=== PATIENT | female | born 1950 | race Caucasian/White ===

== ENCOUNTER → 2018-09-18 | Outpatient (CLI) | payer MEDICARE ==
--- NOTE | 2018-09-18 10:43 | XR ---
EXAMINATION TYPE: XR chest 2V DATE OF EXAM: 09/18/2018 COMPARISON: NONE HISTORY: Routine examination TECHNIQUE: Frontal and lateral views of the chest are obtained. FINDINGS: There is no focal air space opacity, pleural effusion, or pneumothorax seen. Colonic inte rposition appears to be deep to the right hemidiaphragm as there is a thickened interface representin g the colonic wall and hemidiaphragm abutting one another. The cardiac silhouette size is upper limit s of normal. The osseous structures are intact. IMPRESSION: No acute cardiopulmonary process.
== END | disposition home or self-care (01) ==
LOC: RADXRYALE 09:57
PROVIDERS: ATTEND Family Medicine
DX: R06.00 Dyspnea, unspecified (principal)
CPT/HCPCS: 71046

== ENCOUNTER 2020-09-20 07:49 | Day surgery (SDC) | payer MEDICARE ==
[2020-09-16 12:18] VITALS: BMI 28.8
[~2020-09-20 07:49] MED LIST: ACETAMINOPHEN TAB 500 MG TAB PO PRN; DEXAMETHASONE SOD PHOSPHATE 4 MG/ML 1 ML VIAL IV ONE; HEPARIN SODIUM,PORCINE/PF 5,000 UNIT/0.5 ML SYRINGE SQ PRN; HYDROmorphone 0.5 MG/0.5 ML SYRINGE IVP PRN; LACTATED RINGERS 1,000 ML IV SCH; MIDAZOLAM 2 MG/2 ML VIAL IV PRN; ONDANSETRON 4 MG/2 ML VIAL IVP ONE
[2020-09-20 08:20] LABS: Glucose,Whole Blood 212 mg/dL (75-99)
[2020-09-20] MEDS ORDERED: SODIUM CHLORIDE 0.9% 500 ML 500 ML IV ONE (08:26)
[2020-09-20] MEDS ORDERED: LIDOCAINE 1% (10MG/ML) FOR IV START INTRADERMA ONE (08:27)
--- NOTE | 2020-09-20 08:55 | P.GSHP ---
History of Present Illness H&P Date: 09/20/20 Chief Complaint: Malfunctioning peritoneal dialysis catheter Patient or today for peritoneal dialysis catheter removal. Patient had catheter placed and then revised on 2 separate occasions at an outside institution. Despite that the patient never was able to have successful exchanges. Here today for peritoneal dialysis catheter removal. No fevers. No abdominal pain. Past Medical History Past Medical History: Asthma, Coronary Artery Disease (CAD), Chest Pain / Angina, Heart Failure, COPD, Diabetes Mellitus, Eye Disorder, Osteoarthritis (OA), Renal Disease Additional Past Medical History / Comment(s): CURRENTLY ON HEMODIALYSIS ,,, [facility]. L4, L5 and C6 disc degeneration. Stage 4 kidney disease. Rt great toe wound infection recurrent. Macular Degeneration. History of Any Multi-Drug Resistant Organisms: None Reported Past Surgical History: Adenoidectomy, Appendectomy, Section, Heart Catheterization, Heart Catheterization With Stent, Hysterectomy, Tonsillectomy Additional Past Surgical History / Comment(s): Vein ligation right leg, catarcts removed bilaterally. Past Anesthesia/Blood Transfusion Reactions: No Reported Reaction Date of Last Stent Placement:: FEBRUARY 2016, SAYDA PINEDA Smoking Status: Former smoker - Past Family History Mother Family Medical History: Diabetes Mellitus, Hypertension Father Family Medical History: Diabetes Mellitus, Hypertension Medications and Allergies Home Medications Medication Instructions Recorded Confirmed Type Albuterol Sulfate [Proair Hfa] 1 - 2 puff INHALATION Q6HR PRN 09/13/15 09/20/20 History Beclomethasone Dipropionate [Qvar 2 puff INHALATION BID PRN 09/13/15 09/20/20 History 40 mcg/puff] Citalopram Hydrobromide [CeleXA] 20 mg PO QAM 09/13/15 09/20/20 History Furosemide [Lasix] 80 mg PO QAM 09/13/15 09/20/20 History Insulin Glargine [Lantus] 30 unit SQ HS 09/13/15 09/20/20 History Insulin Lispro [humaLOG] 0 units SQ AC-TID PRN 09/13/15 09/20/20 History Isosorbide Mononitrate [Imdur] 20 mg PO BID 09/13/15 09/16/20 History Pravastatin Sodium [Pravachol] 40 mg PO HS 09/13/15 09/20/20 History Vits A,C,E/Lutein/Minerals 2 tab PO DAILY 09/13/15 09/20/20 History [Ocuvite with Lutein Tablet] Clopidogrel [Plavix] 75 mg PO DAILY 07/22/20 09/16/20 History HYDROcodone/APAP 7.5-325MG [[place] 1 tab PO Q8H PRN 07/22/20 09/20/20 History 7.5-325] INSULIN LISPRO (HumaLOG) [humaLOG] 20 unit SQ HS 07/22/20 09/20/20 History Losartan [Cozaar] 50 mg PO PC-SUPPER PRN 07/22/20 09/20/20 History Metoprolol Tartrate [Lopressor] 100 mg PO BID 07/22/20 09/16/20 History Allergies Allergy/AdvReac Type Severity Reaction Status Date / Time No Known Allergies Allergy Verified 09/16/20 12:07 Surgical - Exam Vital Signs Temp Pulse Resp BP Pulse Ox 98.8 F 63 16 144/72 98 09/20/20 08:09 09/20/20 08:09 09/20/20 08:09 09/20/20 08:09 09/20/20 08:09 Physical exam: General: Well-developed, well-nourished HEENT: Normocephalic, sclerae nonicteric Abdomen: Nontender, nondistended, catheter luq Extremities: No edema Neuro: Alert and oriented Results - Labs Abnormal Lab Results - Last 24 Hours (Table) 09/20/20 Range/Units 08:17 POC Glucose (mg/dL) 212 H (75-99) mg/dL Assessment and Plan (1) Peritoneal dialysis catheter dysfunction Narrative/Plan: will proceed with removal Current Visit: Yes Status: Acute Code(s): T85.611A - BREAKDOWN OF INTRAPERITONEAL DIALYSIS CATHETER, INIT SNOMED Code(s): 486305548
[2020-09-20] MEDS ORDERED: BUPIVACAIN-EPI 0.25%-1:200,000 30 ML VIAL SQ ONE ×3 (09:00→09:06)
[2020-09-20] MEDS ORDERED: LIDOCAINE 1% INJ 10MG/ML (20 ML MDV) ONE (09:06)
[2020-09-20] MEDS ORDERED: MIDAZOLAM 2 MG/2 ML VIAL ONE (09:06)
[2020-09-20] MEDS ORDERED: ePHEDrine SULFATE/0.9% NACL/PF 50 MG/5 ML SYRINGE IV ONE (09:06)
[2020-09-20] MEDS ORDERED: PROPOFOL 10 MG/ML 20 ML VIAL IV ONE (09:06)
[2020-09-20] MEDS ORDERED: BUPIVACAIN-EPI 0.5%-1:200,000 30 ML VIAL SQ ONE (09:06)
[2020-09-20] MEDS ORDERED: fentaNYL (PF) 50 MCG/ML 2 ML AMP ONE (09:06)
[2020-09-20] MEDS ORDERED: NALOXONE 0.4 MG/ML 1 ML VIAL IV PRN (09:47)
[2020-09-20] MEDS ORDERED: HYDROcodone/APAP 5-325MG 1 EACH TAB PO PRN (09:47)
--- NOTE | 2020-09-20 09:50 | P.OP ---
Date of Procedure: 09/20/20 Procedure(s) Performed: PREOPERATIVE DIAGNOSIS: Peritoneal dialysis catheter malfunction POSTOPERATIVE DIAGNOSIS: Same with purulent fluid around the catheter PROCEDURE: PD cath removal SURGEON: Quyen EBL: 5 mL ANESTHESIA: General COMPLICATIONS: None OPERATIVE PROCEDURE: Patient was placed in the supine position. The abdomen was prepped and draped in usual sterile fashion. An vertical incision was made overlying the palpable catheter site in the left upper quadrant. As I dissected through the subcutaneous tissues the cuff was noted to be present within the subcutaneous fat. This was carefully dissected. In doing so a moderate amount of purulent fluid was encountered. Cultures were taken. The catheter was then removed from the peritoneal cavity without difficulty. The defect was quite small and given the purulent fluid that I encountered I decided not to leave a fascial suture. The outer cuff was then dissected in a similar fashion and the catheter was completely removed. The area was fully irrigated. No further purulence was seen. I loosely reapproximated both the skin and the subcutaneous tissues using 3-0 Vicryl and 4-0 Monocryl sutures. Sterile outer dressings were applied. DISPOSITION: Stable to recovery room
[2020-09-20 10:02] VITALS: TEMP 98
[2020-09-20 10:16] LABS: Glucose,Whole Blood 144 mg/dL (75-99)
[2020-09-20 11:18] VITALS: RESP 20
[2020-09-20 11:34] VITALS: BP 120/58; PULSE 61
== END 2020-09-20 12:15 | disposition home or self-care (01) ==
LOC: OR 07:49
PROVIDERS: ATTEND Surgery
DX: T85.611A Breakdown (mechanical) of intraperitoneal dialysis catheter, initial encounter (principal); E11.22 Type 2 diabetes mellitus with diabetic chronic kidney disease; I13.2 Hypertensive heart and chronic kidney disease with heart failure and with stage 5 chronic kidney disease, or end stage renal disease; I50.9 Heart failure, unspecified; N18.6 End stage renal disease; I25.119 Atherosclerotic heart disease of native coronary artery with unspecified angina pectoris; J45.909 Unspecified asthma, uncomplicated; J44.9 Chronic obstructive pulmonary disease, unspecified; M19.90 Unspecified osteoarthritis, unspecified site; Z99.2 Dependence on renal dialysis; M50.323 Other cervical disc degeneration at C6-C7 level; M51.36 Other intervertebral disc degeneration, lumbar region; H35.30 Unspecified macular degeneration; Z90.89 Acquired absence of other organs; Z90.49 Acquired absence of other specified parts of digestive tract; Z98.891 History of uterine scar from previous surgery; Z90.710 Acquired absence of both cervix and uterus; Z98.890 Other specified postprocedural states; Z98.42 Cataract extraction status, left eye; Z98.41 Cataract extraction status, right eye; Z87.891 Personal history of nicotine dependence; Z83.3 Family history of diabetes mellitus; Z82.49 Family history of ischemic heart disease and other diseases of the circulatory system; Z79.4 Long term (current) use of insulin; Z79.899 Other long term (current) drug therapy; Z79.02 Long term (current) use of antithrombotics/antiplatelets
CPT/HCPCS: 87070; 87205; 87075; 49422; J2250; J1100; J0690; J2405; J2001; J3010; J2704; J1644

== ENCOUNTER 2020-09-29 11:26 | Day surgery (SDC) | payer MEDICARE ==
[2020-09-27 13:27] VITALS: BMI 28.8
[~2020-09-29 11:26] MED LIST changes: -ACETAMINOPHEN TAB 500 MG TAB PO PRN; -DEXAMETHASONE SOD PHOSPHATE 4 MG/ML 1 ML VIAL IV ONE; -HEPARIN SODIUM,PORCINE/PF 5,000 UNIT/0.5 ML SYRINGE SQ PRN; +LIDOCAINE 1% (10MG/ML) FOR IV START INTRADERMA PRN; -MIDAZOLAM 2 MG/2 ML VIAL IV PRN; -ONDANSETRON 4 MG/2 ML VIAL IVP ONE; +ONDANSETRON 4 MG/2 ML VIAL IVP PRN
[2020-09-29 12:10] LABS: Glucose,Whole Blood 83 mg/dL (75-99)
[2020-09-29 12:24] VITALS: RESP 16; TEMP 98.8
[2020-09-29] MEDS ORDERED: MIDAZOLAM 2 MG/2 ML VIAL IV ONE (12:44)
[2020-09-29] MEDS ORDERED: MIDAZOLAM 2 MG/2 ML VIAL IVP ONE (13:27)
[2020-09-29 13:40] LABS: Glucose,Whole Blood 63 mg/dL (75-99)
[2020-09-29] MEDS ORDERED: DEXTROSE 50% SYRINGE 50 ML IVP ONE (13:42)
[2020-09-29] MEDS ORDERED: PROPOFOL 10 MG/ML 20 ML VIAL IV ONE (13:44)
[2020-09-29] MEDS ORDERED: MIDAZOLAM 2 MG/2 ML VIAL ONE (13:44)
[2020-09-29] MEDS ORDERED: fentaNYL (PF) 50 MCG/ML 2 ML AMP ONE (13:44)
[2020-09-29] MEDS ORDERED: ROPIVACAINE 5 MG/ML 30 ML VIAL ONE (13:44)
[2020-09-29] MEDS ORDERED: HEPARIN SODIUM,PORCINE 5,000 UNIT/ML 1 ML VIAL ONE (13:44)
[2020-09-29] MEDS ORDERED: KETAMINE 10 MG/ML 20 ML VIAL ONE (13:44)
--- NOTE | 2020-09-29 13:47 | P.HPIHPCON ---
History of Present Illness H&P Date: 09/29/20 The patient is a 69-year-old female with end-stage renal disease receiving dialysis via a right chest wall tunneled catheter at this time she presents for left upper extremity loop forearm graft. She is found to have smaller caliber vessels and upper extremity therefore hopefully this will increase her sizing and allow for a fistula in the future. She denies any fevers, chills, nausea, vomiting or issues otherwise. She receives dialysis Sunday, and Sunday. Consent for Procedure: I have explained the operation/procedure to the patient, including the risks, benefits, side effects, alternative therapies (including not receiving the proposed treatment or service), the likelihood of the patient achieving his/her goals, and potential recuperation problems for the procedure/sedation/analgesia, as well as any blood products, if indicated. I also explained to the patient the risks, benefits and side effects of the alternatives, as well as the risks relat ed to not receiving the proposed procedure, care, treatment, or services. Past Medical History Past Medical History: Asthma, Coronary Artery Disease (CAD), Chest Pain / Angina, Heart Failure, COPD, Diabetes Mellitus, Eye Disorder, Hyperlipidemia, Hypertension, Osteoarthritis (OA), Renal Disease Additional Past Medical History / Comment(s): Peritoneal dialysis catheter removed -receives HEMODIALYSIS ,[place] @ [facility] THROUGH RIGHT UPPER CHEST CATHETER., DDD-L4, L5 and C6 ., Stage 4 kidney disease. Rt great toe wound infection recurrent., Macular Degeneration. History of Any Multi-Drug Resistant Organisms: None Reported Past Surgical History: Adenoidectomy, Appendectomy, Section, Heart Catheterization, Heart Catheterization With Stent, Hysterectomy, Tonsillectomy Additional Past Surgical History / Comment(s): Vein ligation right leg, catarcts removed bilaterally., peritoneal dialysis catheter removed. Past Anesthesia/Blood Transfusion Reactions: Postoperative Nausea & Vomiting (PONV) Date of Last Stent Placement:: FEBRUARY 2016, SAYDA PINEDA Past Psychological History: Anxiety, Depression Additional Psychological History / Comment(s): PTS SPOUSE FROM COVID AUGUST 2020 Smoking Status: Former smoker Past Alcohol Use History: None Reported Additional Past Alcohol Use History / Comment(s): QUIT SMOKING ABOUT 25 YRS AGO, SMOKED 3/4 PPD. Past Drug Use History: None Reported - Past Family History Mother Family Medical History: Diabetes Mellitus, Hypertension Father Family Medical History: Diabetes Mellitus, Hypertension Medications and Allergies Home Medications Medication Instructions Recorded Confirmed Type Albuterol Sulfate [Proair Hfa] 1 - 2 puff INHALATION Q6HR PRN 09/13/15 09/29/20 History Beclomethasone Dipropionate [Qvar 2 puff INHALATION BID PRN 09/13/15 09/29/20 History 40 mcg/puff] Citalopram Hydrobromide [CeleXA] 20 mg PO QAM 09/13/15 09/29/20 History Furosemide [Lasix] 80 mg PO QAM 09/13/15 09/29/20 History Insulin Glargine [Lantus] 30 unit SQ HS 09/13/15 09/29/20 History Insulin Lispro [humaLOG] 0 units SQ AC-TID PRN 09/13/15 09/29/20 History Isosorbide Mononitrate [Imdur] 20 mg PO BID 09/13/15 09/29/20 History Pravastatin Sodium [Pravachol] 40 mg PO HS 09/13/15 09/29/20 History Vits A,C,E/Lutein/Minerals 2 tab PO DAILY 09/13/15 09/29/20 History [Ocuvite with Lutein Tablet] Clopidogrel [Plavix] 75 mg PO DAILY 07/22/20 09/29/20 History HYDROcodone/APAP 7.5-325MG [[place] 1 tab PO Q8H PRN 07/22/20 09/29/20 History 7.5-325] INSULIN LISPRO (HumaLOG) [humaLOG] 25 unit SQ HS 07/22/20 09/29/20 History Losartan [Cozaar] 50 mg PO PC-SUPPER PRN 07/22/20 09/29/20 History Metoprolol Tartrate [Lopressor] 100 mg PO BID 07/22/20 09/29/20 History Amoxic-Pot Clav 875-125Mg 1 tab PO Q12HR 7 Days #14 tab 09/20/20 09/29/20 Rx [Augmentin 875-125] Calcium Acetate [Phoslo] 1,334 mg PO TID-W/MEALS 09/27/20 09/29/20 History Ergocalciferol [Vitamin D2 (1250 1,250 mcg PO WEEKLY 09/27/20 09/29/20 History Mcg = 53147 Iu)] Gabapentin [Neurontin] 300 mg PO BID 09/27/20 09/29/20 History hydrALAZINE HCL [Apresoline] 25 mg PO HS PRN 09/27/20 09/29/20 History Allergies Allergy/AdvReac Type Severity Reaction Status Date / Time No Known Allergies Allergy Verified 09/29/20 11:49 Surgical - Exam Vital Signs Temp Pulse Resp BP Pulse Ox 98.8 F 65 16 147/71 98 09/29/20 11:50 09/29/20 11:50 09/29/20 11:50 09/29/20 11:50 09/29/20 11:50 Gen. is a pleasant cooperative female in no acute distress. HEENT is normocephalic, atraumatic, extraocular motion intact. Heart is regular in rate and rhythm at this time. Lungs are clear bilaterally. Abdomen is soft, nontender nondistended. Extremity show no clubbing, cyanosis or edema. Right chest wall tunneled catheter in place and functioning. No erythema or drainage. Normal mood and affect. Cranial nerves II through XII grossly intact. Results - Labs 09/29/20 12:05 Abnormal Lab Results - Last 24 Hours (Table) 09/29/20 09/29/20 Range/Units 12:05 13:38 Potassium 5.6 H (3.5-5.1) mmol/L POC Glucose (mg/dL) 63 L (75-99) mg/dL Diabetes panel 09/29/20 Range/Units 12:05 Potassium 5.6 H (3.5-5.1) mmol/L Pituitary panel 09/29/20 Range/Units 12:05 Potassium 5.6 H (3.5-5.1) mmol/L Adrenal panel 09/29/20 Range/Units 12:05 Potassium 5.6 H (3.5-5.1) mmol/L Assessment and Plan Assessment: End-stage renal disease Plan: Plan to go forward with a left upper extremity loop forearm graft. Risks and benefits were discussed with the patient seemingly understands and is willing to proceed as such
[2020-09-29] MEDS ORDERED: LIDOCAINE 1% INJ 10MG/ML (20 ML MDV) SQ ONE (14:14)
[2020-09-29] MEDS ORDERED: BUPIVACAINE (PF) 0.5% 30 ML VIAL SQ ONE (14:14)
[2020-09-29] MEDS ORDERED: ceFAZolin 2 GM in SODIUM CHLORIDE 0.9% 500 ML 500 ML IRRIGATION ONE (14:27)
[2020-09-29] MEDS ORDERED: HEPARIN SODIUM,PORCINE 2,000 UNIT in SODIUM CHLORIDE 0.9% 500 ML 500 ML IRRIGATION ONE (14:27)
[2020-09-29 15:51] LABS: Glucose,Whole Blood 98 mg/dL (75-99)
[2020-09-29 16:07] VITALS: PULSE 66
--- NOTE | 2020-09-29 16:14 | P.OP ---
Date of Procedure: 09/29/20 Description of Procedure: Preoperative diagnosis: End-stage renal disease Postoperative diagnosis: Same Procedure: [Left upper extremity creation of loop AV graft] Surgeon: Virginie Maher D.O. EBL: [30 mL] Anesthesia: MAC with regional block IV fluids: [See anesthesia records] Urine output: [Not measured] Drains: None[] Complications: [None immediately apparent] Condition: [Stable to PACU] Operative indication and findings: [The patient is a 69-year-old female with end-stage renal disease who presents for dialysis access creation. Given her marginal size upper extremity veins it was decided that a loop forearm graft would be created. She is currently getting dialysis through a right chest wall catheter. She had dialysis yesterday. Some benefits were discussed with the patient the preoperative period. She seemingly understood and was willing to proceed.] Procedure in detail: [The patient was taken to the operative suite and placed in supine position. Left upper extremity was prepped and draped in usual sterile fashion. A preprocedure timeout was performed, all parties are in agreement. After adequate anesthesia and antibiotics were given, an ultrasound was utilized in the brachial artery and superficial veins were identified. This overlying the brachial artery to median cubital vein was identified and found to be adequate on ultrasound. A transverse incision was made just distally to the antecubital fossa and carried down through the subcutaneous tissues. The median cubital vein was identified. It was encircled proximally and distally. Further dissection was carried down to the brachial artery. It was dissected proximally and distally and encircled with vessel loops. At that point the graft was tunneled with a counterincision distally in the forearm. The patient was heparinized. Flow was occluded through the brachial artery and an arteriotomy is created. The 4 mm portion of the graft was anastomosed with 6-0 Prolene. Prior to completion of the anastomosis the artery was flushed with good return. The anastomosis completed. The graft was flushed with heparinized saline and occluded at the counterincision. A venotomy was then created and anastomosis was performed with 6-0 Prolene. Prior to completion of the anastomosis the vein was allowed to backbleed. The arteries forward bled and the anastomosis was completed. Doppler was utilized with good multiphasic flow.There was a thrill n the graft with good augmentation. She maintained a palpble radial pulse. Hemostasis was achieved with Surgicel. The area was copiously irrigated. The subcuticular tissues were reapproximated with 3-0 Vicryl in interrupted fashion. The skin was reapproximated with running 4-0 Monocryl. Glue was placed. The patient was awakened from anesthesia and transferred to PACU in stable condition and tolerated the procedure well. Plan - Discharge Summary New Discharge Prescriptions: New HYDROcodone/APAP 5-325MG [[place] 5-325] 1 tab PO Q4HR PRN 3 Days #12 tab PRN Reason: Pain No Action Insulin Glargine [Lantus] 30 unit SQ HS Vits A,C,E/Lutein/Minerals [Ocuvite with Lutein Tablet] 2 tab PO DAILY Albuterol Sulfate [Proair Hfa] 1 - 2 puff INHALATION Q6HR PRN PRN Reason: Dyspnea Beclomethasone Dipropionate [Qvar 40 mcg/puff] 2 puff INHALATION BID PRN PRN Reason: Shortness Of Breath Or Wheezing Citalopram Hydrobromide [CeleXA] 20 mg PO QAM Pravastatin Sodium [Pravachol] 40 mg PO HS Furosemide [Lasix] 80 mg PO QAM Isosorbide Mononitrate [Imdur] 20 mg PO BID Insulin Lispro [humaLOG] 0 units SQ AC-TID PRN PRN Reason: Per Protocol Clopidogrel [Plavix] 75 mg PO DAILY HYDROcodone/APAP 7.5-325MG [[place] 7.5-325] 1 tab PO Q8H PRN PRN Reason: BACK PAIN INSULIN LISPRO (HumaLOG) [humaLOG] 25 unit SQ HS Losartan [Cozaar] 50 mg PO PC-SUPPER PRN PRN Reason: bp above 170 Metoprolol Tartrate [Lopressor] 100 mg PO BID Gabapentin [Neurontin] 300 mg PO BID Ergocalciferol [Vitamin D2 (1250 Mcg = 93762 Iu)] 1,250 mcg PO WEEKLY Amoxic-Pot Clav 875-125Mg [Augmentin 875-125] 1 tab PO Q12HR 7 Days #14 tab hydrALAZINE HCL [Apresoline] 25 mg PO HS PRN PRN Reason: bp above 170 Calcium Acetate [Phoslo] 1,334 mg PO TID-W/MEALS Discharge Medication List Albuterol Sulfate [Proair Hfa] 1 - 2 puff INHALATION Q6HR PRN 09/13/15 [History] Beclomethasone Dipropionate [Qvar 40 mcg/puff] 2 puff INHALATION BID PRN 09/13/15 [History] Citalopram Hydrobromide [CeleXA] 20 mg PO QAM 09/13/15 [History] Furosemide [Lasix] 80 mg PO QAM 09/13/15 [History] Insulin Glargine [Lantus] 30 unit SQ HS 09/13/15 [History] Insulin Lispro [humaLOG] 0 units SQ AC-TID PRN 09/13/15 [History] Isosorbide Mononitrate [Imdur] 20 mg PO BID 09/13/15 [History] Pravastatin Sodium [Pravachol] 40 mg PO HS 09/13/15 [History] Vits A,C,E/Lutein/Minerals [Ocuvite with Lutein Tablet] 2 tab PO DAILY 09/13/15 [History] Clopidogrel [Plavix] 75 mg PO DAILY 07/22/20 [History] HYDROcodone/APAP 7.5-325MG [[place] 7.5-325] 1 tab PO Q8H PRN 07/22/20 [History] INSULIN LISPRO (HumaLOG) [humaLOG] 25 unit SQ HS 07/22/20 [History] Losartan [Cozaar] 50 mg PO PC-SUPPER PRN 07/22/20 [History] Metoprolol Tartrate [Lopressor] 100 mg PO BID 07/22/20 [History] Amoxic-Pot Clav 875-125Mg [Augmentin 875-125] 1 tab PO Q12HR 7 Days #14 tab 09/20/20 [Rx] Calcium Acetate [Phoslo] 1,334 mg PO TID-W/MEALS 09/27/20 [History] Ergocalciferol [Vitamin D2 (1250 Mcg = 02337 Iu)] 1,250 mcg PO WEEKLY 09/27/20 [History] Gabapentin [Neurontin] 300 mg PO BID 09/27/20 [History] hydrALAZINE HCL [Apresoline] 25 mg PO HS PRN 09/27/20 [History] HYDROcodone/APAP 5-325MG [[place] 5-325] 1 tab PO Q4HR PRN 3 Days #12 tab 09/29/20 [Rx] Activity/Diet/Wound Care/Special Instructions: Remove wrap in 48h. May shower then. Resume home medications including plavix tomorrow. Follow up with me in the office in 2 weeks Discharge Disposition: HOME SELF-CARE
[2020-09-29 16:34] VITALS: BP 106/58
== END 2020-09-29 17:05 | disposition home or self-care (01) ==
LOC: OR 11:26
PROVIDERS: ATTEND Surgery
DX: I13.2 Hypertensive heart and chronic kidney disease with heart failure and with stage 5 chronic kidney disease, or end stage renal disease (principal); I50.9 Heart failure, unspecified; N18.6 End stage renal disease; E11.22 Type 2 diabetes mellitus with diabetic chronic kidney disease; Z99.2 Dependence on renal dialysis; I25.10 Atherosclerotic heart disease of native coronary artery without angina pectoris; J44.9 Chronic obstructive pulmonary disease, unspecified; E78.5 Hyperlipidemia, unspecified; M19.90 Unspecified osteoarthritis, unspecified site; H35.30 Unspecified macular degeneration; Z90.89 Acquired absence of other organs; Z98.891 History of uterine scar from previous surgery; Z95.5 Presence of coronary angioplasty implant and graft; Z90.710 Acquired absence of both cervix and uterus; Z98.42 Cataract extraction status, left eye; Z98.41 Cataract extraction status, right eye; Z87.891 Personal history of nicotine dependence; Z83.3 Family history of diabetes mellitus; Z82.49 Family history of ischemic heart disease and other diseases of the circulatory system; Z79.02 Long term (current) use of antithrombotics/antiplatelets; Z79.4 Long term (current) use of insulin; Z79.899 Other long term (current) drug therapy
CPT/HCPCS: 36830; 84132; L8670; J2250; J1644; J0690; J2405; J2001; J3010; J2795; J2704; 64415; 76942

== ENCOUNTER → 2020-11-22 | Outpatient (CLI) | payer MEDICARE ==
--- NOTE | 2020-11-22 12:57 | XR ---
EXAMINATION TYPE: XR forearm LT DATE OF EXAM: 11/22/2020 CLINICAL HISTORY: Fistula, arm swelling which meet TECHNIQUE: Two views of the left forearm are obtained. COMPARISON: None. FINDINGS: There is no acute fracture or dislocation seen in the left radius or ulna. There is soft t issue swelling of the left forearm with a fistula in place. Please correlate for possible infection. IMPRESSION: There is soft tissue swelling of the left forearm with a fistula in place. Please correlate for possi ble infection.
== END | disposition home or self-care (01) ==
LOC: RADXRYALE 10:35
PROVIDERS: ATTEND Family Medicine
DX: M79.89 Other specified soft tissue disorders (principal)

== ENCOUNTER → 2021-01-12 | Outpatient (CLI) | payer MEDICARE ==
--- NOTE | 2021-01-12 14:52 | XR ---
EXAMINATION TYPE: XR knee complete bilateral DATE OF EXAM: 01/12/2021 CLINICAL HISTORY: pain TECHNIQUE: Three views of the bilateral knees are obtained. COMPARISON: None. FINDINGS: There is no acute fracture/dislocation. The tri-compartment joint spaces appear moderatel y narrowed on the right and severely narrowed on the left. The overlying soft tissue appears unremark able. IMPRESSION: There is no acute fracture or dislocation ICD 10 NO FRACTURE, INITIAL EVALUATION
== END | disposition home or self-care (01) ==
LOC: RADXRYALE 14:25
PROVIDERS: ATTEND Family Medicine
DX: M25.561 Pain in right knee (principal); M25.562 Pain in left knee

== ENCOUNTER → 2021-08-15 | Outpatient (CLI) | payer OTHER, MEDICARE ==
--- NOTE | 2021-08-15 10:41 | XR ---
EXAMINATION TYPE: XR chest 2V DATE OF EXAM: 08/15/2021 COMPARISON: 09/18/18 HISTORY: Shortness of breath TECHNIQUE: Frontal and lateral views of the chest are obtained. FINDINGS: Scattered senescent parenchymal changes noted. Hyperinflation compatible with COPD. No evidence for infiltrate. No evidence for atelectasis. Heart size is stable. Mediastinal structures are stable and grossly unremarkable. No evidence for hilar prominence. Degenerative changes dorsal spine. IMPRESSION: 1. No evidence for acute pulmonary disease.
== END | disposition home or self-care (01) ==
LOC: RADXRYALE 10:02
PROVIDERS: ATTEND Surgery
DX: R06.02 Shortness of breath (principal); Z76.82 Awaiting organ transplant status
CPT/HCPCS: 71046

== ENCOUNTER → 2021-12-19 | Outpatient (CLI) | payer MEDICARE ==
--- NOTE | 2021-12-19 18:09 | XR ---
EXAMINATION TYPE: XR cervical spine 4 views comp, XR shoulder complete 3 views RT DATE OF EXAM: 12/19/2021 COMPARISON: None HISTORY: 71-year-old female [id number], [id number], [id number] PAIN/INFLAM RT SHLD, HX RT SHLD FINDINGS: Cervical spine: Uncovertebral joint and facet arthropathy mid to lower cervical spine. Mild to moderate facet simply degenerative change C4-C7 levels. Variable mild bony neuroforaminal narrowing throughout. The cervico thoracic junction is obscured by the patient's shoulders and not assessed. Right shoulder: Severe degenerative change at the glenohumeral joint with [id number] articulation. Bulky anterior s purring is present. Bony irregularity at the greater tuberosity. AC joint appears intact. Subacromial space is preserved. No acute fracture or dislocation. IMPRESSION: 1. Cervical spine: Moderate spondylotic change mid to lower cervical spine. The cervicothoracic junct ion is obscured by the patient's shoulders and not assessed. Otherwise, remaining alignment is mainta ined. Very mild bony neural foraminal narrowing on both sides. 2. Right shoulder: End-stage [id number] right glenohumeral joint OA. Bony changes of chronic rotato r cuff tendinopathy.
== END ==
LOC: RADXRYALE 14:33
PROVIDERS: ATTEND Family Medicine
DX: M47.812 Spondylosis without myelopathy or radiculopathy, cervical region (principal); M19.011 Primary osteoarthritis, right shoulder; M99.71 Connective tissue and disc stenosis of intervertebral foramina of cervical region; Z87.81 Personal history of (healed) traumatic fracture
CPT/HCPCS: 72050

== ENCOUNTER 2022-04-27 12:37 | Inpatient (IN) | payer MEDICARE ==
[2022-04-27] MEDS ORDERED: LABETALOL SYRINGE 5 MG/ML IVP STA (12:39)
[2022-04-27 12:54] LABS: Glucose,Whole Blood 104 mg/dL (70-110)
[2022-04-27] MEDS ORDERED: SUCCINYLCHOLINE CHLORIDE 200 MG/10 ML VIAL IV STA (13:05)
[2022-04-27] MEDS ORDERED: MIDAZOLAM 1 MG/ML 5 ML VIAL IV STA (13:05)
--- NOTE | 2022-04-27 13:26 | ED ---
Neuro HPI - General Chief Complaint: Neuro Symptoms/Deficit Stated Complaint: Unresponsive Time Seen by Provider: 04/27/22 12:37 Source: patient, RN notes reviewed Mode of arrival: EMS Limitations: altered mental status, physical limitation - History of Present Illness Is the patient presenting with stroke symptoms?: Yes Initial Comments: 71-year-old female with history of end-stage renal disease on dialysis hypertension type 2 diabetes CHF COPD who did not show up for her dialysis this morning and police was out for a well check. He did have to break into the house. Patient does live alone. Patient was not responsive. She was transported here by EMS she was found have a GCS of approximately 6 she did demonstrate apparently some right-sided facial droop as well as apparent corticated posturing. Patient was unable answer any type of questioning. Glucose was adequate. She was found be hypertensive. No other information available her last known well time was unknown. No known prior history of strokes. No known history of seizures. - Related Data Home Medications: Home Medications Medication Instructions Recorded Confirmed Albuterol Sulfate [Proair Hfa] 1 - 2 puff INHALATION Q6HR PRN 09/13/15 09/29/20 Pravastatin Sodium [Pravachol] 40 mg PO HS 09/13/15 09/29/20 Clopidogrel [Plavix] 75 mg PO DAILY 07/22/20 09/29/20 HYDROcodone/APAP 7.5-325MG [[place] 1 tab PO Q8H PRN 07/22/20 09/29/20 7.5-325] Metoprolol Tartrate [Lopressor] 100 mg PO BID 07/22/20 09/29/20 Calcium Acetate [Phoslo] 1,334 mg PO TID-W/MEALS 09/27/20 09/29/20 Ergocalciferol [Vitamin D2 (1250 1,250 mcg PO WEEKLY 09/27/20 09/29/20 Mcg = 19668 Iu)] Gabapentin [Neurontin] 300 mg PO BID 09/27/20 09/29/20 hydrALAZINE HCL [Apresoline] 25 mg PO HS PRN 09/27/20 09/29/20 DULoxetine HCL [Cymbalta] 60 mg PO DAILY 04/27/22 04/27/22 Doxycycline Hyclate 100 mg PO DIRECTED 04/27/22 04/27/22 Furosemide [Lasix] 80 mg PO DAILY 04/27/22 04/27/22 Insulin Glargine,Hum.rec.anlog 40 - 50 units SQ DAILY 04/27/22 04/27/22 [Lantus Solostar Pen] Insulin Lispro [humaLOG Kwikpen] 0 - 30 unit SQ AC-TID 04/27/22 04/27/22 Isosorbide Dinitrate 10 mg PO BID 04/27/22 04/27/22 Lidocaine-Prilocaine Cream [Emla 1 applic TOPICAL DAILY PRN 04/27/22 04/27/22 Cream 2.5%/2.5%] Montelukast [Singulair] 10 mg PO DAILY 04/27/22 04/27/22 Nephro-Chelsey 1 tab PO DAILY 04/27/22 04/27/22 Sevelamer [Renvela] 1,600 mg PO TID-W/MEALS 04/27/22 04/27/22 Triamcinolone 0.025% Cream 1 applic TOPICAL BID PRN 04/27/22 04/27/22 [Kenalog 0.025% Cream] predniSONE 10 mg PO DIRECTED 04/27/22 04/27/22 Allergies/Adverse Reactions: Allergies Allergy/AdvReac Type Severity Reaction Status Date / Time No Known Allergies Allergy Verified 09/29/20 11:49 Review of Systems ROS Statement: Those systems with pertinent positive or pertinent negative responses have been documented in the HPI. ROS Other: All systems not noted in ROS Statement are negative. Limitations: ROS unobtainable due to patients medical condition General Exam - General Exam Comments Initial Comments: This is a well-developed well-nourished unresponsive female who does groan she is coughing with green colored phlegm noted. Unclear whether she aspirated. Limitations: altered mental status, physical limitation General appearance: obtunded Head exam: Present: atraumatic, normocephalic, normal inspection Eye exam: Present: normal appearance, PERRL, EOMI. Absent: scleral icterus, conjunctival injection, periorbital swelling ENT exam: Present: other (Mucus noted in the posterior pharynx) Neck exam: Present: normal inspection, other Respiratory exam: Present: decreased breath sounds (Given her bruits) Cardiovascular Exam: Present: regular rate, normal rhythm, normal heart sounds. Absent: systolic murmur, diastolic murmur, rubs, gallop, clicks GI/Abdominal exam: Present: soft. Absent: bruit, pulsatile mass Rectal exam: Present: deferred Extremities exam: Present: pedal edema, other (Evidence of decorticate posturing) Neurological exam: Present: altered, motor sensory deficit, other (Patient was noted to be moaning and clenching her teeth). Absent: CN II-XII intact Psychiatric exam: Present: other (Unable to evaluate) Skin exam: Present: warm, dry, intact, normal color. Absent: rash Stroke MDM - Lab Data Result diagrams: 04/27/22 13:14 04/27/22 13:14 Lab Results 04/27/22 04/27/22 04/27/22 Range/Units 12:52 13:14 13:14 WBC 17.3 H (3.8-10.6) k/uL RBC 4.11 (3.80-5.40) m/uL Hgb 12.3 (11.4-16.0) gm/dL Hct 38.4 (34.0-46.0) % MCV 93.3 (80.0-100.0) fL MCH 29.8 (25.0-35.0) pg MCHC 31.9 (31.0-37.0) g/dL RDW 14.8 (11.5-15.5) % Plt Count 516 H (150-450) k/uL MPV 7.4 Neutrophils % 90 % Lymphocytes % 6 % Monocytes % 3 % Eosinophils % 0 % Basophils % 1 % Neutrophils # 15.5 H (1.3-7.7) k/uL Lymphocytes # 1.0 (1.0-4.8) k/uL Monocytes # 0.5 (0-1.0) k/uL Eosinophils # 0.0 (0-0.7) k/uL Basophils # 0.1 (0-0.2) k/uL Hypochromasia Moderate PT 9.5 (9.0-12.0) sec INR 0.9 (<1.2) APTT 21.0 L (22.0-30.0) sec Sodium (137-145) mmol/L Potassium (3.5-5.1) mmol/L Chloride (98-107) mmol/L Carbon Dioxide (22-30) mmol/L Anion Gap mmol/L BUN (7-17) mg/dL Creatinine (0.52-1.04) mg/dL Est GFR (CKD-EPI)AfAm (>60 ml/min/1.73 sqM) Est GFR (CKD-EPI)NonAf (>60 ml/min/1.73 sqM) Glucose (74-99) mg/dL POC Glucose (mg/dL) 104 (70-110) mg/dL POC Glu Binder Chainstitch ID Andrea Mclaughlin Plasma Lactic Acid [place] (0.7-2.0) mmol/L Calcium (8.4-10.2) mg/dL Total Bilirubin (0.2-1.3) mg/dL AST (14-36) U/L ALT (4-34) U/L Alkaline Phosphatase (38-126) U/L Troponin I (0.000-0.034) ng/mL Total Protein (6.3-8.2) g/dL Albumin (3.5-5.0) g/dL Urine Color Urine Appearance (Clear) Urine pH (5.0-8.0) Ur Specific [place] (1.001-1.035) Urine Protein (Negative) Urine Glucose (UA) (Negative) Urine Ketones (Negative) Urine Blood (Negative) Urine Nitrite (Negative) Urine Bilirubin (Negative) Urine Urobilinogen (<2.0) mg/dL Ur Leukocyte Esterase (Negative) Urine RBC (0-5) /hpf Urine WBC (0-5) /hpf Ur Squamous Epith Cells (0-4) /hpf Urine Bacteria (None) /hpf Urine Mucus (None) /hpf 04/27/22 04/27/22 04/27/22 Range/Units 13:14 13:14 13:20 WBC (3.8-10.6) k/uL RBC (3.80-5.40) m/uL Hgb (11.4-16.0) gm/dL Hct (34.0-46.0) % MCV (80.0-100.0) fL MCH (25.0-35.0) pg MCHC (31.0-37.0) g/dL RDW (11.5-15.5) % Plt Count (150-450) k/uL MPV Neutrophils % % Lymphocytes % % Monocytes % % Eosinophils % % Basophils % % Neutrophils # (1.3-7.7) k/uL Lymphocytes # (1.0-4.8) k/uL Monocytes # (0-1.0) k/uL Eosinophils # (0-0.7) k/uL Basophils # (0-0.2) k/uL Hypochromasia PT (9.0-12.0) sec INR (<1.2) APTT (22.0-30.0) sec Sodium 136 L (137-145) mmol/L Potassium 5.4 H (3.5-5.1) mmol/L Chloride 97 L (98-107) mmol/L Carbon Dioxide 26 (22-30) mmol/L Anion Gap 13 mmol/L BUN 44 H (7-17) mg/dL Creatinine 6.03 H (0.52-1.04) mg/dL Est GFR (CKD-EPI)AfAm 8 (>60 ml/min/1.73 sqM) Est GFR (CKD-EPI)NonAf 7 (>60 ml/min/1.73 sqM) Glucose 123 H (74-99) mg/dL POC Glucose (mg/dL) (70-110) mg/dL POC Glu Binder Chainstitch ID Plasma Lactic Acid [place] 1.4 (0.7-2.0) mmol/L Calcium 8.8 (8.4-10.2) mg/dL Total Bilirubin 0.7 (0.2-1.3) mg/dL AST 22 (14-36) U/L ALT 18 (4-34) U/L Alkaline Phosphatase 93 (38-126) U/L Troponin I 0.107 H* (0.000-0.034) ng/mL Total Protein 7.0 (6.3-8.2) g/dL Albumin 3.8 (3.5-5.0) g/dL Urine Color Urine Appearance (Clear) Urine pH (5.0-8.0) Ur Specific [place] (1.001-1.035) Urine Protein (Negative) Urine Glucose (UA) (Negative) Urine Ketones (Negative) Urine Blood (Negative) Urine Nitrite (Negative) Urine Bilirubin (Negative) Urine Urobilinogen (<2.0) mg/dL Ur Leukocyte Esterase (Negative) Urine RBC (0-5) /hpf Urine WBC (0-5) /hpf Ur Squamous Epith Cells (0-4) /hpf Urine Bacteria (None) /hpf Urine Mucus (None) /hpf 04/27/22 Range/Units 13:44 WBC (3.8-10.6) k/uL RBC (3.80-5.40) m/uL Hgb (11.4-16.0) gm/dL Hct (34.0-46.0) % MCV (80.0-100.0) fL MCH (25.0-35.0) pg MCHC (31.0-37.0) g/dL RDW (11.5-15.5) % Plt Count (150-450) k/uL MPV Neutrophils % % Lymphocytes % % Monocytes % % Eosinophils % % Basophils % % Neutrophils # (1.3-7.7) k/uL Lymphocytes # (1.0-4.8) k/uL Monocytes # (0-1.0) k/uL Eosinophils # (0-0.7) k/uL Basophils # (0-0.2) k/uL Hypochromasia PT (9.0-12.0) sec INR (<1.2) APTT (22.0-30.0) sec Sodium (137-145) mmol/L Potassium (3.5-5.1) mmol/L Chloride (98-107) mmol/L Carbon Dioxide (22-30) mmol/L Anion Gap mmol/L BUN (7-17) mg/dL Creatinine (0.52-1.04) mg/dL Est GFR (CKD-EPI)AfAm (>60 ml/min/1.73 sqM) Est GFR (CKD-EPI)NonAf (>60 ml/min/1.73 sqM) Glucose (74-99) mg/dL POC Glucose (mg/dL) (70-110) mg/dL POC Glu Binder Chainstitch ID Plasma Lactic Acid [place] (0.7-2.0) mmol/L Calcium (8.4-10.2) mg/dL Total Bilirubin (0.2-1.3) mg/dL AST (14-36) U/L ALT (4-34) U/L Alkaline Phosphatase (38-126) U/L Troponin I (0.000-0.034) ng/mL Total Protein (6.3-8.2) g/dL Albumin (3.5-5.0) g/dL Urine Color Light Yellow Urine Appearance Cloudy H (Clear) Urine pH 7.5 (5.0-8.0) Ur Specific [place] 1.011 (1.001-1.035) Urine Protein 3+ H (Negative) Urine Glucose (UA) Negative (Negative) Urine Ketones Negative (Negative) Urine Blood Trace H (Negative) Urine Nitrite Negative (Negative) Urine Bilirubin Negative (Negative) Urine Urobilinogen <2.0 (<2.0) mg/dL Ur Leukocyte Esterase Large H (Negative) Urine RBC 6 H (0-5) /hpf Urine WBC >182 H (0-5) /hpf Ur Squamous Epith Cells 3 (0-4) /hpf Urine Bacteria Rare H (None) /hpf Urine Mucus Rare H (None) /hpf - NIH Stroke Scale 1a. Level of Consciousness: (2) not alert, rep stimuli 1b. LOC Questions: (2) answers no questions correctly 1c. LOC Commands: (2) performs no tasks correctly 2. Best Gaze: (0) normal 3. Visual: (0) no visual loss 4. Facial Palsy: (1) minor paralysis 5a. Motor Arm Left: (2) some gravity effort 5b. Motor Arm Right: (2) some gravity effort 6a. Motor Leg Left: (2) some gravity effort 6b. Motor Leg Right: (2) some gravity effort 7. Limb Ataxia: (0) absent 8. Sensory: (0) normal 9. Best Language: (1) mild/moderate aphasia 10. Dysarthria: (0) normal 11. Extinction/Inattention: (0) no abnormality - Medical Decision Making Imaging reviewed by me no evidence of acute processes on CT but evidence of increased tone or vascular markings and x-ray aspiration is considered. I did discuss the case with Dr. Millan who did see the patient in the emergency department as well as Dr. Méndez who did see the patient for neurological evaluation. I did discuss the case with Dr. Wang. Patient will be admitted to the intensive care. It. Past Medical History Past Medical History: Asthma, Coronary Artery Disease (CAD), Chest Pain / Angina, Heart Failure, COPD, Diabetes Mellitus, Eye Disorder, Osteoarthritis (OA), Renal Disease Additional Past Medical History / Comment(s): CURRENTLY ON HEMODIALYSIS ,TH,, [facility]. L4, L5 and C6 disc degeneration. Stage 4 kidney disease. Rt great toe wound infection recurrent. Macular Degeneration. History of Any Multi-Drug Resistant Organisms: None Reported Past Surgical History: Adenoidectomy, Appendectomy, Section, Heart Catheterization, Heart Catheterization With Stent, Hysterectomy, Tonsillectomy Additional Past Surgical History / Comment(s): Vein ligation right leg, catarcts removed bilaterally. Past Anesthesia/Blood Transfusion Reactions: No Reported Reaction Date of Last Stent Placement:: FEBRUARY 2016, [facility] Past Psychological History: Depression Smoking Status: Former smoker Past Alcohol Use History: None Reported Past Drug Use History: None Reported - Past Family History Mother Family Medical History: Diabetes Mellitus, Hypertension Father Family Medical History: Diabetes Mellitus, Hypertension Course Vital Signs 04/27/22 04/27/22 04/27/22 12:47 13:10 13:25 Temperature 96.8 F L Pulse Rate 78 78 85 Respiratory 12 32 H 18 Rate Blood Pressure 184/115 189/71 223/120 O2 Sat by Pulse 89 L 100 98 Oximetry Fraction of 50 Inspired Oxygen (FIO2) 04/27/22 04/27/22 04/27/22 13:33 13:35 13:45 Temperature Pulse Rate 79 71 Respiratory 30 H 20 Rate Blood Pressure 177/91 153/77 O2 Sat by Pulse 100 100 Oximetry Fraction of 50 Inspired Oxygen (FIO2) 04/27/22 04/27/22 04/27/22 14:00 14:09 14:30 Temperature Pulse Rate 73 76 70 Respiratory 21 26 H 20 Rate Blood Pressure 133/102 136/76 132/62 O2 Sat by Pulse 100 100 100 Oximetry Fraction of Inspired Oxygen (FIO2) 04/27/22 04/27/22 15:00 15:41 Temperature Pulse Rate 68 69 Respiratory 18 18 Rate Blood Pressure 136/62 132/62 O2 Sat by Pulse 99 100 Oximetry Fraction of Inspired Oxygen (FIO2) - Reevaluation(s) Reevaluation #1: 04/27/22 13:26 The patient apparently recently had a telemedicine visit and was prescribed steroids and doxycycline. Procedures - Intubation Paralytic: Succinylcholine Mg Given: 10 Laryngoscope: fiber optic video scope Size: 4 ET Tube Size: 8 ET Tube Uncuffed: No (cuffed) Tube Secured Depth (cm): 23 Tube Secured Location: lips Tube Placement Confirmation: visualized tube passing through cords Patient Tolerated Procedure: well Intubation Complications: none, difficult intubation Additional Comments: Very anterior cords Critical Care Time Critical Care Time: Yes Total Critical Care Time: 55 Critical Care Time: Total care time includes initial presentation discussed with paramedics history physical labs x-rays multiple reevaluation the patient this does not include the intubation time. This includes discussion with multiple physicians and some admitting orders. Review of old charting was available and documentation of the above Disposition Clinical Impression: Altered mental status, Acute respiratory failure, Aspiration pneumonia, Chronic renal failure syndrome Disposition: ADMITTED IP TO THIS [facility] Condition: Critical Decision Date: 04/27/22 Decision Time: 14:00
[2022-04-27 13:29] LABS: Basophils # (A) 0.1 k/uL (0-0.2); Basophils % (A) 1 %; Eosinophils % (A) 0 %; HCT 38.4 % (34.0-46.0); HGB 12.3 gm/dL (11.4-16.0); Hypochromasia Moderate; Lymphocytes % (A) 6 %; MCH 29.8 pg (25.0-35.0); MCHC 31.9 g/dL (31.0-37.0); MCV 93.3 fL (80.0-100.0); Mean Platelet Volume 7.4; Monocytes # (A) 0.5 k/uL (0-1.0); Monocytes % (A) 3 %; Neutrophils # (A) 15.5 k/uL (1.3-7.7); Neutrophils % (A) 90 %; Platelet Count 516 k/uL (150-450); RBC 4.11 m/uL (3.80-5.40); RDW 14.8 % (11.5-15.5); WBC 17.3 k/uL (3.8-10.6)
[2022-04-27 13:41] LABS: Albumin 3.8 g/dL (3.5-5.0); Calcium 8.8 mg/dL (8.4-10.2); Total Bilirubin 0.7 mg/dL (0.2-1.3)
[2022-04-27 13:45] LABS: Potassium 5.4 mmol/L (3.5-5.1)
--- NOTE | 2022-04-27 13:56 | CT ---
EXAMINATION TYPE: CT brain wo con for TPA DATE OF EXAM: 04/27/2022 COMPARISON: None HISTORY: CODE STROKE. Found unresponsive. CT DLP: 1227.[address] of the brain was performed. The ventricles, basal cisterns and sulci overlying the cerebral convexities demonstrate mild enlargem ent. There is no evidence for intracranial hemorrhage or sulcal effacement. There is decreased attenuation about the periventricular white matter and deep white matter of both c erebral hemispheres, compatible with chronic small vessel ischemia. Differential diagnosis does inclu de demyelination. No mass effects are seen.No midline shift. Osseous calvarium is intact. If symptoms persist consider MRI. IMPRESSION: 1. Age related atrophic and chronic small vessel ischemic change without acute intracranial process s een at this time.
[2022-04-27 13:57] LABS: INR 0.9 (<1.2); Prothrombin Time 9.5 sec (9.0-12.0)
[2022-04-27 14:14] LABS: Appearance,Urine Cloudy (Clear); Bacteria,Urine Rare /hpf; Bilirubin,Urine Negative (Negative); Blood,Urine Trace (Negative); Color,Urine Light Yellow; Glucose,Urine (UA) Negative (Negative); Ketones,Urine Negative (Negative); Leukocyte Esterase,Urine Large (Negative); Mucus,Urine Rare /hpf; Nitrite,Urine Negative (Negative); PH, Urine 7.5 (5.0-8.0); Protein,Urine 3+ (Negative); RBC,Urine 6 /hpf (0-5); Specific Gravity,Urine 1.011 (1.001-1.035); Squamous Epithelial Cell,Urine 3 /hpf (0-4); Urobilinogen,Urine <2.0 mg/dL (<2.0); WBC,Urine >182 /hpf (0-5)
--- NOTE | 2022-04-27 14:15 | CT ---
EXAMINATION TYPE: CT angio head neck DATE OF EXAM: 04/27/2022 COMPARISON: None HISTORY: Neuro deficit, acute, stroke suspected CT DLP: 477.1 mGycm CONTRAST: Performed without and with IV Contrast, patient injected with 65 ml mL of Isovue 370. Combination Contrast CTA cervical carotids and [place] CTA cervical carotids with 3-D recons truction Contrast CTA of the cervical carotids was performed 3-D reconstruction imaging obtained at a separate workstation. Right carotid system: Mild plaque is seen of the right common carotid artery. There is mild plaque a lso noted at the carotid bulb and proximal ICA. No significant diameter reduction. ECA is patent. Right vertebral artery appears unremarkable. Left carotid system: Mild plaque is seen of the left common carotid artery. There is mild plaque als o noted at the carotid bulb and proximal ICA. No significant diameter reduction. ECA is patent. Lef t vertebral artery appears unremarkable. IMPRESSION: 1. No significant diameter reduction to account for the patient's symptoms. CTA [place] with 3-D reconstruction Contrast CTA of the [place] was performed 3-D reconstruction imaging obtained at a separate workstation. Vertebrobasilar system as well as intracranial portions of the internal carotid arteries and their ma bethanie tributaries are patent. I do not see evidence for sizable aneurysm or vascular malformation. Pl ease note MRI provides greater sensitivity and specificity. Visualized brain appears grossly unremar kable. IMPRESSION: 1. No significant abnormality. NASCET criteria was used in interpretation of this exam?
--- NOTE | 2022-04-27 14:16 | XR ---
EXAMINATION TYPE: XR chest 1V confirm line [facility] DATE OF EXAM: 04/27/2022 COMPARISON: 08/15/2021 HISTORY: ET tube placement TECHNIQUE: Single frontal view of the chest is obtained. FINDINGS: ET tube approximately 2 cm above tammy. NG tube seen with the tip likely at the level of gastric fundus. Heart is prominent and diffuse interstitial pattern with more nodular area of consoli dation in the periphery of the right lung. There is prominence of the right hilum No sizable pleural effusion or pneumothorax. Atherosclerotic c hange aorta. Arthropathy of the shoulder. Degenerative changes of the spine. IMPRESSION: 1. ET tube approximately 2 cm above tammy. 2. Peripheral nodular base consolidation right upper lobe. Could be on the basis of infiltrate or caitlin plastic process. 3. Coarsened interstitium correlate for chronic interstitial lung disease otherwise consider intersti tial pneumonitis or pneumonia 4. Prominence of the right hilum. Repeat x-ray recommended short-term basis to assess for developing infiltrate or adenopathy versus mass.
[2022-04-27] MEDS ORDERED: ASPIRIN 81 MG PO STA (14:48)
--- NOTE | 2022-04-27 14:52 | P.CNNES ---
History of Present Illness Consult date: 04/27/22 Requesting physician: Jose Roberto Spence Reason for Consult: altered mental status History of Present Illness: This is a 71-year-old woman with history of end-stage on dialysis, congestive heart failure, COPD presented emergency department because of altered mental status. History was obtained from the ED physician. It seems to the patient has missed her dialysis this morning and the police broke into her house and she was found unresponsive. It appears she had a GCS score of 6 by EMS and had some right facial droop and corticate posturing it does not seem the patient has any history of stroke or seizures in the past. Per EMR patient is on home medication of Plavix 75 mg daily and the pravastatin 40 mg daily at bedtime. Patient is also on other medication for diabetes blood pressure and is on gabapentin assume for neuropathy. As a result the patient is intubated and is on currently on IV propofol. She was given Versed 5mg and Succinlycholine once for intubation Some of the workup during his hospital visit consisted of: Her initial vital signs his blood pressure of 184/115, heart rate of 78, respiratory of 12, temperature of 96.8 Fahrenheit and pulse ox of 89% room air prior to the intubation then the patient blood pressure was 223/120. Most current blood pressure is 136/76 Initial white blood cells 17.3 thousand slightly neutrophilic Sodium is 136, potassium 5.4, creatinine 6.03, BUN the 44, glucose on presentation 123, calcium 18 ALTs within normal limits Troponin is a 1.07. Plasma-Lyte acid vein is within normal limits is 1.4. Urinalysis seems possible suggestive of underlying urinary tract infection CT of the head is reported as age-related atrophic and chronic small vessel ischemic changes without acute intracranial process seen at this time. CT angiography is reported as no significant abnormality. Chest x-ray was reported as peripheral nodule base consolidation right upper lobe. Could be on the basis of infiltrate or neoplastic process. Core sent interstitium correlate for chronic interstitial lung disease otherwise consider interstitial pneumonia or pneumonitis Prominence right hilum. Repeat x-ray recommend short-term basis to assess for developing infiltrate or adenopathy versus mass No IV TPA since unknown last normal state. And the risk outweighed the benefit. Review of Systems Review of system: The 12 point system is limited but the pertinent positive and negative as per HPI. Past Medical History Past Medical History: Asthma, Coronary Artery Disease (CAD), Chest Pain / Angina, Heart Failure, COPD, Diabetes Mellitus, Eye Disorder, Osteoarthritis (OA), Renal Disease Additional Past Medical History / Comment(s): CURRENTLY ON HEMODIALYSIS , ,, [facility]. L4, L5 and C6 disc degeneration. Stage 4 kidney disease. Rt great toe wound infection recurrent. Macular Degeneration. History of Any Multi-Drug Resistant Organisms: None Reported Past Surgical History: Adenoidectomy, Appendectomy, Section, Heart Catheterization, Heart Catheterization With Stent, Hysterectomy, Tonsillectomy Additional Past Surgical History / Comment(s): Vein ligation right leg, catarcts removed bilaterally. Past Anesthesia/Blood Transfusion Reactions: No Reported Reaction Date of Last Stent Placement:: FEBRUARY 2016, SAYDA PINEDA Past Psychological History: Depression Smoking Status: Former smoker Past Alcohol Use History: None Reported Past Drug Use History: None Reported - Past Family History Mother Family Medical History: Diabetes Mellitus, Hypertension Father Family Medical History: Diabetes Mellitus, Hypertension Medications and Allergies Home Medications Medication Instructions Recorded Confirmed Type Albuterol Sulfate [Proair Hfa] 1 - 2 puff INHALATION Q6HR PRN 09/13/15 09/29/20 History Beclomethasone Dipropionate [Qvar 2 puff INHALATION BID PRN 09/13/15 09/29/20 History 40 mcg/puff] Citalopram Hydrobromide [CeleXA] 20 mg PO QAM 09/13/15 09/29/20 History Furosemide [Lasix] 80 mg PO QAM 09/13/15 09/29/20 History Insulin Glargine [Lantus] 30 unit SQ HS 09/13/15 09/29/20 History Insulin Lispro [humaLOG] 0 units SQ AC-TID PRN 09/13/15 09/29/20 History Isosorbide Mononitrate [Imdur] 20 mg PO BID 09/13/15 09/29/20 History Pravastatin Sodium [Pravachol] 40 mg PO HS 09/13/15 09/29/20 History Vits A,C,E/Lutein/Minerals 2 tab PO DAILY 09/13/15 09/29/20 History [Ocuvite with Lutein Tablet] Clopidogrel [Plavix] 75 mg PO DAILY 07/22/20 09/29/20 History HYDROcodone/APAP 7.5-325MG [[place] 1 tab PO Q8H PRN 07/22/20 09/29/20 History 7.5-325] INSULIN LISPRO (HumaLOG) [humaLOG] 25 unit SQ HS 07/22/20 09/29/20 History Losartan [Cozaar] 50 mg PO PC-SUPPER PRN 07/22/20 09/29/20 History Metoprolol Tartrate [Lopressor] 100 mg PO BID 07/22/20 09/29/20 History Amoxic-Pot Clav 875-125Mg 1 tab PO Q12HR 7 Days #14 tab 09/20/20 09/29/20 Rx [Augmentin 875-125] Calcium Acetate [Phoslo] 1,334 mg PO TID-W/MEALS 09/27/20 09/29/20 History Ergocalciferol [Vitamin D2 (1250 1,250 mcg PO WEEKLY 09/27/20 09/29/20 History Mcg = 43404 Iu)] Gabapentin [Neurontin] 300 mg PO BID 09/27/20 09/29/20 History hydrALAZINE HCL [Apresoline] 25 mg PO HS PRN 09/27/20 09/29/20 History HYDROcodone/APAP 5-325MG [[place] 1 tab PO Q4HR PRN 3 Days #12 tab 09/29/20 Rx 5-325] Allergies Allergy/AdvReac Type Severity Reaction Status Date / Time No Known Allergies Allergy Verified 09/29/20 11:49 Physical Examination - Vital Signs Vital Signs: Vital Signs Temp Pulse Resp BP Pulse Ox FiO2 04/27/22 14:09 76 26 H 136/76 100 04/27/22 14:00 73 21 133/102 100 04/27/22 13:45 71 20 153/77 100 04/27/22 13:35 50 04/27/22 13:33 79 30 H 177/91 100 04/27/22 13:25 85 18 223/120 98 50 04/27/22 13:10 78 32 H 189/71 100 04/27/22 12:47 96.8 F L 78 12 184/115 89 L Intake and Output 04/26/22 04/27/22 04/27/22 22:59 06:59 14:59 Intake Total 8.758 Balance 8.758 Intake: Intake, IV Titration 8.758 Amount propofoL 1,000 mg In 8.758 Empty Bag 1 bag @ 15 MCG/ KG/MIN 8.614 mls/hr IV . [id number] [facility] Rx#:[id number] Other: Weight 95.708 kg GENERAL: The patient is laying in bed and does not appear in acute distress. CHEST: The heart rate is regular rate rhythm. No murmurs to auscultation. LUNG: Clear to auscultation bilaterally no wheezing noted throughout. Not labored breathing. Intubated on ventilator. ABDOMEN/GI: Bowel sounds present in all 4 quadrants. No tenderness to palpation throughout. NEUROLOGICAL: Limited because of her condition. Intubated on ventilator. On IV propofol. Received versed. Higher mental function: The patient is comatose. GCS 6 (E1, VT1, M4) . Cranial nerves: I had to manually open eyes and primary gaze is midline. The pupils are round, equal and reactive to light. No facial weakness. Is breathin g over the vent. Rest is limited. Motor: The strength is hard to assess individual muscles. Is localizing to painful stimuli (It seems slightly more left upper compared to right). Is also localizing to lowers symetrically. Normal tone and bulk. Cerebellum: Unable to assess. Sensation: Seems to have intact painful stimuli. Reflexes (right/left): 1+ throughout. Plantars are mute bilaterally. Results - Laboratory Findings CBC and BMP: 04/27/22 13:14 04/27/22 13:14 Abnormal Lab Findings: Abnormal Labs 04/27/22 04/27/22 04/27/22 13:14 13:14 13:14 WBC 17.3 H Plt Count 516 H Neutrophils # 15.5 H APTT 21.0 L Sodium 136 L Potassium 5.4 H Chloride 97 L BUN 44 H Creatinine 6.03 H Glucose 123 H Troponin I Urine Appearance Urine Protein Urine Blood Ur Leukocyte Esterase Urine RBC Urine WBC Urine Bacteria Urine Mucus 04/27/22 04/27/22 13:14 13:44 WBC Plt Count Neutrophils # APTT Sodium Potassium Chloride BUN Creatinine Glucose Troponin I 0.107 H* Urine Appearance Cloudy H Urine Protein 3+ H Urine Blood Trace H Ur Leukocyte Esterase Large H Urine RBC 6 H Urine WBC >182 H Urine Bacteria Rare H Urine Mucus Rare H Assessment and Plan Assessment: Reported transient episode of right facial droop. Rule out stroke. Encephalopathy seems to toxic-metabolic abnormality/hperuremic encephalopathy (missed dialysis) also underlying probable UTI Probable acute UTI Consolidation of the right upper lobe concerning for infiltrate versus neoplastic process on chest x-ray Elevated troponin End-stage renal disease on dialysis Congestive heart failure COPD Plan: Recommend starting aspirin 81 mg (also restart home Plavix 75mg daily) and Lipitor 40 mg daily for secondary stroke prophylaxis. Ordered 2-D echo, lipid panel, TSH. Ordered stat EEG Ordered ammonia level Consulted PT and OT Every two hours neuro checks Placed on cardiac monitoring Regarding the questionable of suspicious neoplasm on chest x-ray will defer the management to the primary and pulmonary team. We'll defer the rest of the medical management to the primary and ICU team For DVT prophylaxis recommend subcu heparin 5000 units every hours or Lovenox Plan was discussed with the patient ED physician Thank you for the consultation. Time with Patient: Greater than 30
--- NOTE | 2022-04-27 14:55 | P.CNPUL ---
History of Present Illness Consult date: 04/27/22 Reason for consult: other (acute hypoxic respiratory failure) Chief complaint: unresponsiveness History of present illness: this is a 71-year-old female with history of multiple medical problems including chronic renal disease, she is on hemodialysis, history of congestive heart failure, type 2 diabetes, COPD,patient did not show up for her dialysis this morning, police was sent to arouse for a well check call, patient did not respond to the door, police broke into the house, and she was found unresponsive. Patient was brought by EMS to ER, and upon initial evaluation she had a Glascow coma score of 6. She had some right-sided facial droop, and she was postural rate. Patient was unable to answer any questions, unresponsive, she was also noted to be hypertensive. Blood sugar was adequate. Patient was intubated, placed on mechanical ventilation, and this consult was initiated. She is presently on tidal volume of 400, FiO2 50%, rate of 16, and PEEP of 8. ABG is pending. Chest x-ray is showing evidence of bibasilar infiltrates, consistent with aspiration pneumonia, apparently her intubation was not easy, and was a bit traumatic. Her CT of the head is pending.WBC count is 17.3 hemoglobin is 12.3.BUN is 44 creatinine 6.03. Bicarb is 26.liver enzymes were noted to be normal. Urinalysis is showing evidence of pyuria and bacteriuria. Positive leukocyte esterase in the urine Review of Systems ROS unobtainable: due to endotracheal tube Past Medical History Past Medical History: Asthma, Coronary Artery Disease (CAD), Chest Pain / Angina, Heart Failure, COPD, Diabetes Mellitus, Eye Disorder, Osteoarthritis (OA), Renal Disease Additional Past Medical History / Comment(s): CURRENTLY ON HEMODIALYSIS ,,, [facility]. L4, L5 and C6 disc degeneration. Stage 4 kidney disease. Rt great toe wound infection recurrent. Macular Degeneration. History of Any Multi-Drug Resistant Organisms: None Reported Past Surgical History: Adenoidectomy, Appendectomy, Section, Heart Catheterization, Heart Catheterization With Stent, Hysterectomy, Tonsillectomy Additional Past Surgical History / Comment(s): Vein ligation right leg, catarcts removed bilaterally. Past Anesthesia/Blood Transfusion Reactions: No Reported Reaction Date of Last Stent Placement:: FEBRUARY 2016, SAYDA PINEDA Past Psychological History: Depression Smoking Status: Former smoker Past Alcohol Use History: None Reported Past Drug Use History: None Reported - Past Family History Mother Family Medical History: Diabetes Mellitus, Hypertension Father Family Medical History: Diabetes Mellitus, Hypertension Medications and Allergies Home Medications Medication Instructions Recorded Confirmed Type Albuterol Sulfate [Proair Hfa] 1 - 2 puff INHALATION Q6HR PRN 09/13/15 09/29/20 History Beclomethasone Dipropionate [Qvar 2 puff INHALATION BID PRN 09/13/15 09/29/20 History 40 mcg/puff] Citalopram Hydrobromide [CeleXA] 20 mg PO QAM 09/13/15 09/29/20 History Furosemide [Lasix] 80 mg PO QAM 09/13/15 09/29/20 History Insulin Glargine [Lantus] 30 unit SQ HS 09/13/15 09/29/20 History Insulin Lispro [humaLOG] 0 units SQ AC-TID PRN 09/13/15 09/29/20 History Isosorbide Mononitrate [Imdur] 20 mg PO BID 09/13/15 09/29/20 History Pravastatin Sodium [Pravachol] 40 mg PO HS 09/13/15 09/29/20 History Vits A,C,E/Lutein/Minerals 2 tab PO DAILY 09/13/15 09/29/20 History [Ocuvite with Lutein Tablet] Clopidogrel [Plavix] 75 mg PO DAILY 07/22/20 09/29/20 History HYDROcodone/APAP 7.5-325MG [[place] 1 tab PO Q8H PRN 07/22/20 09/29/20 History 7.5-325] INSULIN LISPRO (HumaLOG) [humaLOG] 25 unit SQ HS 07/22/20 09/29/20 History Losartan [Cozaar] 50 mg PO PC-SUPPER PRN 07/22/20 09/29/20 History Metoprolol Tartrate [Lopressor] 100 mg PO BID 07/22/20 09/29/20 History Amoxic-Pot Clav 875-125Mg 1 tab PO Q12HR 7 Days #14 tab 09/20/20 09/29/20 Rx [Augmentin 875-125] Calcium Acetate [Phoslo] 1,334 mg PO TID-W/MEALS 09/27/20 09/29/20 History Ergocalciferol [Vitamin D2 (1250 1,250 mcg PO WEEKLY 09/27/20 09/29/20 History Mcg = 66784 Iu)] Gabapentin [Neurontin] 300 mg PO BID 09/27/20 09/29/20 History hydrALAZINE HCL [Apresoline] 25 mg PO HS PRN 09/27/20 09/29/20 History HYDROcodone/APAP 5-325MG [[place] 1 tab PO Q4HR PRN 3 Days #12 tab 09/29/20 Rx 5-325] Allergies Allergy/AdvReac Type Severity Reaction Status Date / Time No Known Allergies Allergy Verified 09/29/20 11:49 Physical Exam Vitals: Vital Signs Temp Pulse Resp BP Pulse Ox FiO2 04/27/22 14:09 76 26 H 136/76 100 04/27/22 14:00 73 21 133/102 100 04/27/22 13:45 71 20 153/77 100 04/27/22 13:35 50 04/27/22 13:33 79 30 H 177/91 100 04/27/22 13:25 85 18 223/120 98 50 04/27/22 13:10 78 32 H 189/71 100 04/27/22 12:47 96.8 F L 78 12 184/115 89 L Intake and Output 04/26/22 04/27/22 04/27/22 22:59 06:59 14:59 Intake Total 8.758 Balance 8.758 Intake: Intake, IV Titration 8.758 Amount propofoL 1,000 mg In 8.758 Empty Bag 1 bag @ 15 MCG/ KG/MIN 8.614 mls/hr IV . [id number] [facility] Rx#:[id number] Other: Weight 95.708 kg Physical Exam: Revealed a 71-year-old female, obese, intubated, mechanically ventilated, on propofol at 50 mcg/kg/m, not in distress, unresponsive to any stimuli. Pupils are equally reactive to light. Head: Atraumatic, normocephalic. HEENT:[Neck is supple.] [No neck masses.] [No thyromegaly.] [No JVD.]endotracheal tube and orogastric tube are intact. There is evidence of some bloody secretions noted from the endotracheal tube because of traumatic intubation. Chest: [minimal fine crackles at the bases no rhonchi and no wheezes.] Cardiac Exam: [Normal S1 and S2, no S3 gallop, no murmur.] Abdomen: [Soft, nontender, no megaly, no rebound, no guarding, normal bowel sounds.]large periumbilical hernia is noted. Extremities: [No clubbing, no edema, no cyanosis.]AV fistula noted in the left forearm area. Unremarkable. Neurological Exam: unresponsive, pupils equally reactive to light, no evidence of any significant posturing. Patient is on propofol. Skin: No rashes. Psychiatric: Could not assess. Results - Laboratory Findings CBC and BMP: 04/27/22 13:14 04/27/22 13:14 PT/INR, D-dimer PT 9.5 sec (9.0-12.0) 04/27/22 13:14 INR 0.9 (<1.2) 04/27/22 13:14 Abnormal lab findings: Abnormal Labs 04/27/22 04/27/22 04/27/22 13:14 13:14 13:14 WBC 17.3 H Plt Count 516 H Neutrophils # 15.5 H APTT 21.0 L Sodium 136 L Potassium 5.4 H Chloride 97 L BUN 44 H Creatinine 6.03 H Glucose 123 H Troponin I Urine Appearance Urine Protein Urine Blood Ur Leukocyte Esterase Urine RBC Urine WBC Urine Bacteria Urine Mucus 04/27/22 04/27/22 13:14 13:44 WBC Plt Count Neutrophils # APTT Sodium Potassium Chloride BUN Creatinine Glucose Troponin I 0.107 H* Urine Appearance Cloudy H Urine Protein 3+ H Urine Blood Trace H Ur Leukocyte Esterase Large H Urine RBC 6 H Urine WBC >182 H Urine Bacteria Rare H Urine Mucus Rare H - Diagnostic Findings Chest x-ray: image reviewed (chest x-ray showed endotracheal tube in the proper position. Peripheral opacities, infiltrates noted bilaterally, coarse int erstitium, prominence of the right hilum. Otherwise no) Additional studies: CT of the brain showed chronic small vessel ischemic change without acute intracranial process. CT angiography showed no significant abnormality. Assessment and Plan Assessment: impression: Acute hypoxic respiratory failure, exact etiology is not clear, suspect acute CVA.possible seizures possible anoxic brain injury considering the presentation and the clinical history Acute aspiration pneumonia is strongly suspected. History of end-stage renal disease, on hemodialysis. History of coronary artery disease. History of congestive heart failure. History of questionable asthma. coronary arteriosclerosis and previous stent placement. Type 2 diabetes.Degenerative joint disease. recommendation: Continue ventilatory support, adjust the ventilator settings based on next ABG. Empiric antibiotics/Zosyn for presumptive aspiration pneumonia Bronchodilators in the form of DuoNeb 4 times a day and when necessary Neurological consultation to evaluate for possible CVA Repeat CT of the brain in the next 24 hours and consider EEG GI and DVT prophylaxis. Nephrology to see for follow-up on her end-stage renal disease and hemodialysis Hemodynamic support if necessary. Nutritional support to start in the next 12 hours. We will continue to follow. Prognosis is extremely poor and guarded. Time with Patient: Greater than 30
[2022-04-27 15:06] LABS: ABG Base Excess 2.4 mmol/L; ABG HCO3 27 mmol/L (21-25); ABG Oxygen Saturation 95.4 % (94-97); ABG PCO2 43 mmHg (35-45); ABG PO2 96 mmHg (83-108); ABG TCO2 28 mmol/L (19-24); Allen Test Performed? Yes
[2022-04-27] MEDS ORDERED: TRIAMCINOLONE 0.1% CREAM 80 GM TUBE TOPICAL PRN (15:26)
[2022-04-27] MEDS ORDERED: hydrALAZINE HCL 25 MG TAB PO PRN (15:26)
[2022-04-27] MEDS: IPRATROPIUM-ALBUTEROL 3 ML NEB INHALATION SCH ×2 (15:58→20:13)
[2022-04-27 15:59] LABS: Glucose,Whole Blood 125 mg/dL (70-110)
[2022-04-27] MEDS: PIPERACILLIN-TAZOBACTAM 3.375 GM in SODIUM CHLORIDE 0.9% 100 ML IVPB SCH ×2 (16:49→23:41)
[2022-04-27 17:57] LABS: Calcium 8.9 mg/dL (8.4-10.2); Potassium 4.6 mmol/L (3.5-5.1)
--- NOTE | 2022-04-27 20:00 | HP ---
HISTORY AND PHYSICAL CHIEF COMPLAINT: Unresponsiveness. HISTORY OF PRESENT ILLNESS: This 71-year-old woman with a past medical history of multiple medical problems including COPD CHF, history of chronic renal failure, was supposed to get hemodialysis. Apparently, the patient hemodialysis, and retail event and sales assistant were called. They had to broke into the house, and the patient was found to be lying unconscious. The patient has acute respiratory failure. The patient is mechanically intubated at this time. The patient is being monitored in the ICU. Multiple consultants are following the patient closely. The possibility of aspiration pneumonia or CVA versus seizure also being considered. There is no history of any trauma at this time. PAST MEDICAL HISTORY: Reviewed includes hemodialysis and COPD. The rest of the history and the rest of the chart are reviewed. HOME MEDICATIONS: Reviewed include Renvela, and the doses and the rest of the medications are noted. ALLERGIES: None. FAMILY HISTORY: Could not be taken because of the change in mental status. SOCIAL HISTORY: Could not be taken because of the change in mental status. REVIEW OF SYSTEMS: Could not be taken because of the change in mental status. PHYSICAL EXAMINATION: VITAL SIGNS: Pulse is 76, blood pressure 130/70, respirations 26. HEENT: Conjunctivae are normal. NECK: No jugular venous distention. CARDIOVASCULAR: S1 and S2 muffled. RESPIRATORY: Breath sounds diminished at the bases. A few scattered rhonchi. No crackles ABDOMEN: Soft and obese. LEGS: No edema. No swelling. NERVOUS SYSTEM: Unresponsive. SKIN: No ulcers or rashes. JOINTS: No active deforming arthropathy. LABORATORY DATA: Reviewed. X-ray and CAT scan reviewed personally. ASSESSMENT: 1. Acute hypoxic respiratory failure. Exact etiology unknown at this time. 2. Rule out seizure, cerebrovascular accident, and anoxic encephalopathy. 3. Possible urinary tract infection present on admission. 4. Chronic renal failure, on hemodialysis. 5. Possible aspiration pneumonia. 6. History of asthma and chronic obstructive pulmonary disease. 7. Diabetes mellitus, type 2. 8. Multiple medical issues. RECOMMENDATIONS: In this 71-year-old woman, who presented with multiple complex medical issues as mentioned earlier, at this time, I would recommend to continue current medications and symptomatic treatment, bronchodilators, empiric antibiotics. Otherwise, I would recommend evaluation for the viral titers including flu, COVID, and RSV. Otherwise, obtain cultures and resume the home medications once they are confirmed. Hemodialysis and Nephrology consultation. Overall prognosis is guarded because of multiple complex medical issues. Further recommendations to follow. See orders for details. MMODL / IJN: [id number] / CHRISTINE
[2022-04-27 20:29] LABS: ABG Base Excess 9.3 mmol/L; ABG HCO3 33 mmol/L (21-25); ABG Oxygen Saturation 95.8 % (94-97); ABG PCO2 47 mmHg (35-45); ABG PH 7.46 (7.35-7.45); ABG PO2 94 mmHg (83-108); ABG TCO2 35 mmol/L (19-24); Allen Test Performed? Yes
--- NOTE | 2022-04-27 20:30 | EEG ---
ELECTROENCEPHALOGRAM REPORT CLINICAL HISTORY: This is a 71-year-old woman with altered mental status. The video EEG is obtained to evaluate for seizure epileptiform activity. RELEVANT MEDICATION: IV Versed, propofol, and IV succinylcholine. EEG TYPE: A routine 21-channel EEG is performed with video using the 10/20 electrode placement system. DESCRIPTION: The patient is intubated on a ventilator. The background consists of [id number] voltage of 4.5 to 5.5 hertz theta activity that is well modulated and well sustained. There is no physiological stage 2 sleep architecture. There is no focal slowing. There is diffuse suppression lasting 1 to 2 seconds. Interictal and ictal is none. ACTIVATION PROCEDURE: Photic stimulation did not evoke a posterior driving response. There is no abnormality during the photic stimulation. CLINICAL INTERPRETATION: This is an abnormal routine EEG. The background slowing is suggestive of moderate-to- severe encephalopathy. The suppression is likely due to medication effect (sedatives). Otherwise, there is no focal slowing, epileptiform discharge, or seizure on the EEG. Clinical correlation is recommended. MMODL / IJN: [id number] /
[2022-04-27] MEDS: METOPROLOL TARTRATE 50 MG TAB PO SCH (22:13)
[2022-04-27] MEDS: ATORVASTATIN 40 MG TAB PO SCH (22:35)
[2022-04-27] MEDS: CHLORHEXIDINE GLUCONATE 15 ML CUP MUCOUS MEM SCH (22:35)
[2022-04-27] MEDS: ISOSORBIDE DINITRATE 10 MG TAB PO SCH (22:35)
[2022-04-28] MEDS: IPRATROPIUM-ALBUTEROL 3 ML NEB INHALATION SCH (00:40)
[2022-04-28 05:33] LABS: ABG Base Excess 11.7 mmol/L; ABG HCO3 35 mmol/L (21-25); ABG Oxygen Saturation 94.2 % (94-97); ABG PCO2 42 mmHg (35-45); ABG PH 7.53 (7.35-7.45); ABG PO2 73 mmHg (83-108); ABG TCO2 36 mmol/L (19-24); Allen Test Performed? Yes
[2022-04-28] MEDS ORDERED: ACETAMINOPHEN TAB 325 MG TAB PO PRN (05:35)
[2022-04-28 05:53] LABS: Glucose,Whole Blood 167 mg/dL (70-110)
--- NOTE | 2022-04-28 05:56 | XR ---
EXAMINATION TYPE: XR chest 1V portable DATE OF EXAM: 04/28/2022 CLINICAL HISTORY: Difficulty breathing progress study. TECHNIQUE: Single AP portable semiupright view of the chest is obtained. COMPARISON: Chest x-ray from one day earlier and older studies. FINDINGS: Stable endotracheal and orogastric tubes. Persistent peripheral right lower lung increased opacity. Developing left basilar opacity noted. Stable mild cardiomegaly. Osseous structures are int act. IMPRESSION: Stable peripheral right lower lung acute infiltrate. New left basilar acute infiltrate an d/or atelectasis.
[2022-04-28 06:42] LABS: Basophils % (A) 0 %; Eosinophils # (A) 0.1 k/uL (0-0.7); Eosinophils % (A) 1 %; HCT 32.5 % (34.0-46.0); HGB 10.3 gm/dL (11.4-16.0); Hypochromasia Slight; Lymphocytes # (A) 0.6 k/uL (1.0-4.8); Lymphocytes % (A) 5 %; MCH 29.5 pg (25.0-35.0); MCHC 31.8 g/dL (31.0-37.0); MCV 92.9 fL (80.0-100.0); Mean Platelet Volume 7.2; Monocytes # (A) 0.5 k/uL (0-1.0); Monocytes % (A) 4 %; Neutrophils # (A) 10.9 k/uL (1.3-7.7); Neutrophils % (A) 89 %; Platelet Count 436 k/uL (150-450); WBC 12.2 k/uL (3.8-10.6)
[2022-04-28 06:56] LABS: Calcium 8.6 mg/dL (8.4-10.2)
[2022-04-28] MEDS: PANTOPRAZOLE 40 MG/10 ML VIAL IVP SCH (08:24)
[2022-04-28] MEDS: ISOSORBIDE DINITRATE 10 MG TAB PO SCH ×2 (08:24→20:35)
[2022-04-28] MEDS: CHLORHEXIDINE GLUCONATE 15 ML CUP MUCOUS MEM SCH ×2 (08:25→20:34)
[2022-04-28] MEDS: CLOPIDOGREL 75 MG TAB PO SCH (08:25)
[2022-04-28] MEDS: METOPROLOL TARTRATE 50 MG TAB PO SCH ×2 (08:25→20:35)
[2022-04-28] MEDS: ASPIRIN 81 MG PO SCH (08:25)
[2022-04-28] MEDS: PIPERACILLIN-TAZOBACTAM 3.375 GM in SODIUM CHLORIDE 0.9% 100 ML IVPB SCH (08:25)
[2022-04-28] MEDS ORDERED: ENOXAPARIN 40 MG/0.4 ML SYRINGE SQ SCH (09:00)
[2022-04-28] MEDS: ALBUTEROL HFA INHALER INHALATION SCH ×4 (10:02→19:42)
[2022-04-28] MEDS: TIOTROPIUM 2.5 MCG INHALER INHALATION SCH (10:03)
--- NOTE | 2022-04-28 10:33 | CA ---
Transthoracic Echo Report Name: Suze Luna Age: 71 Gender: F : 1950 Exam Date: 04/28/2022 09:08 Exam Location: [facility] Ht (in): 65 Wt (lb): 211 Ordering Physician: Kolton Méndez MD Attending/Referring Phys: Customer Assistance Associate Carley Reina RDCS Procedure CPT: Indications: stroke Cardiac Hx: Limited STudy PT is Influenza Technical Quality: Contrast 1: Total Dose (mL): Contrast 2: Total Dose (mL): MEASUREMENTS (Male / Female) Normal Values FINDINGS Left Ventricle Left ventricular ejection fraction is estimated at 55%. Right Ventricle Right Atrium Left Atrium Mitral Valve Structurally normal mitral valve. Mild mitral regurgitation. Mitral annular calcification. Aortic Valve Trileaflet aortic valve. Aortic valve sclerosis. Tricuspid Valve Pulmonic Valve Pericardium Echo free space anterior to the right ventricle likely represents a fat pad. Aorta CONCLUSIONS Technically difficult study for interpretation Normal left ventricular dimension and systolic function Previewed by: Dr. Zechariah Grimes MD (Electronically Signed) Final Date: 28 April 2022 10:32
--- NOTE | 2022-04-28 11:39 | P.PN ---
Subjective Progress Note Date: 04/28/22 Principal diagnosis: Acute hypoxic respiratory failure, possible CVA, possible seizures this is a 71-year-old female with history of multiple medical problems including chronic renal disease, she is on hemodialysis, history of congestive heart failure, type 2 diabetes, COPD,patient did not show up for her dialysis this morning, police was sent to [place] for a well check call, patient did not respond to the door, police broke into the house, and she was found unresponsive. Patient was brought by EMS to ER, and upon initial evaluation she had a Glascow coma score of 6. She had some right-sided facial droop, and she was postural rate. Patient was unable to answer any questions, unresponsive, she was also noted to be hypertensive. Blood sugar was adequate. Patient was intubated, placed on mechanical ventilation, and this consult was initiated. She is presently on tidal volume of 400, FiO2 50%, rate of 16, and PEEP of 8. ABG is pending. Chest x-ray is showing evidence of bibasilar infiltrates, consistent with aspiration pneumonia, apparently her intubation was not easy, and was a bit traumatic. Her CT of the head is pending.WBC count is 17.3 hemoglobin is 12.3.BUN is 44 creatinine 6.03. Bicarb is 26.liver enzymes were noted to be normal. Urinalysis is showing evidence of pyuria and bacteriuria. Positive leukocyte esterase in the urine Patient was reevaluated today on 04/28/22, remains in the ICU, intubated and mechanically ventilated. Patient had incidental positive COVID-19 screening. And positive influenza A. Remains on assist control rate of 16, volume 400 FiO2 50% and PEEP of 8. ABG showed a pO2 of 73 pCO2 42 pH of 7.53. Patient is rec eiving propofol at 30 mcg/kg/m, her IV fluid is at KVO, and today I want ahead and placed a right femoral triple-lumen catheter and right radial arterial line. Patient remains unresponsive, she is on propofol which I plan to hold today, and assess mental status off propofol if possible. Patient doesn't respond to deep painful stimuli by withdrawal, but does not open eyes, does not have any purposeful movement or response to any stimuli. Except withdrawal to painful stimuli noted while placing the central line and arterial line. Chest x-ray is showing mostly stable peripheral right lower lobe infiltrate, and possibly a left lower lobe atelectasis/consolidation. Again looking at her admission labs, patient came back positive for influenza A and ballesteros virus PCR was positive. Will recommend that the patient goes on Tamiflu, and we'll recommend the COVID- 19 cocktail for this patient. Patient is a known end-stage renal disease, and she is being followed by nephrology, she will get intermittent hemodialysis Objective - Vital Signs Vital signs: Vital Signs Temp 99.4 F 04/28/22 08:00 Pulse 84 04/28/22 11:00 Resp 16 04/28/22 11:00 BP 143/64 04/28/22 10:30 Pulse Ox 97 04/28/22 11:00 FiO2 50 04/28/22 10:04 Intake & Output 04/27/22 04/28/22 04/28/22 18:59 06:59 18:59 Intake Total 766.271 2833.630 224.140 Output Total 65 2620 0 Balance 179.422 -1373.370 224.140 Weight 95.708 kg 96 kg 96 kg Intake: IV 100 135 115 0.9 KVO 35 15 Piperacillin-Tazobactam 3 100 100 100 .375 gm In Sodium Chloride 0.9% 100 ml @ 25 mls/hr IVPB Q8HR [facility] Rx# :[id number] Intake, IV Titration 144.422 211.630 109.140 Amount propofoL 1,000 mg In 144.422 211.630 109.140 Empty Bag 1 bag @ 15 MCG/ KG/MIN 8.614 mls/hr IV . [id number] [facility] Rx#:[id number] Hemodialysis 900 Output: Gastric Drainage 1200 Urine 65 20 0 Hemodialysis 1400 Other: Voiding Method Indwelling Catheter Indwelling Catheter Indwelling Catheter ABP, PAP, CO, CI - Last Documented Arterial Blood Pressure 131/52 - Exam Physical Exam: Revealed a 71-year-old female, obese, intubated, mechanically ventilated, in no distress. Patient is sedated with propofol. Head: Atraumatic, normocephalic. HEENT:[Neck is supple.] [No neck masses.] [No thyromegaly.] [No JVD.]endotracheal tube and orogastric tube are intact. There is evidence of some bloody secretions noted from the endotracheal tube because of traumatic intubation. Chest: [minimal fine crackles at the bases no rhonchi and no wheezes.] Cardiac Exam: [Normal S1 and S2, no S3 gallop, no murmur.] Abdomen: [Soft, nontender, no megaly, no rebound, no guarding, normal bowel sounds.]large periumbilical hernia is noted. Extremities: [No clubbing, no edema, no cyanosis.]AV fistula noted in the left forearm area. Unremarkable. Neurological Exam: unresponsive, withdraws mostly to deep painful stimuli otherwise no neurological improvement since yesterday. No purposeful movement noted Skin: No rashes. Psychiatric: Could not assess. - Labs CBC & Chem 7: 04/28/22 06:08 04/28/22 06:08 Labs: Abnormal Lab Results - Last 24 Hours (Table) 04/27/22 04/27/22 04/27/22 Range/Units 13:14 13:14 13:14 WBC 17.3 H (3.8-10.6) k/uL RBC (3.80-5.40) m/uL Hgb (11.4-16.0) gm/dL Hct (34.0-46.0) % Plt Count 516 H (150-450) k/uL Neutrophils # 15.5 H (1.3-7.7) k/uL Lymphocytes # (1.0-4.8) k/uL APTT 21.0 L (22.0-30.0) sec ABG pH (7.35-7.45) ABG pCO2 (35-45) mmHg ABG pO2 (83-108) mmHg ABG HCO3 (21-25) mmol/L ABG Total CO2 (19-24) mmol/L Sodium 136 L (137-145) mmol/L Potassium 5.4 H (3.5-5.1) mmol/L Chloride 97 L (98-107) mmol/L BUN 44 H (7-17) mg/dL Creatinine 6.03 H (0.52-1.04) mg/dL Glucose 123 H (74-99) mg/dL POC Glucose (mg/dL) (70-110) mg/dL Troponin I (0.000-0.034) ng/mL Urine Appearance (Clear) Urine Protein (Negative) Urine Blood (Negative) Ur Leukocyte Esterase (Negative) Urine RBC (0-5) /hpf Urine WBC (0-5) /hpf Urine Bacteria (None) /hpf Urine Mucus (None) /hpf Coronavirus (PCR) (Not Detectd) Influenza Type A RNA (Not Detectd) 04/27/22 04/27/22 04/27/22 Range/Units 13:14 13:44 15:03 WBC (3.8-10.6) k/uL RBC (3.80-5.40) m/uL Hgb (11.4-16.0) gm/dL Hct (34.0-46.0) % Plt Count (150-450) k/uL Neutrophils # (1.3-7.7) k/uL Lymphocytes # (1.0-4.8) k/uL APTT (22.0-30.0) sec ABG pH (7.35-7.45) ABG pCO2 (35-45) mmHg ABG pO2 (83-108) mmHg ABG HCO3 27 H (21-25) mmol/L ABG Total CO2 28 H (19-24) mmol/L Sodium (137-145) mmol/L Potassium (3.5-5.1) mmol/L Chloride (98-107) mmol/L BUN (7-17) mg/dL Creatinine (0.52-1.04) mg/dL Glucose (74-99) mg/dL POC Glucose (mg/dL) (70-110) mg/dL Troponin I 0.107 H* (0.000-0.034) ng/mL Urine Appearance Cloudy H (Clear) Urine Protein 3+ H (Negative) Urine Blood Trace H (Negative) Ur Leukocyte Esterase Large H (Negative) Urine RBC 6 H (0-5) /hpf Urine WBC >182 H (0-5) /hpf Urine Bacteria Rare H (None) /hpf Urine Mucus Rare H (None) /hpf Coronavirus (PCR) (Not Detectd) Influenza Type A RNA (Not Detectd) 04/27/22 04/27/22 04/27/22 Range/Units 15:57 16:27 17:06 WBC (3.8-10.6) k/uL RBC (3.80-5.40) m/uL Hgb (11.4-16.0) gm/dL Hct (34.0-46.0) % Plt Count (150-450) k/uL Neutrophils # (1.3-7.7) k/uL Lymphocytes # (1.0-4.8) k/uL APTT (22.0-30.0) sec ABG pH (7.35-7.45) ABG pCO2 (35-45) mmHg ABG pO2 (83-108) mmHg ABG HCO3 (21-25) mmol/L ABG Total CO2 (19-24) mmol/L Sodium 136 L (137-145) mmol/L Potassium (3.5-5.1) mmol/L Chloride 96 L (98-107) mmol/L BUN 47 H (7-17) mg/dL Creatinine 6.11 H (0.52-1.04) mg/dL Glucose 134 H (74-99) mg/dL POC Glucose (mg/dL) 125 H (70-110) mg/dL Troponin I (0.000-0.034) ng/mL Urine Appearance (Clear) Urine Protein (Negative) Urine Blood (Negative) Ur Leukocyte Esterase (Negative) Urine RBC (0-5) /hpf Urine WBC (0-5) /hpf Urine Bacteria (None) /hpf Urine Mucus (None) /hpf Coronavirus (PCR) (Not Detectd) Influenza Type A RNA Detected H (Not Detectd) 04/27/22 04/27/22 04/28/22 Range/Units 18:32 20:25 05:30 WBC (3.8-10.6) k/uL RBC (3.80-5.40) m/uL Hgb (11.4-16.0) gm/dL Hct (34.0-46.0) % Plt Count (150-450) k/uL Neutrophils # (1.3-7.7) k/uL Lymphocytes # (1.0-4.8) k/uL APTT (22.0-30.0) sec ABG pH 7.46 H 7.53 H (7.35-7.45) ABG pCO2 47 H (35-45) mmHg ABG pO2 73 L (83-108) mmHg ABG HCO3 33 H 35 H (21-25) mmol/L ABG Total CO2 35 H 36 H (19-24) mmol/L Sodium (137-145) mmol/L Potassium (3.5-5.1) mmol/L Chloride (98-107) mmol/L BUN (7-17) mg/dL Creatinine (0.52-1.04) mg/dL Glucose (74-99) mg/dL POC Glucose (mg/dL) (70-110) mg/dL Troponin I (0.000-0.034) ng/mL Urine Appearance (Clear) Urine Protein (Negative) Urine Blood (Negative) Ur Leukocyte Esterase (Negative) Urine RBC (0-5) /hpf Urine WBC (0-5) /hpf Urine Bacteria (None) /hpf Urine Mucus (None) /hpf Coronavirus (PCR) Detected A (Not Detectd) Influenza Type A RNA (Not Detectd) 04/28/22 04/28/22 04/28/22 Range/Units 05:51 06:08 06:08 WBC 12.2 H (3.8-10.6) k/uL RBC 3.50 L (3.80-5.40) m/uL Hgb 10.3 L (11.4-16.0) gm/dL Hct 32.5 L (34.0-46.0) % Plt Count (150-450) k/uL Neutrophils # 10.9 H (1.3-7.7) k/uL Lymphocytes # 0.6 L (1.0-4.8) k/uL APTT (22.0-30.0) sec ABG pH (7.35-7.45) ABG pCO2 (35-45) mmHg ABG pO2 (83-108) mmHg ABG HCO3 (21-25) mmol/L ABG Total CO2 (19-24) mmol/L Sodium (137-145) mmol/L Potassium (3.5-5.1) mmol/L Chloride 95 L (98-107) mmol/L BUN 32 H (7-17) mg/dL Creatinine 5.01 H (0.52-1.04) mg/dL Glucose 163 H (74-99) mg/dL POC Glucose (mg/dL) 167 H (70-110) mg/dL Troponin I (0.000-0.034) ng/mL Urine Appearance (Clear) Urine Protein (Negative) Urine Blood (Negative) Ur Leukocyte Esterase (Negative) Urine RBC (0-5) /hpf Urine WBC (0-5) /hpf Urine Bacteria (None) /hpf Urine Mucus (None) /hpf Coronavirus (PCR) (Not Detectd) Influenza Type A RNA (Not Detectd) Microbiology - Last 24 Hours (Table) 04/27/22 13:24 Sputum Culture - Preliminary Sputum 04/27/22 13:44 Urine Culture - Preliminary Urine,Catheterized Assessment and Plan Assessment: impression: Acute hypoxic respiratory failure, exact etiology is not clear, suspect acute CVA.possible seizures possible anoxic brain injury considering the presentation and the clinical history Acute aspiration pneumonia is strongly suspected. Patient is on Zosyn. Incidental COVID-19 infection, doubt COVID-19 pneumonia, patient is on COVID-19 cocktail. Influenza A infection, not clear how long the patient had symptoms since the patient was found unresponsive. Hence I am recommending Tamiflu 75 mg twice a day History of end-stage renal disease, on hemodialysis. History of coronary artery disease. History of congestive heart failure. History of questionable asthma. coronary arteriosclerosis and previous stent placement. Type 2 diabetes.Degenerative joint disease. recommendation: Continue ventilatory support, no changes made in ventilatory settings today. Patient will be placed on COVID-19 cocktail. Patient was placed on Tamiflu 75 twice a day. Continue empiric antibiotics/Zosyn for presumptive aspiration pneumonia. Continue bronchodilators/DuoNeb. Patient is being followed by neurology and by nephrology for her neurological status and for her renal failure. Admission brain CT is nondiagnostic. Continue GI and DVT prophylaxis. Daily assessment of sedation/propofol and sedation holidays and assessment of mental status as well as weaning trials of possible Nutritional support/enteral feeding. Hemodynamic support if necessary. Patient has not required any pressors since admission. We will continue to follow. Prognosis is extremely poor and guarded. critical care time is over 30 minutes not including time spent on procedures. Time with Patient: Greater than 30
[2022-04-28] MEDS ORDERED: OSELTAMIVIR 75 MG CAP PO SCH (11:45)
--- NOTE | 2022-04-28 11:50 | P.PN ---
Subjective Progress Note Date: 04/28/22 The patient is seen at bedside and continues to be intubated on ventilator and is on IV Propofol. Per nurse she does not have any facial weakness. Patient was found to have Influenza A and Richard virus PCR detected. Also possible underlying UTI. Objective - Vital Signs Vital signs: Vital Signs Temp 99.4 F 04/28/22 08:00 Pulse 84 04/28/22 11:00 Resp 16 04/28/22 11:00 BP 143/64 04/28/22 10:30 Pulse Ox 97 04/28/22 11:00 FiO2 50 04/28/22 11:32 Intake & Output 04/27/22 04/28/22 04/28/22 18:59 06:59 18:59 Intake Total 448.075 5052.630 224.140 Output Total 65 2620 0 Balance 179.422 -1373.370 224.140 Weight 95.708 kg 96 kg 96 kg Intake: IV 100 135 115 0.9 KVO 35 15 Piperacillin-Tazobactam 3 100 100 100 .375 gm In Sodium Chloride 0.9% 100 ml @ 25 mls/hr IVPB Q8HR [facility] Rx# :[id number] Intake, IV Titration 144.422 211.630 109.140 Amount propofoL 1,000 mg In 144.422 211.630 109.140 Empty Bag 1 bag @ 15 MCG/ KG/MIN 8.614 mls/hr IV . [id number] [facility] Rx#:[id number] Hemodialysis 900 Output: Gastric Drainage 1200 Urine 65 20 0 Hemodialysis 1400 Other: Voiding Method Indwelling Catheter Indwelling Catheter Indwelling Catheter ABP, PAP, CO, CI - Last Documented Arterial Blood Pressure 131/52 - Exam GENERAL: The patient is laying in bed and does not appear in acute distress. LUNG: Intubated on ventilator. NEUROLOGICAL: Limited because of her condition. Intubated on ventilator. On IV propofol. Higher mental function: The patient is comatose. GCS 6 (E1, VT1, M4) . Cranial nerves: I had to manually open eyes and primary gaze is midline. The pupils are round, equal and reactive to light. No facial weakness. Is breathing over the vent. Rest is limited. Motor: The strength is hard to assess individual muscles. Is localizing to painful stimuli throughout. symetrically. Normal tone and bulk. Cerebellum: Unable to assess. Sensation: Seems to have intact painful stimuli. Reflexes (right/left): 1+ throughout. Plantars are mute bilaterally. Some of the workup during his hospital visit consisted of: Influenza A and Richard virus PCR detected. Also possible underlying UTI. Troponin is a 1.07. Ammonia <9 TSH: 0.593 Urinalysis seems possible suggestive of underlying urinary tract infection CT of the head is reported as age-related atrophic and chronic small vessel ischemic changes without acute intracranial process seen at this time. CT angiography is reported as no significant abnormality. Chest x-ray was reported as peripheral nodule base consolidation right upper lobe. Could be on the basis of infiltrate or neoplastic process. Core sent interstitium correlate for chronic interstitial lung disease otherwise consider interstitial pneumonia or pneumonitis Prominence right hilum. Repeat x-ray r ecommend short-term basis to assess for developing infiltrate or adenopathy versus mass Routine EEG is abnormal. The background slowing suggestive of moderate to severe encephalopathy. The suppressions likely due to medication effect (sedatives). Otherwise there is no focal slowing, epileptiform discharges or seizure on the EEG. 2-D echo was reported as technically difficult study for agitation. Normal left ventricle diamonds and systolic function. - Labs CBC & Chem 7: 04/28/22 06:08 04/28/22 06:08 Labs: Abnormal Lab Results - Last 24 Hours (Table) 04/27/22 04/27/22 04/27/22 Range/Units 13:14 13:14 13:14 WBC 17.3 H (3.8-10.6) k/uL RBC (3.80-5.40) m/uL Hgb (11.4-16.0) gm/dL Hct (34.0-46.0) % Plt Count 516 H (150-450) k/uL Neutrophils # 15.5 H (1.3-7.7) k/uL Lymphocytes # (1.0-4.8) k/uL APTT 21.0 L (22.0-30.0) sec ABG pH (7.35-7.45) ABG pCO2 (35-45) mmHg ABG pO2 (83-108) mmHg ABG HCO3 (21-25) mmol/L ABG Total CO2 (19-24) mmol/L Sodium 136 L (137-145) mmol/L Potassium 5.4 H (3.5-5.1) mmol/L Chloride 97 L (98-107) mmol/L BUN 44 H (7-17) mg/dL Creatinine 6.03 H (0.52-1.04) mg/dL Glucose 123 H (74-99) mg/dL POC Glucose (mg/dL) (70-110) mg/dL Troponin I (0.000-0.034) ng/mL Urine Appearance (Clear) Urine Protein (Negative) Urine Blood (Negative) Ur Leukocyte Esterase (Negative) Urine RBC (0-5) /hpf Urine WBC (0-5) /hpf Urine Bacteria (None) /hpf Urine Mucus (None) /hpf Coronavirus (PCR) (Not Detectd) Influenza Type A RNA (Not Detectd) 04/27/22 04/27/22 04/27/22 Range/Units 13:14 13:44 15:03 WBC (3.8-10.6) k/uL RBC (3.80-5.40) m/uL Hgb (11.4-16.0) gm/dL Hct (34.0-46.0) % Plt Count (150-450) k/uL Neutrophils # (1.3-7.7) k/uL Lymphocytes # (1.0-4.8) k/uL APTT (22.0-30.0) sec ABG pH (7.35-7.45) ABG pCO2 (35-45) mmHg ABG pO2 (83-108) mmHg ABG HCO3 27 H (21-25) mmol/L ABG Total CO2 28 H (19-24) mmol/L Sodium (137-145) mmol/L Potassium (3.5-5.1) mmol/L Chloride (98-107) mmol/L BUN (7-17) mg/dL Creatinine (0.52-1.04) mg/dL Glucose (74-99) mg/dL POC Glucose (mg/dL) (70-110) mg/dL Troponin I 0.107 H* (0.000-0.034) ng/mL Urine Appearance Cloudy H (Clear) Urine Protein 3+ H (Negative) Urine Blood Trace H (Negative) Ur Leukocyte Esterase Large H (Negative) Urine RBC 6 H (0-5) /hpf Urine WBC >182 H (0-5) /hpf Urine Bacteria Rare H (None) /hpf Urine Mucus Rare H (None) /hpf Coronavirus (PCR) (Not Detectd) Influenza Type A RNA (Not Detectd) 04/27/22 04/27/22 04/27/22 Range/Units 15:57 16:27 17:06 WBC (3.8-10.6) k/uL RBC (3.80-5.40) m/uL Hgb (11.4-16.0) gm/dL Hct (34.0-46.0) % Plt Count (150-450) k/uL Neutrophils # (1.3-7.7) k/uL Lymphocytes # (1.0-4.8) k/uL APTT (22.0-30.0) sec ABG pH (7.35-7.45) ABG pCO2 (35-45) mmHg ABG pO2 (83-108) mmHg ABG HCO3 (21-25) mmol/L ABG Total CO2 (19-24) mmol/L Sodium 136 L (137-145) mmol/L Potassium (3.5-5.1) mmol/L Chloride 96 L (98-107) mmol/L BUN 47 H (7-17) mg/dL Creatinine 6.11 H (0.52-1.04) mg/dL Glucose 134 H (74-99) mg/dL POC Glucose (mg/dL) 125 H (70-110) mg/dL Troponin I (0.000-0.034) ng/mL Urine Appearance (Clear) Urine Protein (Negative) Urine Blood (Negative) Ur Leukocyte Esterase (Negative) Urine RBC (0-5) /hpf Urine WBC (0-5) /hpf Urine Bacteria (None) /hpf Urine Mucus (None) /hpf Coronavirus (PCR) (Not Detectd) Influenza Type A RNA Detected H (Not Detectd) 04/27/22 04/27/22 04/28/22 Range/Units 18:32 20:25 05:30 WBC (3.8-10.6) k/uL RBC (3.80-5.40) m/uL Hgb (11.4-16.0) gm/dL Hct (34.0-46.0) % Plt Count (150-450) k/uL Neutrophils # (1.3-7.7) k/uL Lymphocytes # (1.0-4.8) k/uL APTT (22.0-30.0) sec ABG pH 7.46 H 7.53 H (7.35-7.45) ABG pCO2 47 H (35-45) mmHg ABG pO2 73 L (83-108) mmHg ABG HCO3 33 H 35 H (21-25) mmol/L ABG Total CO2 35 H 36 H (19-24) mmol/L Sodium (137-145) mmol/L Potassium (3.5-5.1) mmol/L Chloride (98-107) mmol/L BUN (7-17) mg/dL Creatinine (0.52-1.04) mg/dL Glucose (74-99) mg/dL POC Glucose (mg/dL) (70-110) mg/dL Troponin I (0.000-0.034) ng/mL Urine Appearance (Clear) Urine Protein (Negative) Urine Blood (Negative) Ur Leukocyte Esterase (Negative) Urine RBC (0-5) /hpf Urine WBC (0-5) /hpf Urine Bacteria (None) /hpf Urine Mucus (None) /hpf Coronavirus (PCR) Detected A (Not Detectd) Influenza Type A RNA (Not Detectd) 04/28/22 04/28/22 04/28/22 Range/Units 05:51 06:08 06:08 WBC 12.2 H (3.8-10.6) k/uL RBC 3.50 L (3.80-5.40) m/uL Hgb 10.3 L (11.4-16.0) gm/dL Hct 32.5 L (34.0-46.0) % Plt Count (150-450) k/uL Neutrophils # 10.9 H (1.3-7.7) k/uL Lymphocytes # 0.6 L (1.0-4.8) k/uL APTT (22.0-30.0) sec ABG pH (7.35-7.45) ABG pCO2 (35-45) mmHg ABG pO2 (83-108) mmHg ABG HCO3 (21-25) mmol/L ABG Total CO2 (19-24) mmol/L Sodium (137-145) mmol/L Potassium (3.5-5.1) mmol/L Chloride 95 L (98-107) mmol/L BUN 32 H (7-17) mg/dL Creatinine 5.01 H (0.52-1.04) mg/dL Glucose 163 H (74-99) mg/dL POC Glucose (mg/dL) 167 H (70-110) mg/dL Troponin I (0.000-0.034) ng/mL Urine Appearance (Clear) Urine Protein (Negative) Urine Blood (Negative) Ur Leukocyte Esterase (Negative) Urine RBC (0-5) /hpf Urine WBC (0-5) /hpf Urine Bacteria (None) /hpf Urine Mucus (None) /hpf Coronavirus (PCR) (Not Detectd) Influenza Type A RNA (Not Detectd) Microbiology - Last 24 Hours (Table) 04/27/22 13:24 Sputum Culture - Preliminary Sputum 04/27/22 13:44 Urine Culture - Preliminary Urine,Catheterized Assessment and Plan Assessment: Encephalopathy seems due to multifactorial: due to hypoxic respiratory failure from Influenza A and Coronavirus, probable underlying UTI, some metabolic en cephalopathy. Also medication effect (Propofol). Rule out stroke Reported transient episode of right facial droop by EMS. Rule out stroke. Currently no facial weakness. Probable acute UTI Influezna A infection Acute Covid-19 infection Consolidation of the right upper lobe concerning for infiltrate versus neoplastic process on chest x-ray Elevated troponin End-stage renal disease on dialysis Congestive heart failure COPD Plan: I will get repeat CT head for later in afternoon to assess if any new acute changes not seen on initial CT to rule out stroke. EEG did not show any evidence of seizure. Continue aspirin 81 mg (new during this admission) and her Plavix 75mg daily was resumed for secondary stroke prophylaxis. Also on Lipitor 40 mg daily for secondary stroke prophylaxis. Consulted PT and OT Every two hours neuro checks Placed on cardiac monitoring Regarding the questionable of suspicious neoplasm on chest x-ray will defer the management to the primary and pulmonary team. We'll defer the rest of the medical management to the primary and ICU team For DVT prophylaxis Lovenox Plan was discussed with the patient's ICU attending and her nurse. Time with Patient: Less than 30
[2022-04-28] MEDS: CHOLECALCIFEROL 25 MCG (1000 IU) TABLET PO SCH (12:12)
[2022-04-28] MEDS: ZINC SULFATE 220 MG CAP PO SCH (12:12)
[2022-04-28] MEDS: ASCORBIC ACID 500 MG TAB PO SCH (12:12)
[2022-04-28 14:12] LABS: Hepatitis B Surface Antibody Reactive (Nonreactive)
[2022-04-28 14:37] LABS: LDL Cholesterol,Calculated 76.6 mg/dL (0.0-131.0)
--- NOTE | 2022-04-28 14:49 | P.NPCON ---
History of Present Illness - Reason for Consult Consult date: 04/28/22 end stage renal disease - Chief Complaint Unresponsive - History of Present Illness Coming to the hospital with the above complaints. She was supposed to get hemodialysis, did not show up for dialysis. A welfare check was done and she was found to be unresponsive at home. History obtained from the chart. Unable to get history from the patient, currently on a ventilator. Workup showed influenza A and COVID-19 pneumonia. Currently on minimal ventilator requirement and no pressors. Review of Systems ROS unobtainable: due to endotracheal tube Past Medical History Past Medical History: Asthma, Coronary Artery Disease (CAD), Chest Pain / Angina, Heart Failure, COPD, Diabetes Mellitus, Eye Disorder, Osteoarthritis (OA), Renal Disease Additional Past Medical History / Comment(s): CURRENTLY ON HEMODIALYSIS ,,, [facility]. L4, L5 and C6 disc degeneration. Stage 4 kidney disease. Rt great toe wound infection recurrent. Macular Degeneration. History of Any Multi-Drug Resistant Organisms: None Reported Past Surgical History: Adenoidectomy, Appendectomy, Section, Heart Catheterization, Heart Catheterization With Stent, Hysterectomy, Tonsillectomy Additional Past Surgical History / Comment(s): Vein ligation right leg, catarcts removed bilaterally. Past Anesthesia/Blood Transfusion Reactions: No Reported Reaction Date of Last Stent Placement:: FEBRUARY 2016, [facility] Past Psychological History: Depression Smoking Status: Former smoker Past Alcohol Use History: None Reported Past Drug Use History: None Reported - Past Family History Mother Family Medical History: Diabetes Mellitus, Hypertension Father Family Medical History: Diabetes Mellitus, Hypertension Medications and Allergies Home Medications Medication Instructions Recorded Confirmed Type Albuterol Sulfate [Proair Hfa] 1 - 2 puff INHALATION RT-Q6H PRN 09/13/15 04/27/22 History Pravastatin Sodium [Pravachol] 40 mg PO HS 09/13/15 04/27/22 History Clopidogrel [Plavix] 75 mg PO DAILY 07/22/20 04/27/22 History HYDROcodone/APAP 7.5-325MG [[place] 1 tab PO QID PRN 07/22/20 04/27/22 History 7.5-325] Metoprolol Tartrate [Lopressor] 100 mg PO BID 07/22/20 04/27/22 History Calcium Acetate [Phoslo] 1,334 mg PO TID-W/MEALS 05/24/21 12/22/22 History Ergocalciferol [Vitamin D2 (1250 1,250 mcg PO Q7D 09/27/20 04/27/22 History Mcg = [id number] Iu)] Gabapentin [Neurontin] 300 mg PO BID 09/27/20 04/27/22 History hydrALAZINE HCL [Apresoline] 25 mg PO BID PRN 09/27/20 04/27/22 History DULoxetine HCL [Cymbalta] 60 mg PO DAILY 04/27/22 04/27/22 History Doxycycline Hyclate 100 mg PO DIRECTED 04/27/22 04/27/22 History Furosemide [Lasix] 80 mg PO DAILY 04/27/22 04/27/22 History Insulin Glargine,Hum.rec.anlog 40 - 50 units SQ DAILY 04/27/22 04/27/22 History [Lantus Solostar Pen] Insulin Lispro [humaLOG Kwikpen] 0 - 30 unit SQ AC-TID 04/27/22 04/27/22 History Isosorbide Dinitrate 10 mg PO BID 04/27/22 04/27/22 History Lidocaine-Prilocaine Cream [Emla 1 applic TOPICAL DAILY PRN 04/27/22 04/27/22 History Cream 2.5%/2.5%] Montelukast [Singulair] 10 mg PO DAILY 04/27/22 04/27/22 History Nephro-Chelsey 1 tab PO DAILY 04/27/22 04/27/22 History Sevelamer [Renvela] 1,600 mg PO TID-W/MEALS 04/27/22 04/27/22 History Triamcinolone 0.025% Cream 1 applic TOPICAL BID PRN 04/27/22 04/27/22 History [Kenalog 0.025% Cream] predniSONE 10 mg PO DIRECTED 04/27/22 04/27/22 History Allergies Allergy/AdvReac Type Severity Reaction Status Date / Time No Known Allergies Allergy Verified 09/29/20 11:49 Physical Exam Vitals: Vital Signs Temp Pulse Pulse Resp BP BP Pulse Ox 04/28/22 14:30 75 18 98 04/28/22 14:00 72 16 98 04/28/22 13:30 73 13 97 04/28/22 13:01 04/28/22 13:00 69 17 96 04/28/22 12:30 69 18 94 L 04/28/22 12:00 98 F 70 17 97 04/28/22 11:32 04/28/22 11:30 69 18 97 04/28/22 11:28 04/28/22 11:00 84 16 97 04/28/22 10:30 86 19 143/64 98 04/28/22 10:04 04/28/22 10:01 04/28/22 10:00 82 18 130/51 96 04/28/22 09:30 83 19 141/62 96 04/28/22 09:00 84 15 124/55 96 04/28/22 08:30 86 11 L 124/52 96 04/28/22 08:00 99.4 F 86 12 126/56 96 04/28/22 07:30 86 12 102/50 96 04/28/22 07:00 99.8 F H 90 16 104/50 95 04/28/22 06:30 90 20 124/55 95 04/28/22 06:00 87 21 126/56 95 04/28/22 05:30 91 17 112/52 94 L 04/28/22 05:00 100.9 F H 93 23 129/53 93 L 04/28/22 04:30 93 23 126/51 93 L 04/28/22 04:00 89 17 128/52 95 04/28/22 03:57 04/28/22 03:30 85 12 136/51 95 04/28/22 03:00 85 16 136/55 96 04/28/22 02:30 80 19 142/59 97 04/28/22 02:00 80 19 137/52 98 04/28/22 01:30 80 20 134/52 98 04/28/22 01:00 80 14 104/46 98 04/28/22 00:39 04/28/22 00:30 81 20 111/43 96 04/28/22 00:00 80 19 130/48 97 04/27/22 23:30 80 17 147/52 98 04/27/22 23:27 80 17 147/52 98 04/27/22 23:20 98.1 F 81 17 147/52 98 04/27/22 23:10 80 16 152/56 98 12/22/22 23:02 98.0 F 80 16 152/56 04/27/22 23:00 80 16 141/56 98 04/27/22 22:50 76 14 105/45 99 22 22:40 76 18 104/46 98 22 22:30 76 18 104/46 98 04/27/22 22:20 77 18 107/46 97 22 22:10 77 16 106/46 04/27/22 22:00 79 18 83/41 95 04/27/22 21:50 79 18 128/54 97 2222 21:40 79 16 138/58 04/27/22 21:30 78 15 133/56 98 04/27/22 21:20 75 17 146/66 98 04/27/22 21:00 98 F 73 16 150/61 99 04/27/22 20:49 75 04/27/22 20:48 04/27/22 20:38 74 04/27/22 20:30 72 16 149/57 100 04/27/22 20:00 71 18 145/56 100 04/27/22 19:30 72 19 129/51 99 04/27/22 19:00 70 20 116/52 100 04/27/22 18:30 71 17 102/46 99 04/27/22 18:00 70 18 117/51 99 04/27/22 17:30 71 18 124/51 99 04/27/22 17:00 70 18 159/77 96 04/27/22 16:30 69 17 160/92 99 04/27/22 16:10 76 04/27/22 16:06 04/27/22 16:00 97.3 F L 72 12 142/95 98 04/27/22 15:41 69 18 132/62 100 04/27/22 15:30 70 18 99 04/27/22 15:00 68 20 136/62 99 FiO2 04/28/22 14:30 04/28/22 14:00 04/28/22 13:30 04/28/22 13:01 50 04/28/22 13:00 04/28/22 12:30 04/28/22 12:00 50 04/28/22 11:32 50 04/28/22 11:30 04/28/22 11:28 50 04/28/22 11:00 04/28/22 10:30 12/23/22 10:04 50 04/28/22 10:01 50 04/28/22 10:00 04/28/22 09:30 04/28/22 09:00 04/28/22 08:30 04/28/22 08:00 50 04/28/22 07:30 04/28/22 07:00 04/28/22 06:30 04/28/22 06:00 50 04/28/22 05:30 04/28/22 05:00 04/28/22 04:30 04/28/22 04:00 50 04/28/22 03:57 50 04/28/22 03:30 04/28/22 03:00 50 04/28/22 02:30 04/28/22 02:00 50 04/28/22 01:30 04/28/22 01:00 04/28/22 00:39 50 04/28/22 00:30 04/28/22 00:00 50 04/27/22 23:30 04/27/22 23:27 04/27/22 23:20 04/27/22 23:10 04/27/22 23:02 50 04/27/22 23:00 04/27/22 22:50 04/27/22 22:40 04/27/22 22:30 04/27/22 22:20 04/27/22 22:10 04/27/22 22:00 04/27/22 21:50 04/27/22 21:40 04/27/22 21:30 04/27/22 21:20 04/27/22 21:00 50 04/27/22 20:49 04/27/22 20:48 50 04/27/22 20:38 04/27/22 20:30 04/27/22 20:00 50 04/27/22 19:30 04/27/22 19:00 04/27/22 18:30 04/27/22 18:00 04/27/22 17:30 04/27/22 17:00 04/27/22 16:30 04/27/22 16:10 04/27/22 16:06 50 04/27/22 16:00 50 04/27/22 15:41 04/27/22 15:30 04/27/22 15:00 Intake and Output 04/27/22 04/28/22 04/28/22 22:59 06:59 14:59 Intake Total 840.474 0023.207 239.140 Output Total 65 2620 0 Balance 226.087 -1428.793 239.140 Intake: IV 115 120 130 0.9 KVO 15 20 30 Piperacillin-Tazobactam 3 100 100 100 .375 gm In Sodium Chloride 0.9% 100 ml @ 25 mls/hr IVPB Q8HR [facility] Rx# :[id number] Intake, IV Titration 176.087 171.207 109.140 Amount propofoL 1,000 mg In 176.087 171.207 109.140 Empty Bag 1 bag @ 15 MCG/ KG/MIN 8.614 mls/hr IV . [id number] [facility]ILEE Rx#:[id number] Hemodialysis 900 Output: Gastric Drainage 1200 Urine 65 20 0 Hemodialysis 1400 Other: Voiding Method Indwelling Catheter Indwelling Catheter Indwelling Catheter Weight 95.708 kg 96 kg 96 kg ABP, PAP, CO, CI - Last 8 Hours Arterial Blood Pressure 154/63 Arterial Blood Pressure 151/64 Arterial Blood Pressure 143/61 Arterial Blood Pressure 135/58 Arterial Blood Pressure 133/58 Arterial Blood Pressure 150/67 Arterial Blood Pressure 122/48 Arterial Blood Pressure 131/52 No acute distress S1-S2 heard Lungs clear Left forearm aVF Oral intubation Results - Lab Results Most recent lab results ABG pH 7.53 (7.35-7.45) H 04/28/22 05:30 ABG pCO2 42 mmHg (35-45) 04/28/22 05:30 ABG pO2 73 mmHg (83-108) L 04/28/22 05:30 ABG HCO3 35 mmol/L (21-25) H 04/28/22 05:30 ABG O2 Saturation 94.2 % (94-97) 04/28/22 05:30 Calcium 8.6 mg/dL (8.4-10.2) 04/28/22 06:08 04/28/22 06:08 04/28/22 06:08 Assessment and Plan Assessment: #1 encephalopathy secondary to COVID-19 and influenza pneumonia. -CT head negative. -No major electrolyte changes. #2 ESRD on hemodialysis via left forearm aVF. #3 hypertension with ESRD #4 ventilator-dependent respiratory failure Plan: #1 hemodialysis tomorrow. For solute and volume clearance. Plan for 3-4 L of UF. #2 ICU care
--- NOTE | 2022-04-28 17:47 | CT ---
EXAMINATION TYPE: CT brain wo con DATE OF EXAM: 04/28/2022 COMPARISON: 04/27/2022 HISTORY: 71-year-old female confusion, AMS, found unresponsive TECHNIQUE: Examination was done in axial plane without intravenous contrast. Coronal and sagittal r econstructions performed. CT DLP: 1257.4 mGycm Automated exposure control for dose reduction was used. FINDINGS: There is no evidence of acute intracranial hemorrhage, acute ischemic changes, mass, mass-effect, or extra-axial fluid collection. There is no effacement of cerebral sulci or basal subarachnoid cister ns. Similar mild ventriculomegaly. Mild patchy white matter hypodensities both cerebral hemispheres. There is no midline shift. Perez-white matter distinction is preserved. Opacification of the mastoid air cells on both sides. Partial opacification the middle ear cavities. Moderate mucosal thickening throughout the ethmoid air cells and mild throughout the remainder of the paranasal sinuses. Air-fluid level left maxillary sinus redemonstrated. Orbits and globes are intact . Patient is intubated. IMPRESSION: 1. Similar mild ventriculomegaly likely ex vacuo dilatation from central cerebral atrophy. Mild patch y burden of chronic small vessel ischemic disease. No acute intracranial abnormality seen. 2. Patient is intubated. There is ongoing air fluid level left maxillary sinus that could reflect acu te sinusitis. Background moderate chronic paranasal sinus disease. 3. Opacification of the mastoid air cells on both sides. Partial opacification of the middle ear cavi ties as well. Correlate to exclude otomastoiditis.
--- NOTE | 2022-04-28 19:27 | OP ---
OPERATIVE REPORT PROCEDURE PERFORMED: Placement of a right radial arterial line. PREOPERATIVE DIAGNOSIS: Acute hypoxic respiratory failure. POSTOPERATIVE DIAGNOSIS: Acute hypoxic respiratory failure. ANESTHESIA USED: None deployed. DESCRIPTION OF PROCEDURE: The right wrist was prepared in a sterile fashion, and drapes were applied. The right radial artery palpated, cannulated easily, and a guidewire was placed. A Cook catheter was inserted over the guidewire, and the guidewire was removed. Good blood flow, good waveform noted. No complications. Line was secured using 3-0 silk sutures. MMODL / IJN: [id number] /
--- NOTE | 2022-04-28 19:33 | OP ---
OPERATIVE REPORT PROCEDURES PERFORMED: Placement of a right femoral triple-lumen catheter. PREOPERATIVE DIAGNOSIS: Acute hypoxic respiratory failure requiring intubation and mechanical ventilation. POSTOPERATIVE DIAGNOSIS: Acute hypoxic respiratory failure requiring intubation and mechanical ventilation. ANESTHESIA USED: 4 mL of 1% lidocaine. DESCRIPTION OF PROCEDURE: The patient was placed in the supine position, the area of the right groin was prepared in a sterile fashion and drapes were applied. The area was locally anesthetized with lidocaine. Then, the right femoral vein was easily cannulated, medial to the right femoral artery, then a guidewire was placed. The area around the guidewire was dilated using a dilator. Then, a triple-lumen catheter was inserted over the guidewire, and the guidewire was removed. Good blood flow noted in the 3 different ports of the triple-lumen catheter. The line was secured using 3.0 silk sutures, no complications. MMODL / IJN: [id number] /
[2022-04-28] MEDS ORDERED: PIPERACILLIN-TAZOBACTAM 3.375 GM in SODIUM CHLORIDE 0.9% 100 ML IVPB SCH (21:00)
[2022-04-28] MEDS: ATORVASTATIN 40 MG TAB PO SCH (23:52)
[2022-04-29 00:04] LABS: Glucose,Whole Blood 242 mg/dL (70-110)
[2022-04-29] MEDS: INSULIN ASPART (NovoLOG) 100 UNIT/ML VIAL SQ SCH ×5 (00:06→23:24)
[2022-04-29 04:36] LABS: Basophils # (A) 0.1 k/uL (0-0.2); Basophils % (A) 0 %; Eosinophils % (A) 0 %; HCT 29.8 % (34.0-46.0); HGB 9.3 gm/dL (11.4-16.0); Hypochromasia Slight; Lymphocytes # (A) 0.8 k/uL (1.0-4.8); Lymphocytes % (A) 7 %; MCH 28.8 pg (25.0-35.0); MCHC 31.3 g/dL (31.0-37.0); MCV 92.1 fL (80.0-100.0); Mean Platelet Volume 7.7; Monocytes # (A) 0.4 k/uL (0-1.0); Monocytes % (A) 3 %; Neutrophils # (A) 9.9 k/uL (1.3-7.7); Neutrophils % (A) 87 %; Platelet Count 434 k/uL (150-450); RBC 3.24 m/uL (3.80-5.40); RDW 15.4 % (11.5-15.5); WBC 11.4 k/uL (3.8-10.6)
[2022-04-29 04:57] LABS: Albumin 3.2 g/dL (3.5-5.0); Calcium 8.2 mg/dL (8.4-10.2); Potassium 3.8 mmol/L (3.5-5.1); Total Bilirubin 0.5 mg/dL (0.2-1.3); Total Protein 5.8 g/dL (6.3-8.2)
[2022-04-29 05:47] LABS: ABG Base Excess 12.8 mmol/L; ABG HCO3 36 mmol/L (21-25); ABG Oxygen Saturation 96.6 % (94-97); ABG PCO2 48 mmHg (35-45); ABG PH 7.49 (7.35-7.45); ABG PO2 106 mmHg (83-108); ABG TCO2 38 mmol/L (19-24); Allen Test Performed? Yes
[2022-04-29 06:11] LABS: Glucose,Whole Blood 228 mg/dL (70-110)
--- NOTE | 2022-04-29 06:23 | XR ---
EXAMINATION TYPE: XR chest 1V portable DATE OF EXAM: 04/29/2022 CLINICAL HISTORY: Difficulty breathing progress study. TECHNIQUE: Single AP portable semiupright view of the chest is obtained. COMPARISON: Chest x-ray from one day earlier and older studies. FINDINGS: Stable endotracheal and orogastric tubes. Persistent peripheral right lower lung increased opacity. Persistent left basilar opacity. Stable mil d cardiomegaly. Osseous structures are intact. IMPRESSION: Stable peripheral right lower lung and left basilar acute infiltrate and/or atelectasis w ith suspected small to tiny left pleural effusion.
--- NOTE | 2022-04-29 07:24 | PN ---
PROGRESS NOTE DATE OF SERVICE: 04/28/2022 SUBJECTIVE: This is a 71-year-old woman who was admitted with acute hypoxic failure, on mechanical ventilation. Dr. Millan and multiple consultants are following the patient closely. A 2D echo showed normal ejection fraction. The patient is also on empiric antibiotics as well. Neurology is also following the patient closely. The patient also received hemodialysis last night. Past medical history and review of systems could not be obtained as the patient is currently sedated. CURRENT MEDICATIONS: Reviewed and include Zosyn. Doses and the rest of the medications are reviewed. PHYSICAL EXAMINATION: VITAL SIGNS: Pulse is 69, blood pressure 130/50, respirations 17, vent settings are noted. HEENT: Conjunctivae clear. NECK: No jugular venous distention. RESPIRATORY: A few scattered rhonchi. ABDOMEN: Soft. NERVOUS: Sedated. LABORATORY DATA: WBC 12.2. Other labs are reviewed and COVID-19 was positive. Hep antibody is positive. ASSESSMENT: 1. Acute hypoxic respiratory failure, possibly multifactorial. 2. Rule out seizures, cerebrovascular accident, or toxic encephalopathy. 3. Acute influenza A. 4. Acute COVID-19. 5. Possible acute urinary tract infection, present on admission. 6. Possible aspiration pneumonia. 7. Chronic renal failure, on hemodialysis, end-stage renal disease. 8. History of asthma, chronic obstructive pulmonary disease. 9. Diabetes mellitus type 2. 10.Multiple medical issues. RECOMMENDATIONS: Recommend to continue current medications and symptomatic treatment. Continue with the empiric antibiotics. Follow the cultures. Follow closely with multiple consultants. Also recommend Infectious Disease evaluation. The patient had concomitant infection with flu as well as COVID. Further recommendations to follow. MMODL / IJN: [id number] /
[2022-04-29] MEDS: ALBUTEROL HFA INHALER INHALATION SCH ×4 (08:19→19:57)
[2022-04-29] MEDS: TIOTROPIUM 2.5 MCG INHALER INHALATION SCH (08:19)
[2022-04-29] MEDS: CHLORHEXIDINE GLUCONATE 15 ML CUP MUCOUS MEM SCH ×2 (08:48→20:15)
--- NOTE | 2022-04-29 11:43 | P.PN ---
Subjective Progress Note Date: 04/29/22 Principal diagnosis: Acute hypoxic respiratory failure, possible CVA, possible seizures this is a 71-year-old female with history of multiple medical problems including chronic renal disease, she is on hemodialysis, history of congestive heart failure, type 2 diabetes, COPD,patient did not show up for her dialysis this morning, police was sent to [place] for a well check call, patient did not respond to the door, police broke into the house, and she was found unresponsive. Patient was brought by EMS to ER, and upon initial evaluation she had a Glascow coma score of 6. She had some right-sided facial droop, and she was postural rate. Patient was unable to answer any questions, unresponsive, she was also noted to be hypertensive. Blood sugar was adequate. Patient was intubated, placed on mechanical ventilation, and this consult was initiated. She is presently on tidal volume of 400, FiO2 50%, rate of 16, and PEEP of 8. ABG is pending. Chest x-ray is showing evidence of bibasilar infiltrates, consistent with aspiration pneumonia, apparently her intubation was not easy, and was a bit traumatic. Her CT of the head is pending.WBC count is 17.3 hemoglobin is 12.3.BUN is 44 creatinine 6.03. Bicarb is 26.liver enzymes were noted to be normal. Urinalysis is showing evidence of pyuria and bacteriuria. Positive leukocyte esterase in the urine Patient was reevaluated today on 04/28/22, remains in the ICU, intubated and mechanically ventilated. Patient had incidental positive COVID-19 screening. And positive influenza A. Remains on assist control rate of 16, volume 400 FiO2 50% and PEEP of 8. ABG showed a pO2 of 73 pCO2 42 pH of 7.53. Patient is rec eiving propofol at 30 mcg/kg/m, her IV fluid is at KVO, and today I want ahead and placed a right femoral triple-lumen catheter and right radial arterial line. Patient remains unresponsive, she is on propofol which I plan to hold today, and assess mental status off propofol if possible. Patient doesn't respond to deep painful stimuli by withdrawal, but does not open eyes, does not have any purposeful movement or response to any stimuli. Except withdrawal to painful stimuli noted while placing the central line and arterial line. Chest x-ray is showing mostly stable peripheral right lower lobe infiltrate, and possibly a left lower lobe atelectasis/consolidation. Again looking at her admission labs, patient came back positive for influenza A and ballesteros virus PCR was positive. Will recommend that the patient goes on Tamiflu, and we'll recommend the COVID- 19 cocktail for this patient. Patient is a known end-stage renal disease, and she is being followed by nephrology, she will get intermittent hemodialysis reevaluated today on 04/25/22, patient remains in the ICU intubated and mec hanically ventilated, she is on assist control rate of 16:400 FiO2 50% and PEEP of 8 ABG showed a pO2 of 106 pCO2 48 pH of 7.49. Repeat CT of the brain showed no evidence of any new change, patient is undergoing hemodialysis again today. And she is now off sedation for the last 24 hours. Her IV fluids at KVO, she has high residual hence she is not receiving any enteral feeding yet. Today the patient is noted to be encephalopathic, unresponsive to any stimuli, opens eyes, but not purposeful. And again she is not responding to any stimuli except deep painful stimuli/withdrawal. Patient was admitted with acute hypoxic and hypercapnic respiratory failure, she was also found to have positive COVID-19 infection and influenza A infection. Patient may have sustained an anoxic brain injury because she was found at home unresponsive when the police broke in because she didn't show up to her dialysis treatment.basic metabolic profile is relatively normal BUN is 51 creatinine 7.25.WBC count is 11.4 hemoglobin is 9.3.CT brain yesterday showedpossible mastoiditis.and chronic paranasal sinus disease.chest x-ray showed stable peripheral and right lower lobe/left basilar infiltrate/atelectasis. Objective - Vital Signs Vital signs: Vital Signs Temp 98.8 F 04/29/22 08:00 Pulse 80 04/29/22 11:00 Resp 19 04/29/22 11:00 BP 143/64 04/28/22 10:30 Pulse Ox 97 04/29/22 11:00 FiO2 50 04/29/22 11:00 Intake & Output 04/28/22 04/29/22 04/29/22 18:59 06:59 18:59 Intake Total 259.140 170 50 Output Total 765 45 450 Balance -505.860 125 -400 Weight 96 kg 93.7 kg Intake: IV 150 70 50 0.9 Normal Saline @ 10 mL 50 70 50 /hr KVO Piperacillin-Tazobactam 3 100 .375 gm In Sodium Chloride 0.9% 100 ml @ 25 mls/hr IVPB Q8HR [facility] Rx# :[id number] Intake, IV Titration 109.140 100 Amount Piperacillin-Tazobactam 3 100 .375 gm In Sodium Chloride 0.9% 100 ml @ 25 mls/hr IVPB Q8HR [facility] Rx# :[id number] propofoL 1,000 mg In 109.140 Empty Bag 1 bag @ 15 MCG/ KG/MIN 8.614 mls/hr IV . [id number] [facility] Rx#:[id number] Output: Gastric Drainage 750 450 Urine 15 45 0 Other: Voiding Method Indwelling Catheter Indwelling Catheter Indwelling Catheter ABP, PAP, CO, CI - Last Documented Arterial Blood Pressure 132/40 - Exam Physical Exam: Revealed a 71-year-old female, obese, intubated, mechanically ventilated, in no distress. patient is off propofol now. Head: Atraumatic, normocephalic. HEENT:[Neck is supple.] [No neck masses.] [No thyromegaly.] [No JVD.]endotracheal tube and orogastric tube are intact. There is evidence of some bloody secretions noted from the endotracheal tube because of traumatic intubation. Chest: [minimal fine crackles at the bases no rhonchi and no wheezes.] Cardiac Exam: [Normal S1 and S2, no S3 gallop, no murmur.] Abdomen: [Soft, nontender, no megaly, no rebound, no guarding, normal bowel s ounds.]large periumbilical hernia is noted. Extremities: [No clubbing, no edema, no cyanosis.]AV fistula noted in the left forearm area. Unremarkable. Neurological Exam:opens eyes, otherwise does not respond to any stimuli. She does withdraw to deep painful stimuli only. Skin: No rashes. Psychiatric: Could not assess. - Labs CBC & Chem 7: 04/29/22 04:00 04/29/22 04:00 Labs: Abnormal Lab Results - Last 24 Hours (Table) 04/27/22 04/28/22 04/29/22 Range/Units 14:56 06:08 00:02 WBC (3.8-10.6) k/uL RBC (3.80-5.40) m/uL Hgb (11.4-16.0) gm/dL Hct (34.0-46.0) % Neutrophils # (1.3-7.7) k/uL Lymphocytes # (1.0-4.8) k/uL ABG pH (7.35-7.45) ABG pCO2 (35-45) mmHg ABG HCO3 (21-25) mmol/L ABG Total CO2 (19-24) mmol/L Chloride (98-107) mmol/L Carbon Dioxide (22-30) mmol/L BUN (7-17) mg/dL Creatinine (0.52-1.04) mg/dL Glucose (74-99) mg/dL POC Glucose (mg/dL) 242 H (70-110) mg/dL Calcium (8.4-10.2) mg/dL AST (14-36) U/L Total Protein (6.3-8.2) g/dL Albumin (3.5-5.0) g/dL Triglycerides 286.00 H (0.00-149.00) mg/dL VLDL Cholesterol, Calc 57.20 H (5.00-40.00) mg/dL HDL Cholesterol 36.20 L (40.00-60.00) mg/dL Hep Bs Antibody Reactive A (Nonreactive) 04/29/22 04/29/22 04/29/22 Range/Units 04:00 04:00 05:43 WBC 11.4 H (3.8-10.6) k/uL RBC 3.24 L (3.80-5.40) m/uL Hgb 9.3 L (11.4-16.0) gm/dL Hct 29.8 L (34.0-46.0) % Neutrophils # 9.9 H (1.3-7.7) k/uL Lymphocytes # 0.8 L (1.0-4.8) k/uL ABG pH 7.49 H (7.35-7.45) ABG pCO2 48 H (35-45) mmHg ABG HCO3 36 H (21-25) mmol/L ABG Total CO2 38 H (19-24) mmol/L Chloride 93 L (98-107) mmol/L Carbon Dioxide 35 H (22-30) mmol/L BUN 51 H (7-17) mg/dL Creatinine 7.25 H* (0.52-1.04) mg/dL Glucose 194 H (74-99) mg/dL POC Glucose (mg/dL) (70-110) mg/dL Calcium 8.2 L (8.4-10.2) mg/dL AST 13 L (14-36) U/L Total Protein 5.8 L (6.3-8.2) g/dL Albumin 3.2 L (3.5-5.0) g/dL Triglycerides (0.00-149.00) mg/dL VLDL Cholesterol, Calc (5.00-40.00) mg/dL HDL Cholesterol (40.00-60.00) mg/dL Hep Bs Antibody (Nonreactive) 04/29/22 Range/Units 06:09 WBC (3.8-10.6) k/uL RBC (3.80-5.40) m/uL Hgb (11.4-16.0) gm/dL Hct (34.0-46.0) % Neutrophils # (1.3-7.7) k/uL Lymphocytes # (1.0-4.8) k/uL ABG pH (7.35-7.45) ABG pCO2 (35-45) mmHg ABG HCO3 (21-25) mmol/L ABG Total CO2 (19-24) mmol/L Chloride (98-107) mmol/L Carbon Dioxide (22-30) mmol/L BUN (7-17) mg/dL Creatinine (0.52-1.04) mg/dL Glucose (74-99) mg/dL POC Glucose (mg/dL) 228 H (70-110) mg/dL Calcium (8.4-10.2) mg/dL AST (14-36) U/L Total Protein (6.3-8.2) g/dL Albumin (3.5-5.0) g/dL Triglycerides (0.00-149.00) mg/dL VLDL Cholesterol, Calc (5.00-40.00) mg/dL HDL Cholesterol (40.00-60.00) mg/dL Hep Bs Antibody (Nonreactive) Microbiology - Last 24 Hours (Table) 04/27/22 13:24 Gram Stain - Final Sputum Sputum Culture - Final Haemophilus influenzae 04/27/22 17:02 Blood Culture - Preliminary Blood No Growth after 24 hours 04/27/22 16:50 Blood Culture - Preliminary Blood No Growth after 24 hours 04/27/22 13:44 Urine Culture - Final Urine,Catheterized Assessment and Plan Assessment: impression: Acute hypoxic respiratory failure, exact etiology is not clear, suspect acute CVA.possible seizures) possible anoxic brain injury considering the presentation and the clinical history Acute aspiration pneumonia is strongly suspected. Patient is on Zosyn. Incidental COVID-19 infection, doubt COVID-19 pneumonia, patient is on COVID-19 cocktail. Influenza A infection, . Hence I am recommending Tamiflu 75 mg twice a day History of end-stage renal disease, on hemodialysis. History of coronary artery disease. History of congestive heart failure. History of questionable asthma. coronary arteriosclerosis and previous stent placement. Type 2 diabetes.Degenerative joint disease. recommendation: Continue ventilatory support, no changes made in ventilatory settings today. continue COVID-19 cocktail. continue Tamiflu 75 twice a day. Continue empiric antibiotics/Zosyn for presumptive aspiration pneumonia. Continue bronchodilators/DuoNeb. Patient is being followed by neurology and by nephrology for her neurological status and for her renal failure. Admission brain CT is nondiagnostic., repeat CT showing mostly mastoiditis and maxillary sinus disease. Patient is empirically on antibiotics anyway. Continue GI and DVT prophylaxis. continue to hold propofol as long as possible Nutritional support/enteral feeding.patient had relatively high residuals today, presently enteral feeding is on hold. We will continue to follow. Prognosis is extremely poor and guarded. discussed her condition with neurology on the case. critical care time is over 30 minutes Time with Patient: Greater than 30
--- NOTE | 2022-04-29 12:48 | P.PN ---
Subjective Progress Note Date: 04/29/22 The patient is seen at bedside and per nurse, she has been off sedation since yesterday from day shift. She continues to be non-responsive and sometimes postures. Patient leukocytosis trending down. She had repeat CT head on 04/28/22: It is reported as similar mild ventriculomegaly likely ex vacuo dilation from central cerebral atrophy. Mild patchy burden of chronic small vessel ischemic disease. No acute intracranial abnormality seen. Patient is intubated. His ongoing air-fluid level left maxillary sinus that could reflect acute sinusitis. Background mild chronic paranasal sinus disease. Opacification of the mastoid air cells on both sides. Partial opacification of the middle ear cavity as well. Correlate to exclude otomastoiditis Patient sputum is positive for Haemophilus influenza area Objective - Vital Signs Vital signs: Vital Signs Temp 98.8 F 04/29/22 08:00 Pulse 80 04/29/22 11:00 Resp 19 04/29/22 11:00 BP 143/64 04/28/22 10:30 Pulse Ox 97 04/29/22 11:00 FiO2 50 04/29/22 11:36 Intake & Output 04/28/22 04/29/22 04/29/22 18:59 06:59 18:59 Intake Total 259.140 170 50 Output Total 765 45 450 Balance -505.860 125 -400 Weight 96 kg 93.7 kg Intake: IV 150 70 50 0.9 Normal Saline @ 10 mL 50 70 50 /hr KVO Piperacillin-Tazobactam 3 100 .375 gm In Sodium Chloride 0.9% 100 ml @ 25 mls/hr IVPB Q8HR [facility] Rx# :[id number] Intake, IV Titration 109.140 100 Amount Piperacillin-Tazobactam 3 100 .375 gm In Sodium Chloride 0.9% 100 ml @ 25 mls/hr IVPB Q8HR [facility] Rx# :[id number] propofoL 1,000 mg In 109.140 Empty Bag 1 bag @ 15 MCG/ KG/MIN 8.614 mls/hr IV . [id number] [facility] Rx#:[id number] Output: Gastric Drainage 750 450 Urine 15 45 0 Other: Voiding Method Indwelling Catheter Indwelling Catheter Indwelling Catheter ABP, PAP, CO, CI - Last Documented Arterial Blood Pressure 132/40 - Exam GENERAL: The patient is laying in bed and does not appear in acute distress. LUNG: Intubated on ventilator. NEUROLOGICAL: Limited because of her condition. Intubated on ventilator. Off sedation for at least 14 hours. Higher mental function: The patient is stupor. GCS 9 (E4, VT1, M4) . Cranial nerves: Primary gaze is midline. She had eye open spontaneously. Primary gaze is mdiline to slightly looking up. The pupils are round, equal and reactive to light. No facial weakness. Is breathing over the vent. Has intact weak gag reflex. Rest is limited. Motor: The strength is hard to assess individual muscles. Is localizing to painful stimuli throughout. symmetrically but sometime would have extension posturing of lowers.. Normal tone and bulk. Cerebellum: Unable to assess. Sensation: Seems to have intact painful stimuli. Reflexes (right/left): 1+ throughout. Plantars are mute bilaterally. Some of the workup during his hospital visit consisted of: Influenza A and Richard virus PCR detected. Also possible underlying UTI. Troponin is a 1.07. Ammonia <9 TSH: 0.593 Urinalysis seems possible suggestive of underlying urinary tract infection CT of the head is reported as age-related atrophic and chronic small vessel ischemic changes without acute intracranial process seen at this time. CT angiography is reported as no significant abnormality. Chest x-ray was reported as peripheral nodule base consolidation right upper lobe. Could be on the basis of infiltrate or neoplastic process. Core sent interstitium correlate for chronic interstitial lung disease otherwise consider interstitial pneumonia or pneumonitis Prominence right hilum. Repeat x-ray re commend short-term basis to assess for developing infiltrate or adenopathy versus mass Routine EEG is abnormal. The background slowing suggestive of moderate to severe encephalopathy. The suppressions likely due to medication effect (sedatives). Otherwise there is no focal slowing, epileptiform discharges or seizure on the EEG. 2-D echo was reported as technically difficult study for agitation. Normal left ventricle diamonds and systolic function. She had repeat CT head on 04/28/22: It is reported as similar mild ventriculomegaly likely ex vacuo dilation from central cerebral atrophy. Mild patchy burden of chronic small vessel ischemic disease. No acute intracranial abnormality seen. Patient is intubated. His ongoing air-fluid level left maxillary sinus that could reflect acute sinusitis. Background mild chronic paranasal sinus disease. Opacification of the mastoid air cells on both sides. Partial opacification of the middle ear cavity as well. Correlate to exclude otomastoiditis Patient sputum is positive for Haemophilus influenza area - Labs CBC & Chem 7: 04/29/22 04:00 04/29/22 04:00 Labs: Abnormal Lab Results - Last 24 Hours (Table) 04/27/22 04/28/22 04/29/22 Range/Units 14:56 06:08 00:02 WBC (3.8-10.6) k/uL RBC (3.80-5.40) m/uL Hgb (11.4-16.0) gm/dL Hct (34.0-46.0) % Neutrophils # (1.3-7.7) k/uL Lymphocytes # (1.0-4.8) k/uL ABG pH (7.35-7.45) ABG pCO2 (35-45) mmHg ABG HCO3 (21-25) mmol/L ABG Total CO2 (19-24) mmol/L Chloride (98-107) mmol/L Carbon Dioxide (22-30) mmol/L BUN (7-17) mg/dL Creatinine (0.52-1.04) mg/dL Glucose (74-99) mg/dL POC Glucose (mg/dL) 242 H (70-110) mg/dL Calcium (8.4-10.2) mg/dL AST (14-36) U/L Total Protein (6.3-8.2) g/dL Albumin (3.5-5.0) g/dL Triglycerides 286.00 H (0.00-149.00) mg/dL VLDL Cholesterol, Calc 57.20 H (5.00-40.00) mg/dL HDL Cholesterol 36.20 L (40.00-60.00) mg/dL Hep Bs Antibody Reactive A (Nonreactive) 04/29/22 04/29/22 04/29/22 Range/Units 04:00 04:00 05:43 WBC 11.4 H (3.8-10.6) k/uL RBC 3.24 L (3.80-5.40) m/uL Hgb 9.3 L (11.4-16.0) gm/dL Hct 29.8 L (34.0-46.0) % Neutrophils # 9.9 H (1.3-7.7) k/uL Lymphocytes # 0.8 L (1.0-4.8) k/uL ABG pH 7.49 H (7.35-7.45) ABG pCO2 48 H (35-45) mmHg ABG HCO3 36 H (21-25) mmol/L ABG Total CO2 38 H (19-24) mmol/L Chloride 93 L (98-107) mmol/L Carbon Dioxide 35 H (22-30) mmol/L BUN 51 H (7-17) mg/dL Creatinine 7.25 H* (0.52-1.04) mg/dL Glucose 194 H (74-99) mg/dL POC Glucose (mg/dL) (70-110) mg/dL Calcium 8.2 L (8.4-10.2) mg/dL AST 13 L (14-36) U/L Total Protein 5.8 L (6.3-8.2) g/dL Albumin 3.2 L (3.5-5.0) g/dL Triglycerides (0.00-149.00) mg/dL VLDL Cholesterol, Calc (5.00-40.00) mg/dL HDL Cholesterol (40.00-60.00) mg/dL Hep Bs Antibody (Nonreactive) 04/29/22 Range/Units 06:09 WBC (3.8-10.6) k/uL RBC (3.80-5.40) m/uL Hgb (11.4-16.0) gm/dL Hct (34.0-46.0) % Neutrophils # (1.3-7.7) k/uL Lymphocytes # (1.0-4.8) k/uL ABG pH (7.35-7.45) ABG pCO2 (35-45) mmHg ABG HCO3 (21-25) mmol/L ABG Total CO2 (19-24) mmol/L Chloride (98-107) mmol/L Carbon Dioxide (22-30) mmol/L BUN (7-17) mg/dL Creatinine (0.52-1.04) mg/dL Glucose (74-99) mg/dL POC Glucose (mg/dL) 228 H (70-110) mg/dL Calcium (8.4-10.2) mg/dL AST (14-36) U/L Total Protein (6.3-8.2) g/dL Albumin (3.5-5.0) g/dL Triglycerides (0.00-149.00) mg/dL VLDL Cholesterol, Calc (5.00-40.00) mg/dL HDL Cholesterol (40.00-60.00) mg/dL Hep Bs Antibody (Nonreactive) Microbiology - Last 24 Hours (Table) 04/27/22 13:24 Gram Stain - Final Sputum Sputum Culture - Final Haemophilus influenzae 04/27/22 17:02 Blood Culture - Preliminary Blood No Growth after 24 hours 04/27/22 16:50 Blood Culture - Preliminary Blood No Growth after 24 hours 04/27/22 13:44 Urine Culture - Final Urine,Catheterized Assessment and Plan Assessment: Encephalopathy seems due to multifactorial: due to hypoxic respiratory failure from Influenza A and Coronavirus, some metabolic encephalopathy. Reported transient episode of right facial droop by EMS. Rule out stroke. Cu rrently no facial weakness. Two CT head did not show any evidence of acute or subacute ischemic stroke. Influezna A infection Acute Covid-19 infection Consolidation of the right upper lobe concerning for infiltrate versus neoplastic process on chest x-ray Elevated troponin End-stage renal disease on dialysis Congestive heart failure COPD Plan: EEG did not show any evidence of seizure. Because of intermittent posturing, I will start her on prophylactic Keppra 500mg every 12 hours. Consider repeat EEG this Sunday if does not improved. She had repeat CT head yesterday and no acute or subacute changes. Continue aspirin 81 mg (new during this admission) and her Plavix 75mg daily was resumed for secondary stroke prophylaxis. Also on Lipitor 40 mg daily for secondary stroke prophylaxis. Consulted PT and OT Every two hours neuro checks Placed on cardiac monitoring Regarding the questionable of suspicious neoplasm on chest x-ray will defer the management to the primary and pulmonary team. We'll defer the rest of the medical management to the primary and ICU team For DVT prophylaxis Lovenox Plan was discussed with the patient's ICU attending and her nurse. Time with Patient: Less than 30
[2022-04-29] MEDS: CLOPIDOGREL 75 MG TAB PO SCH (12:52)
[2022-04-29] MEDS: METOPROLOL TARTRATE 50 MG TAB PO SCH ×2 (12:53→22:39)
[2022-04-29] MEDS: ISOSORBIDE DINITRATE 10 MG TAB PO SCH ×2 (12:53→20:15)
[2022-04-29] MEDS: ZINC SULFATE 220 MG CAP PO SCH (12:53)
[2022-04-29] MEDS: CHOLECALCIFEROL 25 MCG (1000 IU) TABLET PO SCH (12:53)
[2022-04-29] MEDS: ASPIRIN 81 MG PO SCH (12:53)
[2022-04-29] MEDS: ENOXAPARIN 30 MG/0.3 ML SYRINGE SQ SCH (12:54)
[2022-04-29] MEDS: ASCORBIC ACID 500 MG TAB PO SCH (12:54)
[2022-04-29] MEDS: OSELTAMIVIR 60 MG/10 ML ORAL SYRINGE PO SCH (12:54)
[2022-04-29] MEDS: PIPERACILLIN-TAZOBACTAM 3.375 GM in SODIUM CHLORIDE 0.9% 100 ML IVPB SCH (12:54)
[2022-04-29] MEDS: PANTOPRAZOLE 40 MG/10 ML VIAL IVP SCH (12:55)
--- NOTE | 2022-04-29 13:24 | P.PN ---
Subjective Progress Note Date: 04/29/22 Follow-up for ESRD. Minimal sedation, not responding appropriately. Objective - Vital Signs Vital signs: Vital Signs Temp 98.7 F 04/29/22 12:00 Pulse 78 04/29/22 12:00 Resp 19 04/29/22 12:00 BP 143/64 04/28/22 10:30 Pulse Ox 97 04/29/22 12:00 FiO2 50 04/29/22 12:00 Intake & Output 04/28/22 04/29/22 04/29/22 18:59 06:59 18:59 Intake Total 259.140 170 60 Output Total 765 45 956 Balance -505.860 125 -896 Weight 96 kg 93.7 kg Intake: IV 150 70 60 0.9 Normal Saline @ 10 mL 50 70 60 /hr KVO Piperacillin-Tazobactam 3 100 .375 gm In Sodium Chloride 0.9% 100 ml @ 25 mls/hr IVPB Q8HR [facility] Rx# :[id number] Intake, IV Titration 109.140 100 Amount Piperacillin-Tazobactam 3 100 .375 gm In Sodium Chloride 0.9% 100 ml @ 25 mls/hr IVPB Q8HR [facility] Rx# :[id number] propofoL 1,000 mg In 109.140 Empty Bag 1 bag @ 15 MCG/ KG/MIN 8.614 mls/hr IV . [id number] [facility] Rx#:[id number] Output: Gastric Drainage 750 950 Urine 15 45 6 Other: Voiding Method Indwelling Catheter Indwelling Catheter Indwelling Catheter ABP, PAP, CO, CI - Last Documented Arterial Blood Pressure 128/40 - Exam No acute distress S1-S2 heard Lungs clear No edema - Labs CBC & Chem 7: 04/29/22 04:00 04/29/22 04:00 Labs: Abnormal Lab Results - Last 24 Hours (Table) 04/27/22 04/28/22 04/29/22 Range/Units 14:56 06:08 00:02 WBC (3.8-10.6) k/uL RBC (3.80-5.40) m/uL Hgb (11.4-16.0) gm/dL Hct (34.0-46.0) % Neutrophils # (1.3-7.7) k/uL Lymphocytes # (1.0-4.8) k/uL ABG pH (7.35-7.45) ABG pCO2 (35-45) mmHg ABG HCO3 (21-25) mmol/L ABG Total CO2 (19-24) mmol/L Chloride (98-107) mmol/L Carbon Dioxide (22-30) mmol/L BUN (7-17) mg/dL Creatinine (0.52-1.04) mg/dL Glucose (74-99) mg/dL POC Glucose (mg/dL) 242 H (70-110) mg/dL Calcium (8.4-10.2) mg/dL AST (14-36) U/L Total Protein (6.3-8.2) g/dL Albumin (3.5-5.0) g/dL Triglycerides 286.00 H (0.00-149.00) mg/dL VLDL Cholesterol, Calc 57.20 H (5.00-40.00) mg/dL HDL Cholesterol 36.20 L (40.00-60.00) mg/dL Hep Bs Antibody Reactive A (Nonreactive) 04/29/22 04/29/22 04/29/22 Range/Units 04:00 04:00 05:43 WBC 11.4 H (3.8-10.6) k/uL RBC 3.24 L (3.80-5.40) m/uL Hgb 9.3 L (11.4-16.0) gm/dL Hct 29.8 L (34.0-46.0) % Neutrophils # 9.9 H (1.3-7.7) k/uL Lymphocytes # 0.8 L (1.0-4.8) k/uL ABG pH 7.49 H (7.35-7.45) ABG pCO2 48 H (35-45) mmHg ABG HCO3 36 H (21-25) mmol/L ABG Total CO2 38 H (19-24) mmol/L Chloride 93 L (98-107) mmol/L Carbon Dioxide 35 H (22-30) mmol/L BUN 51 H (7-17) mg/dL Creatinine 7.25 H* (0.52-1.04) mg/dL Glucose 194 H (74-99) mg/dL POC Glucose (mg/dL) (70-110) mg/dL Calcium 8.2 L (8.4-10.2) mg/dL AST 13 L (14-36) U/L Total Protein 5.8 L (6.3-8.2) g/dL Albumin 3.2 L (3.5-5.0) g/dL Triglycerides (0.00-149.00) mg/dL VLDL Cholesterol, Calc (5.00-40.00) mg/dL HDL Cholesterol (40.00-60.00) mg/dL Hep Bs Antibody (Nonreactive) 04/29/22 Range/Units 06:09 WBC (3.8-10.6) k/uL RBC (3.80-5.40) m/uL Hgb (11.4-16.0) gm/dL Hct (34.0-46.0) % Neutrophils # (1.3-7.7) k/uL Lymphocytes # (1.0-4.8) k/uL ABG pH (7.35-7.45) ABG pCO2 (35-45) mmHg ABG HCO3 (21-25) mmol/L ABG Total CO2 (19-24) mmol/L Chloride (98-107) mmol/L Carbon Dioxide (22-30) mmol/L BUN (7-17) mg/dL Creatinine (0.52-1.04) mg/dL Glucose (74-99) mg/dL POC Glucose (mg/dL) 228 H (70-110) mg/dL Calcium (8.4-10.2) mg/dL AST (14-36) U/L Total Protein (6.3-8.2) g/dL Albumin (3.5-5.0) g/dL Triglycerides (0.00-149.00) mg/dL VLDL Cholesterol, Calc (5.00-40.00) mg/dL HDL Cholesterol (40.00-60.00) mg/dL Hep Bs Antibody (Nonreactive) Microbiology - Last 24 Hours (Table) 04/27/22 13:24 Gram Stain - Final Sputum Sputum Culture - Final Haemophilus influenzae 04/27/22 17:02 Blood Culture - Preliminary Blood No Growth after 24 hours 04/27/22 16:50 Blood Culture - Preliminary Blood No Growth after 24 hours 04/27/22 13:44 Urine Culture - Final Urine,Catheterized Assessment and Plan Assessment: #1 encephalopathy secondary to COVID-19 and influenza pneumonia. -CT head negative. -No major electrolyte changes. #2 ESRD on hemodialysis via left forearm aVF. #3 hypertension with ESRD #4 ventilator-dependent respiratory failure Plan: #1 hemodialysis today with the goal UF off 3-4 L. #2 ICU care
[2022-04-29] MEDS: levETIRAcetam IV 500 MG in SODIUM CHLORIDE 0.9% 100 ML IVPB SCH ×2 (13:36→20:15)
[2022-04-29 13:41] LABS: Glucose,Whole Blood 208 mg/dL (70-110)
[2022-04-29 18:36] LABS: Glucose,Whole Blood 164 mg/dL (70-110)
[2022-04-29] MEDS: ATORVASTATIN 40 MG TAB PO SCH (20:15)
--- NOTE | 2022-04-29 20:34 | P.CONS ---
History of Present Illness - Reason for Consult Consult date: 04/29/22 Flu and covid Requesting physician: Timoteo Wang - Chief Complaint found unresponsive at home x one day - History of Present Illness Patient is a 71-year-old female with a past medical history significant for type 2 diabetes mellitus COPD consist heart failure end-stage renal disease on hemodialysis, patient was brought into the ER 2 days ago after the patient was found to be unresponsive at home apparently the patient did not show for her dialysis release was sent for a well check visit patient did not respond to the door to break into the house noticed the patient to be on the floor unresponsive patient was rushed to the ER and is getting intubated on ar rival to the ER the patient did have white count of 17,000 however she was afebrile though she did spike a fever of 101F on 04/28/2022 patient also have a positive influenza PCR as well as ballesteros PCR, patient did have a chest x-ray with evidence of peripheral ordered base consolidation right upper lobe patient has been started on Tamiflu and Zosyn and infectious disease was consulted for further management most of the information has been obtained from review the chart and talking to the staff as the patient is currently intubated on the vent and cannot provide any history Review of Systems Positive points has been mentioned in HPI complete review could not be obtained because patient is intubated on the vent Past Medical History Past Medical History: Asthma, Coronary Artery Disease (CAD), Chest Pain / Angina, Heart Failure, COPD, Diabetes Mellitus, Eye Disorder, Osteoarthritis (OA), Renal Disease Additional Past Medical History / Comment(s): CURRENTLY ON HEMODIALYSIS ,,, [facility]. L4, L5 and C6 disc degeneration. Stage 4 kidney disease. Rt great toe wound infection recurrent. Macular Degeneration. History of Any Multi-Drug Resistant Organisms: None Reported Past Surgical History: Adenoidectomy, Appendectomy, Section, Heart Catheterization, Heart Catheterization With Stent, Hysterectomy, Tonsillectomy Additional Past Surgical History / Comment(s): Vein ligation right leg, catarcts removed bilaterally. Past Anesthesia/Blood Transfusion Reactions: No Reported Reaction Date of Last Stent Placement:: FEBRUARY 2016, [facility]ED[facility] Past Psychological History: Depression Smoking Status: Former smoker Past Alcohol Use History: None Reported Past Drug Use History: None Reported - Past Family History Mother Family Medical History: Diabetes Mellitus, Hypertension Father Family Medical History: Diabetes Mellitus, Hypertension Medications and Allergies Home Medications Medication Instructions Recorded Confirmed Type Albuterol Sulfate [Proair Hfa] 1 - 2 puff INHALATION RT-Q6H PRN 09/13/15 04/27/22 History Pravastatin Sodium [Pravachol] 40 mg PO HS 09/13/15 04/27/22 History Clopidogrel [Plavix] 75 mg PO DAILY 07/22/20 04/27/22 History HYDROcodone/APAP 7.5-325MG [[place] 1 tab PO QID PRN 07/22/20 04/27/22 History 7.5-325] Metoprolol Tartrate [Lopressor] 100 mg PO BID 07/22/20 04/27/22 History Calcium Acetate [Phoslo] 1,334 mg PO TID-W/MEALS 09/27/20 04/27/22 History Ergocalciferol [Vitamin D2 (1250 1,250 mcg PO Q7D 09/27/20 04/27/22 History Mcg = 81069 Iu)] Gabapentin [Neurontin] 300 mg PO BID 09/27/20 04/27/22 History hydrALAZINE HCL [Apresoline] 25 mg PO BID PRN 09/27/20 04/27/22 History DULoxetine HCL [Cymbalta] 60 mg PO DAILY 04/27/22 04/27/22 History Doxycycline Hyclate 100 mg PO DIRECTED 04/27/22 04/27/22 History Furosemide [Lasix] 80 mg PO DAILY 04/27/22 04/27/22 History Insulin Glargine,Hum.rec.anlog 40 - 50 units SQ DAILY 04/27/22 04/27/22 History [Lantus Solostar Pen] Insulin Lispro [humaLOG Kwikpen] 0 - 30 unit SQ AC-TID 04/27/22 04/27/22 History Isosorbide Dinitrate 10 mg PO BID 04/27/22 04/27/22 History Lidocaine-Prilocaine Cream [Emla 1 applic TOPICAL DAILY PRN 04/27/22 04/27/22 History Cream 2.5%/2.5%] Montelukast [Singulair] 10 mg PO DAILY 04/27/22 04/27/22 History Nephro-Chelsey 1 tab PO DAILY 04/27/22 04/27/22 History Sevelamer [Renvela] 1,600 mg PO TID-W/MEALS 04/27/22 04/27/22 History Triamcinolone 0.025% Cream 1 applic TOPICAL BID PRN 04/27/22 04/27/22 History [Kenalog 0.025% Cream] predniSONE 10 mg PO DIRECTED 04/27/22 04/27/22 History Allergies Allergy/AdvReac Type Severity Reaction Status Date / Time No Known Allergies Allergy Verified 09/29/20 11:49 Physical Exam Vitals: Vital Signs Temp Pulse Resp Pulse Ox FiO2 04/29/22 10:00 75 16 99 50 04/29/22 09:15 98 50 04/29/22 09:00 72 16 98 50 04/29/22 08:09 50 04/29/22 08:00 98.8 F 73 16 97 50 04/29/22 07:00 71 16 97 50 04/29/22 06:00 70 16 97 04/29/22 05:00 68 16 98 04/29/22 04:00 68 18 97 50 04/29/22 03:29 50 04/29/22 03:00 67 16 97 04/29/22 02:00 68 13 97 50 04/29/22 01:00 67 17 97 04/29/22 00:00 98.4 F 70 21 98 50 04/28/22 23:51 50 04/28/22 23:17 68 8 L 97 04/28/22 23:00 68 17 97 50 04/28/22 22:00 78 18 98 04/28/22 21:00 98.8 F 78 20 98 50 04/28/22 20:00 82 13 97 50 04/28/22 19:40 50 04/28/22 19:00 80 15 97 04/28/22 18:00 77 18 98 04/28/22 17:00 78 15 98 04/28/22 16:30 77 19 97 04/28/22 16:00 99.1 F 76 19 97 50 04/28/22 15:59 50 04/28/22 15:30 76 19 97 04/28/22 15:00 75 17 98 04/28/22 14:30 75 18 98 04/28/22 14:00 72 16 98 04/28/22 13:30 73 13 97 04/28/22 13:01 50 04/28/22 13:00 69 17 96 04/28/22 12:30 69 18 94 L 04/28/22 12:00 98 F 70 17 97 50 04/28/22 11:32 50 04/28/22 11:30 69 18 97 04/28/22 11:28 50 Intake and Output 04/28/22 04/29/22 04/29/22 22:59 06:59 14:59 Intake Total 65 125 40 Output Total 775 35 450 Balance -710 90 -410 Intake: IV 40 50 40 0.9 Normal Saline @ 10 mL 40 50 40 /hr KVO Intake, IV Titration 25 75 Amount Piperacillin-Tazobactam 3 25 75 .375 gm In Sodium Chloride 0.9% 100 ml @ 25 mls/hr IVPB Q8HR [facility] Rx# :[id number] Output: Gastric Drainage 750 450 Urine 25 35 0 Other: Voiding Method Indwelling Catheter Indwelling Catheter Indwelling Catheter Weight 93.7 kg ABP, PAP, CO, CI - Last 8 Hours Arterial Blood Pressure 162/50 Arterial Blood Pressure 161/51 Arterial Blood Pressure 140/43 Arterial Blood Pressure 143/44 Arterial Blood Pressure 135/40 Arterial Blood Pressure 148/42 Arterial Blood Pressure 142/47 GENERAL DESCRIPTION: Elderly female intubated on the vent. No tachypnea or accessory muscle of respiration use. HEENT: Shows Pallor , no scleral icterus. Oral mucous membrane is dry. NECK: Trachea central, no thyromegaly. LUNGS: Unlabored breathing. Decreased intensity of breath sounds HEART: S1, S2, regular rate and rhythm. No loud murmur ABDOMEN: Soft, no tenderness , guarding or rigidity, no organomegaly EXTREMITIES: No edema of feet. SKIN: No rash, no masses palpable. NEUROLOGICAL: The patient is sedated on the vent Results CBC & Chem 7: 04/29/22 04:00 04/29/22 04:00 Labs: Abnormal Lab Results - Last 24 Hours (Table) 04/27/22 04/28/22 04/29/22 Range/Units 14:56 06:08 00:02 WBC (3.8-10.6) k/uL RBC (3.80-5.40) m/uL Hgb (11.4-16.0) gm/dL Hct (34.0-46.0) % Neutrophils # (1.3-7.7) k/uL Lymphocytes # (1.0-4.8) k/uL ABG pH (7.35-7.45) ABG pCO2 (35-45) mmHg ABG HCO3 (21-25) mmol/L ABG Total CO2 (19-24) mmol/L Chloride (98-107) mmol/L Carbon Dioxide (22-30) mmol/L BUN (7-17) mg/dL Creatinine (0.52-1.04) mg/dL Glucose (74-99) mg/dL POC Glucose (mg/dL) 242 H (70-110) mg/dL Calcium (8.4-10.2) mg/dL AST (14-36) U/L Total Protein (6.3-8.2) g/dL Albumin (3.5-5.0) g/dL Triglycerides 286.00 H (0.00-149.00) mg/dL VLDL Cholesterol, Calc 57.20 H (5.00-40.00) mg/dL HDL Cholesterol 36.20 L (40.00-60.00) mg/dL Hep Bs Antibody Reactive A (Nonreactive) 04/29/22 04/29/22 04/29/22 Range/Units 04:00 04:00 05:43 WBC 11.4 H (3.8-10.6) k/uL RBC 3.24 L (3.80-5.40) m/uL Hgb 9.3 L (11.4-16.0) gm/dL Hct 29.8 L (34.0-46.0) % Neutrophils # 9.9 H (1.3-7.7) k/uL Lymphocytes # 0.8 L (1.0-4.8) k/uL ABG pH 7.49 H (7.35-7.45) ABG pCO2 48 H (35-45) mmHg ABG HCO3 36 H (21-25) mmol/L ABG Total CO2 38 H (19-24) mmol/L Chloride 93 L (98-107) mmol/L Carbon Dioxide 35 H (22-30) mmol/L BUN 51 H (7-17) mg/dL Creatinine 7.25 H* (0.52-1.04) mg/dL Glucose 194 H (74-99) mg/dL POC Glucose (mg/dL) (70-110) mg/dL Calcium 8.2 L (8.4-10.2) mg/dL AST 13 L (14-36) U/L Total Protein 5.8 L (6.3-8.2) g/dL Albumin 3.2 L (3.5-5.0) g/dL Triglycerides (0.00-149.00) mg/dL VLDL Cholesterol, Calc (5.00-40.00) mg/dL HDL Cholesterol (40.00-60.00) mg/dL Hep Bs Antibody (Nonreactive) 04/29/22 Range/Units 06:09 WBC (3.8-10.6) k/uL RBC (3.80-5.40) m/uL Hgb (11.4-16.0) gm/dL Hct (34.0-46.0) % Neutrophils # (1.3-7.7) k/uL Lymphocytes # (1.0-4.8) k/uL ABG pH (7.35-7.45) ABG pCO2 (35-45) mmHg ABG HCO3 (21-25) mmol/L ABG Total CO2 (19-24) mmol/L Chloride (98-107) mmol/L Carbon Dioxide (22-30) mmol/L BUN (7-17) mg/dL Creatinine (0.52-1.04) mg/dL Glucose (74-99) mg/dL POC Glucose (mg/dL) 228 H (70-110) mg/dL Calcium (8.4-10.2) mg/dL AST (14-36) U/L Total Protein (6.3-8.2) g/dL Albumin (3.5-5.0) g/dL Triglycerides (0.00-149.00) mg/dL VLDL Cholesterol, Calc (5.00-40.00) mg/dL HDL Cholesterol (40.00-60.00) mg/dL Hep Bs Antibody (Nonreactive) Microbiology - Last 24 Hours (Table) 04/27/22 17:02 Blood Culture - Preliminary Blood No Growth after 24 hours 04/27/22 16:50 Blood Culture - Preliminary Blood No Growth after 24 hours 04/27/22 13:44 Urine Culture - Final Urine,Catheterized Assessment and Plan (1) Sepsis Current Visit: Yes Status: Acute Code(s): A41.9 - SEPSIS, UNSPECIFIED ORGANISM SNOMED Code(s): 34895483 (2) Aspiration pneumonia Current Visit: Yes Status: Acute Code(s): J69.0 - PNEUMONITIS DUE TO INHALATION OF FOOD AND VOMIT SNOMED Code(s): 966358401 Plan: 1 patient presented to hospital with sepsis in this patient who did have a fever elevated white count with evidence of right upper lobe consolidation concerning for aspiration pneumonia in this patient also tested positive for influenza A as well as ballesteros PCR and concern for possible postinfluenzal bacterial pneumonia 2-blood and sputum culture has been obtained and Currently pending 3-patient to continue with the Tamiflu and Zosyn while waiting for the cultures to finalize We will follow on clinical condition and cultures to further adjust medication if needed Thank you for this consultation will follow this patient with you
[2022-04-29 23:23] LABS: Glucose,Whole Blood 232 mg/dL (70-110)
[2022-04-30] MEDS: PIPERACILLIN-TAZOBACTAM 3.375 GM in SODIUM CHLORIDE 0.9% 100 ML IVPB SCH ×2 (00:15→12:32)
[2022-04-30 04:39] LABS: Basophils # (A) 0.1 k/uL (0-0.2); Basophils % (A) 0 %; Eosinophils # (A) 0.1 k/uL (0-0.7); Eosinophils % (A) 1 %; HCT 31.1 % (34.0-46.0); HGB 9.9 gm/dL (11.4-16.0); Hypochromasia Moderate; Lymphocytes # (A) 1.1 k/uL (1.0-4.8); Lymphocytes % (A) 8 %; MCH 30.1 pg (25.0-35.0); MCHC 31.9 g/dL (31.0-37.0); MCV 94.3 fL (80.0-100.0); Mean Platelet Volume 7.4; Monocytes # (A) 0.5 k/uL (0-1.0); Monocytes % (A) 4 %; Neutrophils # (A) 10.6 k/uL (1.3-7.7); Neutrophils % (A) 85 %; Platelet Count 429 k/uL (150-450); RBC 3.29 m/uL (3.80-5.40); RDW 15.1 % (11.5-15.5); WBC 12.6 k/uL (3.8-10.6)
[2022-04-30 04:57] LABS: Albumin 3.5 g/dL (3.5-5.0); Calcium 8.8 mg/dL (8.4-10.2); Potassium 4.1 mmol/L (3.5-5.1); Total Bilirubin 0.7 mg/dL (0.2-1.3); Total Protein 6.3 g/dL (6.3-8.2)
[2022-04-30 05:48] LABS: ABG Base Excess 6.6 mmol/L; ABG HCO3 31 mmol/L (21-25); ABG Oxygen Saturation 94.5 % (94-97); ABG PCO2 45 mmHg (35-45); ABG PH 7.45 (7.35-7.45); ABG PO2 83 mmHg (83-108); ABG TCO2 32 mmol/L (19-24); Allen Test Performed? Yes
[2022-04-30 05:54] LABS: Glucose,Whole Blood 257 mg/dL (70-110)
[2022-04-30] MEDS: INSULIN ASPART (NovoLOG) 100 UNIT/ML VIAL SQ SCH ×3 (05:57→17:57)
[2022-04-30] MEDS: ALBUTEROL HFA INHALER INHALATION SCH ×5 (07:55→19:53)
[2022-04-30] MEDS: TIOTROPIUM 2.5 MCG INHALER INHALATION SCH (07:55)
[2022-04-30] MEDS: ENOXAPARIN 30 MG/0.3 ML SYRINGE SQ SCH (08:33)
[2022-04-30] MEDS: METOPROLOL TARTRATE 50 MG TAB PO SCH ×2 (08:34→20:40)
[2022-04-30] MEDS: CHLORHEXIDINE GLUCONATE 15 ML CUP MUCOUS MEM SCH ×2 (08:34→20:39)
[2022-04-30] MEDS: PANTOPRAZOLE 40 MG/10 ML VIAL IVP SCH (08:34)
[2022-04-30] MEDS: ASPIRIN 81 MG PO SCH (08:34)
[2022-04-30] MEDS: ASCORBIC ACID 500 MG TAB PO SCH (08:34)
[2022-04-30] MEDS: CHOLECALCIFEROL 25 MCG (1000 IU) TABLET PO SCH (08:34)
[2022-04-30] MEDS: CLOPIDOGREL 75 MG TAB PO SCH (08:34)
[2022-04-30] MEDS: ISOSORBIDE DINITRATE 10 MG TAB PO SCH ×2 (08:34→20:39)
[2022-04-30] MEDS: levETIRAcetam IV 500 MG in SODIUM CHLORIDE 0.9% 100 ML IVPB SCH ×2 (08:38→20:39)
[2022-04-30] MEDS: ZINC SULFATE 220 MG CAP PO SCH (08:38)
[2022-04-30] MEDS: OSELTAMIVIR 60 MG/10 ML ORAL SYRINGE PO SCH (09:02)
--- NOTE | 2022-04-30 09:59 | XR ---
EXAMINATION TYPE: XR chest 1V portable DATE OF EXAM: 04/30/2022 Comparison: 04/29/2022 Clinical History: 71-year-old female Tube placement Findings: ET and NG tubes are satisfactory. Heart normal size. Dense retrocardiac opacity slightly worsened in the interval. Right lung and pleural space are clear. Degenerative change right glenohumeral joint. Impression: Worsening atelectasis or consolidation retrocardiac left base.
--- NOTE | 2022-04-30 10:41 | P.PN ---
Subjective Progress Note Date: 04/30/22 Principal diagnosis: Acute hypoxic respiratory failure, possible CVA, possible seizures this is a 71-year-old female with history of multiple medical problems including chronic renal disease, she is on hemodialysis, history of congestive heart failure, type 2 diabetes, COPD,patient did not show up for her dialysis this morning, police was sent to [place] for a well check call, patient did not respond to the door, police broke into the house, and she was found unresponsive. Patient was brought by EMS to ER, and upon initial evaluation she had a Glascow coma score of 6. She had some right-sided facial droop, and she was postural rate. Patient was unable to answer any questions, unresponsive, she was also noted to be hypertensive. Blood sugar was adequate. Patient was intubated, placed on mechanical ventilation, and this consult was initiated. She is presently on tidal volume of 400, FiO2 50%, rate of 16, and PEEP of 8. ABG is pending. Chest x-ray is showing evidence of bibasilar infiltrates, consistent with aspiration pneumonia, apparently her intubation was not easy, and was a bit traumatic. Her CT of the head is pending.WBC count is 17.3 hemoglobin is 12.3.BUN is 44 creatinine 6.03. Bicarb is 26.liver enzymes were noted to be normal. Urinalysis is showing evidence of pyuria and bacteriuria. Positive leukocyte esterase in the urine Patient was reevaluated today on 04/28/22, remains in the ICU, intubated and mechanically ventilated. Patient had incidental positive COVID-19 screening. And positive influenza A. Remains on assist control rate of 16, volume 400 FiO2 50% and PEEP of 8. ABG showed a pO2 of 73 pCO2 42 pH of 7.53. Patient is rec eiving propofol at 30 mcg/kg/m, her IV fluid is at KVO, and today I want ahead and placed a right femoral triple-lumen catheter and right radial arterial line. Patient remains unresponsive, she is on propofol which I plan to hold today, and assess mental status off propofol if possible. Patient doesn't respond to deep painful stimuli by withdrawal, but does not open eyes, does not have any purposeful movement or response to any stimuli. Except withdrawal to painful stimuli noted while placing the central line and arterial line. Chest x-ray is showing mostly stable peripheral right lower lobe infiltrate, and possibly a left lower lobe atelectasis/consolidation. Again looking at her admission labs, patient came back positive for influenza A and ballesteros virus PCR was positive. Will recommend that the patient goes on Tamiflu, and we'll recommend the COVID- 19 cocktail for this patient. Patient is a known end-stage renal disease, and she is being followed by nephrology, she will get intermittent hemodialysis reevaluated today on 04/25/22, patient remains in the ICU intubated and mec hanically ventilated, she is on assist control rate of 16:400 FiO2 50% and PEEP of 8 ABG showed a pO2 of 106 pCO2 48 pH of 7.49. Repeat CT of the brain showed no evidence of any new change, patient is undergoing hemodialysis again today. And she is now off sedation for the last 24 hours. Her IV fluids at KVO, she has high residual hence she is not receiving any enteral feeding yet. Today the patient is noted to be encephalopathic, unresponsive to any stimuli, opens eyes, but not purposeful. And again she is not responding to any stimuli except deep painful stimuli/withdrawal. Patient was admitted with acute hypoxic and hypercapnic respiratory failure, she was also found to have positive COVID-19 infection and influenza A infection. Patient may have sustained an anoxic brain injury because she was found at home unresponsive when the police broke in because she didn't show up to her dialysis treatment.basic metabolic profile is relatively normal BUN is 51 creatinine 7.25.WBC count is 11.4 hemoglobin is 9.3.CT brain yesterday showedpossible mastoiditis.and chronic paranasal sinus disease.chest x-ray showed stable peripheral and right lower lobe/left basilar infiltrate/atelectasis. Reevaluated today on 04/30/22, patient remains in the ICU, intubated and mechanically ventilated. She is on assist control rate of 16 tidal volume 400 FiO2 40% and PEEP of 8. Patient is off sedation completely, however she is awake, opening her eyes, but she is not spending to any stimuli. Patient has no purposeful movement, she is not responsive to stimuli, obviously she has what seems to be a severe encephalopathy, suspect anoxic encephalopathy. Patient has IV fluid at KVO, she is receiving vital HP at 24 mL an hour.ABG today showed a pO2 of 83 pCO2 45 pH of 7.45 hence no changes were made in her vent settings. CBC is unremarkable WBC count 12.6 hemoglobin is 9.9.basic metabolic profile is normal bicarb is 30 BUN is 39 creatinine 5.74, patient was dialyzed yesterday, but no dialysis is planned so far for today.chest x-ray no evidence of active disease, continues to have left lower lobe atelectasis. Objective - Vital Signs Vital signs: Vital Signs Temp 98.7 F 04/30/22 08:00 Pulse 69 04/30/22 10:00 Resp 22 04/30/22 10:00 BP 143/64 04/28/22 10:30 Pulse Ox 96 04/30/22 10:00 FiO2 40 04/30/22 08:00 Intake & Output 04/29/22 04/30/22 04/30/22 18:59 06:59 18:59 Intake Total 320 664 326 Output Total 1015 5 0 Balance -695 659 326 Weight 94.7 kg Intake: IV 320 310 140 0.9 Normal Saline @ 10 mL 120 110 40 /hr KVO Piperacillin-Tazobactam 3 100 100 .375 gm In Sodium Chloride 0.9% 100 ml @ 25 mls/hr IVPB Q12HR [facility] Rx #:[id number] levETIRAcetam IV 500 mg 100 100 100 In Sodium Chloride 0.9% 100 ml @ 400 mls/hr IVPB Q12HR [facility] Rx#:[id number] Tube Feeding 264 96 Other 90 90 Output: Gastric Drainage 1000 Urine 15 5 0 Other: Voiding Method Indwelling Catheter Indwelling Catheter Indwelling Catheter ABP, PAP, CO, CI - Last Documented Arterial Blood Pressure 162/49 - Exam Physical Exam: Revealed a 71-year-old female, obese, intubated, mechanically ventilated, in no distress. remains off sedation. Head: Atraumatic, normocephalic. HEENT:[Neck is supple.] [No neck masses.] [No thyromegaly.] [No JVD.]endotracheal tube and orogastric tube are intact. Chest: [minimal fine crackles at the bases no rhonchi and no wheezes.] Cardiac Exam: [Normal S1 and S2, no S3 gallop, no murmur.] Abdomen: [Soft, nontender, no megaly, no rebound, no guarding, normal bowel sounds.]large periumbilical hernia is noted. Extremities: [No clubbing, no edema, no cyanosis.]AV fistula noted in the left forearm area. Unremarkable. Neurological Exam:opens eyes, no other responses. Patient does not respond to any stimuli. Skin: No rashes. Psychiatric: Could not assess. - Labs CBC & Chem 7: 04/30/22 04:00 04/30/22 04:00 Labs: Abnormal Lab Results - Last 24 Hours (Table) 04/29/22 04/29/22 04/29/22 Range/Units 13:38 18:34 23:21 WBC (3.8-10.6) k/uL RBC (3.80-5.40) m/uL Hgb (11.4-16.0) gm/dL Hct (34.0-46.0) % Neutrophils # (1.3-7.7) k/uL ABG HCO3 (21-25) mmol/L ABG Total CO2 (19-24) mmol/L BUN (7-17) mg/dL Creatinine (0.52-1.04) mg/dL Glucose (74-99) mg/dL POC Glucose (mg/dL) 208 H 164 H 232 H (70-110) mg/dL 04/30/22 04/30/22 04/30/22 Range/Units 04:00 04:00 05:45 WBC 12.6 H (3.8-10.6) k/uL RBC 3.29 L (3.80-5.40) m/uL Hgb 9.9 L (11.4-16.0) gm/dL Hct 31.1 L (34.0-46.0) % Neutrophils # 10.6 H (1.3-7.7) k/uL ABG HCO3 31 H (21-25) mmol/L ABG Total CO2 32 H (19-24) mmol/L BUN 39 H (7-17) mg/dL Creatinine 5.74 H (0.52-1.04) mg/dL Glucose 217 H (74-99) mg/dL POC Glucose (mg/dL) (70-110) mg/dL 04/30/22 Range/Units 05:52 WBC (3.8-10.6) k/uL RBC (3.80-5.40) m/uL Hgb (11.4-16.0) gm/dL Hct (34.0-46.0) % Neutrophils # (1.3-7.7) k/uL ABG HCO3 (21-25) mmol/L ABG Total CO2 (19-24) mmol/L BUN (7-17) mg/dL Creatinine (0.52-1.04) mg/dL Glucose (74-99) mg/dL POC Glucose (mg/dL) 257 H (70-110) mg/dL Microbiology - Last 24 Hours (Table) 04/27/22 16:50 Blood Culture - Preliminary Blood No Growth after 48 hours 04/27/22 17:02 Blood Culture - Preliminary Blood No Growth after 48 hours 04/27/22 13:24 Gram Stain - Final Sputum Sputum Culture - Final Haemophilus influenzae Assessment and Plan Assessment: impression: Acute hypoxic respiratory failure, exact etiology is not clear, suspect acute CVA.possible seizures) possible anoxic brain injury considering the presentation and the clinical history Acute aspiration pneumonia is strongly suspected. Patient is on Zosyn. Incidental COVID-19 infection, doubt COVID-19 pneumonia, patient is on COVID-19 cocktail. Influenza A infection, . Hence I am recommending Tamiflu 75 mg twice a day History of end-stage renal disease, on hemodialysis. History of coronary artery disease. History of congestive heart failure. History of questionable asthma. coronary arteriosclerosis and previous stent placement. Type 2 diabetes.Degenerative joint disease. recommendation: Continue ventilatory support, not ready for weaning as long as her mental status is as such. continue COVID-19 cocktail. finished a full course of Tamiflu. Continue empiric antibiotics/Zosyn for presumptive aspiration pneumonia. Continue bronchodilators/DuoNeb. continue dialysis as recommended by nephrology patient has end-stage renal disease Admission brain CT is nondiagnostic., repeat CT showing mostly mastoiditis and maxillary sinus disease. Continue GI and DVT prophylaxis. continue to hold propofol as long as possible Nutritional support/enteral feeding.patient had relatively high residuals today, presently enteral feeding is on hold. We will continue to follow. Prognosis is extremely poor and guarded. may have to consider tracheostomy and PEG tube placement sometime next week. critical care time is over 30 minutes Time with Patient: Greater than 30
--- NOTE | 2022-04-30 11:49 | P.PN ---
Subjective Progress Note Date: 04/30/22 Principal diagnosis: This is a 71-year-old female with ESRD on dialysis Sunday came in with influenza A Covid pneumonia. She is on ventilator at 40% FiO2 shows seen from the doorway and chart was reviewed. She is known with diabetes coronary artery disease COPD A chest x-ray shows some worsening left base Objective - Vital Signs Vital signs: Vital Signs Temp 98.7 F 04/30/22 08:00 Pulse 65 04/30/22 11:00 Resp 20 04/30/22 11:00 BP 143/64 04/28/22 10:30 Pulse Ox 96 04/30/22 11:00 FiO2 40 04/30/22 10:54 Intake & Output 04/29/22 04/30/22 04/30/22 18:59 06:59 18:59 Intake Total 320 664 360 Output Total 1015 5 0 Balance -695 659 360 Weight 94.7 kg Intake: IV 320 310 150 0.9 Normal Saline @ 10 mL 120 110 50 /hr KVO Piperacillin-Tazobactam 3 100 100 .375 gm In Sodium Chloride 0.9% 100 ml @ 25 mls/hr IVPB Q12HR [facility] Rx #:[id number] levETIRAcetam IV 500 mg 100 100 100 In Sodium Chloride 0.9% 100 ml @ 400 mls/hr IVPB Q12HR [facility] Rx#:[id number] Tube Feeding 264 120 Other 90 90 Output: Gastric Drainage 1000 Urine 15 5 0 Other: Voiding Method Indwelling Catheter Indwelling Catheter Indwelling Catheter ABP, PAP, CO, CI - Last Documented Arterial Blood Pressure 156/47 Patient was examined from the doorway because of the COVID 19 She is on 40% FiO2 - Labs CBC & Chem 7: 04/30/22 04:00 04/30/22 04:00 Labs: Abnormal Lab Results - Last 24 Hours (Table) 04/29/22 04/29/22 04/29/22 Range/Units 13:38 18:34 23:21 WBC (3.8-10.6) k/uL RBC (3.80-5.40) m/uL Hgb (11.4-16.0) gm/dL Hct (34.0-46.0) % Neutrophils # (1.3-7.7) k/uL ABG HCO3 (21-25) mmol/L ABG Total CO2 (19-24) mmol/L BUN (7-17) mg/dL Creatinine (0.52-1.04) mg/dL Glucose (74-99) mg/dL POC Glucose (mg/dL) 208 H 164 H 232 H (70-110) mg/dL 04/30/22 04/30/22 04/30/22 Range/Units 04:00 04:00 05:45 WBC 12.6 H (3.8-10.6) k/uL RBC 3.29 L (3.80-5.40) m/uL Hgb 9.9 L (11.4-16.0) gm/dL Hct 31.1 L (34.0-46.0) % Neutrophils # 10.6 H (1.3-7.7) k/uL ABG HCO3 31 H (21-25) mmol/L ABG Total CO2 32 H (19-24) mmol/L BUN 39 H (7-17) mg/dL Creatinine 5.74 H (0.52-1.04) mg/dL Glucose 217 H (74-99) mg/dL POC Glucose (mg/dL) (70-110) mg/dL 04/30/22 Range/Units 05:52 WBC (3.8-10.6) k/uL RBC (3.80-5.40) m/uL Hgb (11.4-16.0) gm/dL Hct (34.0-46.0) % Neutrophils # (1.3-7.7) k/uL ABG HCO3 (21-25) mmol/L ABG Total CO2 (19-24) mmol/L BUN (7-17) mg/dL Creatinine (0.52-1.04) mg/dL Glucose (74-99) mg/dL POC Glucose (mg/dL) 257 H (70-110) mg/dL Microbiology - Last 24 Hours (Table) 04/27/22 16:50 Blood Culture - Preliminary Blood No Growth after 48 hours 04/27/22 17:02 Blood Culture - Preliminary Blood No Growth after 48 hours 04/27/22 13:24 Gram Stain - Final Sputum Sputum Culture - Final Haemophilus influenzae Assessment and Plan Plan: Impression 1. ESRD on dialysis Sunday. 2. Admitted with influenza as well as Covid 19. 3. When dependent respiratory failure 4. Anemia of chronic illness Recommendation 1. Will be next dialyzed day after tomorrow on Sunday. 2. Watch hemoglobin.
--- NOTE | 2022-04-30 11:49 | P.PN ---
Subjective Progress Note Date: 04/30/22 The patient is seen at bedside and per nurse has been off sedation close to 2 days and not making any recovery. Objective - Vital Signs Vital signs: Vital Signs Temp 98.7 F 04/30/22 08:00 Pulse 65 04/30/22 11:00 Resp 20 04/30/22 11:00 BP 143/64 04/28/22 10:30 Pulse Ox 96 04/30/22 11:00 FiO2 40 04/30/22 10:54 Intake & Output 04/29/22 04/30/22 04/30/22 18:59 06:59 18:59 Intake Total 320 664 360 Output Total 1015 5 0 Balance -695 659 360 Weight 94.7 kg Intake: IV 320 310 150 0.9 Normal Saline @ 10 mL 120 110 50 /hr KVO Piperacillin-Tazobactam 3 100 100 .375 gm In Sodium Chloride 0.9% 100 ml @ 25 mls/hr IVPB Q12HR [facility] Rx #:[id number] levETIRAcetam IV 500 mg 100 100 100 In Sodium Chloride 0.9% 100 ml @ 400 mls/hr IVPB Q12HR [facility] Rx#:[id number] Tube Feeding 264 120 Other 90 90 Output: Gastric Drainage 1000 Urine 15 5 0 Other: Voiding Method Indwelling Catheter Indwelling Catheter Indwelling Catheter ABP, PAP, CO, CI - Last Documented Arterial Blood Pressure 156/47 - Exam GENERAL: The patient is laying in bed and does not appear in acute distress. LUNG: Intubated on ventilator. NEUROLOGICAL: Limited because of her condition. Intubated on ventilator. Off sedation close to 2 days. Higher mental function: The patient is comatose. GCS 7 (E2, VT1, M4) . Cranial nerves: Would open eyes with painful stimuli. The pupils are round, equal and reactive to light. Has positive corneal reflex bilaterally. No facial weakness. Is breathing over the vent. Has intact weak gag reflex. Rest is limited. Motor: The strength is hard to assess individual muscles. With painful stimuli throughout would localized to right lower and some extensor posturing of uppers. .. Normal tone and bulk. Cerebellum: Unable to assess. Sensation: Seems to have intact painful stimuli. Reflexes (right/left): 1+ throughout. Plantars are mute bilaterally. Some of the workup during his hospital visit consisted of: Influenza A and Richard virus PCR detected. Also possible underlying UTI. Troponin is a 1.07. Ammonia <9 TSH: 0.593 Urinalysis seems possible suggestive of underlying urinary tract infection CT of the head is reported as age-related atrophic and chronic small vessel ischemic changes without acute intracranial process seen at this time. CT angiography is reported as no significant abnormality. Chest x-ray was reported as peripheral nodule base consolidation right upper lobe. Could be on the basis of infiltrate or neoplastic process. Core sent interstitium correlate for chronic interstitial lung disease otherwise consider interstitial pneumonia or pneumonitis Prominence right hilum. Repeat x-ray recommend short-term basis to assess for developing infiltrate or adenopathy versus mass Routine EEG is abnormal. The background slowing suggestive of moderate to severe encephalopathy. The suppressions likely due to medication effect (sedatives). Otherwise there is no focal slowing, epileptiform discharges or seizure on the EEG. 2-D echo was reported as technically difficult study for agitation. Normal left ventricle diamonds and systolic function. She had repeat CT head on 04/28/22: It is reported as similar mild ventriculomegaly likely ex vacuo dilation from central cerebral atrophy. Mild patchy burden of chronic small vessel ischemic disease. No acute intracranial abnormality seen. Patient is intubated. His ongoing air-fluid level left maxillary sinus that could reflect acute sinusitis. Background mild chronic paranasal sinus disease. Opacification of the mastoid air cells on both sides. Partial opacification of the middle ear cavity as well. Correlate to exclude otomastoiditis Patient sputum is positive for Haemophilus influenza area - Labs CBC & Chem 7: 04/30/22 04:00 04/30/22 04:00 Labs: Abnormal Lab Results - Last 24 Hours (Table) 04/29/22 04/29/22 04/29/22 Range/Units 13:38 18:34 23:21 WBC (3.8-10.6) k/uL RBC (3.80-5.40) m/uL Hgb (11.4-16.0) gm/dL Hct (34.0-46.0) % Neutrophils # (1.3-7.7) k/uL ABG HCO3 (21-25) mmol/L ABG Total CO2 (19-24) mmol/L BUN (7-17) mg/dL Creatinine (0.52-1.04) mg/dL Glucose (74-99) mg/dL POC Glucose (mg/dL) 208 H 164 H 232 H (70-110) mg/dL 04/30/22 04/30/22 04/30/22 Range/Units 04:00 04:00 05:45 WBC 12.6 H (3.8-10.6) k/uL RBC 3.29 L (3.80-5.40) m/uL Hgb 9.9 L (11.4-16.0) gm/dL Hct 31.1 L (34.0-46.0) % Neutrophils # 10.6 H (1.3-7.7) k/uL ABG HCO3 31 H (21-25) mmol/L ABG Total CO2 32 H (19-24) mmol/L BUN 39 H (7-17) mg/dL Creatinine 5.74 H (0.52-1.04) mg/dL Glucose 217 H (74-99) mg/dL POC Glucose (mg/dL) (70-110) mg/dL 04/30/22 Range/Units 05:52 WBC (3.8-10.6) k/uL RBC (3.80-5.40) m/uL Hgb (11.4-16.0) gm/dL Hct (34.0-46.0) % Neutrophils # (1.3-7.7) k/uL ABG HCO3 (21-25) mmol/L ABG Total CO2 (19-24) mmol/L BUN (7-17) mg/dL Creatinine (0.52-1.04) mg/dL Glucose (74-99) mg/dL POC Glucose (mg/dL) 257 H (70-110) mg/dL Microbiology - Last 24 Hours (Table) 04/27/22 16:50 Blood Culture - Preliminary Blood No Growth after 48 hours 04/27/22 17:02 Blood Culture - Preliminary Blood No Growth after 48 hours 04/27/22 13:24 Gram Stain - Final Sputum Sputum Culture - Final Haemophilus influenzae Assessment and Plan Assessment: Encephalopathy seems due to multifactorial: due to hypoxic respiratory failure from Influenza A and Coronavirus, some metabolic encephalopathy. Rule out stroke since only localizes to right lower. Reported transient episode of right facial droop by EMS. Rule out stroke. Currently no facial weakness. Two CT head did not show any evidence of acute or subacute ischemic stroke. Influezna A infection Acute Covid-19 infection Consolidation of the right upper lobe concerning for infiltrate versus n eoplastic process on chest x-ray Elevated troponin End-stage renal disease on dialysis Congestive heart failure COPD Plan: EEG did not show any evidence of seizure. Because of intermittent posturing, I will start her on prophylactic Keppra 500mg every 12 hours. Will have additional 500mg post dialysis. Consider repeat EEG this Sunday if does not improved and will repeat CT head tomorrow to evaluated for any evidence of stroke not seen on first two CT's. Continue aspirin 81 mg (new during this admission) and her Plavix 75mg daily was resumed for secondary stroke prophylaxis. Also on Lipitor 40 mg daily for secondary stroke prophylaxis. Consulted PT and OT Every two hours neuro checks Placed on cardiac monitoring Regarding the questionable of suspicious neoplasm on chest x-ray will defer the management to the primary and pulmonary team. We'll defer the rest of the medical management to the primary and ICU team For DVT prophylaxis Lovenox Plan was discussed with the patient's ICU nurse. Dr. Ahmadi will start neurology service tomorrow A.M. Time with Patient: Less than 30
[2022-04-30 12:01] LABS: Glucose,Whole Blood 288 mg/dL (70-110)
--- NOTE | 2022-04-30 13:56 | P.PN ---
Subjective Progress Note Date: 04/30/22 Principal diagnosis: Influenza A and possible aspiration pneumonia Patient is a 71-year-old female with a past medical history significant for type 2 diabetes mellitus COPD consist heart failure end-stage renal disease on hemodialysis, patient was brought into the ER 2 days ago after the patient was found to be unresponsive at home apparently the patient did not show for her dialysis , patient was found to be unresponsive at home brought to the hospital and getting intubated patient did have positive influenza A as well as ballesteros PCR, also with evidence of right upper lobe infiltrate concerning for aspiration pneumonia with a sputum currently showing Haemophilus. On today's evaluation that is 04/30/2022, the patient is afebrile patient is hemodynamically stable not requiring any pressor support, FiO2 currently at 40%, remains to be unresponsive by the nursing staff no significant purulent secretion through ET or diarrhea reported by nursing staff Objective - Vital Signs Vital signs: Vital Signs Temp 98.6 F 04/30/22 12:00 Pulse 68 04/30/22 13:00 Resp 20 04/30/22 13:00 BP 143/64 04/28/22 10:30 Pulse Ox 96 04/30/22 13:00 FiO2 40 04/30/22 12:00 Intake & Output 04/29/22 04/30/22 04/30/22 18:59 06:59 18:59 Intake Total 320 664 558 Output Total 1015 5 0 Balance -695 659 558 Weight 94.7 kg Intake: IV 320 310 170 0.9 Normal Saline @ 10 mL 120 110 70 /hr KVO Piperacillin-Tazobactam 3 100 100 .375 gm In Sodium Chloride 0.9% 100 ml @ 25 mls/hr IVPB Q12HR [facility] Rx #:[id number] levETIRAcetam IV 500 mg 100 100 100 In Sodium Chloride 0.9% 100 ml @ 400 mls/hr IVPB Q12HR [facility] Rx#:[id number] Intake, IV Titration 100 Amount Piperacillin-Tazobactam 3 100 .375 gm In Sodium Chloride 0.9% 100 ml @ 25 mls/hr IVPB Q12HR [facility] Rx #:[id number] Tube Feeding 264 168 Other 90 120 Output: Gastric Drainage 1000 Urine 15 5 0 Other: Voiding Method Indwelling Catheter Indwelling Catheter Indwelling Catheter ABP, PAP, CO, CI - Last Documented Arterial Blood Pressure 165/49 - Exam GENERAL DESCRIPTION: An elderly female intubated on the vent RESPIRATORY SYSTEM: Unlabored breathing , decreased breath sounds at bases HEART: S1 S2 regular rate and rhythm , ABDOMEN: Soft , no tenderness EXTREMITIES: No edema feet - Labs CBC & Chem 7: 04/30/22 04:00 04/30/22 04:00 Labs: Abnormal Lab Results - Last 24 Hours (Table) 04/29/22 04/29/22 04/30/22 Range/Units 18:34 23:21 04:00 WBC 12.6 H (3.8-10.6) k/uL RBC 3.29 L (3.80-5.40) m/uL Hgb 9.9 L (11.4-16.0) gm/dL Hct 31.1 L (34.0-46.0) % Neutrophils # 10.6 H (1.3-7.7) k/uL ABG HCO3 (21-25) mmol/L ABG Total CO2 (19-24) mmol/L BUN (7-17) mg/dL Creatinine (0.52-1.04) mg/dL Glucose (74-99) mg/dL POC Glucose (mg/dL) 164 H 232 H (70-110) mg/dL 04/30/22 04/30/22 04/30/22 Range/Units 04:00 05:45 05:52 WBC (3.8-10.6) k/uL RBC (3.80-5.40) m/uL Hgb (11.4-16.0) gm/dL Hct (34.0-46.0) % Neutrophils # (1.3-7.7) k/uL ABG HCO3 31 H (21-25) mmol/L ABG Total CO2 32 H (19-24) mmol/L BUN 39 H (7-17) mg/dL Creatinine 5.74 H (0.52-1.04) mg/dL Glucose 217 H (74-99) mg/dL POC Glucose (mg/dL) 257 H (70-110) mg/dL 04/30/22 Range/Units 11:59 WBC (3.8-10.6) k/uL RBC (3.80-5.40) m/uL Hgb (11.4-16.0) gm/dL Hct (34.0-46.0) % Neutrophils # (1.3-7.7) k/uL ABG HCO3 (21-25) mmol/L ABG Total CO2 (19-24) mmol/L BUN (7-17) mg/dL Creatinine (0.52-1.04) mg/dL Glucose (74-99) mg/dL POC Glucose (mg/dL) 288 H (70-110) mg/dL Microbiology - Last 24 Hours (Table) 04/27/22 16:50 Blood Culture - Preliminary Blood No Growth after 48 hours 04/27/22 17:02 Blood Culture - Preliminary Blood No Growth after 48 hours 04/27/22 13:24 Gram Stain - Final Sputum Sputum Culture - Final Haemophilus influenzae Assessment and Plan (1) Sepsis Current Visit: Yes Status: Acute Code(s): A41.9 - SEPSIS, UNSPECIFIED ORGANISM SNOMED Code(s): 77212778 (2) Aspiration pneumonia Current Visit: Yes Status: Acute Code(s): J69.0 - PNEUMONITIS DUE TO INHALATION OF FOOD AND VOMIT SNOMED Code(s): 331319735 Plan: 1 patient presented to hospital with sepsis in this patient who did have a fever elevated white count with evidence of right upper lobe consolidation concerning for aspiration pneumonia in this patient also tested positive for influenza A as well as ballesteros PCR and concern for possible postinfluenzal bacter ial pneumonia 2-blood culture has been negative and sputum culture currently growing Haemophilus 3-patient to continue with the Tamiflu and Zosyn and monitor clinical course closely Time with Patient: Less than 30
--- NOTE | 2022-04-30 13:58 | PN ---
PROGRESS NOTE DATE OF SERVICE: 04/29/2022 SUBJECTIVE: This is a 71-year-old woman, who was admitted with acute hypoxic respiratory failure, possibly multifactorial. She is also being evaluated for seizure and CVA. The patient also had acute influenza A, and she has COVID 19 also. The patient is closely monitored. Dialysis is also being continued. 2 L of fluid has been removed at this time. The patient has some eye deviation to the right. PAST MEDICAL HISTORY: Reviewed. REVIEW OF SYSTEMS: Could not be taken. CURRENT MEDICATIONS: Reviewed include Ventolin. Doses and rest of the medications reviewed. PHYSICAL EXAMINATION: VITAL SIGNS: Pulse is 80, blood pressure is 130/40, respirations 19. HEENT: Conjunctivae are normal. NECK: No jugular venous distention. CARDIOVASCULAR: S1 and S2. RESPIRATORY: Breath sounds diminished at the bases. ABDOMEN: Soft. NERVOUS SYSTEM: Nonfocal. Eye deviation to the right present. LABORATORY DATA: WBC 11. Hemoglobin is 9.3. Rest of the labs are noted. Chest x-ray reviewed personally. ASSESSMENT: 1. Acute hypoxic respiratory failure, possibly multifactorial. 2. Acute influenza A. 3. Acute COVID-19. 4. Possible aspiration pneumonia. 5. Acute urinary tract infection, present on admission. 6. Chronic renal failure, on hemodialysis. End-stage renal disease. 7. History of asthma and chronic obstructive pulmonary disease. 8. Diabetes mellitus, type 2. 9. Multiple medical issues. RECOMMENDATIONS: Recommend to continue current medications and symptomatic treatment. Otherwise, at this time, we will closely monitor with multiple consultants. Otherwise, the prognosis is guarded. Further recommendations to follow. MMODL / IJN: [id number] /
[2022-04-30] MEDS: amLODIPine 10 MG TAB PO SCH (14:30)
[2022-04-30] MEDS: INSULIN DETEMIR (LEVEMIR) 100 UNIT/ML SYR SQ SCH ×2 (14:30→20:40)
[2022-04-30 17:55] LABS: Glucose,Whole Blood 241 mg/dL (70-110)
[2022-04-30] MEDS: ATORVASTATIN 40 MG TAB PO SCH (20:39)
[2022-05-01 00:03] LABS: Glucose,Whole Blood 248 mg/dL (70-110)
[2022-05-01] MEDS: INSULIN ASPART (NovoLOG) 100 UNIT/ML VIAL SQ SCH ×4 (00:10→17:54)
[2022-05-01] MEDS: PIPERACILLIN-TAZOBACTAM 3.375 GM in SODIUM CHLORIDE 0.9% 100 ML IVPB SCH ×2 (00:12→12:23)
--- NOTE | 2022-05-01 01:24 | PN ---
PROGRESS NOTE SUBJECTIVE: This 71-year-old woman who was admitted with acute hypoxic respiratory failure, possibly multifactorial, had influenza A as well as COVID-19. The patient was closely monitored. No chest pain. No palpitations. No fever. PHYSICAL EXAMINATION: VITAL SIGNS: Pulse 66, blood pressure 162/50, respirations 20. HEENT: Conjunctivae are normal. NECK: No jugular venous distention. RESPIRATORY: Breath sounds diminished at the bases. Few scattered rhonchi crackles. ABDOMEN: Soft, nontender. NERVOUS SYSTEM: No focal deficit. LABS: Reviewed. Accu-Cheks 288. ASSESSMENT: 1. Acute hypoxic respiratory failure, possibly multifactorial. 2. Rule out seizure, toxic encephalopathy. 3. Acute influenza A. 4. Acute COVID-19. 5. Possible acute urinary tract infection present on admission. 6. Possible aspiration pneumonia. 7. Chronic renal failure, on hemodialysis; end-stage renal disease. 8. History of asthma and chronic obstructive pulmonary disease. 9. Diabetes mellitus type 2. 10.Multiple medical issues. RECOMMENDATIONS: Recommend to continue current medications and symptomatic treatment. We will monitor blood sugar as well as blood pressure, make necessary adjustments. Add Norvasc to the current regimen. See orders for details. Closely follow with multiple consultants. Further recommendations to follow. We will also add a small dose of Lantus insulin as well. MMODL / IJN: [id number] / MTDD
[2022-05-01 04:54] LABS: Basophils # (A) 0.1 k/uL (0-0.2); Basophils % (A) 1 %; Eosinophils # (A) 0.2 k/uL (0-0.7); Eosinophils % (A) 2 %; HCT 30.3 % (34.0-46.0); HGB 9.5 gm/dL (11.4-16.0); Hypochromasia Marked; Lymphocytes # (A) 0.8 k/uL (1.0-4.8); Lymphocytes % (A) 9 %; MCH 29.9 pg (25.0-35.0); MCHC 31.5 g/dL (31.0-37.0); MCV 95.1 fL (80.0-100.0); Mean Platelet Volume 8.1; Monocytes # (A) 0.5 k/uL (0-1.0); Monocytes % (A) 5 %; Neutrophils % (A) 82 %; Platelet Count 399 k/uL (150-450); RBC 3.18 m/uL (3.80-5.40); RDW 15.1 % (11.5-15.5); WBC 9.8 k/uL (3.8-10.6)
[2022-05-01 05:21] LABS: Calcium 8.7 mg/dL (8.4-10.2); Potassium 4.2 mmol/L (3.5-5.1)
[2022-05-01 06:07] LABS: ABG Base Excess 5.6 mmol/L; ABG HCO3 30 mmol/L (21-25); ABG Oxygen Saturation 96.4 % (94-97); ABG PCO2 44 mmHg (35-45); ABG PH 7.44 (7.35-7.45); ABG PO2 110 mmHg (83-108); ABG TCO2 31 mmol/L (19-24); Allen Test Performed? Yes
[2022-05-01 06:24] LABS: Glucose,Whole Blood 270 mg/dL (70-110)
[2022-05-01] MEDS: INSULIN DETEMIR (LEVEMIR) 100 UNIT/ML SYR SQ SCH ×2 (06:24→20:10)
--- NOTE | 2022-05-01 07:01 | XR ---
EXAMINATION TYPE: XR chest 1V portable DATE OF EXAM: 05/01/2022 6:35 AM COMPARISON: Chest radiographs from 04/30/2022 TECHNIQUE: XR chest 1V portable Portable AP radiograph of the chest. CLINICAL INDICATION:Female, 71 years old with history of Tube placement; FINDINGS: Lungs/Pleura: Bibasilar atelectasis. No evidence for pneumothorax, pleural effusion or focal consolid ation. Pulmonary vascularity: Unremarkable. Heart/mediastinum: Cardiomediastinal silhouette is prominent in size. Musculoskeletal: No acute osseous pathology. Other findings: None Lines/Tubes: Endotracheal tube with distal tip 6.1 cm above the tammy. Nasogastric tube with its distal tip and side-port projecting under the diaphragm. IMPRESSION: No significant change from priors with bibasilar atelectasis.
[2022-05-01] MEDS: ALBUTEROL HFA INHALER INHALATION SCH ×4 (07:48→19:24)
[2022-05-01] MEDS: CHLORHEXIDINE GLUCONATE 15 ML CUP MUCOUS MEM SCH ×2 (08:38→20:10)
[2022-05-01] MEDS: amLODIPine 10 MG TAB PO SCH (08:38)
[2022-05-01] MEDS: ENOXAPARIN 30 MG/0.3 ML SYRINGE SQ SCH (08:38)
[2022-05-01] MEDS: ISOSORBIDE DINITRATE 10 MG TAB PO SCH ×2 (08:38→20:10)
[2022-05-01] MEDS: ASPIRIN 81 MG PO SCH (08:38)
[2022-05-01] MEDS: ZINC SULFATE 220 MG CAP PO SCH (08:38)
[2022-05-01] MEDS: PANTOPRAZOLE 40 MG/10 ML VIAL IVP SCH (08:38)
[2022-05-01] MEDS: ASCORBIC ACID 500 MG TAB PO SCH (08:39)
[2022-05-01] MEDS: CHOLECALCIFEROL 25 MCG (1000 IU) TABLET PO SCH (08:39)
[2022-05-01] MEDS: CLOPIDOGREL 75 MG TAB PO SCH (08:39)
[2022-05-01] MEDS: METOPROLOL TARTRATE 50 MG TAB PO SCH ×2 (08:39→20:10)
[2022-05-01] MEDS: levETIRAcetam IV 500 MG in SODIUM CHLORIDE 0.9% 100 ML IVPB SCH ×2 (08:46→20:10)
--- NOTE | 2022-05-01 09:06 | P.PN ---
Subjective Progress Note Date: 05/01/22 Principal diagnosis: This is a 71-year-old female with ESRD on dialysis Sunday came in with influenza A Covid pneumonia. She is on ventilator at 40% FiO2 shows seen from the doorway and chart was reviewed. She is known with diabetes coronary artery disease COPD Vital signs are stable A chest x-ray shows no change from yesterday, by basilar atelectasis. Her blood gases show pH of 744, pCO2 44 and pO2 is 110 on 40% FiO2 Objective - Vital Signs Vital signs: Vital Signs Temp 99.2 F 05/01/22 04:00 Pulse 61 05/01/22 07:00 Resp 17 05/01/22 07:00 BP 143/64 04/28/22 10:30 Pulse Ox 95 05/01/22 07:00 FiO2 40 05/01/22 07:09 Intake & Output 04/30/22 05/01/22 05/01/22 18:59 06:59 18:59 Intake Total 778 628 34 Output Total 10 20 30 Balance 768 608 4 Weight 96.3 kg Intake: IV 220 220 10 0.9 Normal Saline @ 10 mL 120 120 10 /hr KVO levETIRAcetam IV 500 mg 100 100 In Sodium Chloride 0.9% 100 ml @ 400 mls/hr IVPB Q12HR [facility] Rx#:[id number] Intake, IV Titration 100 Amount Piperacillin-Tazobactam 3 100 .375 gm In Sodium Chloride 0.9% 100 ml @ 25 mls/hr IVPB Q12HR [facility] Rx #:[id number] Tube Feeding 288 288 24 Other 170 120 Output: Urine 10 20 30 Other: Voiding Method Indwelling Catheter Indwelling Catheter # Voids 1 # Bowel Movements 1 ABP, PAP, CO, CI - Last Documented Arterial Blood Pressure 134/42 Patient was examined from the doorway because of the COVID 19 She is on 40% FiO2 - Labs CBC & Chem 7: 05/01/22 04:36 05/01/22 04:36 Labs: Abnormal Lab Results - Last 24 Hours (Table) 04/30/22 04/30/22 04/30/22 Range/Units 11:59 14:45 17:53 RBC (3.80-5.40) m/uL Hgb (11.4-16.0) gm/dL Hct (34.0-46.0) % Neutrophils # (1.3-7.7) k/uL Lymphocytes # (1.0-4.8) k/uL D-Dimer 2.00 H (<0.60) mg/L FEU ABG pO2 (83-108) mmHg ABG HCO3 (21-25) mmol/L ABG Total CO2 (19-24) mmol/L BUN (7-17) mg/dL Creatinine (0.52-1.04) mg/dL Glucose (74-99) mg/dL POC Glucose (mg/dL) 288 H 241 H (70-110) mg/dL 05/01/22 05/01/22 05/01/22 Range/Units 00:00 04:36 04:36 RBC 3.18 L (3.80-5.40) m/uL Hgb 9.5 L (11.4-16.0) gm/dL Hct 30.3 L (34.0-46.0) % Neutrophils # 8.0 H (1.3-7.7) k/uL Lymphocytes # 0.8 L (1.0-4.8) k/uL D-Dimer (<0.60) mg/L FEU ABG pO2 (83-108) mmHg ABG HCO3 (21-25) mmol/L ABG Total CO2 (19-24) mmol/L BUN 70 H (7-17) mg/dL Creatinine 7.59 H* (0.52-1.04) mg/dL Glucose 248 H (74-99) mg/dL POC Glucose (mg/dL) 248 H (70-110) mg/dL 05/01/22 05/01/22 Range/Units 06:00 06:21 RBC (3.80-5.40) m/uL Hgb (11.4-16.0) gm/dL Hct (34.0-46.0) % Neutrophils # (1.3-7.7) k/uL Lymphocytes # (1.0-4.8) k/uL D-Dimer (<0.60) mg/L FEU ABG pO2 110 H (83-108) mmHg ABG HCO3 30 H (21-25) mmol/L ABG Total CO2 31 H (19-24) mmol/L BUN (7-17) mg/dL Creatinine (0.52-1.04) mg/dL Glucose (74-99) mg/dL POC Glucose (mg/dL) 270 H (70-110) mg/dL Microbiology - Last 24 Hours (Table) 04/27/22 17:02 Blood Culture - Preliminary Blood No Growth after 72 hours 04/27/22 16:50 Blood Culture - Preliminary Blood No Growth after 72 hours Assessment and Plan Plan: Impression 1. ESRD on dialysis Sunday. 2. Admitted with influenza as well as Covid 19. Blood gases showing some improvement she remains on the ventilator 3. Anemia of chronic illness Recommendation 1. Will be next dialyzed tomorrow on Sunday. Ultrafiltration goal is 2 L 2. Watch hemoglobin.
[2022-05-01] MEDS: OSELTAMIVIR 60 MG/10 ML ORAL SYRINGE PO SCH (09:29)
[2022-05-01 11:36] LABS: Glucose,Whole Blood 248 mg/dL (70-110)
--- NOTE | 2022-05-01 12:38 | P.PN ---
Subjective Progress Note Date: 05/01/22 Principal diagnosis: Acute hypoxic respiratory failure, possible CVA, possible seizures this is a 71-year-old female with history of multiple medical problems including chronic renal disease, she is on hemodialysis, history of congestive heart failure, type 2 diabetes, COPD,patient did not show up for her dialysis this morning, police was sent to [place] for a well check call, patient did not respond to the door, police broke into the house, and she was found unresponsive. Patient was brought by EMS to ER, and upon initial evaluation she had a Glascow coma score of 6. She had some right-sided facial droop, and she was postural rate. Patient was unable to answer any questions, unresponsive, she was also noted to be hypertensive. Blood sugar was adequate. Patient was intubated, placed on mechanical ventilation, and this consult was initiated. She is presently on tidal volume of 400, FiO2 50%, rate of 16, and PEEP of 8. ABG is pending. Chest x-ray is showing evidence of bibasilar infiltrates, consistent with aspiration pneumonia, apparently her intubation was not easy, and was a bit traumatic. Her CT of the head is pending.WBC count is 17.3 hemoglobin is 12.3.BUN is 44 creatinine 6.03. Bicarb is 26.liver enzymes were noted to be normal. Urinalysis is showing evidence of pyuria and bacteriuria. Positive leukocyte esterase in the urine Patient was reevaluated today on 04/28/22, remains in the ICU, intubated and mechanically ventilated. Patient had incidental positive COVID-19 screening. And positive influenza A. Remains on assist control rate of 16, volume 400 FiO2 50% and PEEP of 8. ABG showed a pO2 of 73 pCO2 42 pH of 7.53. Patient is rec eiving propofol at 30 mcg/kg/m, her IV fluid is at KVO, and today I want ahead and placed a right femoral triple-lumen catheter and right radial arterial line. Patient remains unresponsive, she is on propofol which I plan to hold today, and assess mental status off propofol if possible. Patient doesn't respond to deep painful stimuli by withdrawal, but does not open eyes, does not have any purposeful movement or response to any stimuli. Except withdrawal to painful stimuli noted while placing the central line and arterial line. Chest x-ray is showing mostly stable peripheral right lower lobe infiltrate, and possibly a left lower lobe atelectasis/consolidation. Again looking at her admission labs, patient came back positive for influenza A and ballesteros virus PCR was positive. Will recommend that the patient goes on Tamiflu, and we'll recommend the COVID- 19 cocktail for this patient. Patient is a known end-stage renal disease, and she is being followed by nephrology, she will get intermittent hemodialysis reevaluated today on 04/25/22, patient remains in the ICU intubated and mec hanically ventilated, she is on assist control rate of 16:400 FiO2 50% and PEEP of 8 ABG showed a pO2 of 106 pCO2 48 pH of 7.49. Repeat CT of the brain showed no evidence of any new change, patient is undergoing hemodialysis again today. And she is now off sedation for the last 24 hours. Her IV fluids at KVO, she has high residual hence she is not receiving any enteral feeding yet. Today the patient is noted to be encephalopathic, unresponsive to any stimuli, opens eyes, but not purposeful. And again she is not responding to any stimuli except deep painful stimuli/withdrawal. Patient was admitted with acute hypoxic and hypercapnic respiratory failure, she was also found to have positive COVID-19 infection and influenza A infection. Patient may have sustained an anoxic brain injury because she was found at home unresponsive when the police broke in because she didn't show up to her dialysis treatment.basic metabolic profile is relatively normal BUN is 51 creatinine 7.25.WBC count is 11.4 hemoglobin is 9.3.CT brain yesterday showedpossible mastoiditis.and chronic paranasal sinus disease.chest x-ray showed stable peripheral and right lower lobe/left basilar infiltrate/atelectasis. Reevaluated today on 04/30/22, patient remains in the ICU, intubated and mechanically ventilated. She is on assist control rate of 16 tidal volume 400 FiO2 40% and PEEP of 8. Patient is off sedation completely, however she is awake, opening her eyes, but she is not spending to any stimuli. Patient has no purposeful movement, she is not responsive to stimuli, obviously she has what seems to be a severe encephalopathy, suspect anoxic encephalopathy. Patient has IV fluid at KVO, she is receiving vital HP at 24 mL an hour.ABG today showed a pO2 of 83 pCO2 45 pH of 7.45 hence no changes were made in her vent settings. CBC is unremarkable WBC count 12.6 hemoglobin is 9.9.basic metabolic profile is normal bicarb is 30 BUN is 39 creatinine 5.74, patient was dialyzed yesterday, but no dialysis is planned so far for today.chest x-ray no evidence of active disease, continues to have left lower lobe atelectasis. Reevaluated today on 05/01/22, patient remains in the ICU, intubated and mec hanically ventilated. She is on assist control of 16.400 FiO2 40% and PEEP of 5 ABG showed a pO2 of 110 pCO2 44 pH of 7.44. Neurologically, the patient remains about the same, she opens her eyes, but does not have any purposeful movement whatsoever. Does not follow any instructions. Patient is clearly encephalopathic. Remains on vitamin HP at 24 mL/h, her IV fluid to KVO, scheduled to have CT of the head and EEG again today. Patient is clearly not ready for weaning mostly because of her neurological status, in the meantime I'm recommending placing the patient on pressure support control mode of mechanical ventilation at 12, and CPAP, and if she tolerates we'll keep her on that mode until hopefully her mental status improves were and we could consider weaning and extubation. Otherwise the patient may have to be considered for tracheostomy and PEG tube placement. WBC count is 9.8 hemoglobin is 9.5. Basic metabolic profile is normal BUN is 70 creatinine 7.59, patient may undergo dialysis today. Chest x-ray is basically unremarkable continues to have some basilar atelectasis especially at the left base Objective - Vital Signs Vital signs: Vital Signs Temp 97.8 F 05/01/22 08:00 Pulse 56 L 05/01/22 11:00 Resp 20 05/01/22 11:00 BP 143/64 04/28/22 10:30 Pulse Ox 97 05/01/22 11:00 FiO2 40 05/01/22 11:00 Intake & Output 04/30/22 05/01/22 05/01/22 18:59 06:59 18:59 Intake Total 778 628 464 Output Total 10 20 30 Balance 768 608 434 Weight 96.3 kg Intake: IV 220 220 260 0.9 Normal Saline @ 10 mL 120 120 60 /hr KVO Piperacillin-Tazobactam 3 100 .375 gm In Sodium Chloride 0.9% 100 ml @ 25 mls/hr IVPB Q12H [facility] Rx# :[id number] levETIRAcetam IV 500 mg 100 100 100 In Sodium Chloride 0.9% 100 ml @ 400 mls/hr IVPB Q12HR [facility] Rx#:[id number] Intake, IV Titration 100 Amount Piperacillin-Tazobactam 3 100 .375 gm In Sodium Chloride 0.9% 100 ml @ 25 mls/hr IVPB Q12HR [facility] Rx #:[id number] Tube Feeding 288 288 144 Other 170 120 60 Output: Urine 10 20 30 Other: Voiding Method Indwelling Catheter Indwelling Catheter Indwelling Catheter # Voids 1 # Bowel Movements 1 ABP, PAP, CO, CI - Last Documented Arterial Blood Pressure 148/42 - Exam Physical Exam: Revealed a 71-year-old female, obese, intubated, mechanically ventilated, in no distress. remains off sedation. Has been off sedation for the last 3 days. Head: Atraumatic, normocephalic. HEENT:[Neck is supple.] [No neck masses.] [No thyromegaly.] [No JVD.]endotracheal tube and orogastric tube are intact. Chest: [minimal fine crackles at the bases no rhonchi and no wheezes.] Cardiac Exam: [Normal S1 and S2, no S3 gallop, no murmur.] Abdomen: [Soft, nontender, no megaly, no rebound, no guarding, normal bowel sounds.]large periumbilical hernia is noted. Extremities: [No clubbing, no edema, no cyanosis.]AV fistula noted in the left forearm area. Unremarkable. Neurological Exam:opens eyes, no other responses. Patient does not respond to any stimuli. Skin: No rashes. Psychiatric: Could not assess. - Labs CBC & Chem 7: 05/01/22 04:36 05/01/22 04:36 Labs: Abnormal Lab Results - Last 24 Hours (Table) 04/30/22 04/30/22 05/01/22 Range/Units 14:45 17:53 00:00 RBC (3.80-5.40) m/uL Hgb (11.4-16.0) gm/dL Hct (34.0-46.0) % Neutrophils # (1.3-7.7) k/uL Lymphocytes # (1.0-4.8) k/uL D-Dimer 2.00 H (<0.60) mg/L FEU ABG pO2 (83-108) mmHg ABG HCO3 (21-25) mmol/L ABG Total CO2 (19-24) mmol/L BUN (7-17) mg/dL Creatinine (0.52-1.04) mg/dL Glucose (74-99) mg/dL POC Glucose (mg/dL) 241 H 248 H (70-110) mg/dL 05/01/22 05/01/22 05/01/22 Range/Units 04:36 04:36 06:00 RBC 3.18 L (3.80-5.40) m/uL Hgb 9.5 L (11.4-16.0) gm/dL Hct 30.3 L (34.0-46.0) % Neutrophils # 8.0 H (1.3-7.7) k/uL Lymphocytes # 0.8 L (1.0-4.8) k/uL D-Dimer (<0.60) mg/L FEU ABG pO2 110 H (83-108) mmHg ABG HCO3 30 H (21-25) mmol/L ABG Total CO2 31 H (19-24) mmol/L BUN 70 H (7-17) mg/dL Creatinine 7.59 H* (0.52-1.04) mg/dL Glucose 248 H (74-99) mg/dL POC Glucose (mg/dL) (70-110) mg/dL 05/01/22 05/01/22 Range/Units 06:21 11:34 RBC (3.80-5.40) m/uL Hgb (11.4-16.0) gm/dL Hct (34.0-46.0) % Neutrophils # (1.3-7.7) k/uL Lymphocytes # (1.0-4.8) k/uL D-Dimer (<0.60) mg/L FEU ABG pO2 (83-108) mmHg ABG HCO3 (21-25) mmol/L ABG Total CO2 (19-24) mmol/L BUN (7-17) mg/dL Creatinine (0.52-1.04) mg/dL Glucose (74-99) mg/dL POC Glucose (mg/dL) 270 H 248 H (70-110) mg/dL Microbiology - Last 24 Hours (Table) 04/27/22 17:02 Blood Culture - Preliminary Blood No Growth after 72 hours 04/27/22 16:50 Blood Culture - Preliminary Blood No Growth after 72 hours Assessment and Plan Assessment: impression: Acute hypoxic respiratory failure, exact etiology is not clear, suspect acute CVA.possible seizures) possible anoxic brain injury considering the presentation and the clinical history Acute aspiration pneumonia is strongly suspected. Patient is on Zosyn. Incidental COVID-19 infection, doubt COVID-19 pneumonia, patient is on COVID-19 cocktail. Influenza A infection, . Hence I am recommending Tamiflu 75 mg twice a day History of end-stage renal disease, on hemodialysis. History of coronary artery disease. History of congestive heart failure. History of questionable asthma. coronary arteriosclerosis and previous stent placement. Type 2 diabetes.Degenerative joint disease. recommendation: Continue ventilatory support, however will try the patient on pressure support of 12 and CPAP. continue COVID-19 cocktail. finished a full course of Tamiflu. Continue empiric antibiotics/Zosyn for presumptive aspiration pneumonia. For few more days Continue bronchodilators/DuoNeb. continue dialysis as recommended by nephrology patient has end-stage renal disease Admission brain CT is nondiagnostic., repeat CT showing mostly mastoiditis and maxillary sinus disease. Continue GI and DVT prophylaxis. Keep patient off sedation if possible Nutritional support/enteral feeding We will continue to follow. Prognosis is extremely poor and guarded. If mental status does not improve much, may have to be considered for tracheostomy and PEG tube placement. critical care time is over 30 minutes Time with Patient: Greater than 30
--- NOTE | 2022-05-01 13:46 | P.PN ---
Subjective Progress Note Date: 05/01/22 Principal diagnosis: Influenza A and possible aspiration pneumonia Patient is a 71-year-old female with a past medical history significant for type 2 diabetes mellitus COPD consist heart failure end-stage renal disease on hemodialysis, patient was brought into the ER 2 days ago after the patient was found to be unresponsive at home apparently the patient did not show for her dialysis , patient was found to be unresponsive at home brought to the hospital and getting intubated patient did have positive influenza A as well as ballesteros PCR, also with evidence of right upper lobe infiltrate concerning for aspiration pneumonia with a sputum currently showing Haemophilus. On today's evaluation that is 05/01/2022, the patient remains to be afebrile patient is hemodynamically stable not requiring any pressor support, the patient FiO2 currently stable at 40%, slight more response per the nursing staff no significant purulent secretion through ET or diarrhea reported by nursing staff Objective - Vital Signs Vital signs: Vital Signs Temp 97.8 F 05/01/22 08:00 Pulse 56 L 05/01/22 11:00 Resp 20 05/01/22 11:00 BP 143/64 04/28/22 10:30 Pulse Ox 97 05/01/22 11:00 FiO2 40 05/01/22 11:00 Intake & Output 04/30/22 05/01/22 05/01/22 18:59 06:59 18:59 Intake Total 778 628 464 Output Total 10 20 30 Balance 768 608 434 Weight 96.3 kg Intake: IV 220 220 260 0.9 Normal Saline @ 10 mL 120 120 60 /hr KVO Piperacillin-Tazobactam 3 100 .375 gm In Sodium Chloride 0.9% 100 ml @ 25 mls/hr IVPB Q12H [facility] Rx# :[id number] levETIRAcetam IV 500 mg 100 100 100 In Sodium Chloride 0.9% 100 ml @ 400 mls/hr IVPB Q12HR [facility] Rx#:[id number] Intake, IV Titration 100 Amount Piperacillin-Tazobactam 3 100 .375 gm In Sodium Chloride 0.9% 100 ml @ 25 mls/hr IVPB Q12HR [facility] Rx #:[id number] Tube Feeding 288 288 144 Other 170 120 60 Output: Urine 10 20 30 Other: Voiding Method Indwelling Catheter Indwelling Catheter Indwelling Catheter # Voids 1 # Bowel Movements 1 ABP, PAP, CO, CI - Last Documented Arterial Blood Pressure 148/42 - Exam GENERAL DESCRIPTION: An elderly female intubated on the vent RESPIRATORY SYSTEM: Unlabored breathing , decreased breath sounds at bases HEART: S1 S2 regular rate and rhythm , ABDOMEN: Soft , no tenderness EXTREMITIES: No edema feet - Labs CBC & Chem 7: 05/01/22 04:36 05/01/22 04:36 Labs: Abnormal Lab Results - Last 24 Hours (Table) 04/30/22 04/30/22 05/01/22 Range/Units 14:45 17:53 00:00 RBC (3.80-5.40) m/uL Hgb (11.4-16.0) gm/dL Hct (34.0-46.0) % Neutrophils # (1.3-7.7) k/uL Lymphocytes # (1.0-4.8) k/uL D-Dimer 2.00 H (<0.60) mg/L FEU ABG pO2 (83-108) mmHg ABG HCO3 (21-25) mmol/L ABG Total CO2 (19-24) mmol/L BUN (7-17) mg/dL Creatinine (0.52-1.04) mg/dL Glucose (74-99) mg/dL POC Glucose (mg/dL) 241 H 248 H (70-110) mg/dL 05/01/22 05/01/22 05/01/22 Range/Units 04:36 04:36 06:00 RBC 3.18 L (3.80-5.40) m/uL Hgb 9.5 L (11.4-16.0) gm/dL Hct 30.3 L (34.0-46.0) % Neutrophils # 8.0 H (1.3-7.7) k/uL Lymphocytes # 0.8 L (1.0-4.8) k/uL D-Dimer (<0.60) mg/L FEU ABG pO2 110 H (83-108) mmHg ABG HCO3 30 H (21-25) mmol/L ABG Total CO2 31 H (19-24) mmol/L BUN 70 H (7-17) mg/dL Creatinine 7.59 H* (0.52-1.04) mg/dL Glucose 248 H (74-99) mg/dL POC Glucose (mg/dL) (70-110) mg/dL 05/01/22 05/01/22 Range/Units 06:21 11:34 RBC (3.80-5.40) m/uL Hgb (11.4-16.0) gm/dL Hct (34.0-46.0) % Neutrophils # (1.3-7.7) k/uL Lymphocytes # (1.0-4.8) k/uL D-Dimer (<0.60) mg/L FEU ABG pO2 (83-108) mmHg ABG HCO3 (21-25) mmol/L ABG Total CO2 (19-24) mmol/L BUN (7-17) mg/dL Creatinine (0.52-1.04) mg/dL Glucose (74-99) mg/dL POC Glucose (mg/dL) 270 H 248 H (70-110) mg/dL Microbiology - Last 24 Hours (Table) 04/27/22 17:02 Blood Culture - Preliminary Blood No Growth after 72 hours 04/27/22 16:50 Blood Culture - Preliminary Blood No Growth after 72 hours Assessment and Plan (1) Sepsis Current Visit: Yes Status: Acute Code(s): A41.9 - SEPSIS, UNSPECIFIED ORGANISM SNOMED Code(s): 45893881 (2) Aspiration pneumonia Current Visit: Yes Status: Acute Code(s): J69.0 - PNEUMONITIS DUE TO INHALATION OF FOOD AND VOMIT SNOMED Code(s): 093297667 Plan: 1 patient presented to hospital with sepsis in this patient who did have a fever elevated white count with evidence of right upper lobe consolidation concerning for aspiration pneumonia in this patient also tested positive for influenza A as well as ballesteros PCR and concern for possible postinfluenzal bacterial pneumonia 2-blood culture has been negative and sputum culture grew Haemophilus 3-patient to continue with the Tamiflu and Zosyn and continue supportive care Time with Patient: Less than 30
[2022-05-01] MEDS: CLEVIDIPINE BUTYRATE 25 MG in EMPTY BAG 1 BAG IV SCH ×2 (15:00→18:24)
--- NOTE | 2022-05-01 16:02 | P.PN ---
Subjective Progress Note Date: 05/01/22 Patient initially seen by Dr. Kolton Méndez. Please refer to his note for details. Patient is a 71-year-old female, who was brought to the hospital by ambulance after she was found unresponsive at home. A wellness check was made by the police as she has not showed up for her hemodialysis. Patient was admitted with altered mental status. Patient also has Covid infection, influenza A. Patient was posturing therefore Keppra was started at 500 mg twice a day. Repeat EEG and CT were requested for today. Per nurse report, sedation has been discontinued since 04/28/2022. Patient has started showing some clinical improvement. At first she was laying still with no response with feet turned in. Now patient has started moving her arms, the reflexes are more appropriate. Her gag has improved and she is blinking more frequently. She is picking up her right leg onto the left. Her left leg movement is slightly less as compared to the right. She does not move her arms as much. Sometimes she tenses up her body. Patient has been CPAPing since 10 AM today. Objective - Vital Signs Vital signs: Vital Signs Temp 97.8 F 05/01/22 12:00 Pulse 63 05/01/22 15:00 Resp 14 05/01/22 15:00 BP 143/64 04/28/22 10:30 Pulse Ox 100 05/01/22 15:00 FiO2 40 05/01/22 15:02 Intake & Output 04/30/22 05/01/22 05/01/22 18:59 06:59 18:59 Intake Total 778 628 596.7 Output Total 10 20 30 Balance 768 608 566.7 Weight 96.3 kg 96.3 kg Intake: IV 220 220 290 0.9 Normal Saline @ 10 mL 120 120 90 /hr KVO Piperacillin-Tazobactam 3 100 .375 gm In Sodium Chloride 0.9% 100 ml @ 25 mls/hr IVPB Q12H [facility] Rx# :[id number] levETIRAcetam IV 500 mg 100 100 100 In Sodium Chloride 0.9% 100 ml @ 400 mls/hr IVPB Q12HR [facility] Rx#:[id number] Intake, IV Titration 100 0.7 Amount Clevidipine Butyrate 25 0.7 mg In Empty Bag 1 bag @ 1 MG/HR 2 mls/hr IV .Q24H [facility] Rx#:[id number] Piperacillin-Tazobactam 3 100 .375 gm In Sodium Chloride 0.9% 100 ml @ 25 mls/hr IVPB Q12HR [facility] Rx #:[id number] Tube Feeding 288 288 246 Other 170 120 60 Output: Urine 10 20 30 Other: Voiding Method Indwelling Catheter Indwelling Catheter Incontinent # Voids 1 1 # Bowel Movements 1 1 ABP, PAP, CO, CI - Last Documented Arterial Blood Pressure 188/56 - Exam GENERAL: The patient is laying in bed and does not appear in acute distress. LUNG: Intubated on ventilator. NEUROLOGICAL: Limited because of her condition. Intubated on ventilator. Off sedation since 04/28/2022. Higher mental function: The patient is comatose. GCS 7 (E2, VT1, M4) . Cranial nerves: Would open eyes with painful stimuli. The pupils are round, equal and reactive to light. Has positive corneal reflex bilaterally. Patient has positive oculocephalics. Is breathing over the vent. Has intact gag reflex. Rest is limited. Motor: Patient is frequently moving her right leg on top of the left. Painful stimuli, she is moving her right leg better than the left. Patient slightly withdraws and grimaces to painful stimuli with upper limbs. She is not antigravity in the upper limbs and flops it right down. Cerebellum: Unable to assess. Sensation: Seems to have intact painful stimuli. Reflexes (right/left): 1+ throughout. Plantars are mute bilaterally. Although the right toe appears up at baseline, but is nonreactive. Some of the workup during his hospital visit consisted of: Influenza A and Richard virus PCR detected. Also possible underlying UTI. Troponin is a 1.07. Ammonia <9 TSH: 0.593 Urinalysis seems possible suggestive of underlying urinary tract infection CT of the head is reported as age-related atrophic and chronic small vessel ischemic changes without acute intracranial process seen at this time. CT angiography is reported as no significant abnormality. Chest x-ray was reported as peripheral nodule base consolidation right upper lobe. Could be on the basis of infiltrate or neoplastic process. Core sent interstitium correlate for chronic interstitial lung disease otherwise consider interstitial pneumonia or pneumonitis Prominence right hilum. Repeat x-ray recommend short-term basis to assess for developing infiltrate or adenopathy versus mass Routine EEG is abnormal. The background slowing suggestive of moderate to severe encephalopathy. The suppressions likely due to medication effect (sedatives). Otherwise there is no focal slowing, epileptiform discharges or seizure on the EEG. 2-D echo was reported as technically difficult study for agitation. Normal left ventricle diamonds and systolic function. She had repeat CT head on 04/28/22: It is reported as similar mild ventriculomegaly likely ex vacuo dilation from central cerebral atrophy. Mild patchy burden of chronic small vessel ischemic disease. No acute intracranial abnormality seen. Patient is intubated. His ongoing air-fluid level left maxillary sinus that could reflect acute sinusitis. Background mild chronic paranasal sinus disease. Opacification of the mastoid air cells on both sides. Partial opacification of the middle ear cavity as well. Correlate to exclude otomastoiditis Patient sputum is positive for Haemophilus influenza area - Labs CBC & Chem 7: 05/01/22 04:36 05/01/22 04:36 Labs: Abnormal Lab Results - Last 24 Hours (Table) 04/30/22 05/01/22 05/01/22 Range/Units 17:53 00:00 04:36 RBC 3.18 L (3.80-5.40) m/uL Hgb 9.5 L (11.4-16.0) gm/dL Hct 30.3 L (34.0-46.0) % Neutrophils # 8.0 H (1.3-7.7) k/uL Lymphocytes # 0.8 L (1.0-4.8) k/uL ABG pO2 (83-108) mmHg ABG HCO3 (21-25) mmol/L ABG Total CO2 (19-24) mmol/L BUN (7-17) mg/dL Creatinine (0.52-1.04) mg/dL Glucose (74-99) mg/dL POC Glucose (mg/dL) 241 H 248 H (70-110) mg/dL 05/01/22 05/01/22 05/01/22 Range/Units 04:36 06:00 06:21 RBC (3.80-5.40) m/uL Hgb (11.4-16.0) gm/dL Hct (34.0-46.0) % Neutrophils # (1.3-7.7) k/uL Lymphocytes # (1.0-4.8) k/uL ABG pO2 110 H (83-108) mmHg ABG HCO3 30 H (21-25) mmol/L ABG Total CO2 31 H (19-24) mmol/L BUN 70 H (7-17) mg/dL Creatinine 7.59 H* (0.52-1.04) mg/dL Glucose 248 H (74-99) mg/dL POC Glucose (mg/dL) 270 H (70-110) mg/dL 05/01/22 Range/Units 11:34 RBC (3.80-5.40) m/uL Hgb (11.4-16.0) gm/dL Hct (34.0-46.0) % Neutrophils # (1.3-7.7) k/uL Lymphocytes # (1.0-4.8) k/uL ABG pO2 (83-108) mmHg ABG HCO3 (21-25) mmol/L ABG Total CO2 (19-24) mmol/L BUN (7-17) mg/dL Creatinine (0.52-1.04) mg/dL Glucose (74-99) mg/dL POC Glucose (mg/dL) 248 H (70-110) mg/dL Microbiology - Last 24 Hours (Table) 04/27/22 17:02 Blood Culture - Preliminary Blood No Growth after 72 hours 04/27/22 16:50 Blood Culture - Preliminary Blood No Growth after 72 hours Assessment and Plan Assessment: Encephalopathy seems due to multifactorial: due to hypoxic respiratory failure from Influenza A and Coronavirus, some metabolic encephalopathy. Rule out stroke since only localizes to right lower. Reported transient episode of right facial droop by EMS. Rule out stroke. Currently no facial weakness. Two CT head did not show any evidence of acute or subacute ischemic stroke. Influezna A infection Acute Covid-19 infection Consolidation of the right upper lobe concerning for infiltrate versus neoplastic process on chest x-ray Elevated troponin End-stage renal disease on dialysis Congestive heart failure COPD Chronic anemia. Plan: * Patient has improved clinically today as compared to yesterday. She is slightly more arousable, opening her eyes and moving her extremities with better gag reflex. We will continue to monitor her clinically. * Repeat EEG was performed today. Revealed background disorganization and slow ing of moderate degree. No epileptiform activity was seen. When compared to the EEG from 04/27/2022, the background appears to have slightly improved. * Repeat CT head performed today, on my review showed no acute process. Continued presence of left maxillary and left frontal sinus disease, unchanged from CT head from 04/27/2022. As per radiologist report, stable exam with mild ventriculomegaly likely due to central cerebral atrophy. Mild to moderate burden of chronic small vessel ischemic disease. Continued air fluid level left maxillary sinus. Correlate to exclude acute sinusitis. Ongoing fluid opacification throughout the mastoid air cells/middle ear cavities which could relate to chronic intubation or auto mastoiditis. Suggest ENT consultation. * Because of intermittent posturing, Dr. Méndez started patient on prophylactic Keppra 500mg every 12 hours, with additional Keppra 500mg post dialysis. * Continue aspirin 81 mg (new during this admission) and her Plavix 75mg daily was resumed for secondary stroke prophylaxis. Also on Lipitor 40 mg daily for secondary stroke prophylaxis. * Patient on Zosyn for pneumonia. Hopefully will cover sinus/mastoid infection. * Consulted PT and OT, when able to participate * Every two hours neuro checks * Placed on cardiac monitoring * Regarding the questionable of suspicious neoplasm on chest x-ray will defer the management to the primary and pulmonary team. * We'll defer the rest of the medical management to the primary and ICU team * For DVT prophylaxis: Patient on Lovenox
--- NOTE | 2022-05-01 16:11 | CT ---
EXAMINATION TYPE: CT brain wo con DATE OF EXAM: 05/01/2022 COMPARISON: 04/28/2022 HISTORY: 71-year-old female confusion, Altered mental status. TECHNIQUE: Examination was done in axial plane without intravenous contrast. Coronal and sagittal r econstructions performed. CT DLP: 1217.4 mGycm Automated exposure control for dose reduction was used. FINDINGS: There is no evidence of acute intracranial hemorrhage, acute ischemic changes, mass, mass-effect, or extra-axial fluid collection. There is no effacement of cerebral sulci or basal subarachnoid cister ns. There is no midline shift. Perez-white matter distinction is preserved. Mild ventricular prominence is similar. Mild to moderate patchy white matter hypodensities both cereb ral hemispheres. Prominent skull base artifacts through the posterior cranial fossa. Patient is intubated. Ongoing air-fluid level left maxillary sinus and opacification throughout the m astoid air cells and middle ear cavities. IMPRESSION: 1. Stable exam with mild ventriculomegaly likely due to central cerebral atrophy. Mild to moderate bu rden of chronic small vessel ischemic disease. No acute intracranial abnormality seen. 2. Continued air fluid level left maxillary sinus. Correlate to exclude acute sinusitis. Ongoing flui d opacification throughout the mastoid air cells/middle ear cavities which could relate to chronic in tubation or otomastoiditis.
[2022-05-01 17:35] LABS: Glucose,Whole Blood 257 mg/dL (70-110)
[2022-05-01 17:39] LABS: Glucose,Whole Blood 245 mg/dL (70-110)
[2022-05-01 20:09] LABS: Glucose,Whole Blood 281 mg/dL (70-110)
[2022-05-01] MEDS: ATORVASTATIN 40 MG TAB PO SCH (20:10)
[2022-05-02 00:09] LABS: Glucose,Whole Blood 293 mg/dL (70-110)
[2022-05-02] MEDS: PIPERACILLIN-TAZOBACTAM 3.375 GM in SODIUM CHLORIDE 0.9% 100 ML IVPB SCH ×2 (00:11→12:36)
[2022-05-02] MEDS: INSULIN ASPART (NovoLOG) 100 UNIT/ML VIAL SQ SCH ×5 (00:11→23:41)
--- NOTE | 2022-05-02 01:04 | EEG ---
DATE OF SERVICE: 05/01/2022 ELECTROENCEPHALOGRAM REPORT PREAMBLE: This is a 71-year-old female, who was found at home unresponsive by police, who went in for a wellness check. The patient has missed her dialysis appointment. CURRENT MEDICATIONS: 1. Norvasc. 2. Aspirin. 3. Lipitor. 4. Plavix. 5. Lovenox. 6. Levemir. 7. Levetiracetam. 8. Lopressor. 9. Protonix. 10.Propofol. EEG FINDINGS: This is a 21-channel digital EEG recorded with video component utilizing 10/20 International System with referential and bipolar montages. Background consists of disorganized, mixed frequencies of 5 to 6 Hertz theta, intermixed with some lower frequency theta and some delta activity in bihemispheric region. Background does not seem to be reactive to eye opening or closing. Different stages of sleep were not seen. Some intermittent periods of suppression lasting for 1 second was seen. No definitive focal or generalized epileptiform activity was seen. IMPRESSION: This is an abnormal EEG due to background disorganization, background slowing, and intermittent periods of transient suppression. This is suggestive of generalized cerebral dysfunction, moderate degree, as can be seen with toxic metabolic encephalopathy, diffuse structural brain abnormality, or medication effect. Clinical correlation is recommended. No epileptiform activity was seen. When compared to the EEG from 04/27/2022, the background has slightly improved. MMODL / RODON: [id number] / CHRISTINE
[2022-05-02] MEDS: CLEVIDIPINE BUTYRATE 25 MG in EMPTY BAG 1 BAG IV SCH ×5 (01:51→21:39)
--- NOTE | 2022-05-02 04:07 | PN ---
PROGRESS NOTE DATE OF SERVICE: 05/01/2022 SUBJECTIVE: This 71-year-old woman was admitted with acute hypoxic respiratory failure, also had influenza and COVID-19. The patient unresponsive. The patient was closely monitored in ICU at this time. The patient is not waking up and the repeat CAT scan of the brain done today, which was reviewed personally by me showed stable with some mild ventriculomegaly. Otherwise, acute sinusitis was suspected. Multiple consultants following the patient closely. Chest x-ray done today, reviewed showed no significant abnormality except bibasilar atelectasis. PAST MEDICAL HISTORY: Reviewed. REVIEW OF SYSTEMS: Could not be taken mechanically sedated. CURRENT MEDICATIONS: Reviewed include Norvasc, dose and rest of medication noted. PHYSICAL EXAMINATION: VITAL SIGNS: Pulse is 70, blood pressure n, respirations 19. CHEST: Few scattered rhonchi and crackles. ABDOMEN: Soft. NERVOUS SYSTEM: Sedated. LABS: Reviewed. Chest x-ray reviewed personally. Accu-Cheks reviewed. ASSESSMENT: 1. Acute hypoxic respiratory failure, possibly multifactorial. 2. Rule out seizure or toxic anoxic encephalopathy. 3. Acute influenza A. 4. Acute COVID-19. 5. Possible acute urinary tract infection present on admission. 6. Possible aspiration pneumonia. 7. Chronic renal failure, on hemodialysis; end-stage renal disease. 8. History of asthma, chronic obstructive pulmonary disease. 9. Diabetes mellitus, type 2. 10.Multiple medical issues. RECOMMENDATIONS: Recommend to continue current continue hemodialysis. Otherwise, the patient is on Lantus 10 units, I will increase to 20 units b.i.d. Monitor blood sugars closely, broad-spectrum IV antibiotics. Closely follow the H influenzae. Continue to monitor. Further recommendations to follow. MMODL / IJN: [id number] / MTDD
[2022-05-02 04:51] LABS: Basophils # (A) 0.1 k/uL (0-0.2); Basophils % (A) 1 %; Eosinophils # (A) 0.3 k/uL (0-0.7); Eosinophils % (A) 3 %; HCT 30.5 % (34.0-46.0); HGB 9.5 gm/dL (11.4-16.0); Hypochromasia Moderate; Lymphocytes # (A) 0.8 k/uL (1.0-4.8); Lymphocytes % (A) 9 %; MCH 29.1 pg (25.0-35.0); MCV 93.9 fL (80.0-100.0); Mean Platelet Volume 7.7; Monocytes # (A) 0.3 k/uL (0-1.0); Monocytes % (A) 3 %; Neutrophils # (A) 7.2 k/uL (1.3-7.7); Neutrophils % (A) 82 %; Platelet Count 396 k/uL (150-450); RBC 3.25 m/uL (3.80-5.40); RDW 15.4 % (11.5-15.5); WBC 8.7 k/uL (3.8-10.6)
[2022-05-02 05:05] LABS: Albumin 3.5 g/dL (3.5-5.0); Calcium 8.8 mg/dL (8.4-10.2); Potassium 4.2 mmol/L (3.5-5.1); Total Bilirubin 0.4 mg/dL (0.2-1.3); Total Protein 6.3 g/dL (6.3-8.2)
[2022-05-02 05:46] LABS: Glucose,Whole Blood 271 mg/dL (70-110)
[2022-05-02 05:46] LABS: ABG Base Excess 1.9 mmol/L; ABG HCO3 27 mmol/L (21-25); ABG Oxygen Saturation 96.2 % (94-97); ABG PCO2 45 mmHg (35-45); ABG PH 7.39 (7.35-7.45); ABG PO2 113 mmHg (83-108); ABG TCO2 28 mmol/L (19-24); Allen Test Performed? Yes
[2022-05-02] MEDS: INSULIN DETEMIR (LEVEMIR) 100 UNIT/ML SYR SQ SCH ×2 (06:09→20:02)
--- NOTE | 2022-05-02 07:56 | XR ---
EXAMINATION TYPE: XR chest 1V portable DATE OF EXAM: 05/02/2022 Comparison: 05/01/2022 Clinical History: 71-year-old female Tube placement Findings: ET tube satisfactory. NG tube courses below the diaphragm. Heart upper limits of normal in size. Inte rstitial prominence is similar. Increasing retrocardiac and left basilar opacity. Impression: Worsening aeration left base and retrocardiac region. Possible small left effusion with adjacent atel ectasis and/or consolidation.
[2022-05-02] MEDS: amLODIPine 10 MG TAB PO SCH (08:30)
[2022-05-02] MEDS: ASPIRIN 81 MG PO SCH (08:30)
[2022-05-02] MEDS: PANTOPRAZOLE 40 MG/10 ML VIAL IVP SCH (08:30)
[2022-05-02] MEDS: ZINC SULFATE 220 MG CAP PO SCH (08:30)
[2022-05-02] MEDS: CHLORHEXIDINE GLUCONATE 15 ML CUP MUCOUS MEM SCH ×2 (08:31→20:02)
[2022-05-02] MEDS: ENOXAPARIN 30 MG/0.3 ML SYRINGE SQ SCH (08:31)
[2022-05-02] MEDS: CHOLECALCIFEROL 25 MCG (1000 IU) TABLET PO SCH (08:31)
[2022-05-02] MEDS: ASCORBIC ACID 500 MG TAB PO SCH (08:31)
[2022-05-02] MEDS: METOPROLOL TARTRATE 50 MG TAB PO SCH ×2 (08:31→20:02)
[2022-05-02] MEDS: ISOSORBIDE DINITRATE 10 MG TAB PO SCH ×2 (08:35→20:02)
[2022-05-02] MEDS: CLOPIDOGREL 75 MG TAB PO SCH (08:35)
[2022-05-02] MEDS: OSELTAMIVIR 60 MG/10 ML ORAL SYRINGE PO SCH (08:35)
[2022-05-02] MEDS: ALBUTEROL HFA INHALER INHALATION SCH ×4 (09:05→19:25)
[2022-05-02] MEDS: levETIRAcetam IV 500 MG in SODIUM CHLORIDE 0.9% 100 ML IVPB SCH ×3 (09:55→20:01)
--- NOTE | 2022-05-02 10:18 | P.PN ---
Subjective Progress Note Date: 05/02/22 Principal diagnosis: Mental status changes. Reevaluated today on 04/30/22, patient remains in the ICU, intubated and mechanically ventilated. She is on assist control rate of 16 tidal volume 400 FiO2 40% and PEEP of 8. Patient is off sedation completely, however she is awake, opening her eyes, but she is not spending to any stimuli. Patient has no purposeful movement, she is not responsive to stimuli, obviously she has what seems to be a severe encephalopathy, suspect anoxic encephalopathy. Patient has IV fluid at KVO, she is receiving vital HP at 24 mL an hour.ABG today showed a pO2 of 83 pCO2 45 pH of 7.45 hence no changes were made in her vent settings. CBC is unremarkable WBC count 12.6 hemoglobin is 9.9.basic metabolic profile is normal bicarb is 30 BUN is 39 creatinine 5.74, patient was dialyzed yesterday, but no dialysis is planned so far for today.chest x-ray no evidence of active disease, continues to have left lower lobe atelectasis. Reevaluated today on 05/01/22, patient remains in the ICU, intubated and mechanically ventilated. She is on assist control of 16.400 FiO2 40% and PEEP of 5 ABG showed a pO2 of 110 pCO2 44 pH of 7.44. Neurologically, the patient remains about the same, she opens her eyes, but does not have any purposeful movement whatsoever. Does not follow any instructions. Patient is clearly encephalopathic. Remains on vitamin HP at 24 mL/h, her IV fluid to KVO, scheduled to have CT of the head and EEG again today. Patient is clearly not ready for weaning mostly because of her neurological status, in the meantime I'm recommending placing the patient on pressure support control mode of mechanical ventilation at 12, and CPAP, and if she tolerates we'll keep her on that mode until hopefully her mental status improves were and we could consider weaning and extubation. Otherwise the patient may have to be considered for tracheostomy and PEG tube placement. WBC count is 9.8 hemoglobin is 9.5. Basic metabolic profile is normal BUN is 70 creatinine 7.59, patient may undergo dialysis today. Chest x-ray is basically unremarkable continues to have some basilar atelectasis especially at the left base Progress note dated 05/02/2022. 71-year-old female who was admitted on April 27 with mental status changes, aspiration pneumonia, and respiratory failure. She was intubated on April 27. The patient also tested positive for influenza, and coronavirus. She remains on the ventilator, and is seen in room 256. She's on volume assist control, rate 16, tidal volume 400, FiO2 40%, and PEEP of 8. Blood gases show pO2 of 113, pCO2 45, and pH is 7.39. The patient's currently on Cleveprex at 4 mg an hour, saline at 10 mL an hour, and propofol, has been weaned off. The patient's getting vital high protein at 46 mL an hour, which is goal. The patient will have a pressure support CPAP trial today. Computed tomography scan of the brain was negative. Sputum showed evidence of Haemophilus influenzae. She is on Zosyn. White count 8.7, hemoglobin 9.5, hematocrit 30.5, and platelet count 396,000. Sodium 144, potassium 4.2, chlorides 101, CO2 27, anion gap 16, BUN 93, and creatinine 8.92. Chest x-ray shows infiltrate or atelectasis at the lung base on the left, and in the retrocardiac region. Objective - Vital Signs Vital signs: Vital Signs Temp 98.2 F 05/02/22 04:00 Pulse 69 05/02/22 09:00 Resp 19 05/02/22 09:00 BP 143/64 04/28/22 10:30 Pulse Ox 99 05/02/22 09:00 FiO2 40 05/02/22 09:08 Intake & Output 05/01/22 05/02/22 05/02/22 18:59 06:59 18:59 Intake Total 784.567 984.0 242.5 Output Total 31 0 0 Balance 753.567 984.0 242.5 Weight 96.3 kg 95.6 kg Intake: IV 320 370 30 0.9 Normal Saline @ 10 mL 120 120 30 /hr KVO Piperacillin-Tazobactam 3 100 150 .375 gm In Sodium Chloride 0.9% 100 ml @ 25 mls/hr IVPB Q12H [facility] Rx# :[id number] levETIRAcetam IV 500 mg 100 100 In Sodium Chloride 0.9% 100 ml @ 400 mls/hr IVPB Q12HR [facility] Rx#:[id number] Intake, IV Titration 26.567 50.0 44.5 Amount Clevidipine Butyrate 25 26.567 50.0 44.5 mg In Empty Bag 1 bag @ 1 MG/HR 2 mls/hr IV .Q24H [facility] Rx#:[id number] Tube Feeding 348 474 138 Other 90 90 30 Output: Urine 31 0 0 Other: Voiding Method Incontinent Incontinent # Voids 1 # Bowel Movements 1 ABP, PAP, CO, CI - Last Documented Arterial Blood Pressure 210/74 - Exam No acute distress, currently with an orally placed endotracheal tube and NG tube. Sedation is currently off. HEENT examination is grossly unremarkable. Neck supple. Full range of motion. No adenopathy thyromegaly or neck vein distention. Cardiovascular examination reveals regular rhythm rate. S1-S2 normal. No S3 or S4. No discernible murmur noted. Heart sounds are distant. Heart rate 69 bpm. Lungs reveal coarse bilateral rhonchi. No wheezes or crackles. Breath sounds equal. Saturations are 99%. Abdomen is soft, without bowel sounds. No masses or tenderness. Extremities are intact. No cyanosis clubbing or edema. Skin is without rash or lesion. Neurologic examination cannot be adequately assessed at this time. - Labs CBC & Chem 7: 05/02/22 04:05 05/02/22 04:05 Labs: Abnormal Lab Results - Last 24 Hours (Table) 05/01/22 05/01/22 05/01/22 Range/Units 11:34 17:33 17:38 RBC (3.80-5.40) m/uL Hgb (11.4-16.0) gm/dL Hct (34.0-46.0) % Lymphocytes # (1.0-4.8) k/uL ABG pO2 (83-108) mmHg ABG HCO3 (21-25) mmol/L ABG Total CO2 (19-24) mmol/L BUN (7-17) mg/dL Creatinine (0.52-1.04) mg/dL Glucose (74-99) mg/dL POC Glucose (mg/dL) 248 H 257 H 245 H (70-110) mg/dL 05/01/22 05/02/22 05/02/22 Range/Units 20:06 00:07 04:05 RBC 3.25 L (3.80-5.40) m/uL Hgb 9.5 L (11.4-16.0) gm/dL Hct 30.5 L (34.0-46.0) % Lymphocytes # 0.8 L (1.0-4.8) k/uL ABG pO2 (83-108) mmHg ABG HCO3 (21-25) mmol/L ABG Total CO2 (19-24) mmol/L BUN (7-17) mg/dL Creatinine (0.52-1.04) mg/dL Glucose (74-99) mg/dL POC Glucose (mg/dL) 281 H 293 H (70-110) mg/dL 05/02/22 05/02/22 05/02/22 Range/Units 04:05 05:41 05:44 RBC (3.80-5.40) m/uL Hgb (11.4-16.0) gm/dL Hct (34.0-46.0) % Lymphocytes # (1.0-4.8) k/uL ABG pO2 113 H (83-108) mmHg ABG HCO3 27 H (21-25) mmol/L ABG Total CO2 28 H (19-24) mmol/L BUN 93 H (7-17) mg/dL Creatinine 8.92 H* (0.52-1.04) mg/dL Glucose 250 H (74-99) mg/dL POC Glucose (mg/dL) 271 H (70-110) mg/dL Microbiology - Last 24 Hours (Table) 04/27/22 17:02 Blood Culture - Preliminary Blood No Growth after 96 hours 04/27/22 16:50 Blood Culture - Preliminary Blood No Growth after 96 hours Assessment and Plan Assessment: Acute hypoxemic respiratory failure, of unclear etiology. Possible CVA/seizure disorder. Possible anoxic brain injury. Acute aspiration pneumonia. Positive test for coronavirus infection, without evidence of coronavirus associated pneumonia. Influenza A infection. End-stage renal disease, currently on hemodialysis. History of CAD. History of CHF. History of asthma. CAD with previous stent placement. Type 2 diabetes. Degenerative joint disease. Plan: Plan dated 05/02/2022. The patient is currently on Zosyn for H. influenzae infection. Labs, x-rays, and medications are reviewed. The patient remains on Cleveprex for blood pressure control. Propofol has been weaned off. The patient will get a spontaneous breathing trial with pressure support of 5 and CPAP of 5. The patient is getting tube feedings with vital high protein at goal. We will continue to follow and make recommendations along the way. Prognosis is guarded. Computed tomography scan of the brain was negative. Time with Patient: Greater than 30
--- NOTE | 2022-05-02 10:27 | P.PN ---
Subjective Patient is seen in follow-up for end-stage renal disease. She is maintained on hemodialysis on Sunday schedule. Scheduled for dialysis today. Intubated. Withdraws to pain but otherwise minimal response to stimuli. Vital signs are stable. Blood pressure labile. Regular rate and rhythm noted on monitor. EXTREMITITES: No gross edema noted. Objective - Vital Signs Vital signs: Vital Signs Temp 98.2 F 05/02/22 04:00 Pulse 69 05/02/22 09:00 Resp 19 05/02/22 09:00 BP 143/64 04/28/22 10:30 Pulse Ox 99 05/02/22 09:00 FiO2 40 05/02/22 09:08 Intake & Output 05/01/22 05/02/22 05/02/22 18:59 06:59 18:59 Intake Total 784.567 984.0 242.5 Output Total 31 0 0 Balance 753.567 984.0 242.5 Weight 96.3 kg 95.6 kg Intake: IV 320 370 30 0.9 Normal Saline @ 10 mL 120 120 30 /hr KVO Piperacillin-Tazobactam 3 100 150 .375 gm In Sodium Chloride 0.9% 100 ml @ 25 mls/hr IVPB Q12H [facility] Rx# :[id number] levETIRAcetam IV 500 mg 100 100 In Sodium Chloride 0.9% 100 ml @ 400 mls/hr IVPB Q12HR [facility] Rx#:[id number] Intake, IV Titration 26.567 50.0 44.5 Amount Clevidipine Butyrate 25 26.567 50.0 44.5 mg In Empty Bag 1 bag @ 1 MG/HR 2 mls/hr IV .Q24H [facility] Rx#:[id number] Tube Feeding 348 474 138 Other 90 90 30 Output: Urine 31 0 0 Other: Voiding Method Incontinent Incontinent # Voids 1 # Bowel Movements 1 ABP, PAP, CO, CI - Last Documented Arterial Blood Pressure 210/74 - Labs CBC & Chem 7: 05/02/22 04:05 05/02/22 04:05 Labs: Abnormal Lab Results - Last 24 Hours (Table) 05/01/22 05/01/22 05/01/22 Range/Units 11:34 17:33 17:38 RBC (3.80-5.40) m/uL Hgb (11.4-16.0) gm/dL Hct (34.0-46.0) % Lymphocytes # (1.0-4.8) k/uL ABG pO2 (83-108) mmHg ABG HCO3 (21-25) mmol/L ABG Total CO2 (19-24) mmol/L BUN (7-17) mg/dL Creatinine (0.52-1.04) mg/dL Glucose (74-99) mg/dL POC Glucose (mg/dL) 248 H 257 H 245 H (70-110) mg/dL 05/01/22 05/02/22 05/02/22 Range/Units 20:06 00:07 04:05 RBC 3.25 L (3.80-5.40) m/uL Hgb 9.5 L (11.4-16.0) gm/dL Hct 30.5 L (34.0-46.0) % Lymphocytes # 0.8 L (1.0-4.8) k/uL ABG pO2 (83-108) mmHg ABG HCO3 (21-25) mmol/L ABG Total CO2 (19-24) mmol/L BUN (7-17) mg/dL Creatinine (0.52-1.04) mg/dL Glucose (74-99) mg/dL POC Glucose (mg/dL) 281 H 293 H (70-110) mg/dL 05/02/22 05/02/22 05/02/22 Range/Units 04:05 05:41 05:44 RBC (3.80-5.40) m/uL Hgb (11.4-16.0) gm/dL Hct (34.0-46.0) % Lymphocytes # (1.0-4.8) k/uL ABG pO2 113 H (83-108) mmHg ABG HCO3 27 H (21-25) mmol/L ABG Total CO2 28 H (19-24) mmol/L BUN 93 H (7-17) mg/dL Creatinine 8.92 H* (0.52-1.04) mg/dL Glucose 250 H (74-99) mg/dL POC Glucose (mg/dL) 271 H (70-110) mg/dL Microbiology - Last 24 Hours (Table) 04/27/22 17:02 Blood Culture - Preliminary Blood No Growth after 96 hours 04/27/22 16:50 Blood Culture - Preliminary Blood No Growth after 96 hours Assessment and Plan Plan: Assessment: 1. End-stage renal disease making on hemodialysis on Sunday schedule. 2. Acute hypoxic respiratory failure secondary to pneumonia. Patient tested positive for covid-19 and influenza A. 3. Diabetes mellitus. 4. History of coronary artery disease. 5. Concern for anoxic brain injury. 6. Hypertension with chronic kidney disease. 7. Anemia of chronic kidney disease. Hemoglobin stable. Plan: Hemodialysis today. Check phosphorus level. Change hydralazine to 10 mg IV every 4 hours as needed for systolic blood pressure greater than 160. Prognosis guarded.
[2022-05-02 12:43] LABS: Glucose,Whole Blood 317 mg/dL (70-110)
--- NOTE | 2022-05-02 14:19 | CDI ---
Documentation Clarification Form Date: 05/02/2022 01:53:51 PM From: Tia Mcgill RN, CCDS 5 Admit Date: 04/27/2022 02:32:00 PM Patient Name: Suze Luna Visit Number: [id number] Discharge Date: ATTENTION: The Clinical Documentation Specialists (CDI) and [facility] Coding Staff appreciate your assistance in clarifying documentation. Please respond to the clarification below the line at the bottom and electronically sign. The CDI & [facility] Coding staff will review the response and follow-up if needed. Please note: Queries are made part of the Legal Health Record. If you have any questions, please contact the author of this message via ITS. Dr. Timoteo Wang The patient presented with the following clinical indicators. Additional clarification regarding the etiology/cause of the clinical indicators is requested. 04/29 ID Consult: Sepsis. Patient presented to hospital with sepsis in this patient who did have fever elevated white count with evidence of right upper lobe consolidation concerning for aspiration pneumonia in this patient also tested positive for influenza A as well as ballesteros PCR for concern for possible postinfluenzal bacterial pneumonia History/Risk Factors: ESRD, Hypertension Diabetes Mellitus CHF, COPD, Clinical Indicators: 71-year-old female found unresponsive, coughing with green colored phlegm noted. General appearance: obtunded. Evidence of decorticate posturing 04/27 WBC: 17.3 BUN 44 CR 6.03 Sodium 136 Lactic acid 1.4, Troponin I 0.107 04/27 Blood cultures: No growth after 956 hours 04/27 Sputum: Haemophilus influenzae 04/27Vitals signs: 184/115 78 12 96.8 (AX) 89% RA Treatment: ICU Monitoring Mechanical vent monitoring (per pulmonary) Tamiflu 04/29-05/02 Keppra 500 MG IVPB @1800 04/29-05/02 Zosyn3.375 GM IVPB Q [id number] In your professional opinion, please clarify if these findings signify one of the following conditions: [ ] Sepsis POA [ ] Sepsis Ruled out [ ] Other, please specify [ ] Unable to determine SIRS Criteria: 2 or more of the following may indicate SIRS -Temperature < 96.8F (36C) or > 101.0F (38.3C) -Heart Rate > 90 bpm -Respiratory Rate > 20 breaths/min or PaCO2 < 32 mmHg -White Blood Cell Count > 12,000 or < 4,000 cells/mm3 or > 10% bands (Template Last Reviewed: June 2020) Sepsis Ruled out MTDD
[2022-05-02 17:20] LABS: Glucose,Whole Blood 154 mg/dL (70-110)
--- NOTE | 2022-05-02 17:46 | P.PN ---
Subjective Progress Note Date: 05/02/22 05/02/2022: Patient was seen for a follow-up. Patient continues to be intubated. She is more awake, but very encephalopathic. Please refer to examination below. 05/01/2022: Patient initially seen by Dr. Kolton Méndez. Please refer to his note for details. Patient is a 71-year-old female, who was brought to the hospital by ambulance after she was found unresponsive at home. A wellness check was made by the police as she has not showed up for her hemodialysis. Patient was admitted with altered mental status. Patient also has Covid infection, influenza A. Patient was posturing therefore Keppra was started at 500 mg twice a day. Repeat EEG and CT were requested for today. Per nurse report, sedation has been discontinued since 04/28/2022. Patient has started showing some clinical improvement. At first she was laying still with no response with feet turned in. Now patient has started moving her arms, the reflexes are more appropriate. Her gag has improved and she is blinking more frequently. She is picking up her right leg onto the left. Her left leg movem ent is slightly less as compared to the right. She does not move her arms as much. Sometimes she tenses up her body. Patient has been CPAPing since 10 AM today. Objective - Vital Signs Vital signs: Vital Signs Temp 97.5 F L 05/02/22 16:00 Pulse 58 L 05/02/22 17:00 Resp 19 05/02/22 17:00 BP 143/64 04/28/22 10:30 Pulse Ox 97 05/02/22 17:00 FiO2 40 05/02/22 16:12 Intake & Output 05/01/22 05/02/22 05/02/22 18:59 06:59 18:59 Intake Total 784.567 984.0 994.500 Output Total 31 0 0 Balance 753.567 984.0 994.500 Weight 96.3 kg 95.6 kg Intake: IV 320 370 300 0.9 Normal Saline @ 10 mL 120 120 100 /hr KVO Piperacillin-Tazobactam 3 100 150 100 .375 gm In Sodium Chloride 0.9% 100 ml @ 25 mls/hr IVPB Q12H [facility] Rx# :[id number] levETIRAcetam IV 500 mg 100 100 100 In Sodium Chloride 0.9% 100 ml @ 400 mls/hr IVPB Q12HR [facility] Rx#:[id number] Intake, IV Titration 26.567 50.0 144.500 Amount Clevidipine Butyrate 25 26.567 50.0 144.500 mg In Empty Bag 1 bag @ 1 MG/HR 2 mls/hr IV .Q24H [facility] Rx#:[id number] Tube Feeding 348 474 460 Other 90 90 90 Output: Urine 31 0 0 Other: Voiding Method Incontinent Incontinent # Voids 1 # Bowel Movements 1 1 ABP, PAP, CO, CI - Last Documented Arterial Blood Pressure 147/51 - Exam GENERAL: The patient is laying in bed and does not appear in acute distress. LUNG: Intubated on ventilator. NEUROLOGICAL: Limited because of her condition. Intubated on ventilator. Off sedation since 04/28/2022 at 10 AM. Patient is awake, but very encephalopathic. She keeps her eyes open, with straight gaze. Does not track, does not turn her head or eyes to the commands. Cranial nerves: The pupils are round, equal and reactive to light. Has positive corneal reflex bilaterally. Patient has positive oculocephalics. Is breathing over the vent. Has intact gag reflex. Rest is limited. Motor: Patient is moving her right arm and right leg at her than the left side. She is moving the left side as well, but usually after she has moved the right side. She is withdrawing to painful stimuli in all 4 extremities. Appears generalized weak. Cerebellum: Unable to assess. Sensation: Seems to have intact painful stimuli. Reflexes (right/left): 1+ throughout. Plantars are mute bilaterally. Although the right toe appears up at baseline, but is nonreactive. Some of the workup during his hospital visit consisted of: Influenza A and Richard virus PCR detected. Also possible underlying UTI. Troponin is a 1.07. Ammonia <9 TSH: 0.593 Urinalysis seems possible suggestive of underlying urinary tract infection CT of the head is reported as age-related atrophic and chronic small vessel ischemic changes without acute intracranial process seen at this time. CT angiography is reported as no significant abnormality. Chest x-ray was reported as peripheral nodule base consolidation right upper lobe. Could be on the basis of infiltrate or neoplastic process. Core sent interstitium correlate for chronic interstitial lung disease otherwise consider interstitial pneumonia or pneumonitis Prominence right hilum. Repeat x-ray recommend short-term basis to assess for developing infiltrate or adenopathy versus mass Routine EEG is abnormal. The background slowing suggestive of moderate to severe encephalopathy. The suppressions likely due to medication effect (sedatives). Otherwise there is no focal slowing, epileptiform discharges or seizure on the EEG. 2-D echo was reported as technically difficult study for agitation. Normal left ventricle diamonds and systolic function. She had repeat CT head on 04/28/22: It is reported as similar mild ventriculomegaly likely ex vacuo dilation from central cerebral atrophy. Mild patchy burden of chronic small vessel ischemic disease. No acute intracranial abnormality seen. Patient is intubated. His ongoing air-fluid level left maxillary sinus that could reflect acute sinusitis. Background mild chronic paranasal sinus disease. Opacification of the mastoid air cells on both sides. Partial opacification of the middle ear cavity as well. Correlate to exclude otomastoiditis Patient sputum is positive for Haemophilus influenza area - Labs CBC & Chem 7: 05/03/22 04:45 05/03/22 04:45 Labs: Abnormal Lab Results - Last 24 Hours (Table) 05/01/22 05/02/22 05/02/22 Range/Units 20:06 00:07 04:05 RBC 3.25 L (3.80-5.40) m/uL Hgb 9.5 L (11.4-16.0) gm/dL Hct 30.5 L (34.0-46.0) % Lymphocytes # 0.8 L (1.0-4.8) k/uL ABG pO2 (83-108) mmHg ABG HCO3 (21-25) mmol/L ABG Total CO2 (19-24) mmol/L BUN (7-17) mg/dL Creatinine (0.52-1.04) mg/dL Glucose (74-99) mg/dL POC Glucose (mg/dL) 281 H 293 H (70-110) mg/dL 05/02/22 05/02/22 05/02/22 Range/Units 04:05 05:41 05:44 RBC (3.80-5.40) m/uL Hgb (11.4-16.0) gm/dL Hct (34.0-46.0) % Lymphocytes # (1.0-4.8) k/uL ABG pO2 113 H (83-108) mmHg ABG HCO3 27 H (21-25) mmol/L ABG Total CO2 28 H (19-24) mmol/L BUN 93 H (7-17) mg/dL Creatinine 8.92 H* (0.52-1.04) mg/dL Glucose 250 H (74-99) mg/dL POC Glucose (mg/dL) 271 H (70-110) mg/dL 05/02/22 05/02/22 Range/Units 12:41 17:18 RBC (3.80-5.40) m/uL Hgb (11.4-16.0) gm/dL Hct (34.0-46.0) % Lymphocytes # (1.0-4.8) k/uL ABG pO2 (83-108) mmHg ABG HCO3 (21-25) mmol/L ABG Total CO2 (19-24) mmol/L BUN (7-17) mg/dL Creatinine (0.52-1.04) mg/dL Glucose (74-99) mg/dL POC Glucose (mg/dL) 317 H 154 H (70-110) mg/dL Microbiology - Last 24 Hours (Table) 04/27/22 17:02 Blood Culture - Preliminary Blood No Growth after 96 hours 04/27/22 16:50 Blood Culture - Preliminary Blood No Growth after 96 hours Assessment and Plan Assessment: Encephalopathy seems due to multifactorial: due to hypoxic respiratory failure from Influenza A and Coronavirus, some metabolic encephalopathy. Exam shows slight focal findings, but has been stable. Reported transient episode of right facial droop by EMS. Rule out stroke. Currently no facial weakness. Two CT head did not show any evidence of acute or subacute ischemic stroke. Influezna A infection Acute Covid-19 infection Consolidation of the right upper lobe concerning for infiltrate versus neoplastic process on chest x-ray Elevated troponin End-stage renal disease on dialysis Congestive heart failure COPD Chronic anemia. Plan: * Patient has improved clinically today as compared to yesterday, as she is more awake, but still encephalopathic, not tracking. We will continue to monitor her clinically. * Repeat EEG 05/01/2022 Revealed background disorganization and slowing of moderate degree. No epileptiform activity was seen. When compared to the EEG from 04/27/2022, the background appears to have slightly improved. * Repeat CT head 05/01/2022 on my review showed no acute process. Continued presence of left maxillary and left frontal sinus disease, unchanged from CT head from 04/27/2022. As per radiologist report, stable exam with mild ventriculomegaly likely due to central cerebral atrophy. Mild to moderate burden of chronic small vessel ischemic disease. Continued air fluid level left maxillary sinus. Correlate to exclude acute sinusitis. Ongoing fluid opacification throughout the mastoid air cells/middle ear cavities which could relate to chronic intubation or auto mastoiditis. Suggest ENT consultation. * Because of intermittent posturing, Dr. Méndez started patient on prophylactic Keppra 500mg every 12 hours, with additional Keppra 500mg post dialysis. * Continue aspirin 81 mg (new during this admission) and her Plavix 75mg daily was resumed for secondary stroke prophylaxis. Also on Lipitor 40 mg daily for secondary stroke prophylaxis. * Patient on Zosyn for pneumonia. Hopefully will cover sinus/mastoid infection. * Consulted PT and OT, when able to participate * Every two hours neuro checks * Placed on cardiac monitoring * Regarding the questionable of suspicious neoplasm on chest x-ray will defer the management to the primary and pulmonary team. * We'll defer the rest of the medical management to the primary and ICU team * For DVT prophylaxis: Patient on Lovenox * Spoke to patient's son Kal and updated about patient's current condition.
[2022-05-02] MEDS: ATORVASTATIN 40 MG TAB PO SCH (20:02)
[2022-05-02 20:11] LABS: Glucose,Whole Blood 205 mg/dL (70-110)
--- NOTE | 2022-05-02 22:03 | P.PN ---
Subjective Progress Note Date: 05/02/22 Principal diagnosis: Influenza A and possible aspiration pneumonia Patient is a 71-year-old female with a past medical history significant for type 2 diabetes mellitus COPD consist heart failure end-stage renal disease on hemodialysis, patient was brought into the ER 2 days ago after the patient was found to be unresponsive at home apparently the patient did not show for her dialysis , patient was found to be unresponsive at home brought to the hospital and getting intubated patient did have positive influenza A as well as ballesteros PCR, also with evidence of right upper lobe infiltrate concerning for aspiration pneumonia with a sputum currently showing Haemophilus. On today's evaluation that is 05/02/2022, the patient continues to be afebrile, patient did have spontaneous opening of the eyes but no other purposeful Movement per the nursing staff, patient is hemodynamically stable not requiring any pressor support, the patient FiO2 currently stable at 40%, no purulent secretion through ET or diarrhea reported by nursing staff Objective - Vital Signs Vital signs: Vital Signs Temp 98.2 F 05/02/22 04:00 Pulse 60 05/02/22 11:00 Resp 15 05/02/22 11:00 BP 143/64 04/28/22 10:30 Pulse Ox 98 05/02/22 11:00 FiO2 40 05/02/22 10:00 Intake & Output 05/01/22 05/02/22 05/02/22 18:59 06:59 18:59 Intake Total 784.567 984.0 454.5 Output Total 31 0 0 Balance 753.567 984.0 454.5 Weight 96.3 kg 95.6 kg Intake: IV 320 370 150 0.9 Normal Saline @ 10 mL 120 120 50 /hr KVO Piperacillin-Tazobactam 3 100 150 .375 gm In Sodium Chloride 0.9% 100 ml @ 25 mls/hr IVPB Q12H [facility] Rx# :[id number] levETIRAcetam IV 500 mg 100 100 100 In Sodium Chloride 0.9% 100 ml @ 400 mls/hr IVPB Q12HR [facility] Rx#:[id number] Intake, IV Titration 26.567 50.0 44.5 Amount Clevidipine Butyrate 25 26.567 50.0 44.5 mg In Empty Bag 1 bag @ 1 MG/HR 2 mls/hr IV .Q24H [facility] Rx#:[id number] Tube Feeding 348 474 230 Other 90 90 30 Output: Urine 31 0 0 Other: Voiding Method Incontinent Incontinent # Voids 1 # Bowel Movements 1 ABP, PAP, CO, CI - Last Documented Arterial Blood Pressure 161/46 - Exam GENERAL DESCRIPTION: An elderly female intubated on the vent RESPIRATORY SYSTEM: Unlabored breathing , decreased breath sounds at bases HEART: S1 S2 regular rate and rhythm , ABDOMEN: Soft , no tenderness EXTREMITIES: No edema feet - Labs CBC & Chem 7: 05/02/22 04:05 05/02/22 04:05 Labs: Abnormal Lab Results - Last 24 Hours (Table) 05/01/22 05/01/22 05/01/22 Range/Units 17:33 17:38 20:06 RBC (3.80-5.40) m/uL Hgb (11.4-16.0) gm/dL Hct (34.0-46.0) % Lymphocytes # (1.0-4.8) k/uL ABG pO2 (83-108) mmHg ABG HCO3 (21-25) mmol/L ABG Total CO2 (19-24) mmol/L BUN (7-17) mg/dL Creatinine (0.52-1.04) mg/dL Glucose (74-99) mg/dL POC Glucose (mg/dL) 257 H 245 H 281 H (70-110) mg/dL 05/02/22 05/02/22 05/02/22 Range/Units 00:07 04:05 04:05 RBC 3.25 L (3.80-5.40) m/uL Hgb 9.5 L (11.4-16.0) gm/dL Hct 30.5 L (34.0-46.0) % Lymphocytes # 0.8 L (1.0-4.8) k/uL ABG pO2 (83-108) mmHg ABG HCO3 (21-25) mmol/L ABG Total CO2 (19-24) mmol/L BUN 93 H (7-17) mg/dL Creatinine 8.92 H* (0.52-1.04) mg/dL Glucose 250 H (74-99) mg/dL POC Glucose (mg/dL) 293 H (70-110) mg/dL 05/02/22 05/02/22 Range/Units 05:41 05:44 RBC (3.80-5.40) m/uL Hgb (11.4-16.0) gm/dL Hct (34.0-46.0) % Lymphocytes # (1.0-4.8) k/uL ABG pO2 113 H (83-108) mmHg ABG HCO3 27 H (21-25) mmol/L ABG Total CO2 28 H (19-24) mmol/L BUN (7-17) mg/dL Creatinine (0.52-1.04) mg/dL Glucose (74-99) mg/dL POC Glucose (mg/dL) 271 H (70-110) mg/dL Microbiology - Last 24 Hours (Table) 04/27/22 17:02 Blood Culture - Preliminary Blood No Growth after 96 hours 04/27/22 16:50 Blood Culture - Preliminary Blood No Growth after 96 hours Assessment and Plan (1) Sepsis Current Visit: Yes Status: Acute Code(s): A41.9 - SEPSIS, UNSPECIFIED ORGANISM SNOMED Code(s): 62297012 (2) Aspiration pneumonia Current Visit: Yes Status: Acute Code(s): J69.0 - PNEUMONITIS DUE TO INHALATION OF FOOD AND VOMIT SNOMED Code(s): 947213460 Plan: 1 patient presented to hospital with sepsis in this patient who did have a fever elevated white count with evidence of right upper lobe consolidation concerning for aspiration pneumonia in this patient also tested positive for influenza A as well as ballesteros PCR and concern for possible postinfluenzal bacterial pneumonia 2-blood culture has been negative and sputum culture grew Haemophilus 3-patient currently being treated with the Tamiflu and Zosyn and monitor clinical course closely Time with Patient: Less than 30
[2022-05-02 23:40] LABS: Glucose,Whole Blood 284 mg/dL (70-110)
[2022-05-03] MEDS: CLEVIDIPINE BUTYRATE 25 MG in EMPTY BAG 1 BAG IV SCH ×3 (01:37→11:52)
[2022-05-03] MEDS: PIPERACILLIN-TAZOBACTAM 3.375 GM in SODIUM CHLORIDE 0.9% 100 ML IVPB SCH ×2 (01:37→12:25)
--- NOTE | 2022-05-03 02:56 | PN ---
PROGRESS NOTE DATE OF SERVICE: 05/02/2022 SUBJECTIVE: This is a 71-year-old woman who was admitted with acute hypoxic respiratory failure, also had COVID-19 influenza positive. Also, the patient on hemodialysis. The patient is mechanically intubated. Hemodialysis is being continued. PAST MEDICAL HISTORY: Reviewed. REVIEW OF SYSTEMS: Could not be taken, the patient is sedated. CURRENT MEDICATIONS: Reviewed include Norvasc. Doses and rest of medication noted. PHYSICAL EXAMINATION: VITAL SIGNS: Pulse is 63, blood pressure 130/57, respirations 24. HEENT: Conjunctivae normal. NECK: No JVD. CARDIOVASCULAR: S1, S2. RESPIRATIONS: A few scattered rhonchi. ABDOMEN: Soft. NERVOUS SYSTEM: Nonfocal. LABORATORY DATA: Reviewed. Glucose 371. ASSESSMENT: 1. Acute hypoxic respiratory failure, possibly multifactorial. 2. Acute COVID-19. 3. Acute influenza A. 4. Rule out anoxic encephalopathy. 5. Acute urinary tract infection, present on admission. 6. Aspiration pneumonia. 7. Chronic renal failure, on hemodialysis; end-stage renal disease. 8. History of asthma. 9. Chronic obstructive pulmonary disease. 10.Diabetes mellitus, type 2, uncontrolled. 11.Multiple medical issues. RECOMMENDATIONS: Recommend to continue current medications. Continue symptomatic treatment. Otherwise at this time, I would recommend to increase the dose of Levemir. Continue the scale. Further recommendations to follow. MMODL / IJN: [id number] /
[2022-05-03 05:02] LABS: Basophils # (A) 0.1 k/uL (0-0.2); Basophils % (A) 0 %; Eosinophils # (A) 0.5 k/uL (0-0.7); Eosinophils % (A) 4 %; HCT 32.1 % (34.0-46.0); HGB 10.3 gm/dL (11.4-16.0); Hypochromasia Moderate; Lymphocytes # (A) 0.8 k/uL (1.0-4.8); Lymphocytes % (A) 7 %; MCHC 32.2 g/dL (31.0-37.0); Mean Platelet Volume 7.8; Monocytes # (A) 0.4 k/uL (0-1.0); Monocytes % (A) 4 %; Neutrophils # (A) 9.2 k/uL (1.3-7.7); Neutrophils % (A) 83 %; Platelet Count 391 k/uL (150-450); RBC 3.45 m/uL (3.80-5.40); WBC 11.1 k/uL (3.8-10.6)
[2022-05-03 05:25] LABS: ABG Base Excess 4.2 mmol/L; ABG HCO3 28 mmol/L (21-25); ABG Oxygen Saturation 94.2 % (94-97); ABG PCO2 43 mmHg (35-45); ABG PH 7.43 (7.35-7.45); ABG PO2 80 mmHg (83-108); ABG TCO2 30 mmol/L (19-24)
[2022-05-03 05:27] LABS: Allen Test Performed? no
[2022-05-03 05:29] LABS: Calcium 8.6 mg/dL (8.4-10.2); Phosphorus 8.2 mg/dL (2.5-4.5); Potassium 3.8 mmol/L (3.5-5.1)
[2022-05-03 05:48] LABS: Glucose,Whole Blood 228 mg/dL (70-110)
[2022-05-03] MEDS: hydrALAZINE HCL 20 MG/ML 1 ML VIAL IVP PRN ×4 (05:50→22:03)
[2022-05-03] MEDS: INSULIN ASPART (NovoLOG) 100 UNIT/ML VIAL SQ SCH ×4 (06:33→23:37)
[2022-05-03] MEDS: INSULIN DETEMIR (LEVEMIR) 100 UNIT/ML SYR SQ SCH ×2 (06:33→20:23)
--- NOTE | 2022-05-03 07:11 | XR ---
EXAMINATION TYPE: XR chest 1V portable DATE OF EXAM: 05/03/2022 6:20 AM COMPARISON: Chest radiographs from 05/02/2022 TECHNIQUE: XR chest 1V portable Portable AP radiograph of the chest. CLINICAL INDICATION:Female, 71 years old with history of Tube placement; FINDINGS: Lungs/Pleura: There is no evidence of pleural effusion, focal consolidation, or pneumothorax. Pulmonary vascularity: Unremarkable. Heart/mediastinum: Cardiomediastinal silhouette is enlarged and stable. Musculoskeletal: Degenerative changes of the shoulder joints. Lines/Tubes: Endotracheal tube with distal tip 4.5 cm above the tammy. Nasogastric tube with its distal tip and side-port projecting under the diaphragm. IMPRESSION: Similar exam compared to 05/02/2022 no obvious acute process.
[2022-05-03] MEDS: ENOXAPARIN 30 MG/0.3 ML SYRINGE SQ SCH (08:11)
[2022-05-03] MEDS: CHLORHEXIDINE GLUCONATE 15 ML CUP MUCOUS MEM SCH (08:11)
[2022-05-03] MEDS: ISOSORBIDE DINITRATE 10 MG TAB PO SCH ×2 (08:11→20:21)
[2022-05-03] MEDS: CHOLECALCIFEROL 25 MCG (1000 IU) TABLET PO SCH (08:12)
[2022-05-03] MEDS: amLODIPine 10 MG TAB PO SCH (08:12)
[2022-05-03] MEDS: ZINC SULFATE 220 MG CAP PO SCH (08:12)
[2022-05-03] MEDS: CLOPIDOGREL 75 MG TAB PO SCH (08:12)
[2022-05-03] MEDS: PANTOPRAZOLE 40 MG/10 ML VIAL IVP SCH (08:12)
[2022-05-03] MEDS: METOPROLOL TARTRATE 50 MG TAB PO SCH ×2 (08:12→20:21)
[2022-05-03] MEDS: ASPIRIN 81 MG PO SCH (08:12)
[2022-05-03] MEDS: ASCORBIC ACID 500 MG TAB PO SCH (08:13)
[2022-05-03] MEDS: levETIRAcetam IV 500 MG in SODIUM CHLORIDE 0.9% 100 ML IVPB SCH ×2 (08:36→20:23)
[2022-05-03] MEDS: ALBUTEROL HFA INHALER INHALATION SCH ×4 (08:49→19:33)
[2022-05-03] MEDS ORDERED: hydrALAZINE HCL 25 MG TAB PO SCH (10:00)
[2022-05-03] MEDS ORDERED: ALTEPLASE 2 MG VIAL (CATHFLO) IV STA (10:14)
[2022-05-03 10:54] LABS: ABG Base Excess 2.8 mmol/L; ABG HCO3 27 mmol/L (21-25); ABG Oxygen Saturation 96.8 % (94-97); ABG PCO2 41 mmHg (35-45); ABG PH 7.43 (7.35-7.45); ABG PO2 109 mmHg (83-108); ABG TCO2 28 mmol/L (19-24)
--- NOTE | 2022-05-03 11:31 | P.PN ---
Subjective Patient is seen in follow-up for end-stage renal disease. She is maintained on hemodialysis on Sunday schedule. Tolerated 2 L u ltrafiltration yesterday. Intubated. Possible extubation today. No significant change in mentation. Vital signs are stable. Blood pressure labile. Regular rate and rhythm noted on monitor. EXTREMITITES: No gross edema noted. Exam discussed with the nurse. Objective - Vital Signs Vital signs: Vital Signs Temp 98.2 F 05/03/22 09:00 Pulse 58 L 05/03/22 10:00 Resp 19 05/03/22 10:00 BP 147/47 05/02/22 19:03 Pulse Ox 96 05/03/22 10:00 FiO2 40 05/03/22 08:49 Intake & Output 05/02/22 05/03/22 05/03/22 18:59 06:59 18:59 Intake Total 6948.565 5713.467 336.333 Output Total 0 2000 Balance 1106.500 -637.533 336.333 Weight 87.7 kg Intake: IV 320 320 130 0.9 Normal Saline @ 10 mL 120 120 30 /hr KVO Piperacillin-Tazobactam 3 100 100 .375 gm In Sodium Chloride 0.9% 100 ml @ 25 mls/hr IVPB Q12H [facility] Rx# :[id number] levETIRAcetam IV 500 mg 100 100 100 In Sodium Chloride 0.9% 100 ml @ 400 mls/hr IVPB Q12HR [facility] Rx#:[id number] Intake, IV Titration 144.500 100.467 38.333 Amount Clevidipine Butyrate 25 144.500 100.467 38.333 mg In Empty Bag 1 bag @ 1 MG/HR 2 mls/hr IV .Q24H [facility] Rx#:[id number] Tube Feeding 552 552 138 Hemodialysis 300 Other 90 90 30 Output: Urine 0 Hemodialysis 1999 Other: # Bowel Movements 1 ABP, PAP, CO, CI - Last Documented Arterial Blood Pressure 138/36 - Labs CBC & Chem 7: 05/03/22 04:45 05/03/22 04:45 Labs: Abnormal Lab Results - Last 24 Hours (Table) 05/02/22 05/02/22 05/02/22 Range/Units 12:41 17:18 20:08 WBC (3.8-10.6) k/uL RBC (3.80-5.40) m/uL Hgb (11.4-16.0) gm/dL Hct (34.0-46.0) % Neutrophils # (1.3-7.7) k/uL Lymphocytes # (1.0-4.8) k/uL ABG pO2 (83-108) mmHg ABG HCO3 (21-25) mmol/L ABG Total CO2 (19-24) mmol/L BUN (7-17) mg/dL Creatinine (0.52-1.04) mg/dL Glucose (74-99) mg/dL POC Glucose (mg/dL) 317 H 154 H 205 H (70-110) mg/dL Phosphorus (2.5-4.5) mg/dL 05/02/22 05/03/22 05/03/22 Range/Units 23:38 04:45 04:45 WBC 11.1 H (3.8-10.6) k/uL RBC 3.45 L (3.80-5.40) m/uL Hgb 10.3 L (11.4-16.0) gm/dL Hct 32.1 L (34.0-46.0) % Neutrophils # 9.2 H (1.3-7.7) k/uL Lymphocytes # 0.8 L (1.0-4.8) k/uL ABG pO2 (83-108) mmHg ABG HCO3 (21-25) mmol/L ABG Total CO2 (19-24) mmol/L BUN 63 H (7-17) mg/dL Creatinine 6.18 H (0.52-1.04) mg/dL Glucose 211 H (74-99) mg/dL POC Glucose (mg/dL) 284 H (70-110) mg/dL Phosphorus 8.2 H (2.5-4.5) mg/dL 05/03/22 05/03/22 Range/Units 05:22 05:47 WBC (3.8-10.6) k/uL RBC (3.80-5.40) m/uL Hgb (11.4-16.0) gm/dL Hct (34.0-46.0) % Neutrophils # (1.3-7.7) k/uL Lymphocytes # (1.0-4.8) k/uL ABG pO2 80 L (83-108) mmHg ABG HCO3 28 H (21-25) mmol/L ABG Total CO2 30 H (19-24) mmol/L BUN (7-17) mg/dL Creatinine (0.52-1.04) mg/dL Glucose (74-99) mg/dL POC Glucose (mg/dL) 228 H (70-110) mg/dL Phosphorus (2.5-4.5) mg/dL Microbiology - Last 24 Hours (Table) 04/27/22 16:50 Blood Culture - Preliminary Blood No Growth after 120 hours 04/27/22 17:02 Blood Culture - Preliminary Blood No Growth after 120 hours Assessment and Plan Plan: Assessment: 1. End-stage renal disease making on hemodialysis on Sunday schedule. 2. Acute hypoxic respiratory failure secondary to pneumonia. Patient tested positive for covid-19 and influenza A. 3. Diabetes mellitus. 4. History of coronary artery disease. 5. Concern for anoxic brain injury. 6. Hypertension with chronic kidney disease. 7. Anemia of chronic kidney disease. Hemoglobin stable. 8. Chronic kidney disease mineral bone disease. Phosphorous 8.2. Plan: Hemodialysis tomorrow. Resume phosphate binder once on a diet. Increase dose of scheduled hydralazine. Wean Cleviprex. Prognosis guarded.
[2022-05-03 11:49] LABS: Glucose,Whole Blood 259 mg/dL (70-110)
--- NOTE | 2022-05-03 12:23 | P.PN ---
Subjective Progress Note Date: 05/03/22 Principal diagnosis: Mental status changes. Reevaluated today on 04/30/22, patient remains in the ICU, intubated and mechanically ventilated. She is on assist control rate of 16 tidal volume 400 FiO2 40% and PEEP of 8. Patient is off sedation completely, however she is awake, opening her eyes, but she is not spending to any stimuli. Patient has no purposeful movement, she is not responsive to stimuli, obviously she has what seems to be a severe encephalopathy, suspect anoxic encephalopathy. Patient has IV fluid at KVO, she is receiving vital HP at 24 mL an hour.ABG today showed a pO2 of 83 pCO2 45 pH of 7.45 hence no changes were made in her vent settings. CBC is unremarkable WBC count 12.6 hemoglobin is 9.9.basic metabolic profile is normal bicarb is 30 BUN is 39 creatinine 5.74, patient was dialyzed yesterday, but no dialysis is planned so far for today.chest x-ray no evidence of active disease, continues to have left lower lobe atelectasis. Reevaluated today on 05/01/22, patient remains in the ICU, intubated and mechanically ventilated. She is on assist control of 16.400 FiO2 40% and PEEP of 5 ABG showed a pO2 of 110 pCO2 44 pH of 7.44. Neurologically, the patient remains about the same, she opens her eyes, but does not have any purposeful movement whatsoever. Does not follow any instructions. Patient is clearly encephalopathic. Remains on vitamin HP at 24 mL/h, her IV fluid to KVO, scheduled to have CT of the head and EEG again today. Patient is clearly not ready for weaning mostly because of her neurological status, in the meantime I'm recommending placing the patient on pressure support control mode of mechanical ventilation at 12, and CPAP, and if she tolerates we'll keep her on that mode until hopefully her mental status improves were and we could consider weaning and extubation. Otherwise the patient may have to be considered for tracheostomy and PEG tube placement. WBC count is 9.8 hemoglobin is 9.5. Basic metabolic profile is normal BUN is 70 creatinine 7.59, patient may undergo dialysis today. Chest x-ray is basically unremarkable continues to have some basilar atelectasis especially at the left base Progress note dated 05/02/2022. 71-year-old female who was admitted on April 27 with mental status changes, aspiration pneumonia, and respiratory failure. She was intubated on April 27. The patient also tested positive for influenza, and coronavirus. She remains on the ventilator, and is seen in room 256. She's on volume assist control, rate 16, tidal volume 400, FiO2 40%, and PEEP of 8. Blood gases show pO2 of 113, pCO2 45, and pH is 7.39. The patient's currently on Cleveprex at 4 mg an hour, saline at 10 mL an hour, and propofol, has been weaned off. The patient's getting vital high protein at 46 mL an hour, which is goal. The patient will have a pressure support CPAP trial today. Computed tomography scan of the brain was negative. Sputum showed evidence of Haemophilus influenzae. She is on Zosyn. White count 8.7, hemoglobin 9.5, hematocrit 30.5, and platelet count 396,000. Sodium 144, potassium 4.2, chlorides 101, CO2 27, anion gap 16, BUN 93, and creatinine 8.92. Chest x-ray shows infiltrate or atelectasis at the lung base on the left, and in the retrocardiac region. Progress note dated 05/03/2022. 71-year-old female was admitted on April 27, with mental status changes, respiratory failure, and aspiration pneumonia. She was intubated on April 27, and did test positive for both influenza, and coronavirus. She remains on the ventilator, in room 256. She's on volume assist control, rate 16, tidal volume 400, FiO2 40%, and PEEP of 8. Blood gases show pO2 of 80, pCO2 43, and a pH is 7.43. The patient's getting saline at KVO, Cleveprex at 6 mg an hour, and vital high protein, at 46 mL an hour, which is goal. The patient will have a spontaneous breathing trial, at pressure support of 8 and CPAP of 5. White count 11.1, hemoglobin 10.3, hematocrit 32.1, and platelet count normal. Sodium 140, potassium 3.8, chlorides 99, CO2 27, BUN 63, and creatinine 6.18. Sputum was positive for Haemophilus influenzae on April 27. Chest x-ray is largely unchanged. Objective - Vital Signs Vital signs: Vital Signs Temp 98.4 F 05/03/22 11:30 Pulse 65 05/03/22 11:30 Resp 16 05/03/22 11:30 BP 147/47 05/02/22 19:03 Pulse Ox 99 05/03/22 11:30 FiO2 40 05/03/22 08:49 Intake & Output 05/02/22 05/03/22 05/03/22 18:59 06:59 18:59 Intake Total 6949.307 1989.467 456.733 Output Total 0 1999 Balance 1106.500 -637.533 456.733 Weight 87.7 kg 87.7 kg Intake: IV 320 320 150 0.9 Normal Saline @ 10 mL 120 120 50 /hr KVO Piperacillin-Tazobactam 3 100 100 .375 gm In Sodium Chloride 0.9% 100 ml @ 25 mls/hr IVPB Q12H [facility] Rx# :[id number] levETIRAcetam IV 500 mg 100 100 100 In Sodium Chloride 0.9% 100 ml @ 400 mls/hr IVPB Q12HR [facility] Rx#:[id number] Intake, IV Titration 144.500 100.467 46.733 Amount Clevidipine Butyrate 25 144.500 100.467 46.733 mg In Empty Bag 1 bag @ 1 MG/HR 2 mls/hr IV .Q24H [facility] Rx#:[id number] Tube Feeding 552 552 230 Hemodialysis 300 Other 90 90 30 Output: Urine 0 Hemodialysis 1999 Other: # Bowel Movements 1 ABP, PAP, CO, CI - Last Documented Arterial Blood Pressure 189/56 - Exam No acute distress, currently with an orally placed endotracheal tube and NG tube. Sedation is currently off. HEENT examination is grossly unremarkable. Neck supple. Full range of motion. No adenopathy thyromegaly or neck vein distention. Cardiovascular examination reveals regular rhythm rate. S1-S2 normal. No S3 or S4. No discernible murmur noted. Heart sounds are distant. Heart rate 65 bpm. Lungs reveal coarse bilateral rhonchi. No wheezes or crackles. Breath sounds equal. Saturations are 99%. Abdomen is soft, without bowel sounds. No masses or tenderness. Extremities are intact. No cyanosis clubbing or edema. Skin is without rash or lesion. Neurologic examination cannot be adequately assessed at this time. - Labs CBC & Chem 7: 05/03/22 04:45 05/03/22 04:45 Labs: Abnormal Lab Results - Last 24 Hours (Table) 05/02/22 05/02/22 05/02/22 Range/Units 12:41 17:18 20:08 WBC (3.8-10.6) k/uL RBC (3.80-5.40) m/uL Hgb (11.4-16.0) gm/dL Hct (34.0-46.0) % Neutrophils # (1.3-7.7) k/uL Lymphocytes # (1.0-4.8) k/uL ABG pO2 (83-108) mmHg ABG HCO3 (21-25) mmol/L ABG Total CO2 (19-24) mmol/L BUN (7-17) mg/dL Creatinine (0.52-1.04) mg/dL Glucose (74-99) mg/dL POC Glucose (mg/dL) 317 H 154 H 205 H (70-110) mg/dL Phosphorus (2.5-4.5) mg/dL 05/02/22 05/03/22 05/03/22 Range/Units 23:38 04:45 04:45 WBC 11.1 H (3.8-10.6) k/uL RBC 3.45 L (3.80-5.40) m/uL Hgb 10.3 L (11.4-16.0) gm/dL Hct 32.1 L (34.0-46.0) % Neutrophils # 9.2 H (1.3-7.7) k/uL Lymphocytes # 0.8 L (1.0-4.8) k/uL ABG pO2 (83-108) mmHg ABG HCO3 (21-25) mmol/L ABG Total CO2 (19-24) mmol/L BUN 63 H (7-17) mg/dL Creatinine 6.18 H (0.52-1.04) mg/dL Glucose 211 H (74-99) mg/dL POC Glucose (mg/dL) 284 H (70-110) mg/dL Phosphorus 8.2 H (2.5-4.5) mg/dL 05/03/22 05/03/22 05/03/22 Range/Units 05:22 05:47 10:51 WBC (3.8-10.6) k/uL RBC (3.80-5.40) m/uL Hgb (11.4-16.0) gm/dL Hct (34.0-46.0) % Neutrophils # (1.3-7.7) k/uL Lymphocytes # (1.0-4.8) k/uL ABG pO2 80 L 109 H (83-108) mmHg ABG HCO3 28 H 27 H (21-25) mmol/L ABG Total CO2 30 H 28 H (19-24) mmol/L BUN (7-17) mg/dL Creatinine (0.52-1.04) mg/dL Glucose (74-99) mg/dL POC Glucose (mg/dL) 228 H (70-110) mg/dL Phosphorus (2.5-4.5) mg/dL 05/03/22 Range/Units 11:47 WBC (3.8-10.6) k/uL RBC (3.80-5.40) m/uL Hgb (11.4-16.0) gm/dL Hct (34.0-46.0) % Neutrophils # (1.3-7.7) k/uL Lymphocytes # (1.0-4.8) k/uL ABG pO2 (83-108) mmHg ABG HCO3 (21-25) mmol/L ABG Total CO2 (19-24) mmol/L BUN (7-17) mg/dL Creatinine (0.52-1.04) mg/dL Glucose (74-99) mg/dL POC Glucose (mg/dL) 259 H (70-110) mg/dL Phosphorus (2.5-4.5) mg/dL Microbiology - Last 24 Hours (Table) 04/27/22 16:50 Blood Culture - Preliminary Blood No Growth after 120 hours 04/27/22 17:02 Blood Culture - Preliminary Blood No Growth after 120 hours Assessment and Plan Assessment: Acute hypoxemic respiratory failure, of unclear etiology, S/P intubation on 04/27/2022. Possible CVA/seizure disorder. Possible anoxic brain injury. Acute aspiration pneumonia. Positive test for coronavirus infection, without evidence of coronavirus associated pneumonia. Influenza A infection. End-stage renal disease, currently on hemodialysis. History of CAD. History of CHF. History of asthma. CAD with previous stent placement. Type 2 diabetes. Degenerative joint disease. Plan: Plan dated 05/02/2022. The patient is currently on Zosyn for H. influenzae infection. Labs, x-rays, and medications are reviewed. The patient remains on Cleveprex for blood p ressure control. Propofol has been weaned off. The patient will get a spontaneous breathing trial with pressure support of 5 and CPAP of 5. The patient is getting tube feedings with vital high protein at goal. We will continue to follow and make recommendations along the way. Prognosis is guard ed. Computed tomography scan of the brain was negative. Plan dated 05/03/2022. The patient is ready for a spontaneous breathing trial with pressure support of a CPAP of 5. The patient continues on Zosyn for I believe a more day. The patient is likely to get extubated. Labs, x-rays, and medications are reviewed. We will continue to follow make recommendations along the way. Overall prognosis remains guarded. No additional recommendations are made at this time. I did speak to the patient's son yesterday. Time with Patient: Greater than 30
--- NOTE | 2022-05-03 14:06 | P.PN ---
Subjective Progress Note Date: 05/03/22 Principal diagnosis: Influenza A and possible aspiration pneumonia Patient is a 71-year-old female with a past medical history significant for type 2 diabetes mellitus COPD consist heart failure end-stage renal disease on hemodialysis, patient was brought into the ER 2 days ago after the patient was found to be unresponsive at home apparently the patient did not show for her dialysis , patient was found to be unresponsive at home brought to the hospital and getting intubated patient did have positive influenza A as well as ballesteros PCR, also with evidence of right upper lobe infiltrate concerning for aspiration pneumonia with a sputum currently showing Haemophilus. On today's evaluation that is 05/03/2022, the patient remains to be afebrile, patient has been extubated this morning and is currently on 3 L nasal cannula oxygen, patient did have a opening of the eyes but no response no vomiting no diarrhea or any other changes reported by the nursing staff patient has diarrhea with a fecal management system about 200 mL loose stools since morning Objective - Vital Signs Vital signs: Vital Signs Temp 98.4 F 05/03/22 11:30 Pulse 65 05/03/22 11:30 Resp 16 05/03/22 11:30 BP 147/47 05/02/22 19:03 Pulse Ox 99 05/03/22 11:30 FiO2 40 05/03/22 08:49 Intake & Output 05/02/22 05/03/22 05/03/22 18:59 06:59 18:59 Intake Total 5084.850 3554.467 458.800 Output Total 0 2000 Balance 1106.500 -637.533 458.800 Weight 87.7 kg 87.7 kg Intake: IV 320 320 150 0.9 Normal Saline @ 10 mL 120 120 50 /hr KVO Piperacillin-Tazobactam 3 100 100 .375 gm In Sodium Chloride 0.9% 100 ml @ 25 mls/hr IVPB Q12H [facility] Rx# :[id number] levETIRAcetam IV 500 mg 100 100 100 In Sodium Chloride 0.9% 100 ml @ 400 mls/hr IVPB Q12HR [facility] Rx#:[id number] Intake, IV Titration 144.500 100.467 48.800 Amount Clevidipine Butyrate 25 144.500 100.467 48.800 mg In Empty Bag 1 bag @ 1 MG/HR 2 mls/hr IV .Q24H [facility] Rx#:[id number] Tube Feeding 552 552 230 Hemodialysis 300 Other 90 90 30 Output: Urine 0 Hemodialysis 1999 Other: # Bowel Movements 1 ABP, PAP, CO, CI - Last Documented Arterial Blood Pressure 189/56 - Exam GENERAL DESCRIPTION: An elderly female lying in bed in no distress to RESPIRATORY SYSTEM: Unlabored breathing , coarse breath sounds HEART: S1 S2 regular rate and rhythm , ABDOMEN: Soft , no tenderness EXTREMITIES: No edema feet - Labs CBC & Chem 7: 05/03/22 04:45 05/03/22 04:45 Labs: Abnormal Lab Results - Last 24 Hours (Table) 05/02/22 05/02/22 05/02/22 Range/Units 12:41 17:18 20:08 WBC (3.8-10.6) k/uL RBC (3.80-5.40) m/uL Hgb (11.4-16.0) gm/dL Hct (34.0-46.0) % Neutrophils # (1.3-7.7) k/uL Lymphocytes # (1.0-4.8) k/uL ABG pO2 (83-108) mmHg ABG HCO3 (21-25) mmol/L ABG Total CO2 (19-24) mmol/L BUN (7-17) mg/dL Creatinine (0.52-1.04) mg/dL Glucose (74-99) mg/dL POC Glucose (mg/dL) 317 H 154 H 205 H (70-110) mg/dL Phosphorus (2.5-4.5) mg/dL 05/02/22 05/03/22 05/03/22 Range/Units 23:38 04:45 04:45 WBC 11.1 H (3.8-10.6) k/uL RBC 3.45 L (3.80-5.40) m/uL Hgb 10.3 L (11.4-16.0) gm/dL Hct 32.1 L (34.0-46.0) % Neutrophils # 9.2 H (1.3-7.7) k/uL Lymphocytes # 0.8 L (1.0-4.8) k/uL ABG pO2 (83-108) mmHg ABG HCO3 (21-25) mmol/L ABG Total CO2 (19-24) mmol/L BUN 63 H (7-17) mg/dL Creatinine 6.18 H (0.52-1.04) mg/dL Glucose 211 H (74-99) mg/dL POC Glucose (mg/dL) 284 H (70-110) mg/dL Phosphorus 8.2 H (2.5-4.5) mg/dL 05/03/22 05/03/22 05/03/22 Range/Units 05:22 05:47 10:51 WBC (3.8-10.6) k/uL RBC (3.80-5.40) m/uL Hgb (11.4-16.0) gm/dL Hct (34.0-46.0) % Neutrophils # (1.3-7.7) k/uL Lymphocytes # (1.0-4.8) k/uL ABG pO2 80 L 109 H (83-108) mmHg ABG HCO3 28 H 27 H (21-25) mmol/L ABG Total CO2 30 H 28 H (19-24) mmol/L BUN (7-17) mg/dL Creatinine (0.52-1.04) mg/dL Glucose (74-99) mg/dL POC Glucose (mg/dL) 228 H (70-110) mg/dL Phosphorus (2.5-4.5) mg/dL 05/03/22 Range/Units 11:47 WBC (3.8-10.6) k/uL RBC (3.80-5.40) m/uL Hgb (11.4-16.0) gm/dL Hct (34.0-46.0) % Neutrophils # (1.3-7.7) k/uL Lymphocytes # (1.0-4.8) k/uL ABG pO2 (83-108) mmHg ABG HCO3 (21-25) mmol/L ABG Total CO2 (19-24) mmol/L BUN (7-17) mg/dL Creatinine (0.52-1.04) mg/dL Glucose (74-99) mg/dL POC Glucose (mg/dL) 259 H (70-110) mg/dL Phosphorus (2.5-4.5) mg/dL Microbiology - Last 24 Hours (Table) 04/27/22 16:50 Blood Culture - Preliminary Blood No Growth after 120 hours 04/27/22 17:02 Blood Culture - Preliminary Blood No Growth after 120 hours Assessment and Plan (1) Sepsis Current Visit: Yes Status: Acute Code(s): A41.9 - SEPSIS, UNSPECIFIED ORGANISM SNOMED Code(s): 32983440 (2) Aspiration pneumonia Current Visit: Yes Status: Acute Code(s): J69.0 - PNEUMONITIS DUE TO INHALATION OF FOOD AND VOMIT SNOMED Code(s): 286635672 Plan: 1 patient presented to hospital with sepsis in this patient who did have a fever elevated white count with evidence of right upper lobe consolidation conc erning for aspiration pneumonia in this patient also tested positive for influenza A as well as ballesteros PCR and concern for possible postinfluenzal bacterial pneumonia 2-blood culture has been negative and sputum culture grew Haemophilus 3-patient has completed her 5 day course of Tamiflu and currently on Zosyn to cover for acute aspiration pneumonia sputum positive for Haemophilus Time with Patient: Less than 30
[2022-05-03] MEDS: hydrALAZINE HCL 50 MG TAB PO SCH ×2 (15:03→22:02)
[2022-05-03 18:02] LABS: Glucose,Whole Blood 128 mg/dL (70-110)
[2022-05-03] MEDS: ATORVASTATIN 40 MG TAB PO SCH (20:21)
[2022-05-03 20:22] LABS: Glucose,Whole Blood 126 mg/dL (70-110)
--- NOTE | 2022-05-03 21:21 | PN ---
PROGRESS NOTE DATE OF SERVICE: 05/03/2022 SUBJECTIVE: This is a 71-year-old woman who was admitted with acute hypoxic respiratory failure, also had COVID-19 influenza. The patient was closely monitored at this time. The Infectious Disease, Pulmonary, and Nephrology following the patient closely. The possibility of anoxic brain injury, CVA, seizures also becomes considered. Extubation plans are underway per Dr. Méndez. PAST MEDICAL HISTORY: Reviewed. REVIEW OF SYSTEMS: Could not be taken. The patient is mechanically sedated. CURRENT MEDICATIONS: Reviewed include Norvasc. Doses and rest of medication noted. PHYSICAL EXAMINATION: VITAL SIGNS: Pulse is 65, blood pressure n, respirations 16. HEENT: Conjunctivae normal. NECK: No JVD. CARDIOVASCULAR: S1, S2. RESPIRATORY: A few scattered rhonchi and crackles. ABDOMEN: Soft, nontender. LEGS: No edema. NERVOUS SYSTEM: Nonfocal. LABORATORY DATA: Glucose 259. ASSESSMENT: 1. Acute hypoxic respiratory failure, possibly multifactorial. 2. Acute COVID-19. 3. Acute influenza A. 4. Rule out anoxic encephalopathy, seizure/stroke. 5. Acute urinary tract infection, present on admission. 6. Aspiration pneumonia. 7. Chronic renal failure, on hemodialysis. End-stage renal disease. 8. History of asthma. 9. History of chronic obstructive pulmonary disease. 10.Diabetes mellitus, type 2, uncontrolled with hyperglycemia. 11.Multiple medical issues. RECOMMENDATIONS: Recommend to continue current management and symptomatic treatment. Otherwise, closely follow. Continue with Lovenox, Keppra, rest of the medications, Zosyn. Also recommend monitor the blood sugars closely and further recommendations to follow. We will increase insulin to 35 units subcu b.i.d. See orders for further details. MMODL / IJN: [id number] / MTDD
[2022-05-03 23:34] LABS: Glucose,Whole Blood 128 mg/dL (70-110)
[2022-05-03 23:56] LABS: ABG Base Excess 0.7 mmol/L; ABG HCO3 25 mmol/L (21-25); ABG Oxygen Saturation 94.8 % (94-97); ABG PCO2 40 mmHg (35-45); ABG PH 7.41 (7.35-7.45); ABG PO2 93 mmHg (83-108); ABG TCO2 27 mmol/L (19-24)
[2022-05-03 23:57] LABS: Allen Test Performed? no
[2022-05-04] MEDS: PIPERACILLIN-TAZOBACTAM 3.375 GM in SODIUM CHLORIDE 0.9% 100 ML IVPB SCH ×2 (01:31→14:17)
[2022-05-04] MEDS: INSULIN ASPART (NovoLOG) 100 UNIT/ML VIAL SQ SCH ×3 (05:59→18:44)
[2022-05-04 06:00] LABS: Glucose,Whole Blood 110 mg/dL (70-110)
[2022-05-04 06:26] LABS: Basophils # (A) 0.1 k/uL (0-0.2); Basophils % (A) 1 %; Eosinophils # (A) 0.3 k/uL (0-0.7); Eosinophils % (A) 4 %; HCT 34.4 % (34.0-46.0); HGB 10.8 gm/dL (11.4-16.0); Hypochromasia Moderate; Lymphocytes # (A) 1.1 k/uL (1.0-4.8); Lymphocytes % (A) 12 %; MCH 29.4 pg (25.0-35.0); MCHC 31.3 g/dL (31.0-37.0); MCV 93.9 fL (80.0-100.0); Mean Platelet Volume 7.3; Monocytes # (A) 0.4 k/uL (0-1.0); Monocytes % (A) 4 %; Neutrophils # (A) 7.2 k/uL (1.3-7.7); Neutrophils % (A) 78 %; Platelet Count 334 k/uL (150-450); RBC 3.66 m/uL (3.80-5.40); WBC 9.3 k/uL (3.8-10.6)
[2022-05-04 06:50] LABS: Potassium 4.2 mmol/L (3.5-5.1)
[2022-05-04] MEDS: INSULIN DETEMIR (LEVEMIR) 100 UNIT/ML SYR SQ SCH ×2 (07:19→21:25)
[2022-05-04 07:49] LABS: Glucose,Whole Blood 106 mg/dL (70-110)
[2022-05-04] MEDS: levETIRAcetam IV 500 MG in SODIUM CHLORIDE 0.9% 100 ML IVPB SCH ×3 (08:58→20:33)
[2022-05-04] MEDS: PANTOPRAZOLE 40 MG/10 ML VIAL IVP SCH (08:58)
[2022-05-04] MEDS: ENOXAPARIN 30 MG/0.3 ML SYRINGE SQ SCH (09:52)
[2022-05-04] MEDS: ALBUTEROL HFA INHALER INHALATION SCH ×5 (10:05→19:16)
--- NOTE | 2022-05-04 10:39 | P.PN ---
Subjective Patient is seen in follow-up for end-stage renal disease. She is maintained on hemodialysis on Sunday schedule. Extubated 05/03/2022. Tolerating dialysis well. No response to verbal commands. Vital signs are stable. General: Resting in bed. HEENT: Head exam is unremarkable. LUNGS: Breath sounds decreased. HEART: Rate and Rhythm are regular. ABDOMEN: No distention. EXTREMITITES: Trace edema. Objective - Vital Signs Vital signs: Vital Signs Temp 98.4 F 05/04/22 00:00 Pulse 73 05/04/22 10:00 Resp 15 05/04/22 10:00 BP 129/58 05/04/22 10:00 Pulse Ox 95 05/04/22 10:00 FiO2 40 05/03/22 08:49 Intake & Output 05/03/22 05/04/22 05/04/22 18:59 06:59 18:59 Intake Total 703.800 245 40 Balance 703.800 245 40 Weight 87.7 kg 90.8 kg Intake: IV 395 245 40 0.9 Normal Saline @ 10 mL 120 120 40 /hr KVO Piperacillin-Tazobactam 3 175 25 .375 gm In Sodium Chloride 0.9% 100 ml @ 25 mls/hr IVPB Q12H [facility] Rx# :[id number] levETIRAcetam IV 500 mg 100 100 In Sodium Chloride 0.9% 100 ml @ 400 mls/hr IVPB Q12HR [facility] Rx#:[id number] Intake, IV Titration 48.800 Amount Clevidipine Butyrate 25 48.800 mg In Empty Bag 1 bag @ 1 MG/HR 2 mls/hr IV .Q24H [facility] Rx#:[id number] Tube Feeding 230 Other 30 Other: Voiding Method Incontinent ABP, PAP, CO, CI - Last Documented Arterial Blood Pressure 164/45 - Labs CBC & Chem 7: 05/04/22 06:03 05/04/22 06:03 Labs: Abnormal Lab Results - Last 24 Hours (Table) 05/03/22 05/03/22 05/03/22 Range/Units 10:51 11:47 18:01 RBC (3.80-5.40) m/uL Hgb (11.4-16.0) gm/dL ABG pO2 109 H (83-108) mmHg ABG HCO3 27 H (21-25) mmol/L ABG Total CO2 28 H (19-24) mmol/L Carbon Dioxide (22-30) mmol/L BUN (7-17) mg/dL Creatinine (0.52-1.04) mg/dL Glucose (74-99) mg/dL POC Glucose (mg/dL) 259 H 128 H (70-110) mg/dL 05/03/22 05/03/22 05/03/22 Range/Units 20:20 23:33 23:50 RBC (3.80-5.40) m/uL Hgb (11.4-16.0) gm/dL ABG pO2 (83-108) mmHg ABG HCO3 (21-25) mmol/L ABG Total CO2 27 H (19-24) mmol/L Carbon Dioxide (22-30) mmol/L BUN (7-17) mg/dL Creatinine (0.52-1.04) mg/dL Glucose (74-99) mg/dL POC Glucose (mg/dL) 126 H 128 H (70-110) mg/dL 05/04/22 05/04/22 Range/Units 06:03 06:03 RBC 3.66 L (3.80-5.40) m/uL Hgb 10.8 L (11.4-16.0) gm/dL ABG pO2 (83-108) mmHg ABG HCO3 (21-25) mmol/L ABG Total CO2 (19-24) mmol/L Carbon Dioxide 21 L (22-30) mmol/L BUN 85 H (7-17) mg/dL Creatinine 7.83 H* (0.52-1.04) mg/dL Glucose 102 H (74-99) mg/dL POC Glucose (mg/dL) (70-110) mg/dL Microbiology - Last 24 Hours (Table) 04/27/22 17:02 Blood Culture - Final Blood No Growth after 144 hours 04/27/22 16:50 Blood Culture - Final Blood No Growth after 144 hours Assessment and Plan Plan: Assessment: 1. End-stage renal disease making on hemodialysis on Sunday schedule. 2. Acute hypoxic respiratory failure secondary to pneumonia. Patient tested positive for covid-19 and influenza A. 3. Diabetes mellitus. 4. History of coronary artery disease. 5. Concern for anoxic brain injury. 6. Hypertension with chronic kidney disease. Controlled. 7. Anemia of chronic kidney disease. Hemoglobin stable. 8. Chronic kidney disease mineral bone disease. Phosphorous 8.2. Currently not tolerating oral intake. Plan: Currently seen while undergoing hemodialysis. Resume phosphate binder once on a diet. Prognosis guarded.
--- NOTE | 2022-05-04 10:46 | P.PN ---
Subjective Progress Note Date: 05/03/22 05/03/2022: Patient was seen for a follow-up. Patient was extubated at 12:30 PM today. Patient continues to be severely encephalopathic. Not responding to calling her name. Her eyes are open. Patient does not track, or makes eye contact. Please refer to examination below. Not able to offer any complaints. 05/02/2022: Patient was seen for a follow-up. Patient continues to be intubated. She is more awake, but very encephalopathic. Please refer to examination below. 05/01/2022: Patient initially seen by Dr. Kolton Méndez. Please refer to his note for details. Patient is a 71-year-old female, who was brought to the hospital by ambulance after she was found unresponsive at home. A wellness check was made by the police as she has not showed up for her hemodialysis. Patient was admitted with altered mental status. Patient also has Covid infection, influenza A. Patient was posturing therefore Keppra was started at 500 mg twice a day. Repeat EEG and CT were requested for today. Per nurse report, sedation has been discontinued since 04/28/2022. Patient has started showing some clinical improvement. At first she was laying still with no response with feet turned in. Now patient has started moving her arms, the reflexes are more appropriate. Her gag has improved and she is blinking more frequently. She is picking up her right leg onto the left. Her left leg movement is slightly less as compared to the right. She does not move her arms as much. Sometimes she tenses up her body. Patient has been CPAPing since 10 AM today. Objective - Vital Signs Vital signs: Vital Signs Temp 99.0 F 05/03/22 16:00 Pulse 67 05/03/22 17:00 Resp 14 05/03/22 17:00 BP 147/47 05/02/22 19:03 Pulse Ox 95 05/03/22 17:00 FiO2 40 05/03/22 08:49 Intake & Output 05/02/22 05/03/22 05/03/22 18:59 06:59 18:59 Intake Total 9129.616 7316.467 668.800 Output Total 0 2000 Balance 1106.500 -637.533 668.800 Weight 87.7 kg 87.7 kg Intake: IV 320 320 360 0.9 Normal Saline @ 10 mL 120 120 110 /hr KVO Piperacillin-Tazobactam 3 100 100 150 .375 gm In Sodium Chloride 0.9% 100 ml @ 25 mls/hr IVPB Q12H [facility] Rx# :[id number] levETIRAcetam IV 500 mg 100 100 100 In Sodium Chloride 0.9% 100 ml @ 400 mls/hr IVPB Q12HR [facility] Rx#:[id number] Intake, IV Titration 144.500 100.467 48.800 Amount Clevidipine Butyrate 25 144.500 100.467 48.800 mg In Empty Bag 1 bag @ 1 MG/HR 2 mls/hr IV .Q24H [facility] Rx#:[id number] Tube Feeding 552 552 230 Hemodialysis 300 Other 90 90 30 Output: Urine 0 Hemodialysis 2000 Other: Voiding Method Incontinent # Bowel Movements 1 ABP, PAP, CO, CI - Last Documented Arterial Blood Pressure 167/45 - Exam GENERAL: The patient is laying in bed and does not appear in acute distress. LUNG: Patient is now extubated. HEENT: Patient's neck appears to be stiff. When tried to flex her head passively, she extends it more. NEUROLOGICAL: Patient is off ventilator. Patient is awake, but very encephalopathic. She keeps her eyes open, with straight gaze. Does not track, does not turn her head or eyes to the commands. Cranial nerves: The pupils are round, equal and reactive to light. Has positive corneal reflex bilaterally. Patient has positive oculocephalics. Rest is limited. Motor: Patient is moving her arms somewhat equally to painful stimuli, with some withdrawal. In the lower extremities, patient is moving right leg much better than the left. She frequently brings her right leg over the left. Appears generalized weak. Cerebellum: Unable to assess. Sensation: Seems to have intact painful stimuli. Reflexes (right/left): 1+ throughout. Plantars are mute bilaterally. Although the right toe appears up at baseline, but is nonreactive. Some of the workup during his hospital visit consisted of: Influenza A and Richard virus PCR detected. Also possible underlying UTI. Troponin is a 1.07. Ammonia <9 TSH: 0.593 Urinalysis seems possible suggestive of underlying urinary tract infection CT of the head is reported as age-related atrophic and chronic small vessel ischemic changes without acute intracranial process seen at this time. CT angiography is reported as no significant abnormality. Chest x-ray was reported as peripheral nodule base consolidation right upper lobe. Could be on the basis of infiltrate or neoplastic process. Core sent interstitium correlate for chronic interstitial lung disease otherwise consider interstitial pneumonia or pneumonitis Prominence right hilum. Repeat x-ray recommend short-term basis to assess for developing infiltrate or adenopathy versus mass Routine EEG is abnormal. The background slowing suggestive of moderate to severe encephalopathy. The suppressions likely due to medication effect (sedatives). Otherwise there is no focal slowing, epileptiform discharges or seizure on the EEG. 2-D echo was reported as technically difficult study for agitation. Normal left ventricle diamonds and systolic function. She had repeat CT head on 04/28/22: It is reported as similar mild ventriculomegaly likely ex vacuo dilation from central cerebral atrophy. Mild patchy burden of chronic small vessel ischemic disease. No acute intracranial abnormality seen. Patient is intubated. His ongoing air-fluid level left maxillary sinus that could reflect acute sinusitis. Background mild chronic paranasal sinus disease. Opacification of the mastoid air cells on both sides. Partial opacification of the middle ear cavity as well. Correlate to exclude otomastoiditis Patient sputum is positive for Haemophilus influenza area - Labs CBC & Chem 7: 05/04/22 06:03 05/04/22 06:03 Labs: Abnormal Lab Results - Last 24 Hours (Table) 05/02/22 05/02/22 05/03/22 Range/Units 20:08 23:38 04:45 WBC (3.8-10.6) k/uL RBC (3.80-5.40) m/uL Hgb (11.4-16.0) gm/dL Hct (34.0-46.0) % Neutrophils # (1.3-7.7) k/uL Lymphocytes # (1.0-4.8) k/uL ABG pO2 (83-108) mmHg ABG HCO3 (21-25) mmol/L ABG Total CO2 (19-24) mmol/L BUN 63 H (7-17) mg/dL Creatinine 6.18 H (0.52-1.04) mg/dL Glucose 211 H (74-99) mg/dL POC Glucose (mg/dL) 205 H 284 H (70-110) mg/dL Phosphorus 8.2 H (2.5-4.5) mg/dL 05/03/22 05/03/22 05/03/22 Range/Units 04:45 05:22 05:47 WBC 11.1 H (3.8-10.6) k/uL RBC 3.45 L (3.80-5.40) m/uL Hgb 10.3 L (11.4-16.0) gm/dL Hct 32.1 L (34.0-46.0) % Neutrophils # 9.2 H (1.3-7.7) k/uL Lymphocytes # 0.8 L (1.0-4.8) k/uL ABG pO2 80 L (83-108) mmHg ABG HCO3 28 H (21-25) mmol/L ABG Total CO2 30 H (19-24) mmol/L BUN (7-17) mg/dL Creatinine (0.52-1.04) mg/dL Glucose (74-99) mg/dL POC Glucose (mg/dL) 228 H (70-110) mg/dL Phosphorus (2.5-4.5) mg/dL 05/03/22 05/03/22 05/03/22 Range/Units 10:51 11:47 18:01 WBC (3.8-10.6) k/uL RBC (3.80-5.40) m/uL Hgb (11.4-16.0) gm/dL Hct (34.0-46.0) % Neutrophils # (1.3-7.7) k/uL Lymphocytes # (1.0-4.8) k/uL ABG pO2 109 H (83-108) mmHg ABG HCO3 27 H (21-25) mmol/L ABG Total CO2 28 H (19-24) mmol/L BUN (7-17) mg/dL Creatinine (0.52-1.04) mg/dL Glucose (74-99) mg/dL POC Glucose (mg/dL) 259 H 128 H (70-110) mg/dL Phosphorus (2.5-4.5) mg/dL Microbiology - Last 24 Hours (Table) 04/27/22 16:50 Blood Culture - Preliminary Blood No Growth after 120 hours 04/27/22 17:02 Blood Culture - Preliminary Blood No Growth after 120 hours Assessment and Plan Assessment: Encephalopathy, not significantly improving. Although it appears multifactori al: due to hypoxic respiratory failure from Influenza A and Coronavirus, some metabolic encephalopathy. Exam shows slight focal findings, but has been stable. Reported transient episode of right facial droop by EMS. Rule out stroke. Currently no facial weakness. Three CT head did not show any evidence of acute or subacute ischemic stroke. Status post extubation. Patient's mentation not improving at all. Influezna A infection Acute Covid-19 infection Consolidation of the right upper lobe concerning for infiltrate versus neoplastic process on chest x-ray Elevated troponin End-stage renal disease on dialysis Congestive heart failure COPD Chronic anemia. Plan: * Patient is not showing any clinical improvement today. She is extubated, Evelyn encephalopathic, not tracking. Not making eye contact. * Check MRI of the brain evaluate for an acute stroke. * Lumbar puncture to rule out intracranial infection. * We will continue to monitor her clinically. * Repeat EEG 05/01/2022 Revealed background disorganization and slowing of mo derate degree. No epileptiform activity was seen. When compared to the EEG from 04/27/2022, the background appears to have slightly improved. * Repeat CT head 05/01/2022 on my review showed no acute process. Continued presence of left maxillary and left frontal sinus disease, unchanged from CT head from 04/27/2022. As per radiologist report, stable exam with mild ventriculomegaly likely due to central cerebral atrophy. Mild to moderate burden of chronic small vessel ischemic disease. Continued air fluid level left maxillary sinus. Correlate to exclude acute sinusitis. Ongoing fluid opacification throughout the mastoid air cells/middle ear cavities which could relate to chronic intubation or auto mastoiditis. Suggest ENT consultation. * Because of intermittent posturing, Dr. Méndez started patient on prophylactic Keppra 500mg every 12 hours, with additional Keppra 500mg post dialysis. * Continue aspirin 81 mg (new during this admission) and her Plavix 75mg daily was resumed for secondary stroke prophylaxis. Also on Lipitor 40 mg daily for secondary stroke prophylaxis. * Patient on Zosyn for pneumonia. Hopefully will cover sinus/mastoid infection. * Consulted PT and OT, when able to participate * Regarding the questionable of suspicious neoplasm on chest x-ray will defer the management to the primary and pulmonary team. * We'll defer the rest of the medical management to the primary and ICU team * For DVT prophylaxis: Patient on Lovenox
[2022-05-04 12:00] LABS: Glucose,Whole Blood 93 mg/dL (70-110)
[2022-05-04] MEDS ORDERED: LORazepam 2 MG/ML INJ IV STA (14:20)
--- NOTE | 2022-05-04 14:26 | P.PN ---
Subjective Progress Note Date: 05/04/22 Principal diagnosis: Mental status changes. Reevaluated today on 04/30/22, patient remains in the ICU, intubated and mechanically ventilated. She is on assist control rate of 16 tidal volume 400 FiO2 40% and PEEP of 8. Patient is off sedation completely, however she is awake, opening her eyes, but she is not spending to any stimuli. Patient has no purposeful movement, she is not responsive to stimuli, obviously she has what seems to be a severe encephalopathy, suspect anoxic encephalopathy. Patient has IV fluid at KVO, she is receiving vital HP at 24 mL an hour.ABG today showed a pO2 of 83 pCO2 45 pH of 7.45 hence no changes were made in her vent settings. CBC is unremarkable WBC count 12.6 hemoglobin is 9.9.basic metabolic profile is normal bicarb is 30 BUN is 39 creatinine 5.74, patient was dialyzed yesterday, but no dialysis is planned so far for today.chest x-ray no evidence of active disease, continues to have left lower lobe atelectasis. Reevaluated today on 05/01/22, patient remains in the ICU, intubated and mechanically ventilated. She is on assist control of 16.400 FiO2 40% and PEEP of 5 ABG showed a pO2 of 110 pCO2 44 pH of 7.44. Neurologically, the patient remains about the same, she opens her eyes, but does not have any purposeful movement whatsoever. Does not follow any instructions. Patient is clearly encephalopathic. Remains on vitamin HP at 24 mL/h, her IV fluid to KVO, scheduled to have CT of the head and EEG again today. Patient is clearly not ready for weaning mostly because of her neurological status, in the meantime I'm recommending placing the patient on pressure support control mode of mechanical ventilation at 12, and CPAP, and if she tolerates we'll keep her on that mode until hopefully her mental status improves were and we could consider weaning and extubation. Otherwise the patient may have to be considered for tracheostomy and PEG tube placement. WBC count is 9.8 hemoglobin is 9.5. Basic metabolic profile is normal BUN is 70 creatinine 7.59, patient may undergo dialysis today. Chest x-ray is basically unremarkable continues to have some basilar atelectasis especially at the left base Progress note dated 05/02/2022. 71-year-old female who was admitted on April 27 with mental status changes, aspiration pneumonia, and respiratory failure. She was intubated on April 27. The patient also tested positive for influenza, and coronavirus. She remains on the ventilator, and is seen in room 256. She's on volume assist control, rate 16, tidal volume 400, FiO2 40%, and PEEP of 8. Blood gases show pO2 of 113, pCO2 45, and pH is 7.39. The patient's currently on Cleveprex at 4 mg an hour, saline at 10 mL an hour, and propofol, has been weaned off. The patient's getting vital high protein at 46 mL an hour, which is goal. The patient will have a pressure support CPAP trial today. Computed tomography scan of the brain was negative. Sputum showed evidence of Haemophilus influenzae. She is on Zosyn. White count 8.7, hemoglobin 9.5, hematocrit 30.5, and platelet count 396,000. Sodium 144, potassium 4.2, chlorides 101, CO2 27, anion gap 16, BUN 93, and creatinine 8.92. Chest x-ray shows infiltrate or atelectasis at the lung base on the left, and in the retrocardiac region. Progress note dated 05/03/2022. 71-year-old female was admitted on April 27, with mental status changes, respiratory failure, and aspiration pneumonia. She was intubated on April 27, and did test positive for both influenza, and coronavirus. She remains on the ventilator, in room 256. She's on volume assist control, rate 16, tidal volume 400, FiO2 40%, and PEEP of 8. Blood gases show pO2 of 80, pCO2 43, and a pH is 7.43. The patient's getting saline at KVO, Cleveprex at 6 mg an hour, and vital high protein, at 46 mL an hour, which is goal. The patient will have a spontaneous breathing trial, at pressure support of 8 and CPAP of 5. White count 11.1, hemoglobin 10.3, hematocrit 32.1, and platelet count normal. Sodium 140, potassium 3.8, chlorides 99, CO2 27, BUN 63, and creatinine 6.18. Sputum was positive for Haemophilus influenzae on April 27. Chest x-ray is largely unchanged. Progress note dated 05/04/2022. 71-year-old female admitted April 27, with mental status changes, respiratory failure, and aspiration pneumonia. She was intubated on April 27, and did test positive for both influenza, and coronavirus. She is seen today in room 256. She was successfully extubated yesterday, May 03. She's currently on 3 L of oxygen. She's getting saline at KVO. She is going to have hemodialysis today. Neurology saw the patient for altered mental status. She scheduled to have an MRI, and a lumbar puncture. White count 9.3, hemoglobin 10.8, hematocrit 34.4, and platelet count is normal. Sodium 142, potassium 4.2, chlorides 103, CO2 21, anion gap 18, BUN 85, and creatinine 7.83. Sputum was positive for Haemophilus influenzae, on April 27. Objective - Vital Signs Vital signs: Vital Signs Temp 97.8 F 05/04/22 12:00 Pulse 70 05/04/22 14:00 Resp 19 05/04/22 14:00 BP 124/61 05/04/22 14:00 Pulse Ox 97 05/04/22 14:00 FiO2 40 05/03/22 08:49 Intake & Output 05/03/22 05/04/22 05/04/22 18:59 06:59 18:59 Intake Total 703.800 245 80 Output Total 2100 Balance 703.800 245 -2020 Weight 87.7 kg 90.8 kg Intake: IV 395 245 80 0.9 Normal Saline @ 10 mL 120 120 80 /hr KVO Piperacillin-Tazobactam 3 175 25 .375 gm In Sodium Chloride 0.9% 100 ml @ 25 mls/hr IVPB Q12H [facility] Rx# :[id number] levETIRAcetam IV 500 mg 100 100 In Sodium Chloride 0.9% 100 ml @ 400 mls/hr IVPB Q12HR [facility] Rx#:[id number] Intake, IV Titration 48.800 Amount Clevidipine Butyrate 25 48.800 mg In Empty Bag 1 bag @ 1 MG/HR 2 mls/hr IV .Q24H [facility] Rx#:[id number] Tube Feeding 230 Other 30 Output: Hemodialysis 2100 Other: Voiding Method Incontinent ABP, PAP, CO, CI - Last Documented Arterial Blood Pressure 164/45 - Exam No acute distress, extubated, but very lethargic and somnolent. Currently on 3 L. HEENT examination is grossly unremarkable. Neck supple. Full range of motion. No adenopathy thyromegaly or neck vein distention. Cardiovascular examination reveals regular rhythm rate. S1-S2 normal. No S3 or S4. No discernible murmur noted. Heart sounds are distant. Heart rate 70 bpm. Lungs reveal coarse bilateral rhonchi. No wheezes or crackles. Breath sounds equal. Saturations are 97%. Abdomen is soft, without bowel sounds. No masses or tenderness. Extremities are intact. No cyanosis clubbing or edema. Skin is without rash or lesion. Neurologic examination is unchanged. - Labs CBC & Chem 7: 05/04/22 06:03 05/04/22 06:03 Labs: Abnormal Lab Results - Last 24 Hours (Table) 05/03/22 05/03/22 05/03/22 Range/Units 18:01 20:20 23:33 RBC (3.80-5.40) m/uL Hgb (11.4-16.0) gm/dL ABG Total CO2 (19-24) mmol/L Carbon Dioxide (22-30) mmol/L BUN (7-17) mg/dL Creatinine (0.52-1.04) mg/dL Glucose (74-99) mg/dL POC Glucose (mg/dL) 128 H 126 H 128 H (70-110) mg/dL 05/03/22 05/04/22 05/04/22 Range/Units 23:50 06:03 06:03 RBC 3.66 L (3.80-5.40) m/uL Hgb 10.8 L (11.4-16.0) gm/dL ABG Total CO2 27 H (19-24) mmol/L Carbon Dioxide 21 L (22-30) mmol/L BUN 85 H (7-17) mg/dL Creatinine 7.83 H* (0.52-1.04) mg/dL Glucose 102 H (74-99) mg/dL POC Glucose (mg/dL) (70-110) mg/dL Microbiology - Last 24 Hours (Table) 04/27/22 17:02 Blood Culture - Final Blood No Growth after 144 hours 04/27/22 16:50 Blood Culture - Final Blood No Growth after 144 hours Assessment and Plan Assessment: Acute hypoxemic respiratory failure, of unclear etiology, S/P intubation on 04/27/2022, S/P extubation on 05/03/2022. Possible CVA/seizure disorder. Possible anoxic brain injury. Acute aspiration pneumonia. Positive test for coronavirus infection, without evidence of coronavirus associated pneumonia. Influenza A infection. End-stage renal disease, currently on hemodialysis. History of CAD. History of CHF. History of asthma. CAD with previous stent placement. Type 2 diabetes. Degenerative joint disease. Plan: Plan dated 05/02/2022. The patient is currently on Zosyn for H. influenzae infection. Labs, x-rays, and medications are reviewed. The patient remains on Cleveprex for blood pressure control. Propofol has been weaned off. The patient will get a spontaneous breathing trial with pressure support of 5 and CPAP of 5. The patient is getting tube feedings with vital high protein at goal. We will continue to follow and make recommendations along the way. Prognosis is guarded. Computed tomography scan of the brain was negative. Plan dated 05/03/2022. The patient is ready for a spontaneous breathing trial with pressure support of a CPAP of 5. The patient continues on Zosyn for I believe a more day. The patient is likely to get extubated. Labs, x-rays, and medications are reviewed. We will continue to follow make recommendations along the way. Overall prognosis remains guarded. No additional recommendations are made at this time. I did speak to the patient's son yesterday. Plan dated 05/04/2022. The patient was successfully extubated on May 03. The patient is currently on 3 oxygen. The patient will have hemodialysis today. The big issue with this patient continues to be her mental status. This could well be metabolic encephalopathy. Neurology recommends an MRI, and a lumbar puncture. We will continue to follow make recommendations along the way. We'll also talk to the jennifer about treating this patient, down the road, depending on what we find. Time with Patient: Greater than 30
--- NOTE | 2022-05-04 14:28 | P.PN ---
Subjective Progress Note Date: 05/04/22 Principal diagnosis: Influenza A and possible aspiration pneumonia Patient is a 71-year-old female with a past medical history significant for type 2 diabetes mellitus COPD consist heart failure end-stage renal disease on hemodialysis, patient was brought into the ER 2 days ago after the patient was found to be unresponsive at home apparently the patient did not show for her dialysis , patient was found to be unresponsive at home brought to the hospital and getting intubated patient did have positive influenza A as well as ballesteros PCR, also with evidence of right upper lobe infiltrate concerning for aspiration pneumonia with a sputum currently showing Haemophilus. On today's evaluation that is 05/04/2022, the patient continues to be afebrile, patient is breathing comfortably on 3 L nasal cannula oxygen, patient did have open eyes however did not answer any question no vomiting or any worsening diarrhea reported by the nursing staff Objective - Vital Signs Vital signs: Vital Signs Temp 97.8 F 05/04/22 12:00 Pulse 69 05/04/22 13:00 Resp 19 05/04/22 13:00 BP 134/61 05/04/22 13:00 Pulse Ox 96 05/04/22 13:00 FiO2 40 05/03/22 08:49 Intake & Output 05/03/22 05/04/22 05/04/22 18:59 06:59 18:59 Intake Total 703.800 245 70 Output Total 2100 Balance 703.800 245 -2030 Weight 87.7 kg 90.8 kg Intake: IV 395 245 70 0.9 Normal Saline @ 10 mL 120 120 70 /hr KVO Piperacillin-Tazobactam 3 175 25 .375 gm In Sodium Chloride 0.9% 100 ml @ 25 mls/hr IVPB Q12H [facility] Rx# :[id number] levETIRAcetam IV 500 mg 100 100 In Sodium Chloride 0.9% 100 ml @ 400 mls/hr IVPB Q12HR [facility] Rx#:[id number] Intake, IV Titration 48.800 Amount Clevidipine Butyrate 25 48.800 mg In Empty Bag 1 bag @ 1 MG/HR 2 mls/hr IV .Q24H [facility] Rx#:[id number] Tube Feeding 230 Other 30 Output: Hemodialysis 2100 Other: Voiding Method Incontinent ABP, PAP, CO, CI - Last Documented Arterial Blood Pressure 164/45 - Exam GENERAL DESCRIPTION: An elderly female lying in bed in no distress to RESPIRATORY SYSTEM: Unlabored breathing , coarse breath sounds HEART: S1 S2 regular rate and rhythm , ABDOMEN: Soft , no tenderness EXTREMITIES: No edema feet - Labs CBC & Chem 7: 05/04/22 06:03 05/04/22 06:03 Labs: Abnormal Lab Results - Last 24 Hours (Table) 05/03/22 05/03/22 05/03/22 Range/Units 18:01 20:20 23:33 RBC (3.80-5.40) m/uL Hgb (11.4-16.0) gm/dL ABG Total CO2 (19-24) mmol/L Carbon Dioxide (22-30) mmol/L BUN (7-17) mg/dL Creatinine (0.52-1.04) mg/dL Glucose (74-99) mg/dL POC Glucose (mg/dL) 128 H 126 H 128 H (70-110) mg/dL 05/03/22 05/04/22 05/04/22 Range/Units 23:50 06:03 06:03 RBC 3.66 L (3.80-5.40) m/uL Hgb 10.8 L (11.4-16.0) gm/dL ABG Total CO2 27 H (19-24) mmol/L Carbon Dioxide 21 L (22-30) mmol/L BUN 85 H (7-17) mg/dL Creatinine 7.83 H* (0.52-1.04) mg/dL Glucose 102 H (74-99) mg/dL POC Glucose (mg/dL) (70-110) mg/dL Microbiology - Last 24 Hours (Table) 04/27/22 17:02 Blood Culture - Final Blood No Growth after 144 hours 04/27/22 16:50 Blood Culture - Final Blood No Growth after 144 hours Assessment and Plan (1) Sepsis Current Visit: Yes Status: Acute Code(s): A41.9 - SEPSIS, UNSPECIFIED ORGANISM SNOMED Code(s): 14534127 (2) Aspiration pneumonia Current Visit: Yes Status: Acute Code(s): J69.0 - PNEUMONITIS DUE TO INHALATION OF FOOD AND VOMIT SNOMED Code(s): 830559789 Plan: 1 patient presented to hospital with sepsis in this patient who did have a fever elevated white count with evidence of right upper lobe consolidation concerning for aspiration pneumonia in this patient also tested positive for influenza A as well as ballesteros PCR and concern for possible postinfluenzal bacterial pneumonia 2-blood culture has been negative and sputum culture grew Haemophilus 3-patient has completed her 5 day course of Tamiflu 4- patient to continue with Zosyn to cover for acute aspiration pneumonia sputum positive for Haemophilus, while waiting for mentation to improve and oral intake to improve as well Time with Patient: Less than 30
--- NOTE | 2022-05-04 16:01 | MR ---
EXAMINATION TYPE: MR brain wo con DATE OF EXAM: 05/04/2022 COMPARISON: CT brain 05/01/2022 HISTORY: AMS, left sided weakness. CONTRAST: Performed utilizing mL intravenous gadolinium contrast. TECHNIQUE: Multiplanar, multiecho imaging on a 3.0 Jayashree magnet is performed through the brain. Stud y is performed within 24 hours of arrival to the hospital. The craniovertebral junction is normal. The pituitary is normal. Diffusion-weighted imaging is performed. No abnormal hyperintensity is present to suggest an acute i ntracranial infarct or acute ischemic change. There are patchy periventricular white matter hyperintensities on T2 and inversion recovery weighted sequences. This is nonspecific. Differential diagnosis could include microvascular ischemic change, v asculitis, multiple sclerosis. These changes appear old. No acute ischemic changes are identified. Ventricles and sulci are appropriate for the patient age. There is near complete opacification of the left maxillary sinus. Mucosal thickening is within the ri ght maxillary sinus. IMPRESSIONS: 1. Multiple bilateral periventricular white matter ischemic type changes. Findings can be compatible with chronic white matter ischemic changes. Multiple sclerosis and vasculitis is within the different ial. 2. No suspicious acute changes to account for left-sided weakness. 3. Correlate for acute left maxillary sinusitis.
[2022-05-04 18:44] LABS: Glucose,Whole Blood 78 mg/dL (70-110)
[2022-05-04] MEDS ORDERED: DEXTROSE 50% SYRINGE 50 ML IVP ONE (18:57)
[2022-05-04 20:17] LABS: Glucose,Whole Blood 140 mg/dL (70-110)
--- NOTE | 2022-05-04 20:51 | P.PN ---
Subjective This is a pleasant 71 years old female with multiple medical problems including end-stage renal disease presents with hypoxia requiring intubation and she got extubated on 05/03 with some evidence of infection including cough and, influenza and positive sputum culture for Haemophilus influenzae was suspicion for aspiration pneumonia, currently she is being covered with Zosyn and her oxygen requirement down to 3 L/m However patient remains acutely encephalopathic with suspected anoxic brain energy, rule out other causes, neurologist on the case, patient MRI of the brain showing chronic white matter ischemic changes with differential diagnosis of multiple sclerosis and vasculitis but there is no evidence of acute ischemic changes or CVA. Also there is some concern for mastoiditis per radiologist. Patient continued on hemodialysis per nephrology team recommendation. Creatinine 7.8, reviewed stable Patient also kept on Keppra 500 mg and 500 milligrams after dialysis And sugar controlled on insulin 35 units Levemir twice a day Review of system: Pending/A Active Medications Generic Name Dose Route Start Last Admin Trade Name Freq PRN Reason Stop Dose Admin Albuterol Sulfate 2 puff 04/28/22 00:50 05/04/22 19:16 Albuterol Hfa Inhaler INHALATION Not Given RT-QID MARILEE Enoxaparin Sodium 30 mg 04/29/22 09:00 05/04/22 09:52 Enoxaparin 30 Mg/0.3 Ml Syringe SQ 30 mg DAILY MARILEE Administration Hydralazine HCl 10 mg 05/02/22 10:24 05/03/22 22:03 Hydralazine Hcl 20 Mg/Ml 1 Ml Vial IVP 10 mg Q4HR PRN Administration Blood Pressure - High Piperacillin Sod/Tazobactam 100 mls @ 25 mls/hr 04/29/22 13:00 05/04/22 14:17 Sod 3.375 gm/ Sodium Chloride IVPB 25 mls/hr Q12H MARILEE Administration Protocol Levetiracetam 500 mg/ Sodium 105 mls @ 400 mls/hr 04/29/22 12:45 05/04/22 20:33 Chloride IVPB 400 mls/hr Q12HR MARILEE Administration Levetiracetam 500 mg/ Sodium 105 mls @ 400 mls/hr 05/02/22 18:00 05/04/22 18:59 Chloride IVPB 400 mls/hr TuThSa@1800 MARILEE Administration Insulin Aspart 0 unit 04/29/22 00:00 05/04/22 18:44 Insulin Aspart (Novolog) 100 Unit/Ml Vial SQ Not Given Q6H [facility] Protocol Insulin Detemir 35 unit 05/03/22 21:00 05/04/22 07:19 Insulin Detemir (Levemir) 100 Unit/Ml Syr SQ 35 unit BID@0700,2100 MARILEE Administration Pantoprazole Sodium 40 mg 04/28/22 09:00 05/04/22 08:58 Pantoprazole 40 Mg/10 Ml Vial IVP 40 mg DAILY [facility] Administration Triamcinolone Acetonide 1 applic 04/27/22 15:26 Triamcinolone 0.1% Cream 80 Gm Tube TOPICAL BID PRN SKIN ISSUES Objective - Vital Signs Vital signs: Vital Signs Temp 98.4 F 05/04/22 00:00 Pulse 74 05/04/22 11:00 Resp 18 05/04/22 11:00 BP 121/64 05/04/22 11:00 Pulse Ox 95 05/04/22 11:00 FiO2 40 05/03/22 08:49 Intake & Output 05/03/22 05/04/22 05/04/22 18:59 06:59 18:59 Intake Total 703.800 245 40 Balance 703.800 245 40 Weight 87.7 kg 90.8 kg Intake: IV 395 245 40 0.9 Normal Saline @ 10 mL 120 120 40 /hr KVO Piperacillin-Tazobactam 3 175 25 .375 gm In Sodium Chloride 0.9% 100 ml @ 25 mls/hr IVPB Q12H [facility] Rx# :[id number] levETIRAcetam IV 500 mg 100 100 In Sodium Chloride 0.9% 100 ml @ 400 mls/hr IVPB Q12HR [facility] Rx#:[id number] Intake, IV Titration 48.800 Amount Clevidipine Butyrate 25 48.800 mg In Empty Bag 1 bag @ 1 MG/HR 2 mls/hr IV .Q24H [facility] Rx#:[id number] Tube Feeding 230 Other 30 Other: Voiding Method Incontinent ABP, PAP, CO, CI - Last Documented Arterial Blood Pressure 164/45 - Exam -GENERAL: The patient is encephalopathic, open eye with good eye contact and does not follow commands HEENT: Pupils are round and equally reacting to light. EOMI. No scleral icterus. No conjunctival pallor. Normocephalic, atraumatic. No pharyngeal erythema. No thyromegaly. CARDIOVASCULAR: S1 and S2 present. No murmurs, rubs, or gallops. -PULMONARY: Chest is clear to auscultation, no wheezing. Mild bilateral crepitation ABDOMEN: Soft, nontender, nondistended, normoactive bowel sounds. No palpable organomegaly. MUSCULOSKELETAL: No joint swelling or deformity. EXTREMITIES: No cyanosis, clubbing, or pedal edema. NEUROLOGICAL: Gross neurological examination did not reveal any focal deficits. SKIN: No rashes. no petechiae. - Labs CBC & Chem 7: 05/04/22 06:03 05/04/22 06:03 Labs: Abnormal Lab Results - Last 24 Hours (Table) 05/03/22 05/03/22 05/03/22 Range/Units 10:51 11:47 18:01 RBC (3.80-5.40) m/uL Hgb (11.4-16.0) gm/dL ABG pO2 109 H (83-108) mmHg ABG HCO3 27 H (21-25) mmol/L ABG Total CO2 28 H (19-24) mmol/L Carbon Dioxide (22-30) mmol/L BUN (7-17) mg/dL Creatinine (0.52-1.04) mg/dL Glucose (74-99) mg/dL POC Glucose (mg/dL) 259 H 128 H (70-110) mg/dL 05/03/22 05/03/22 05/03/22 Range/Units 20:20 23:33 23:50 RBC (3.80-5.40) m/uL Hgb (11.4-16.0) gm/dL ABG pO2 (83-108) mmHg ABG HCO3 (21-25) mmol/L ABG Total CO2 27 H (19-24) mmol/L Carbon Dioxide (22-30) mmol/L BUN (7-17) mg/dL Creatinine (0.52-1.04) mg/dL Glucose (74-99) mg/dL POC Glucose (mg/dL) 126 H 128 H (70-110) mg/dL 05/04/22 05/04/22 Range/Units 06:03 06:03 RBC 3.66 L (3.80-5.40) m/uL Hgb 10.8 L (11.4-16.0) gm/dL ABG pO2 (83-108) mmHg ABG HCO3 (21-25) mmol/L ABG Total CO2 (19-24) mmol/L Carbon Dioxide 21 L (22-30) mmol/L BUN 85 H (7-17) mg/dL Creatinine 7.83 H* (0.52-1.04) mg/dL Glucose 102 H (74-99) mg/dL POC Glucose (mg/dL) (70-110) mg/dL Microbiology - Last 24 Hours (Table) 04/27/22 17:02 Blood Culture - Final Blood No Growth after 144 hours 04/27/22 16:50 Blood Culture - Final Blood No Growth after 144 hours Assessment and Plan Assessment: Sepsis with aspiration pneumonia, secondary to Haemophilus influenzae Bilateral viral pneumonia including influenza and Coban infection Acute encephalopathy, mostly metabolic encephalopathy, rule out intracranial causes, patient also on seizure medication End-stage renal disease on hemodialysis Diabetes mellitus on insulin Plan: Continue with Zosyn Continue with oxygen via nasal cannula Follow-up recommendation by neurology service will follow the case closely Continue with ICU management with pulmonary/critical care team followed closely ID team and credit historian of the case Patient is on hemodialysis Continued on Kera Labs and medication were reviewed.. Continue same treatment. Continue with symptomatic treatment. Resume home medication. Monitor lytes and vitals. DVT and GI prophylaxis. Further recommendations as per clinical course of the patient DVT prophylaxis: Subcutaneous Lovenox GI Prophylaxis: Ppi PT/OT: Deferred Prognosis is guarded
[2022-05-04 21:22] LABS: Glucose,Whole Blood 123 mg/dL (70-110)
[2022-05-04 23:45] LABS: Glucose,Whole Blood 111 mg/dL (70-110)
[2022-05-05] MEDS: INSULIN ASPART (NovoLOG) 100 UNIT/ML VIAL SQ SCH ×5 (00:11→23:27)
[2022-05-05] MEDS: PIPERACILLIN-TAZOBACTAM 3.375 GM in SODIUM CHLORIDE 0.9% 100 ML IVPB SCH (00:26)
[2022-05-05 05:23] LABS: Glucose,Whole Blood 135 mg/dL (70-110)
[2022-05-05 06:09] LABS: Basophils # (A) 0.1 k/uL (0-0.2); Basophils % (A) 1 %; Eosinophils # (A) 0.4 k/uL (0-0.7); Eosinophils % (A) 4 %; HCT 39.4 % (34.0-46.0); HGB 12.4 gm/dL (11.4-16.0); Hypochromasia Marked; Lymphocytes # (A) 0.9 k/uL (1.0-4.8); Lymphocytes % (A) 9 %; MCH 29.8 pg (25.0-35.0); MCHC 31.5 g/dL (31.0-37.0); MCV 94.9 fL (80.0-100.0); Mean Platelet Volume 7.5; Monocytes # (A) 0.4 k/uL (0-1.0); Monocytes % (A) 4 %; Neutrophils # (A) 8.2 k/uL (1.3-7.7); Neutrophils % (A) 81 %; Platelet Count 354 k/uL (150-450); RBC 4.15 m/uL (3.80-5.40); WBC 10.1 k/uL (3.8-10.6)
[2022-05-05 06:27] LABS: Glucose,Whole Blood 140 mg/dL (70-110)
[2022-05-05 06:33] LABS: Calcium 9.4 mg/dL (8.4-10.2); Potassium 4.5 mmol/L (3.5-5.1)
[2022-05-05 07:18] LABS: Glucose,Whole Blood 142 mg/dL (70-110)
--- NOTE | 2022-05-05 07:22 | P.PN ---
Subjective This is a pleasant 71 years old female with multiple medical problems including end-stage renal disease presents with hypoxia requiring intubation and she got extubated on 05/03 with some evidence of infection including cough and, influenza and positive sputum culture for Haemophilus influenzae was suspicion for aspiration pneumonia, currently she is being covered with Zosyn and her oxygen requirement down to 3 L/m However patient remains acutely encephalopathic with suspected anoxic brain energy, rule out other causes, neurologist on the case, patient MRI of the brain showing chronic white matter ischemic changes with differential diagnosis of multiple sclerosis and vasculitis but there is no evidence of acute ischemic changes or CVA. Also there is some concern for mastoiditis per radiologist. Patient continued on hemodialysis per nephrology team recommendation. Creatinine 7.8, reviewed stable Patient also kept on Keppra 500 mg and 500 milligrams after dialysis And sugar controlled on insulin 35 units Levemir twice a day 05/05/2022 Patient mentation remains the same, no much improvement, normal contraction. MRI of the brain result was noted yesterday, patient has chronic ischemic changes with no acute event to explain patient's symptoms, differential diagnosis included multiple sclerosis and vasculitis, neurologist following the case closely. She remains on Keppra twice daily and Ranexa dose after dialysis. Glucose cont rol and Levemir 35 units. She remains on Zosyn. Patient is afebrile, vitals looks stable, still short of breath with occasional coughing. Creatinine 5.5, rest of labs looks stable. Objective - Vital Signs Vital signs: Vital Signs Temp 98.2 F 05/05/22 04:00 Pulse 79 05/05/22 07:00 Resp 18 05/05/22 07:00 BP 155/60 05/05/22 07:00 Pulse Ox 97 05/05/22 07:00 FiO2 40 05/03/22 08:49 Intake & Output 05/04/22 05/05/22 05/05/22 18:59 06:59 18:59 Intake Total 120 120 10 Output Total 2099 Balance -1979 120 10 Weight 88.8 kg Intake: IV 120 120 10 0.9 Normal Saline @ 10 mL 120 120 10 /hr KVO Output: Hemodialysis 2100 ABP, PAP, CO, CI - Last Documented Arterial Blood Pressure 164/45 - Exam -GENERAL: The patient is encephalopathic, open eye with good eye contact and does not follow commands HEENT: Pupils are round and equally reacting to light. EOMI. No scleral icterus. No conjunctival pallor. Normocephalic, atraumatic. No pharyngeal erythema. No thyromegaly. CARDIOVASCULAR: S1 and S2 present. No murmurs, rubs, or gallops. -PULMONARY: Chest is clear to auscultation, no wheezing. Mild bilateral crepitation ABDOMEN: Soft, nontender, nondistended, normoactive bowel sounds. No palpable organomegaly. MUSCULOSKELETAL: No joint swelling or deformity. EXTREMITIES: No cyanosis, clubbing, or pedal edema. NEUROLOGICAL: Gross neurological examination did not reveal any focal deficits. SKIN: No rashes. no petechiae. - Labs CBC & Chem 7: 05/05/22 05:28 05/05/22 05:28 Labs: Abnormal Lab Results - Last 24 Hours (Table) 05/04/22 05/04/22 05/04/22 Range/Units 20:06 21:11 23:43 Neutrophils # (1.3-7.7) k/uL Lymphocytes # (1.0-4.8) k/uL Carbon Dioxide (22-30) mmol/L BUN (7-17) mg/dL Creatinine (0.52-1.04) mg/dL Glucose (74-99) mg/dL POC Glucose (mg/dL) 140 H 123 H 111 H (70-110) mg/dL 05/05/22 05/05/22 05/05/22 Range/Units 05:11 05:28 05:28 Neutrophils # 8.2 H (1.3-7.7) k/uL Lymphocytes # 0.9 L (1.0-4.8) k/uL Carbon Dioxide 19 L (22-30) mmol/L BUN 48 H (7-17) mg/dL Creatinine 5.59 H (0.52-1.04) mg/dL Glucose 130 H (74-99) mg/dL POC Glucose (mg/dL) 135 H (70-110) mg/dL 05/05/22 05/05/22 Range/Units 06:25 07:06 Neutrophils # (1.3-7.7) k/uL Lymphocytes # (1.0-4.8) k/uL Carbon Dioxide (22-30) mmol/L BUN (7-17) mg/dL Creatinine (0.52-1.04) mg/dL Glucose (74-99) mg/dL POC Glucose (mg/dL) 140 H 142 H (70-110) mg/dL Assessment and Plan Assessment: Sepsis with aspiration pneumonia, secondary to Haemophilus influenzae Bilateral viral pneumonia including influenza and Covid infection Acute encephalopathy, mostly metabolic encephalopathy, rule out intracranial causes, patient also on seizure medication End-stage renal disease on hemodialysis Diabetes mellitus on insulin Plan: Continue with Zosyn Continued on Keppra Continue with oxygen via nasal cannula Follow-up recommendation by neurology service will follow the case closely Continue with ICU management with pulmonary/critical care team followed closely ID team and charge hand of the case Patient is on hemodialysis Labs and medication were reviewed.. Continue same treatment. Continue with symptomatic treatment. Resume home medication. Monitor lytes and vitals. DVT and GI prophylaxis. Further recommendations as per clinical course of the patient DVT prophylaxis: Subcutaneous Lovenox GI Prophylaxis: Ppi PT/OT: Deferred Prognosis is guarded
[2022-05-05] MEDS: INSULIN DETEMIR (LEVEMIR) 100 UNIT/ML SYR SQ SCH ×2 (07:24→20:00)
[2022-05-05] MEDS: ALBUTEROL HFA INHALER INHALATION SCH ×4 (07:50→19:52)
[2022-05-05] MEDS: levETIRAcetam IV 500 MG in SODIUM CHLORIDE 0.9% 100 ML IVPB SCH ×2 (08:20→20:00)
[2022-05-05] MEDS: ENOXAPARIN 30 MG/0.3 ML SYRINGE SQ SCH (08:20)
[2022-05-05] MEDS: PANTOPRAZOLE 40 MG/10 ML VIAL IVP SCH (08:20)
--- NOTE | 2022-05-05 13:09 | P.PN ---
Subjective Patient is seen in follow-up for end-stage renal disease. She is maintained on hemodialysis on Sunday schedule. Extubated 05/03/2022. Tolerated 2 L ultrafiltration yesterday. Vital signs are stable. General: Resting in bed. HEENT: Head exam is unremarkable. ABDOMEN: No distention noted. EXTREMITITES: Trace edema. Objective - Vital Signs Vital signs: Vital Signs Temp 97.7 F 05/05/22 12:00 Pulse 81 05/05/22 13:00 Resp 16 05/05/22 13:00 BP 141/64 05/05/22 13:00 Pulse Ox 96 05/05/22 13:00 FiO2 40 05/03/22 08:49 Intake & Output 05/04/22 05/05/22 05/05/22 18:59 06:59 18:59 Intake Total 120 120 70 Output Total 2100 200 Balance -1979 120 -130 Weight 88.8 kg Intake: IV 120 120 70 0.9 Normal Saline @ 10 mL 120 120 70 /hr KVO Output: Stool 200 Hemodialysis 2100 ABP, PAP, CO, CI - Last Documented Arterial Blood Pressure 164/45 - Labs CBC & Chem 7: 05/05/22 05:28 05/05/22 05:28 Labs: Abnormal Lab Results - Last 24 Hours (Table) 05/04/22 05/04/22 05/04/22 Range/Units 20:06 21:11 23:43 Neutrophils # (1.3-7.7) k/uL Lymphocytes # (1.0-4.8) k/uL Carbon Dioxide (22-30) mmol/L BUN (7-17) mg/dL Creatinine (0.52-1.04) mg/dL Glucose (74-99) mg/dL POC Glucose (mg/dL) 140 H 123 H 111 H (70-110) mg/dL 05/05/22 05/05/22 05/05/22 Range/Units 05:11 05:28 05:28 Neutrophils # 8.2 H (1.3-7.7) k/uL Lymphocytes # 0.9 L (1.0-4.8) k/uL Carbon Dioxide 19 L (22-30) mmol/L BUN 48 H (7-17) mg/dL Creatinine 5.59 H (0.52-1.04) mg/dL Glucose 130 H (74-99) mg/dL POC Glucose (mg/dL) 135 H (70-110) mg/dL 05/05/22 05/05/22 Range/Units 06:25 07:06 Neutrophils # (1.3-7.7) k/uL Lymphocytes # (1.0-4.8) k/uL Carbon Dioxide (22-30) mmol/L BUN (7-17) mg/dL Creatinine (0.52-1.04) mg/dL Glucose (74-99) mg/dL POC Glucose (mg/dL) 140 H 142 H (70-110) mg/dL Assessment and Plan Plan: Assessment: 1. End-stage renal disease making on hemodialysis on Sunday schedule. 2. Acute hypoxic respiratory failure secondary to pneumonia. Patient tested positive for covid-19 and influenza A. 3. Diabetes mellitus. 4. History of coronary artery disease. 5. Concern for anoxic brain injury. 6. Hypertension with chronic kidney disease. 7. Anemia of chronic kidney disease. Hemoglobin stable. 8. Chronic kidney disease mineral bone disease. Phosphorous 8.2. Currently not tolerating oral intake. Plan: Hemodialysis tomorrow. Resume phosphate binder once on a diet. Currently nothing by mouth. Prognosis guarded.
[2022-05-05 13:16] LABS: Glucose,Whole Blood 168 mg/dL (70-110)
--- NOTE | 2022-05-05 13:27 | P.PN ---
Subjective Progress Note Date: 05/05/22 Principal diagnosis: Mental status changes. Reevaluated today on 04/30/22, patient remains in the ICU, intubated and mechanically ventilated. She is on assist control rate of 16 tidal volume 400 FiO2 40% and PEEP of 8. Patient is off sedation completely, however she is awake, opening her eyes, but she is not spending to any stimuli. Patient has no purposeful movement, she is not responsive to stimuli, obviously she has what seems to be a severe encephalopathy, suspect anoxic encephalopathy. Patient has IV fluid at KVO, she is receiving vital HP at 24 mL an hour.ABG today showed a pO2 of 83 pCO2 45 pH of 7.45 hence no changes were made in her vent settings. CBC is unremarkable WBC count 12.6 hemoglobin is 9.9.basic metabolic profile is normal bicarb is 30 BUN is 39 creatinine 5.74, patient was dialyzed yesterday, but no dialysis is planned so far for today.chest x-ray no evidence of active disease, continues to have left lower lobe atelectasis. Reevaluated today on 05/01/22, patient remains in the ICU, intubated and mechanically ventilated. She is on assist control of 16.400 FiO2 40% and PEEP of 5 ABG showed a pO2 of 110 pCO2 44 pH of 7.44. Neurologically, the patient remains about the same, she opens her eyes, but does not have any purposeful movement whatsoever. Does not follow any instructions. Patient is clearly encephalopathic. Remains on vitamin HP at 24 mL/h, her IV fluid to KVO, scheduled to have CT of the head and EEG again today. Patient is clearly not ready for weaning mostly because of her neurological status, in the meantime I'm recommending placing the patient on pressure support control mode of mechanical ventilation at 12, and CPAP, and if she tolerates we'll keep her on that mode until hopefully her mental status improves were and we could consider weaning and extubation. Otherwise the patient may have to be considered for tracheostomy and PEG tube placement. WBC count is 9.8 hemoglobin is 9.5. Basic metabolic profile is normal BUN is 70 creatinine 7.59, patient may undergo dialysis today. Chest x-ray is basically unremarkable continues to have some basilar atelectasis especially at the left base Progress note dated 05/02/2022. 71-year-old female who was admitted on April 27 with mental status changes, aspiration pneumonia, and respiratory failure. She was intubated on April 27. The patient also tested positive for influenza, and coronavirus. She remains on the ventilator, and is seen in room 256. She's on volume assist control, rate 16, tidal volume 400, FiO2 40%, and PEEP of 8. Blood gases show pO2 of 113, pCO2 45, and pH is 7.39. The patient's currently on Cleveprex at 4 mg an hour, saline at 10 mL an hour, and propofol, has been weaned off. The patient's getting vital high protein at 46 mL an hour, which is goal. The patient will have a pressure support CPAP trial today. Computed tomography scan of the brain was negative. Sputum showed evidence of Haemophilus influenzae. She is on Zosyn. White count 8.7, hemoglobin 9.5, hematocrit 30.5, and platelet count 396,000. Sodium 144, potassium 4.2, chlorides 101, CO2 27, anion gap 16, BUN 93, and creatinine 8.92. Chest x-ray shows infiltrate or atelectasis at the lung base on the left, and in the retrocardiac region. Progress note dated 05/03/2022. 71-year-old female was admitted on April 27, with mental status changes, respiratory failure, and aspiration pneumonia. She was intubated on April 27, and did test positive for both influenza, and coronavirus. She remains on the ventilator, in room 256. She's on volume assist control, rate 16, tidal volume 400, FiO2 40%, and PEEP of 8. Blood gases show pO2 of 80, pCO2 43, and a pH is 7.43. The patient's getting saline at KVO, Cleveprex at 6 mg an hour, and vital high protein, at 46 mL an hour, which is goal. The patient will have a spontaneous breathing trial, at pressure support of 8 and CPAP of 5. White count 11.1, hemoglobin 10.3, hematocrit 32.1, and platelet count normal. Sodium 140, potassium 3.8, chlorides 99, CO2 27, BUN 63, and creatinine 6.18. Sputum was positive for Haemophilus influenzae on April 27. Chest x-ray is largely unchanged. Progress note dated 05/04/2022. 71-year-old female admitted April 27, with mental status changes, respiratory failure, and aspiration pneumonia. She was intubated on April 27, and did test positive for both influenza, and coronavirus. She is seen today in room 256. She was successfully extubated yesterday, May 03. She's currently on 3 L of oxygen. She's getting saline at KVO. She is going to have hemodialysis today. Neurology saw the patient for altered mental status. She scheduled to have an MRI, and a lumbar puncture. White count 9.3, hemoglobin 10.8, hematocrit 34.4, and platelet count is normal. Sodium 142, potassium 4.2, chlorides 103, CO2 21, anion gap 18, BUN 85, and creatinine 7.83. Sputum was positive for Haemophilus influenzae, on April 27. Progress note dated 05/05/2022. 71-year-old female who is again seen in room 256. She is on 3 L of oxygen. Getting saline at 10 mL an hour. The MRI that was done, showed nothing acute. They're mostly chronic changes, including some ischemic changes. The patient's mental status is unchanged. She opens her eyes to painful stimuli. She looks at you, but does not speak. Zosyn will be discontinued today. CBC is normal. Sodium 138, potassium 4.5, chlorides 100, CO2 19, anion gap 19, BUN 48, and creatinine 5.59. Calcium is 9.4. Sputum was positive for Haemophilus influenzae on April 27, and the patient has received more than enough Zosyn. Objective - Vital Signs Vital signs: Vital Signs Temp 97.7 F 05/05/22 12:00 Pulse 81 05/05/22 13:00 Resp 16 05/05/22 13:00 BP 141/64 05/05/22 13:00 Pulse Ox 96 05/05/22 13:00 FiO2 40 05/03/22 08:49 Intake & Output 05/04/22 05/05/22 05/05/22 18:59 06:59 18:59 Intake Total 120 120 70 Output Total 2100 200 Balance -1979 120 -130 Weight 88.8 kg Intake: IV 120 120 70 0.9 Normal Saline @ 10 mL 120 120 70 /hr KVO Output: Stool 200 Hemodialysis 2100 ABP, PAP, CO, CI - Last Documented Arterial Blood Pressure 164/45 - Exam No acute distress, poorly responsive. Opens eyes to painful stimuli. Remains on 3 L. HEENT examination is grossly unremarkable. Neck supple. Full range of motion. No adenopathy thyromegaly or neck vein distention. Cardiovascular examination reveals regular rhythm rate. S1-S2 normal. No S3 or S4. No discernible murmur noted. Heart sounds are distant. Heart rate 81 bpm. Lungs reveal coarse bilateral rhonchi. No wheezes or crackles. Breath sounds equal. Saturations are 96 %. Abdomen is soft, without bowel sounds. No masses or tenderness. Extremities are intact. No cyanosis clubbing or edema. Skin is without rash or lesion. Neurologic examination is unchanged. - Labs CBC & Chem 7: 05/05/22 05:28 05/05/22 05:28 Labs: Abnormal Lab Results - Last 24 Hours (Table) 05/04/22 05/04/22 05/04/22 Range/Units 20:06 21:11 23:43 Neutrophils # (1.3-7.7) k/uL Lymphocytes # (1.0-4.8) k/uL Carbon Dioxide (22-30) mmol/L BUN (7-17) mg/dL Creatinine (0.52-1.04) mg/dL Glucose (74-99) mg/dL POC Glucose (mg/dL) 140 H 123 H 111 H (70-110) mg/dL 05/05/22 05/05/22 05/05/22 Range/Units 05:11 05:28 05:28 Neutrophils # 8.2 H (1.3-7.7) k/uL Lymphocytes # 0.9 L (1.0-4.8) k/uL Carbon Dioxide 19 L (22-30) mmol/L BUN 48 H (7-17) mg/dL Creatinine 5.59 H (0.52-1.04) mg/dL Glucose 130 H (74-99) mg/dL POC Glucose (mg/dL) 135 H (70-110) mg/dL 05/05/22 05/05/22 05/05/22 Range/Units 06:25 07:06 13:13 Neutrophils # (1.3-7.7) k/uL Lymphocytes # (1.0-4.8) k/uL Carbon Dioxide (22-30) mmol/L BUN (7-17) mg/dL Creatinine (0.52-1.04) mg/dL Glucose (74-99) mg/dL POC Glucose (mg/dL) 140 H 142 H 168 H (70-110) mg/dL Assessment and Plan Assessment: Acute hypoxemic respiratory failure, of unclear etiology, S/P intubation on 04/27/2022, S/P extubation on 05/03/2022. Possible CVA/seizure disorder. Possible anoxic brain injury, versus metabolic encephalopathy. Acute aspiration pneumonia. Positive test for coronavirus infection, without evidence of coronavirus associated pneumonia. Influenza A infection. End-stage renal disease, currently on hemodialysis. History of CAD. History of CHF. History of asthma. CAD with previous stent placement. Type 2 diabetes. Degenerative joint disease. Plan: Plan dated 05/02/2022. The patient is currently on Zosyn for H. influenzae infection. Labs, x-rays, and medications are reviewed. The patient remains on Cleveprex for blood pressure control. Propofol has been weaned off. The patient will get a spontaneous breathing trial with pressure support of 5 and CPAP of 5. The patient is getting tube feedings with vital high protein at goal. We will co ntinue to follow and make recommendations along the way. Prognosis is guarded. Computed tomography scan of the brain was negative. Plan dated 05/03/2022. The patient is ready for a spontaneous breathing trial with pressure support of a CPAP of 5. The patient continues on Zosyn for I believe a more day. The patient is likely to get extubated. Labs, x-rays, and medications are reviewed. We will continue to follow make recommendations along the way. Overall prognosis remains guarded. No additional recommendations are made at this time. I did speak to the patient's son yesterday. Plan dated 05/04/2022. The patient was successfully extubated on May 03. The patient is currently on 3 oxygen. The patient will have hemodialysis today. The big issue with this patient continues to be her mental status. This could well be metabolic encephalopathy. Neurology recommends an MRI, and a lumbar puncture. We will continue to follow make recommendations along the way. We'll also talk to the family about treating this patient, down the road, depending on what we find. Plan dated 05/05/2022. The patient's a child to the patient's son, about the possibility of a feeding tube, i.e. PEG tube. In the short-term, the patient may benefit from an NG tube, and enteral nutrition. Also, we will confirm CODE STATUS with son. Additional recommendations and suggestions are forthcoming. Labs, x-rays, and medications are reviewed. Zosyn is discontinued. Prognosis is guarded. Time with Patient: Less than 30
--- NOTE | 2022-05-05 14:40 | P.PN ---
Subjective Progress Note Date: 05/05/22 Principal diagnosis: Influenza A and possible aspiration pneumonia Patient is a 71-year-old female with a past medical history significant for type 2 diabetes mellitus COPD consist heart failure end-stage renal disease on hemodialysis, patient was brought into the ER 2 days ago after the patient was found to be unresponsive at home apparently the patient did not show for her dialysis , patient was found to be unresponsive at home brought to the hospital and getting intubated patient did have positive influenza A as well as ballesteros PCR, also with evidence of right upper lobe infiltrate concerning for aspiration pneumonia with a sputum currently showing Haemophilus. On today's evaluation that is 05/05/2022, the patient remains to be afebrile, patient is breathing comfortably on 3 L nasal cannula oxygen, patient is hemodynamically stable not requiring any pressor support, patient did have open eyes however no purposeful response or movement, no vomiting or any worsening diarrhea reported by the nursing staff Objective - Vital Signs Vital signs: Vital Signs Temp 97.7 F 05/05/22 12:00 Pulse 75 05/05/22 14:00 Resp 17 05/05/22 14:00 BP 151/65 05/05/22 14:00 Pulse Ox 98 05/05/22 14:00 FiO2 40 05/03/22 08:49 Intake & Output 05/04/22 05/05/22 05/05/22 18:59 06:59 18:59 Intake Total 120 120 80 Output Total 2100 200 Balance -1979 120 -120 Weight 88.8 kg Intake: IV 120 120 80 0.9 Normal Saline @ 10 mL 120 120 80 /hr KVO Output: Stool 200 Hemodialysis 2100 ABP, PAP, CO, CI - Last Documented Arterial Blood Pressure 164/45 - Exam GENERAL DESCRIPTION: An elderly female lying in bed in no distress to RESPIRATORY SYSTEM: Unlabored breathing , coarse breath sounds HEART: S1 S2 regular rate and rhythm , ABDOMEN: Soft , no tenderness EXTREMITIES: No edema feet - Labs CBC & Chem 7: 05/05/22 05:28 05/05/22 05:28 Labs: Abnormal Lab Results - Last 24 Hours (Table) 05/04/22 05/04/22 05/04/22 Range/Units 20:06 21:11 23:43 Neutrophils # (1.3-7.7) k/uL Lymphocytes # (1.0-4.8) k/uL Carbon Dioxide (22-30) mmol/L BUN (7-17) mg/dL Creatinine (0.52-1.04) mg/dL Glucose (74-99) mg/dL POC Glucose (mg/dL) 140 H 123 H 111 H (70-110) mg/dL 05/05/22 05/05/22 05/05/22 Range/Units 05:11 05:28 05:28 Neutrophils # 8.2 H (1.3-7.7) k/uL Lymphocytes # 0.9 L (1.0-4.8) k/uL Carbon Dioxide 19 L (22-30) mmol/L BUN 48 H (7-17) mg/dL Creatinine 5.59 H (0.52-1.04) mg/dL Glucose 130 H (74-99) mg/dL POC Glucose (mg/dL) 135 H (70-110) mg/dL 05/05/22 05/05/22 05/05/22 Range/Units 06:25 07:06 13:13 Neutrophils # (1.3-7.7) k/uL Lymphocytes # (1.0-4.8) k/uL Carbon Dioxide (22-30) mmol/L BUN (7-17) mg/dL Creatinine (0.52-1.04) mg/dL Glucose (74-99) mg/dL POC Glucose (mg/dL) 140 H 142 H 168 H (70-110) mg/dL Assessment and Plan (1) Sepsis Current Visit: Yes Status: Acute Code(s): A41.9 - SEPSIS, UNSPECIFIED ORGANISM SNOMED Code(s): 50518392 (2) Aspiration pneumonia Current Visit: Yes Status: Acute Code(s): J69.0 - PNEUMONITIS DUE TO INHALATION OF FOOD AND VOMIT SNOMED Code(s): 275961980 Plan: 1 patient presented to hospital with sepsis in this patient who did have a fever elevated white count with evidence of right upper lobe consolidation concerning for aspiration pneumonia in this patient also tested positive for influenza A as well as ballesteros PCR and concern for possible postinfluenzal bacterial pneumonia 2-blood culture has been negative and sputum culture grew Haemophilus 3-patient has completed her 5 day course of Tamiflu 4- patient has received about 8 days of antibiotic the form of Zosyn which should be enough, Zosyn has been discontinued by pulmonary and will monitor the patient closely off antibiotic therapy Time with Patient: Less than 30
--- NOTE | 2022-05-05 15:05 | P.PN ---
Subjective Progress Note Date: 05/04/22 05/04/2022: Patient was seen for a follow-up. Patient remains extubated. Patient severely encephalopathic. Patient with completely steering eyes. Does not make eye contact, does not track. Does not offer any complaints. Otherwise looks comfortable, not in any pain. 05/03/2022: Patient was seen for a follow-up. Patient was extubated at 12:30 PM today. Patient continues to be severely encephalopathic. Not responding to calling her name. Her eyes are open. Patient does not track, or makes eye contact. Please refer to examination below. Not able to offer any complaints. 05/02/2022: Patient was seen for a follow-up. Patient continues to be intubated. She is more awake, but very encephalopathic. Please refer to examination below. 05/01/2022: Patient initially seen by Dr. Kolton Méndez. Please refer to his note for details. Patient is a 71-year-old female, who was brought to the hospital by ambulance after she was found unresponsive at home. A wellness check was made by the police as she has not showed up for her hemodialysis. Patient was admitted with altered mental status. Patient also has Covid infection, influenza A. Patient was posturing therefore Keppra was started at 500 mg twice a day. Repeat EEG and CT were requested for today. Per nurse report, sedation has been discontinued since 04/28/2022. Patient has started showing some clinical improvement. At first she was laying still with no response with feet turned in. Now patient has started moving her arms, the reflexes are more appropriate. Her gag has improved and she is blinking more frequently. She is picking up her right leg onto the left. Her left leg movement is slightly less as compared to the right. She does not move her arms as much. Sometimes she tenses up her body. Patient has been CPAPing since 10 AM today. Objective - Vital Signs Vital signs: Vital Signs Temp 97.8 F 05/04/22 12:00 Pulse 69 05/04/22 13:00 Resp 19 05/04/22 13:00 BP 134/61 05/04/22 13:00 Pulse Ox 96 05/04/22 13:00 FiO2 40 05/03/22 08:49 Intake & Output 12/28/22 12/29/22 12/29/22 18:59 06:59 18:59 Intake Total 703.800 245 70 Output Total 2100 Balance 703.800 245 -2029 Weight 87.7 kg 90.8 kg Intake: IV 395 245 70 0.9 Normal Saline @ 10 mL 120 120 70 /hr KVO Piperacillin-Tazobactam 3 175 25 .375 gm In Sodium Chloride 0.9% 100 ml @ 25 mls/hr IVPB Q12H [facility] Rx# :[id number] levETIRAcetam IV 500 mg 100 100 In Sodium Chloride 0.9% 100 ml @ 400 mls/hr IVPB Q12HR [facility] Rx#:[id number] Intake, IV Titration 48.800 Amount Clevidipine Butyrate 25 48.800 mg In Empty Bag 1 bag @ 1 MG/HR 2 mls/hr IV .Q24H [facility] Rx#:[id number] Tube Feeding 230 Other 30 Output: Hemodialysis 2100 Other: Voiding Method Incontinent ABP, PAP, CO, CI - Last Documented Arterial Blood Pressure 164/45 - Exam GENERAL: The patient is laying in bed and does not appear in acute distress. LUNG: Patient is now extubated. HEENT: Patient's neck appears to be stiff. When tried to flex her head passively, she extends it more. NEUROLOGICAL: Patient is awake, but very encephalopathic. She keeps her eyes open, with straight gaze. Does not track, does not turn her head or eyes to the commands. Cranial nerves: The pupils are round, equal and reactive to light. Has positive corneal reflex bilaterally. Rest is limited. Face appears symmetric. Motor: Patient is moving her arms somewhat equally to painful stimuli, with some withdrawal. Hands appears weak. In the lower extremities, patient is moving right leg much better than the left. She frequently brings her right leg over the left. Appears generalized weak. Cerebellum: Unable to assess. Sensation: Seems to have intact painful stimuli. Reflexes (right/left): 1+ at the biceps, trace brachial radialis, absent in the lowers. Plantars are mute bilaterally. Although the right toe appears up at baseline, but is nonreactive. Some of the workup during his hospital visit consisted of: Influenza A and Richard virus PCR detected. Also possible underlying UTI. Troponin is a 1.07. Ammonia <9 TSH: 0.593 Urinalysis seems possible suggestive of underlying urinary tract infection CT of the head is reported as age-related atrophic and chronic small vessel ischemic changes without acute intracranial process seen at this time. CT angiography is reported as no significant abnormality. Chest x-ray was reported as peripheral nodule base consolidation right upper lobe. Could be on the basis of infiltrate or neoplastic process. Core sent interstitium correlate for chronic interstitial lung disease otherwise consider interstitial pneumonia or pneumonitis Prominence right hilum. Repeat x-ray recommend short-term basis to assess for developing infiltrate or adenopathy versus mass Routine EEG is abnormal. The background slowing suggestive of moderate to severe encephalopathy. The suppressions likely due to medication effect (sedatives). Otherwise there is no focal slowing, epileptiform discharges or seizure on the EEG. 2-D echo was reported as technically difficult study for agitation. Normal left ventricle diamonds and systolic function. She had repeat CT head on 04/28/22: It is reported as similar mild ventriculomegaly likely ex vacuo dilation from central cerebral atrophy. Mild patchy burden of chronic small vessel ischemic disease. No acute intracranial abnormality seen. Patient is intubated. His ongoing air-fluid level left maxillary sinus that could reflect acute sinusitis. Background mild chronic paranasal sinus disease. Opacification of the mastoid air cells on both sides. Partial opacification of the middle ear cavity as well. Correlate to exclude otomastoiditis Patient sputum is positive for Haemophilus influenza area - Labs CBC & Chem 7: 05/05/22 05:28 05/05/22 05:28 Labs: Abnormal Lab Results - Last 24 Hours (Table) 05/03/22 05/03/22 05/03/22 Range/Units 18:01 20:20 23:33 RBC (3.80-5.40) m/uL Hgb (11.4-16.0) gm/dL ABG Total CO2 (19-24) mmol/L Carbon Dioxide (22-30) mmol/L BUN (7-17) mg/dL Creatinine (0.52-1.04) mg/dL Glucose (74-99) mg/dL POC Glucose (mg/dL) 128 H 126 H 128 H (70-110) mg/dL 05/03/22 05/04/22 05/04/22 Range/Units 23:50 06:03 06:03 RBC 3.66 L (3.80-5.40) m/uL Hgb 10.8 L (11.4-16.0) gm/dL ABG Total CO2 27 H (19-24) mmol/L Carbon Dioxide 21 L (22-30) mmol/L BUN 85 H (7-17) mg/dL Creatinine 7.83 H* (0.52-1.04) mg/dL Glucose 102 H (74-99) mg/dL POC Glucose (mg/dL) (70-110) mg/dL Microbiology - Last 24 Hours (Table) 04/27/22 17:02 Blood Culture - Final Blood No Growth after 144 hours 04/27/22 16:50 Blood Culture - Final Blood No Growth after 144 hours Assessment and Plan Assessment: Persistent Encephalopathy, not significantly improving. Although it appears multifactorial: due to hypoxic respiratory failure from Influenza A and Coronavirus, some metabolic encephalopathy. Exam shows slight focal findings, but has been stable. Reported transient episode of right facial droop by EMS. Rule out stroke. Currently no facial weakness. Three CT head did not show any evidence of acute or subacute ischemic stroke. Status post extubation. Patient's mentation not improving at all. Influezna A infection Acute Covid-19 infection Consolidation of the right upper lobe concerning for infiltrate versus ne oplastic process on chest x-ray Elevated troponin End-stage renal disease on dialysis Congestive heart failure COPD Chronic anemia. Plan: * Patient is not showing any clinical improvement today. She continues to be severely encephalopathic, not tracking. Not making eye contact. * Await MRI of the brain evaluate for an acute stroke. * Lumbar puncture to rule out intracranial infection. Patient on Plavix, which now has been put on hold. Patient won't be able to get lumbar puncture until Sunday. * Discussed with patient's nursing staff in detail. * Repeat EEG 05/01/2022 Revealed background disorganization and slowing of moderate degree. No epileptiform activity was seen. When compared to the EEG from 04/27/2022, the background appears to have slightly improved. * Repeat CT head 05/01/2022 on my review showed no acute process. Continued presence of left maxillary and left frontal sinus disease, unchanged from CT head from 04/27/2022. As per radiologist report, stable exam with mild ventriculomegaly likely due to central cerebral atrophy. Mild to moderate burden of chronic small vessel ischemic disease. Continued air fluid level left maxillary sinus. Correlate to exclude acute sinusitis. Ongoing fluid opacification throughout the mastoid air cells/middle ear cavities which could relate to chronic intubation or auto mastoiditis. Suggest ENT consultation. * Because of intermittent posturing, Dr. Méndez started patient on prophylactic Keppra 500mg every 12 hours, with additional Keppra 500mg post dialysis. * Continue aspirin 81 mg (new during this admission) and her Plavix 75mg daily was resumed for secondary stroke prophylaxis. Also on Lipitor 40 mg daily for secondary stroke prophylaxis. * Patient on Zosyn for pneumonia. Hopefully will cover sinus/mastoid infection. * Consulted PT and OT, when able to participate * Regarding the questionable of suspicious neoplasm on chest x-ray will defer the management to the primary and pulmonary team. * We'll defer the rest of the medical management to the primary and ICU team * For DVT prophylaxis: Patient on Lovenox
[2022-05-05 17:48] LABS: Glucose,Whole Blood 162 mg/dL (70-110)
[2022-05-05 19:44] LABS: Glucose,Whole Blood 155 mg/dL (70-110)
--- NOTE | 2022-05-05 20:30 | XR ---
EXAMINATION TYPE: XR chest 1V portable DATE OF EXAM: 05/05/2022 7:39 PM COMPARISON: Chest radiographs from 05/01/2022. TECHNIQUE: XR chest 1V portable Portable AP radiograph of the chest. CLINICAL INDICATION:Female, 71 years old with history of ng tube placement; FINDINGS: Lungs/Pleura: There is no evidence of pleural effusion, focal consolidation, or pneumothorax. Pulmonary vascularity: Pulmonary vascular congestion. Heart/mediastinum: Cardiomediastinal silhouette is enlarged and stable. Musculoskeletal: No acute osseous pathology. Other findings: None Lines/Tubes: Endotracheal tube has been removed. Nasogastric tube with its distal tip and side-port projecting under the diaphragm. IMPRESSION: 1. Removal endotracheal tube. Persistent nasogastric tube in appropriate position. 2. Cardiomegaly hazy opacities could represent pulmonary vascular congestion. 3.
[2022-05-05] MEDS: hydrALAZINE HCL 20 MG/ML 1 ML VIAL IVP PRN (23:28)
[2022-05-05 23:34] LABS: Glucose,Whole Blood 155 mg/dL (70-110)
[2022-05-06] MEDS: ALBUTEROL HFA INHALER INHALATION SCH ×4 (04:59→20:34)
[2022-05-06 06:25] LABS: Glucose,Whole Blood 204 mg/dL (70-110)
[2022-05-06] MEDS: INSULIN ASPART (NovoLOG) 100 UNIT/ML VIAL SQ SCH ×4 (06:29→23:23)
[2022-05-06] MEDS: INSULIN DETEMIR (LEVEMIR) 100 UNIT/ML SYR SQ SCH ×2 (06:30→20:24)
[2022-05-06 06:35] LABS: Basophils # (A) 0.1 k/uL (0-0.2); Basophils % (A) 1 %; Eosinophils # (A) 0.4 k/uL (0-0.7); Eosinophils % (A) 4 %; HCT 35.1 % (34.0-46.0); HGB 11.2 gm/dL (11.4-16.0); Hypochromasia Moderate; Lymphocytes % (A) 10 %; MCH 29.6 pg (25.0-35.0); MCHC 31.9 g/dL (31.0-37.0); MCV 92.8 fL (80.0-100.0); Mean Platelet Volume 7.7; Monocytes # (A) 0.4 k/uL (0-1.0); Monocytes % (A) 4 %; Neutrophils # (A) 7.4 k/uL (1.3-7.7); Neutrophils % (A) 79 %; Platelet Count 356 k/uL (150-450); RBC 3.78 m/uL (3.80-5.40); WBC 9.4 k/uL (3.8-10.6)
[2022-05-06 06:44] LABS: Calcium 9.2 mg/dL (8.4-10.2); Potassium 4.2 mmol/L (3.5-5.1)
[2022-05-06] MEDS: ENOXAPARIN 30 MG/0.3 ML SYRINGE SQ SCH (08:46)
[2022-05-06] MEDS: levETIRAcetam IV 500 MG in SODIUM CHLORIDE 0.9% 100 ML IVPB SCH ×3 (08:46→20:24)
[2022-05-06] MEDS: PANTOPRAZOLE 40 MG/10 ML VIAL IVP SCH (08:46)
--- NOTE | 2022-05-06 10:07 | P.PN ---
Subjective Progress Note Date: 05/05/22 05/05/2022: Patient was seen for a follow-up. Patient laying in the bed, continues to be very encephalopathic. Still not tracking, not making eye contact. 05/04/2022: Patient was seen for a follow-up. Patient remains extubated. Patient severely encephalopathic. Patient with completely steering eyes. Does not make eye contact, does not track. Does not offer any complaints. Otherwise looks comfortable, not in any pain. 05/03/2022: Patient was seen for a follow-up. Patient was extubated at 12:30 PM today. Patient continues to be severely encephalopathic. Not responding to calling her name. Her eyes are open. Patient does not track, or makes eye contact. Please refer to examination below. Not able to offer any complaints. 05/02/2022: Patient was seen for a follow-up. Patient continues to be intubated. She is more awake, but very encephalopathic. Please refer to examination below. 05/01/2022: Patient initially seen by Dr. Kolton Méndez. Please refer to his note for details. Patient is a 71-year-old female, who was brought to the hospital by ambulance after she was found unresponsive at home. A wellness check was made by the police as she has not showed up for her hemodialysis. Patient was admitted with altered mental status. Patient also has Covid infection, influenza A. Patient was posturing therefore Keppra was started at 500 mg twice a day. Repeat EEG and CT were requested for today. Per nurse report, sedation has been discontinued since 04/28/2022. Patient has started showing some clinical improvement. At first she was laying still with no response with feet turned in. Now patient has started moving her arms, the reflexes are more appropriate. Her gag has improved and she is blinking more frequently. She is picking up her right leg onto the left. Her left leg movement is slightly less as compared to the right. She does not move her arms as much. Sometimes she tenses up her body. Patient has been CPAPing since 10 AM today. Objective - Vital Signs Vital signs: Vital Signs Temp 97.7 F 05/05/22 08:00 Pulse 82 05/05/22 11:00 Resp 15 05/05/22 11:00 BP 159/66 05/05/22 11:00 Pulse Ox 97 05/05/22 11:00 FiO2 40 05/03/22 08:49 Intake & Output 05/04/22 05/05/22 05/05/22 18:59 06:59 18:59 Intake Total 120 120 50 Output Total 2100 200 Balance -1979 120 -150 Weight 88.8 kg Intake: IV 120 120 50 0.9 Normal Saline @ 10 mL 120 120 50 /hr KVO Output: Stool 200 Hemodialysis 2100 ABP, PAP, CO, CI - Last Documented Arterial Blood Pressure 164/45 - Exam GENERAL: The patient is laying in bed and does not appear in acute distress. LUNG: Patient is now extubated. Chest appears clear. HEENT: Patient's neck appears to be stiff. When tried to flex her head passively, she extends it more. NEUROLOGICAL: Patient is awake, but very encephalopathic. She keeps her eyes open, with straight gaze. Does not track, does not turn her head or eyes to the commands. Cranial nerves: The pupils are round, equal and reactive to light. Has positive corneal reflex bilaterally. Rest is limited. Face appears symmetric. Motor: Patient is moving her arms somewhat equally to painful stimuli, with some withdrawal. Hands appears weak. In the lower extremities, patient is moving right leg much better than the left. She frequently brings her right leg over the left. Appears generalized weak. Cerebellum: Unable to assess. Sensation: Seems to have intact painful stimuli. Reflexes (right/left): 1+ at the biceps, trace brachial radialis, absent in the lowers. Plantars are mute bilaterally. Although the right toe appears up at baseline, but is nonreactive. Some of the workup during his hospital visit consisted of: Influenza A and Richard virus PCR detected. Also possible underlying UTI. Troponin is a 1.07. Ammonia <9 TSH: 0.593 Urinalysis seems possible suggestive of underlying urinary tract infection CT of the head is reported as age-related atrophic and chronic small vessel ischemic changes without acute intracranial process seen at this time. CT angiography is reported as no significant abnormality. Chest x-ray was reported as peripheral nodule base consolidation right upper lobe. Could be on the basis of infiltrate or neoplastic process. Core sent interstitium correlate for chronic interstitial lung disease otherwise consider interstitial pneumonia or pneumonitis Prominence right hilum. Repeat x-ray recommend short-term basis to assess for developing infiltrate or adenopathy versus mass Routine EEG is abnormal. The background slowing suggestive of moderate to severe encephalopathy. The suppressions likely due to medication effect (sedatives). Otherwise there is no focal slowing, epileptiform discharges or seizure on the EEG. 2-D echo was reported as technically difficult study for agitation. Normal left ventricle diamonds and systolic function. She had repeat CT head on 04/28/22: It is reported as similar mild ventriculomegaly likely ex vacuo dilation from central cerebral atrophy. Mild patchy burden of chronic small vessel ischemic disease. No acute intracranial abnormality seen. Patient is intubated. His ongoing air-fluid level left maxillary sinus that could reflect acute sinusitis. Background mild chronic paranasal sinus disease. Opacification of the mastoid air cells on both sides. Partial opacification of the middle ear cavity as well. Correlate to exclude otomastoiditis Patient sputum is positive for Haemophilus influenza area - Labs CBC & Chem 7: 05/06/22 05:52 05/06/22 05:52 Labs: Abnormal Lab Results - Last 24 Hours (Table) 05/04/22 05/04/22 05/04/22 Range/Units 20:06 21:11 23:43 Neutrophils # (1.3-7.7) k/uL Lymphocytes # (1.0-4.8) k/uL Carbon Dioxide (22-30) mmol/L BUN (7-17) mg/dL Creatinine (0.52-1.04) mg/dL Glucose (74-99) mg/dL POC Glucose (mg/dL) 140 H 123 H 111 H (70-110) mg/dL 05/05/22 05/05/22 05/05/22 Range/Units 05:11 05:28 05:28 Neutrophils # 8.2 H (1.3-7.7) k/uL Lymphocytes # 0.9 L (1.0-4.8) k/uL Carbon Dioxide 19 L (22-30) mmol/L BUN 48 H (7-17) mg/dL Creatinine 5.59 H (0.52-1.04) mg/dL Glucose 130 H (74-99) mg/dL POC Glucose (mg/dL) 135 H (70-110) mg/dL 05/05/22 05/05/22 Range/Units 06:25 07:06 Neutrophils # (1.3-7.7) k/uL Lymphocytes # (1.0-4.8) k/uL Carbon Dioxide (22-30) mmol/L BUN (7-17) mg/dL Creatinine (0.52-1.04) mg/dL Glucose (74-99) mg/dL POC Glucose (mg/dL) 140 H 142 H (70-110) mg/dL Assessment and Plan Assessment: Persistent Encephalopathy, not significantly improving. Although it appears multifactorial: due to hypoxic respiratory failure from Influenza A and Coronavirus, some metabolic encephalopathy. Exam shows slight focal findings, but has been stable. Reported transient episode of right facial droop by EMS. No evidence of acute stroke noted on MRI. Status post extubation. Patient's mentation not improving significantly. She is slightly more awake. Influezna A infection Acute Covid-19 infection Consolidation of the right upper lobe concerning for infiltrate versus neoplastic process on chest x-ray Elevated troponin End-stage renal disease on dialysis Congestive heart failure COPD Chronic anemia. Plan: * Patient is not showing any clinical improvement today. She continues to be severely encephalopathic, not tracking. Not making eye contact. * MRI of the brain without contrast revealed multiple bilateral periventricular white matter ischemic Changes. Findings can be compatible with chronic white matter ischemic changes. Multiple sclerosis and vasculitis is within the differential. No suspicious acute changes took on for left-sided weakness. I personally reviewed MRI, agree with the findings. Findings suggestive of small vessel disease. Acute left maxillary sinusitis. Suggest ENT consultation for persistent left maxillary sinusitis and possible mastoiditis. * Lumbar puncture to rule out intracranial infection. Patient on Plavix, which now has been put on hold. Lumbar puncture to be performed on Sunday. Discussed with ID, agreed for LP. * Repeat EEG 05/01/2022 Revealed background disorganization and slowing of moderate degree. No epileptiform activity was seen. When compared to the EEG from 04/27/2022, the background appears to have slightly improved. * Because of intermittent posturing, Dr. Méndez started patient on prophylactic Keppra 500mg every 12 hours, with additional Keppra 500mg post dialysis. We will check Keppra level. * Continue aspirin 81 mg (new during this admission) and her Plavix 75mg daily was resumed for secondary stroke prophylaxis. Also on Lipitor 40 mg daily for secondary stroke prophylaxis. Plavix on hold for upcoming LP. May resume Plavix after LP. * Patient completed antibiotics * Consulted PT and OT, when able to participate * Regarding the questionable of suspicious neoplasm on chest x-ray will defer the management to the primary and pulmonary team. * We'll defer the rest of the medical management to the primary and ICU team * For DVT prophylaxis: Patient on Lovenox
--- NOTE | 2022-05-06 10:08 | P.CRDCN ---
History of Present Illness Consult date: 05/06/22 Chief complaint: Change in mental status History of present illness: The patient is a 71-year-old female patient was requested to see in the [facility] care unit for further evaluation of cardiac arrhythmia. The patient does have significant change in mental status and she is very poor historian and the history was taken from the chart as well as from was taking care of the patient. The patient is almost nonverbal. She was admitted to the hospital a few days ago with a change in mental status of unknown etiology. Subsequently she was in tubated and subsequently she was extubated. The distal workup to be continued regarding the etiology of the change in mental status. Beside that she does have extensive past medical history consistent of end-stage renal disease on dialysis as well as coronary artery disease and hypertension and dyslipidemia. She was tested positive for both COVID-19 infection as well as influenza. The reason we consulted to see the patient because of cardiac arrhythmia. On the monitor it was noted that the patient was going into what it seems to be in atrial fibrillation versus atrial tachycardia. Hemodynamically she remained stable and not on any vasopressors. She was receiving at home metoprolol at 100 mg by mouth twice a day but that was held when she was admitted to the hospital. No indication that the patient was experiencing any chest pain or chest discomfort or any feeling of heart racing or fluttering. I'm going to start the patient on metoprolol tartrate 12.5 mg by mouth twice a day. She underwent an echo which revealed normal left ventricular systolic function. Past Medical History Past Medical History: Asthma, Coronary Artery Disease (CAD), Chest Pain / Angina, Heart Failure, COPD, Diabetes Mellitus, Eye Disorder, Osteoarthritis (OA), Renal Disease Additional Past Medical History / Comment(s): CURRENTLY ON HEMODIALYSIS ,,, [facility]. L4, L5 and C6 disc degeneration. Stage 4 kidney disease. Rt great toe wound infection recurrent. Macular Degeneration. History of Any Multi-Drug Resistant Organisms: None Reported Past Surgical History: Adenoidectomy, Appendectomy, Section, Heart Catheterization, Heart Catheterization With Stent, Hysterectomy, Tonsillectomy Additional Past Surgical History / Comment(s): Vein ligation right leg, catarcts removed bilaterally. Past Anesthesia/Blood Transfusion Reactions: No Reported Reaction Date of Last Stent Placement:: FEBRUARY 2016, [facility] Past Psychological History: Depression Smoking Status: Former smoker Past Alcohol Use History: None Reported Past Drug Use History: None Reported - Past Family History Mother Family Medical History: Diabetes Mellitus, Hypertension Father Family Medical History: Diabetes Mellitus, Hypertension Medications and Allergies Home Medications Medication Instructions Recorded Confirmed Type Albuterol Sulfate [Proair Hfa] 1 - 2 puff INHALATION RT-Q6H PRN 09/13/15 04/27/22 History Pravastatin Sodium [Pravachol] 40 mg PO HS 09/13/15 04/27/22 History Clopidogrel [Plavix] 75 mg PO DAILY 07/22/20 04/27/22 History HYDROcodone/APAP 7.5-325MG [Jefferson 1 tab PO QID PRN 07/22/20 04/27/22 History 7.5-325] Metoprolol Tartrate [Lopressor] 100 mg PO BID 07/22/20 04/27/22 History Calcium Acetate [Phoslo] 1,334 mg PO TID-W/MEALS 09/27/20 04/27/22 History Ergocalciferol [Vitamin D2 (1250 1,250 mcg PO Q7D 09/27/20 04/27/22 History Mcg = 62367 Iu)] Gabapentin [Neurontin] 300 mg PO BID 09/27/20 04/27/22 History hydrALAZINE HCL [Apresoline] 25 mg PO BID PRN 09/27/20 04/27/22 History DULoxetine HCL [Cymbalta] 60 mg PO DAILY 04/27/22 04/27/22 History Doxycycline Hyclate 100 mg PO DIRECTED 04/27/22 04/27/22 History Furosemide [Lasix] 80 mg PO DAILY 04/27/22 04/27/22 History Insulin Glargine,Hum.rec.anlog 40 - 50 units SQ DAILY 04/27/22 04/27/22 History [Lantus Solostar Pen] Insulin Lispro [humaLOG Kwikpen] 0 - 30 unit SQ AC-TID 04/27/22 04/27/22 History Isosorbide Dinitrate 10 mg PO BID 04/27/22 04/27/22 History Lidocaine-Prilocaine Cream [Emla 1 applic TOPICAL DAILY PRN 04/27/22 04/27/22 History Cream 2.5%/2.5%] Montelukast [Singulair] 10 mg PO DAILY 04/27/22 04/27/22 History Nephro-Chelsey 1 tab PO DAILY 04/27/22 04/27/22 History Sevelamer [Renvela] 1,600 mg PO TID-W/MEALS 04/27/22 04/27/22 History Triamcinolone 0.025% Cream 1 applic TOPICAL BID PRN 04/27/22 04/27/22 History [Kenalog 0.025% Cream] predniSONE 10 mg PO DIRECTED 04/27/22 04/27/22 History Allergies Allergy/AdvReac Type Severity Reaction Status Date / Time No Known Allergies Allergy Verified 09/29/20 11:49 Physical Exam Vitals: Vital Signs Temp Pulse Resp BP BP Pulse Ox 05/06/22 09:30 75 16 131/63 95 05/06/22 09:00 74 16 133/58 94 L 05/06/22 08:30 77 10 L 141/61 96 05/06/22 08:00 97.9 F 77 16 124/56 95 05/06/22 07:30 75 17 140/58 96 05/06/22 07:00 82 22 154/64 97 05/06/22 06:30 84 19 152/61 98 05/06/22 06:00 80 14 147/66 96 05/06/22 05:30 82 13 157/67 96 05/06/22 05:00 85 18 146/66 97 05/06/22 04:30 83 18 149/65 95 05/06/22 04:00 97 F L 81 20 150/62 96 05/06/22 03:30 86 17 151/64 95 05/06/22 03:00 81 18 153/66 94 L 05/06/22 02:30 83 16 156/63 96 05/06/22 02:00 76 14 164/67 96 05/06/22 01:30 79 17 149/62 96 05/06/22 01:00 80 15 137/59 97 05/06/22 00:30 82 16 138/55 96 05/06/22 00:00 97.7 F 82 16 157/59 95 05/05/22 23:20 164/72 05/05/22 23:10 170/76 05/05/22 23:00 78 17 157/67 97 05/05/22 22:00 77 18 146/54 94 L 05/05/22 21:00 79 16 146/65 96 05/05/22 20:00 98.2 F 89 16 152/63 96 05/05/22 19:00 81 16 163/73 96 05/05/22 18:00 73 15 162/66 98 05/05/22 17:00 78 21 157/71 92 L 05/05/22 16:00 97.7 F 78 19 150/64 93 L 05/05/22 15:00 80 12 149/66 97 05/05/22 14:00 75 17 151/65 98 05/05/22 13:00 81 16 141/64 96 05/05/22 12:00 97.7 F 126 H 18 159/68 98 05/05/22 11:00 82 15 159/66 97 Intake and Output 05/05/22 05/06/22 05/06/22 22:59 06:59 14:59 Intake Total 180 80 122 Output Total 0 Balance 180 80 122 Intake: IV 180 80 30 0.9 Normal Saline @ 10 mL 80 80 30 /hr KVO levETIRAcetam IV 500 mg 100 In Sodium Chloride 0.9% 100 ml @ 400 mls/hr IVPB Q12HR [facility] Rx#:[id number] Tube Feeding 62 Other 30 Output: Urine 0 Other: Weight 85.7 kg - Constitutional General appearance: no acute distress Results 05/06/22 05:52 05/06/22 05:52 CBC 05/06/22 Range/Units 05:52 WBC 9.4 (3.8-10.6) k/uL RBC 3.78 L (3.80-5.40) m/uL Hgb 11.2 L (11.4-16.0) gm/dL Hct 35.1 (34.0-46.0) % Plt Count 356 (150-450) k/uL Comprehensive Metabolic Panel 05/06/22 Range/Units 05:52 Sodium 139 (137-145) mmol/L Potassium 4.2 (3.5-5.1) mmol/L Chloride 100 (98-107) mmol/L Carbon Dioxide 17 L (22-30) mmol/L BUN 66 H (7-17) mg/dL Creatinine 7.73 H* (0.52-1.04) mg/dL Glucose 200 H (74-99) mg/dL Calcium 9.2 (8.4-10.2) mg/dL Current Medications Generic Name Dose Route Start Last Admin Trade Name Freq PRN Reason Stop Dose Admin Albuterol Sulfate 2 puff 04/28/22 00:50 05/06/22 04:59 Albuterol Hfa Inhaler INHALATION Not Given RT-QID [facility] Enoxaparin Sodium 30 mg 04/29/22 09:00 05/06/22 08:46 Enoxaparin 30 Mg/0.3 Ml Syringe SQ 30 mg DAILY MARILEE Administration Hydralazine HCl 10 mg 05/02/22 10:24 05/05/22 23:28 Hydralazine Hcl 20 Mg/Ml 1 Ml Vial IVP 10 mg Q4HR PRN Administration Blood Pressure - High Levetiracetam 500 mg/ Sodium 105 mls @ 400 mls/hr 04/29/22 12:45 05/06/22 08:46 Chloride IVPB 400 mls/hr Q12HR MARILEE Administration Levetiracetam 500 mg/ Sodium 105 mls @ 400 mls/hr 05/02/22 18:00 05/04/22 18:59 Chloride IVPB 400 mls/hr TuThSa@1800 [facility] Administration Insulin Aspart 0 unit 04/29/22 00:00 05/06/22 06:29 Insulin Aspart (Novolog) 100 Unit/Ml Vial SQ 6 unit Q6H [facility] Administration Protocol Insulin Detemir 35 unit 05/03/22 21:00 05/06/22 06:30 Insulin Detemir (Levemir) 100 Unit/Ml Syr SQ 35 unit BID@0700,2100 [facility] Administration Pantoprazole Sodium 40 mg 04/28/22 09:00 05/06/22 08:46 Pantoprazole 40 Mg/10 Ml Vial IVP 40 mg DAILY [facility] Administration Triamcinolone Acetonide 1 applic 04/27/22 15:26 Triamcinolone 0.1% Cream 80 Gm Tube TOPICAL BID PRN SKIN ISSUES Intake and Output 05/05/22 05/06/22 05/06/22 22:59 06:59 14:59 Intake Total 180 80 122 Output Total 0 Balance 180 80 122 Intake: IV 180 80 30 0.9 Normal Saline @ 10 mL 80 80 30 /hr KVO levETIRAcetam IV 500 mg 100 In Sodium Chloride 0.9% 100 ml @ 400 mls/hr IVPB Q12HR [facility] Rx#:[id number] Tube Feeding 62 Other 30 Output: Urine 0 Other: Weight 85.7 kg 05/06/22 05:52 05/06/22 05:52 Assessment and Plan Assessment: Assessment Acute hypoxic respiratory failure which has improved Change in mental status Cardiac arrhythmia as described above CAD End stage renal disease Multiple comorbid conditions Plan Start the patient on beta rain with metoprolol titrate Continue the current medical regimen Follow-up with the patient
--- NOTE | 2022-05-06 10:57 | P.PN ---
Subjective Progress Note Date: 05/06/22 Principal diagnosis: Mental status changes. Reevaluated today on 04/30/22, patient remains in the ICU, intubated and mechanically ventilated. She is on assist control rate of 16 tidal volume 400 FiO2 40% and PEEP of 8. Patient is off sedation completely, however she is awake, opening her eyes, but she is not spending to any stimuli. Patient has no purposeful movement, she is not responsive to stimuli, obviously she has what seems to be a severe encephalopathy, suspect anoxic encephalopathy. Patient has IV fluid at KVO, she is receiving vital HP at 24 mL an hour.ABG today showed a pO2 of 83 pCO2 45 pH of 7.45 hence no changes were made in her vent settings. CBC is unremarkable WBC count 12.6 hemoglobin is 9.9.basic metabolic profile is normal bicarb is 30 BUN is 39 creatinine 5.74, patient was dialyzed yesterday, but no dialysis is planned so far for today.chest x-ray no evidence of active disease, continues to have left lower lobe atelectasis. Reevaluated today on 05/01/22, patient remains in the ICU, intubated and mechanically ventilated. She is on assist control of 16.400 FiO2 40% and PEEP of 5 ABG showed a pO2 of 110 pCO2 44 pH of 7.44. Neurologically, the patient remains about the same, she opens her eyes, but does not have any purposeful movement whatsoever. Does not follow any instructions. Patient is clearly encephalopathic. Remains on vitamin HP at 24 mL/h, her IV fluid to KVO, scheduled to have CT of the head and EEG again today. Patient is clearly not ready for weaning mostly because of her neurological status, in the meantime I'm recommending placing the patient on pressure support control mode of mechanical ventilation at 12, and CPAP, and if she tolerates we'll keep her on that mode until hopefully her mental status improves were and we could consider weaning and extubation. Otherwise the patient may have to be considered for tracheostomy and PEG tube placement. WBC count is 9.8 hemoglobin is 9.5. Basic metabolic profile is normal BUN is 70 creatinine 7.59, patient may undergo dialysis today. Chest x-ray is basically unremarkable continues to have some basilar atelectasis especially at the left base Progress note dated 05/02/2022. 71-year-old female who was admitted on April 27 with mental status changes, aspiration pneumonia, and respiratory failure. She was intubated on April 27. The patient also tested positive for influenza, and coronavirus. She remains on the ventilator, and is seen in room 256. She's on volume assist control, rate 16, tidal volume 400, FiO2 40%, and PEEP of 8. Blood gases show pO2 of 113, pCO2 45, and pH is 7.39. The patient's currently on Cleveprex at 4 mg an hour, saline at 10 mL an hour, and propofol, has been weaned off. The patient's getting vital high protein at 46 mL an hour, which is goal. The patient will have a pressure support CPAP trial today. Computed tomography scan of the brain was negative. Sputum showed evidence of Haemophilus influenzae. She is on Zosyn. White count 8.7, hemoglobin 9.5, hematocrit 30.5, and platelet count 396,000. Sodium 144, potassium 4.2, chlorides 101, CO2 27, anion gap 16, BUN 93, and creatinine 8.92. Chest x-ray shows infiltrate or atelectasis at the lung base on the left, and in the retrocardiac region. Progress note dated 05/03/2022. 71-year-old female was admitted on April 27, with mental status changes, respiratory failure, and aspiration pneumonia. She was intubated on April 27, and did test positive for both influenza, and coronavirus. She remains on the ventilator, in room 256. She's on volume assist control, rate 16, tidal volume 400, FiO2 40%, and PEEP of 8. Blood gases show pO2 of 80, pCO2 43, and a pH is 7.43. The patient's getting saline at KVO, Cleveprex at 6 mg an hour, and vital high protein, at 46 mL an hour, which is goal. The patient will have a spontaneous breathing trial, at pressure support of 8 and CPAP of 5. White count 11.1, hemoglobin 10.3, hematocrit 32.1, and platelet count normal. Sodium 140, potassium 3.8, chlorides 99, CO2 27, BUN 63, and creatinine 6.18. Sputum was positive for Haemophilus influenzae on April 27. Chest x-ray is largely unchanged. Progress note dated 05/04/2022. 71-year-old female admitted April 27, with mental status changes, respiratory failure, and aspiration pneumonia. She was intubated on April 27, and did test positive for both influenza, and coronavirus. She is seen today in room 256. She was successfully extubated yesterday, May 03. She's currently on 3 L of oxygen. She's getting saline at KVO. She is going to have hemodialysis today. Neurology saw the patient for altered mental status. She scheduled to have an MRI, and a lumbar puncture. White count 9.3, hemoglobin 10.8, hematocrit 34.4, and platelet count is normal. Sodium 142, potassium 4.2, chlorides 103, CO2 21, anion gap 18, BUN 85, and creatinine 7.83. Sputum was positive for Haemophilus influenzae, on April 27. Progress note dated 05/05/2022. 71-year-old female who is again seen in room 256. She is on 3 L of oxygen. Getting saline at 10 mL an hour. The MRI that was done, showed nothing acute. They're mostly chronic changes, including some ischemic changes. The patient's mental status is unchanged. She opens her eyes to painful stimuli. She looks at you, but does not speak. Zosyn will be discontinued today. CBC is normal. Sodium 138, potassium 4.5, chlorides 100, CO2 19, anion gap 19, BUN 48, and creatinine 5.59. Calcium is 9.4. Sputum was positive for Haemophilus influenzae on April 27, and the patient has received more than enough Zosyn. Progress note dated 05/06/2022. 71-year-old female again seen in room 256. She remains on 3 L of oxygen. The patient's getting saline at 10 mL an hour. The patient's also receiving vital high protein at 31 mL an hour, which is goal. An NG tube was placed yesterday for tube feeds. She is going to get hemodialysis today with the plan of rem oving 2 L. Her mental status is unchanged. White count 9.4, hemoglobin 11.2, and platelet count 356,000. Sodium 139, potassium 4.2, chlorides 100, CO2 17, anion gap 22, BUN 66, and creatinine 7.73. Glucose 200. Objective - Vital Signs Vital signs: Vital Signs Temp 97.9 F 05/06/22 08:00 Pulse 88 05/06/22 10:00 Resp 14 12/31/22 10:00 BP 148/73 05/06/22 10:00 Pulse Ox 96 05/06/22 10:00 FiO2 40 05/03/22 08:49 Intake & Output 05/05/22 05/06/22 05/06/22 18:59 06:59 18:59 Intake Total 120 220 263 Output Total 200 0 Balance -80 220 263 Weight 88.8 kg 85.7 kg Intake: IV 120 220 140 0.9 Normal Saline @ 10 mL 120 120 40 /hr KVO levETIRAcetam IV 500 mg 100 100 In Sodium Chloride 0.9% 100 ml @ 400 mls/hr IVPB Q12HR [facility] Rx#:[id number] Tube Feeding 93 Other 30 Output: Urine 0 Stool 200 ABP, PAP, CO, CI - Last Documented Arterial Blood Pressure 164/45 - Exam No acute distress, poorly responsive. Opens eyes to painful stimuli. Remains on 3 L. HEENT examination is grossly unremarkable. Neck supple. Full range of motion. No adenopathy thyromegaly or neck vein distention. Cardiovascular examination reveals regular rhythm rate. S1-S2 normal. No S3 or S4. No discernible murmur noted. Heart sounds are distant. Heart rate 88 bpm. Lungs reveal coarse bilateral rhonchi. No wheezes or crackles. Breath sounds equal. Saturations are 95 %. Abdomen is soft, without bowel sounds. No masses or tenderness. Extremities are intact. No cyanosis clubbing or edema. Skin is without rash or lesion. Neurologic examination is unchanged. - Labs CBC & Chem 7: 05/06/22 05:52 05/06/22 05:52 Labs: Abnormal Lab Results - Last 24 Hours (Table) 05/05/22 05/05/22 05/05/22 Range/Units 13:13 17:46 19:43 RBC (3.80-5.40) m/uL Hgb (11.4-16.0) gm/dL Carbon Dioxide (22-30) mmol/L BUN (7-17) mg/dL Creatinine (0.52-1.04) mg/dL Glucose (74-99) mg/dL POC Glucose (mg/dL) 168 H 162 H 155 H (70-110) mg/dL 05/05/22 05/06/22 05/06/22 Range/Units 23:21 05:52 05:52 RBC 3.78 L (3.80-5.40) m/uL Hgb 11.2 L (11.4-16.0) gm/dL Carbon Dioxide 17 L (22-30) mmol/L BUN 66 H (7-17) mg/dL Creatinine 7.73 H* (0.52-1.04) mg/dL Glucose 200 H (74-99) mg/dL POC Glucose (mg/dL) 155 H (70-110) mg/dL 05/06/22 Range/Units 06:23 RBC (3.80-5.40) m/uL Hgb (11.4-16.0) gm/dL Carbon Dioxide (22-30) mmol/L BUN (7-17) mg/dL Creatinine (0.52-1.04) mg/dL Glucose (74-99) mg/dL POC Glucose (mg/dL) 204 H (70-110) mg/dL Assessment and Plan Assessment: Acute hypoxemic respiratory failure, of unclear etiology, S/P intubation on 04/27/2022, S/P extubation on 05/03/2022. Possible CVA/seizure disorder. Possible anoxic brain injury, versus metabolic encephalopathy. Acute aspiration pneumonia. Positive test for coronavirus infection, without evidence of coronavirus associated pneumonia. Influenza A infection. End-stage renal disease, currently on hemodialysis. History of CAD. History of CHF. History of asthma. CAD with previous stent placement. Type 2 diabetes. Degenerative joint disease. Plan: Plan dated 05/02/2022. The patient is currently on Zosyn for H. influenzae infection. Labs, x-rays, and medications are reviewed. The patient remains on Cleveprex for blood pressure control. Propofol has been weaned off. The patient will get a spontaneous breathing trial with pressure support of 5 and CPAP of 5. The patient is getting tube feedings with vital high protein at goal. We will continue to follow and make recommendations along the way. Prognosis is guarded. Computed tomography scan of the brain was negative. Plan dated 05/03/2022. The patient is ready for a spontaneous breathing trial with pressure support of a CPAP of 5. The patient continues on Zosyn for I believe a more day. The patient is likely to get extubated. Labs, x-rays, and medications are reviewed. We will continue to follow make recommendations along the way. Overall pr ognosis remains guarded. No additional recommendations are made at this time. I did speak to the patient's son yesterday. Plan dated 05/04/2022. The patient was successfully extubated on May 03. The patient is currently on 3 oxygen. The patient will have hemodialysis today. The big issue with this patient continues to be her mental status. This could well be metabolic encephalopathy. Neurology recommends an MRI, and a lumbar puncture. We will continue to follow make recommendations along the way. We'll also talk to the family about treating this patient, down the road, depending on what we find. Plan dated 05/05/2022. The patient's a child to the patient's son, about the possibility of a feeding tube, i.e. PEG tube. In the short-term, the patient may benefit from an NG t ube, and enteral nutrition. Also, we will confirm CODE STATUS with son. Additional recommendations and suggestions are forthcoming. Labs, x-rays, and medications are reviewed. Zosyn is discontinued. Prognosis is guarded. Plan dated 05/06/2022. The patient's mental status is unchanged. The patient is on 3 L. She has an NG tube in place, for enteral nutrition. She is going to have hemodialysis today. The goal is removal of 2 L of fluid. All antibiotics have been discontinued. We will continue to follow the patient make recommendations along the way. Prognosis is very guarded. Time with Patient: Less than 30
--- NOTE | 2022-05-06 11:34 | P.PN ---
Subjective Patient is seen in follow-up for end-stage renal disease. She is maintained on hemodialysis on Sunday schedule. Extubated 05/03/2022. Tolerating dialysis well. No change in mentation. Vital signs are stable. General: Resting in bed. HEENT: NG tube noted. ABDOMEN: No distention noted. EXTREMITITES: Trace edema. Objective - Vital Signs Vital signs: Vital Signs Temp 97.9 F 05/06/22 08:00 Pulse 89 05/06/22 11:00 Resp 10 L 05/06/22 11:00 BP 124/62 05/06/22 11:00 Pulse Ox 97 05/06/22 11:00 FiO2 40 05/03/22 08:49 Intake & Output 05/05/22 05/06/22 05/06/22 18:59 06:59 18:59 Intake Total 120 220 273 Output Total 200 0 Balance -80 220 273 Weight 88.8 kg 85.7 kg Intake: IV 120 220 150 0.9 Normal Saline @ 10 mL 120 120 50 /hr KVO levETIRAcetam IV 500 mg 100 100 In Sodium Chloride 0.9% 100 ml @ 400 mls/hr IVPB Q12HR [facility] Rx#:[id number] Tube Feeding 93 Other 30 Output: Urine 0 Stool 200 ABP, PAP, CO, CI - Last Documented Arterial Blood Pressure 164/45 - Labs CBC & Chem 7: 05/06/22 05:52 05/06/22 05:52 Labs: Abnormal Lab Results - Last 24 Hours (Table) 05/05/22 05/05/22 05/05/22 Range/Units 13:13 17:46 19:43 RBC (3.80-5.40) m/uL Hgb (11.4-16.0) gm/dL Carbon Dioxide (22-30) mmol/L BUN (7-17) mg/dL Creatinine (0.52-1.04) mg/dL Glucose (74-99) mg/dL POC Glucose (mg/dL) 168 H 162 H 155 H (70-110) mg/dL 05/05/22 05/06/22 05/06/22 Range/Units 23:21 05:52 05:52 RBC 3.78 L (3.80-5.40) m/uL Hgb 11.2 L (11.4-16.0) gm/dL Carbon Dioxide 17 L (22-30) mmol/L BUN 66 H (7-17) mg/dL Creatinine 7.73 H* (0.52-1.04) mg/dL Glucose 200 H (74-99) mg/dL POC Glucose (mg/dL) 155 H (70-110) mg/dL 05/06/22 Range/Units 06:23 RBC (3.80-5.40) m/uL Hgb (11.4-16.0) gm/dL Carbon Dioxide (22-30) mmol/L BUN (7-17) mg/dL Creatinine (0.52-1.04) mg/dL Glucose (74-99) mg/dL POC Glucose (mg/dL) 204 H (70-110) mg/dL Assessment and Plan Plan: Assessment: 1. End-stage renal disease making on hemodialysis on Sunday schedule. 2. Acute hypoxic respiratory failure secondary to pneumonia. Patient tested positive for covid-19 and influenza A. 3. Diabetes mellitus. 4. History of coronary artery disease. 5. Concern for anoxic brain injury. 6. Hypertension with chronic kidney disease. 7. Anemia of chronic kidney disease. Hemoglobin stable. 8. Chronic kidney disease mineral bone disease. Phosphorous 8.2. 9. Metabolic acidosis secondary to chronic kidney disease. Expect improvement post dialysis. Plan: Currently seen while undergoing hemodialysis. Start Renvela 3 times a day. Tube feeds to be started. Prognosis guarded.
[2022-05-06 11:36] LABS: Glucose,Whole Blood 160 mg/dL (70-110)
[2022-05-06] MEDS: METOPROLOL TARTRATE 12.5 MG TAB PO SCH ×2 (12:29→20:24)
[2022-05-06] MEDS: SEVELAMER 800 MG TAB PO SCH ×2 (12:29→17:35)
--- NOTE | 2022-05-06 14:04 | P.PN ---
Subjective This is a pleasant 71 years old female with multiple medical problems including end-stage renal disease presents with hypoxia requiring intubation and she got extubated on 05/03 with some evidence of infection including cough and, influenza and positive sputum culture for Haemophilus influenzae was suspicion for aspiration pneumonia, currently she is being covered with Zosyn and her oxygen requirement down to 3 L/m However patient remains acutely encephalopathic with suspected anoxic brain energy, rule out other causes, neurologist on the case, patient MRI of the brain showing chronic white matter ischemic changes with differential diagnosis of multiple sclerosis and vasculitis but there is no evidence of acute ischemic changes or CVA. Also there is some concern for mastoiditis per radiologist. Patient continued on hemodialysis per nephrology team recommendation. Creatinine 7.8, reviewed stable Patient also kept on Keppra 500 mg and 500 milligrams after dialysis And sugar controlled on insulin 35 units Levemir twice a day 05/05/2022 Patient mentation remains the same, no much improvement, normal contraction. MRI of the brain result was noted yesterday, patient has chronic ischemic changes with no acute event to explain patient's symptoms, differential diagnosis included multiple sclerosis and vasculitis, neurologist following the case closely. She remains on Keppra twice daily and Ranexa dose after dialysis. Glucose cont rol and Levemir 35 units. She remains on Zosyn. Patient is afebrile, vitals looks stable, still short of breath with occasional coughing. Creatinine 5.5, rest of labs looks stable. 05/06/2022 Patient currently remains encephalopathic, she opens eyes spontaneously and withdrawal to pain but she does not follow commands or answer questions. Patient's currently unable to eat and she has NG tube in a Place with vital high-protein feeding She is on 3 L oxygen via nasal cannula She is still getting hemodialysis and creatinine 7.7, hemoglobin 8.3 Aprilcalcitonin is normal 0.09 and antibiotic of Zosyn was discontinued. She kept and Keppra and neurology followed closely Patient course complicated by new onset A. 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 Objective - Vital Signs Vital signs: Vital Signs Temp 97.9 F 05/06/22 08:00 Pulse 88 05/06/22 10:00 Resp 14 05/06/22 10:00 BP 148/73 05/06/22 10:00 Pulse Ox 96 05/06/22 10:00 FiO2 40 05/03/22 08:49 Intake & Output 05/05/22 05/06/22 05/06/22 18:59 06:59 18:59 Intake Total 120 220 263 Output Total 200 0 Balance -80 220 263 Weight 88.8 kg 85.7 kg Intake: IV 120 220 140 0.9 Normal Saline @ 10 mL 120 120 40 /hr KVO levETIRAcetam IV 500 mg 100 100 In Sodium Chloride 0.9% 100 ml @ 400 mls/hr IVPB Q12HR [facility] Rx#:[id number] Tube Feeding 93 Other 30 Output: Urine 0 Stool 200 ABP, PAP, CO, CI - Last Documented Arterial Blood Pressure 164/45 - Exam -GENERAL: The patient is encephalopathic, open eye with good eye contact and does not follow commands HEENT: Pupils are round and equally reacting to light. EOMI. No scleral icterus. No conjunctival pallor. Normocephalic, atraumatic. No pharyngeal erythema. No thyromegaly. CARDIOVASCULAR: S1 and S2 present. No murmurs, rubs, or gallops. -PULMONARY: Chest is clear to auscultation, no wheezing. Mild bilateral crepita tion ABDOMEN: Soft, nontender, nondistended, normoactive bowel sounds. No palpable organomegaly. MUSCULOSKELETAL: No joint swelling or deformity. EXTREMITIES: No cyanosis, clubbing, or pedal edema. NEUROLOGICAL: Gross neurological examination did not reveal any focal deficits. SKIN: No rashes. no petechiae. - Labs CBC & Chem 7: 05/06/22 05:52 05/06/22 05:52 Labs: Abnormal Lab Results - Last 24 Hours (Table) 05/05/22 05/05/22 05/05/22 Range/Units 13:13 17:46 19:43 RBC (3.80-5.40) m/uL Hgb (11.4-16.0) gm/dL Carbon Dioxide (22-30) mmol/L BUN (7-17) mg/dL Creatinine (0.52-1.04) mg/dL Glucose (74-99) mg/dL POC Glucose (mg/dL) 168 H 162 H 155 H (70-110) mg/dL 05/05/22 05/06/22 05/06/22 Range/Units 23:21 05:52 05:52 RBC 3.78 L (3.80-5.40) m/uL Hgb 11.2 L (11.4-16.0) gm/dL Carbon Dioxide 17 L (22-30) mmol/L BUN 66 H (7-17) mg/dL Creatinine 7.73 H* (0.52-1.04) mg/dL Glucose 200 H (74-99) mg/dL POC Glucose (mg/dL) 155 H (70-110) mg/dL 05/06/22 Range/Units 06:23 RBC (3.80-5.40) m/uL Hgb (11.4-16.0) gm/dL Carbon Dioxide (22-30) mmol/L BUN (7-17) mg/dL Creatinine (0.52-1.04) mg/dL Glucose (74-99) mg/dL POC Glucose (mg/dL) 204 H (70-110) mg/dL Assessment and Plan Assessment: Sepsis with aspiration pneumonia, secondary to Haemophilus influenzae, finished therapy and antibiotic was stopped Bilateral viral pneumonia including influenza and Covid infection. Acute encephalopathy, mostly metabolic encephalopathy, rule out intracranial causes, patient also on seizure medication New-onset A. fib and RVR End-stage renal disease on hemodialysis Diabetes mellitus on insulin Plan: Zosyn was discontinued Continued on Keppra Continue with oxygen via nasal cannula Follow-up recommendation by neurology service will follow the case closely Continue with ICU management with pulmonary/critical care team followed closely ID team and direct customer service representative of the case Patient is on hemodialysis [facility] on the case, small dose metoprolol added continue with NG to proceed Labs and medication were reviewed.. Continue same treatment. Continue with symptomatic treatment. Resume home medication. Monitor lytes and vitals. DVT and GI prophylaxis. Further recommendations as per clinical course of the patient DVT prophylaxis: Subcutaneous Lovenox GI Prophylaxis: Ppi PT/OT: Deferred Prognosis is guarded
--- NOTE | 2022-05-06 14:15 | P.PN ---
Subjective Progress Note Date: 05/06/22 Principal diagnosis: Influenza A and possible aspiration pneumonia Patient is a 71-year-old female with a past medical history significant for type 2 diabetes mellitus COPD consist heart failure end-stage renal disease on hemodialysis, patient was brought into the ER 2 days ago after the patient was found to be unresponsive at home apparently the patient did not show for her dialysis , patient was found to be unresponsive at home brought to the hospital and getting intubated patient did have positive influenza A as well as ballesteros PCR, also with evidence of right upper lobe infiltrate concerning for aspiration pneumonia with a sputum currently showing Haemophilus. On today's evaluation that is 05/06/2022, the patient continues to be afebrile, patient is breathing comfortably on 3 L nasal cannula oxygen, patient is hemodynamically stable not requiring any pressor support, patient did well with hemodialysis per the instrumentation and control technician patient did have the NG through the right nostril has been tolerating her tube feeds no worsening diarrhea has been reported Objective - Vital Signs Vital signs: Vital Signs Temp 97.9 F 05/06/22 08:00 Pulse 89 05/06/22 11:00 Resp 10 L 05/06/22 11:00 BP 124/62 05/06/22 11:00 Pulse Ox 97 05/06/22 11:00 FiO2 40 05/03/22 08:49 Intake & Output 05/05/22 05/06/22 05/06/22 18:59 06:59 18:59 Intake Total 120 220 273 Output Total 200 0 Balance -80 220 273 Weight 88.8 kg 85.7 kg Intake: IV 120 220 150 0.9 Normal Saline @ 10 mL 120 120 50 /hr KVO levETIRAcetam IV 500 mg 100 100 In Sodium Chloride 0.9% 100 ml @ 400 mls/hr IVPB Q12HR [facility] Rx#:[id number] Tube Feeding 93 Other 30 Output: Urine 0 Stool 200 ABP, PAP, CO, CI - Last Documented Arterial Blood Pressure 164/45 - Exam GENERAL DESCRIPTION: An elderly female lying in bed in no distress to RESPIRATORY SYSTEM: Unlabored breathing , coarse breath sounds HEART: S1 S2 regular rate and rhythm , ABDOMEN: Soft , no tenderness EXTREMITIES: No edema feet - Labs CBC & Chem 7: 05/06/22 05:52 05/06/22 05:52 Labs: Abnormal Lab Results - Last 24 Hours (Table) 05/05/22 05/05/22 05/05/22 Range/Units 13:13 17:46 19:43 RBC (3.80-5.40) m/uL Hgb (11.4-16.0) gm/dL Carbon Dioxide (22-30) mmol/L BUN (7-17) mg/dL Creatinine (0.52-1.04) mg/dL Glucose (74-99) mg/dL POC Glucose (mg/dL) 168 H 162 H 155 H (70-110) mg/dL 05/05/22 05/06/22 05/06/22 Range/Units 23:21 05:52 05:52 RBC 3.78 L (3.80-5.40) m/uL Hgb 11.2 L (11.4-16.0) gm/dL Carbon Dioxide 17 L (22-30) mmol/L BUN 66 H (7-17) mg/dL Creatinine 7.73 H* (0.52-1.04) mg/dL Glucose 200 H (74-99) mg/dL POC Glucose (mg/dL) 155 H (70-110) mg/dL 05/06/22 05/06/22 Range/Units 06:23 11:34 RBC (3.80-5.40) m/uL Hgb (11.4-16.0) gm/dL Carbon Dioxide (22-30) mmol/L BUN (7-17) mg/dL Creatinine (0.52-1.04) mg/dL Glucose (74-99) mg/dL POC Glucose (mg/dL) 204 H 160 H (70-110) mg/dL Assessment and Plan (1) Sepsis Current Visit: Yes Status: Acute Code(s): A41.9 - SEPSIS, UNSPECIFIED OR GANISM SNOMED Code(s): 74862860 (2) Aspiration pneumonia Current Visit: Yes Status: Acute Code(s): J69.0 - PNEUMONITIS DUE TO INHALATION OF FOOD AND VOMIT SNOMED Code(s): 483832499 Plan: 1 patient presented to hospital with sepsis in this patient who did have a fever elevated white count with evidence of right upper lobe consolidation concerning for aspiration pneumonia in this patient also tested positive for in fluenza A as well as ballesteros PCR and concern for possible postinfluenzal bacterial pneumonia 2-blood culture has been negative and sputum culture grew Haemophilus 3-patient has completed her 5 day course of Tamiflu 4-patient did have a abnormal MRI suspicious for left maxillary sinusitis clinically not behaving as bacterial sinusitis we will check her inflammatory markers and hold antibiotic therapy at this point Time with Patient: Less than 30
[2022-05-06] MEDS ORDERED: DEXTROSE 5% IN WATER 100 ML with AMIODARONE 150 MG IV ONE (14:39)
[2022-05-06] MEDS ORDERED: AMIODARONE 360 MG in DEXTROSE 5% IN WATER 200 ML IV ONE ×2 (14:39)
[2022-05-06] MEDS: OXYMETAZOLINE 0.05% NASL SPRAY 1 SPRAY BOTTLE NASAL SCH ×2 (17:23→20:24)
[2022-05-06 17:28] LABS: Glucose,Whole Blood 169 mg/dL (70-110)
[2022-05-06 19:53] LABS: Glucose,Whole Blood 167 mg/dL (70-110)
--- NOTE | 2022-05-06 20:05 | CONS ---
CONSULTATION REASON FOR CONSULTATION: Possible right mastoiditis and left maxillary sinusitis. HISTORY OF PRESENT ILLNESS: The patient is a 71-year-old female who is not available for historical information. Since her admission, she has been essentially nonresponsive and obtunded. Therefore, her historical information is gleaned from the chart. Apparently, the patient was noted to have missed her dialysis appointment at the hospital. Because of this, the police department was summoned for a well check. When they arrived at her home, there was no response and therefore they broke into the house and found the patient nonresponsive. She was transported by EMS to the [facility] Emergency Room. At that time, it was noted that she presented with CVA (stroke) like symptoms. She was noted to have a right facial droop and decorticate posturing. She had altered mental status as well. She has a history of having chronic end-stage renal disease. A CT scan of the brain was negative for acute CVA. The patient was felt to have pneumonia based on a chest x-ray and also it was felt that she possibly had aspirated. Therefore, she was intubated for respiratory failure and admitted to the ICU. Her admission date was 04/27/2022. She has since been extubated, but still remains nonresponsive except to painful stimuli. A recent CT scan done on 04/28/2022 revealed continued opacification of the mastoid cells bilaterally and left maxillary sinus air- fluid level. PAST MEDICAL HISTORY: Reveals patient has no known allergies to medications. MEDICATIONS: Her home medications include, 1. Rennala. 2. Nephro-Chelsey. 3. Neurontin. 4. Singular. 5. Isosorbide dinitrate. 6. Prednisone. 7. Pravastatin. 8. Lopressor. 9. Cymbalta. 10.Humalog insulin. 11.Lantus insulin. 12.Bethpage. 13.Apresoline. 14.Lasix. 15.Plavix. 16.Pro-Air HFA. 17.PhosLo. REVIEW OF SYSTEMS: CARDIOVASCULAR: Positive for hypertension. RESPIRATORY: Positive for COPD. METABOLIC/ENDOCRINE: Positive for type 1 diabetes and hypercholesterolemia. MUSCULOSKELETAL: Positive for osteoarthritis. UROLOGICAL: System is positive for chronic end-stage renal failure. The remainder of the review of systems is unremarkable. PHYSICAL EXAMINATION: GENERAL: The patient is a 71-year-old female who is unresponsive and not available for any historical information. She is lying in bed and appears to be posturing. HEENT: The patient is normocephalic. Both tympanic membranes appear to be dull with possible fluid in both middle ear spaces. Palpation of the tragal area does not elicit any pain response nor does bilateral deep palpation of the postauricular areas revealed any reaction to the painful stimuli. There was no response on insertion of the otoscope to suggest pain. There was no evidence any drainage in either ear canal or perforation of either tympanic membrane. Pupils are equal, round, and reactive to light and accommodation. Extraocular movements within normal limits. Intranasal examination reveals moderate septal deviation to the left with bilateral compensatory hypertrophy inferior turbinates. The patient has an NG tube present in the right naris. Examination of oropharynx is unremarkable. NECK: Palpation of the neck is negative for any neck masses or lymphadenopathy. Cranial nerves are not able to be accessed because of the patient being unresponsive. The remainder of the head and neck exam is unremarkable. CHEST: Both lung sidhu are clear though distant. There are no wheezes, rhonchi, or rales noted. CARDIOVASCULAR: The patient is in regular sinus rhythm, S1, S2 are present without any murmurs. Peripheral pulses are bilaterally symmetrical. ABDOMEN: No evidence any masses, megaly, or tenderness. Abdomen is soft. The remainder of physical exam is unremarkable. IMPRESSION: Bilateral opacification of the mastoid air cells, mastoiditis vs effusion? Bilateral middle ear effusion. Left maxillary sinus air-fluid level. PLAN: Although it is interesting with respect to this patient's findings, it would be unusual to find a patient with bilateral mastoiditis. Also, it is quite common that ICU patients and especially patients who are intubated or have NG tubes present may develop fluid in the middle ear spaces. If a patient develops fluid in the middle ear space, this can very easily end up in the mastoid air cells because the two are connected. This does not necessarily mean that the patient has an infection however. In ENT we tend to look more for the clinical symptoms as opposed to going completely by the x-ray or CT or MRI findings. Unfortunately, this patient is not responsive and not available to determine if she is having any particular symptoms. She recently finished a course of Zosyn which should have covered any infection in the mastoids and the maxillary sinus. However, to be on the safe side, I am going to place the patient on Rocephin 2 g IV daily, which is one of the drugs of choice for mastoiditis as well as for maxillary sinusitis. At this point, I am not convinced that her neurological symptoms can be explained by the fluid in the mastoid air cells or the left maxillary sinus air- fluid level. I will continue to follow this patient with you. I am also going to have the nursing staff spray 2 puffs of Afrin intranasally, including the side with the NG tube present, many times. This will help to improve air flow such that the eustachian tube may open and allow any fluid in the middle ear space to drain. I want to take this opportunity to thank you for allowing me to assist in the care of your patient. If I can be of any further assistance, please feel free to call my office. MMMARY / JONO: [id number] / MTDD
[2022-05-06 23:22] LABS: Glucose,Whole Blood 175 mg/dL (70-110)
--- NOTE | 2022-05-06 23:29 | P.PN ---
Subjective Progress Note Date: 05/06/22 05/06/2022: Patient was seen for a follow-up. Patient clinically unchanged. Still very encephalopathic. Patient slightly turning her head towards the examiner but still not making eye contact. 05/05/2022: Patient was seen for a follow-up. Patient laying in the bed, continues to be very encephalopathic. Still not tracking, not making eye contact. 05/04/2022: Patient was seen for a follow-up. Patient remains extubated. Patient severely encephalopathic. Patient with completely steering eyes. Does not make eye contact, does not track. Does not offer any complaints. Otherwise looks comfortable, not in any pain. 05/03/2022: Patient was seen for a follow-up. Patient was extubated at 12:30 PM today. Patient continues to be severely encephalopathic. Not responding to calling her name. Her eyes are open. Patient does not track, or makes eye contact. Please refer to examination below. Not able to offer any complaints. 05/02/2022: Patient was seen for a follow-up. Patient continues to be intubated. She is more awake, but very encephalopathic. Please refer to examination below. 05/01/2022: Patient initially seen by Dr. Kolton Méndez. Please refer to his note for details. Patient is a 71-year-old female, who was brought to the hospital by ambulance a fter she was found unresponsive at home. A wellness check was made by the police as she has not showed up for her hemodialysis. Patient was admitted with altered mental status. Patient also has Covid infection, influenza A. Patient was posturing therefore Keppra was started at 500 mg twice a day. Repeat EEG and CT were requested for today. Per nurse report, sedation has been discontinued since 04/28/2022. Patient has started showing some clinical improvement. At first she was laying still with no response with feet turned in. Now patient has started moving her arms, the reflexes are more appropriate. Her gag has improved and she is blinking more frequently. She is picking up her right leg onto the left. Her left leg movement is slightly less as compared to the right. She does not move her arms as much. Sometimes she tenses up her body. Patient has been CPAPing since 10 AM today. Objective - Vital Signs Vital signs: Vital Signs Temp 36.6 F L 05/06/22 14:16 Pulse 145 H 05/06/22 14:30 Resp 19 05/06/22 14:30 BP 101/75 05/06/22 14:30 Pulse Ox 98 05/06/22 14:30 FiO2 40 05/03/22 08:49 Intake & Output 05/05/22 05/06/22 05/06/22 18:59 06:59 18:59 Intake Total 120 220 803 Output Total 200 2500 Balance -80 220 -1697 Weight 88.8 kg 85.7 kg Intake: IV 120 220 180 0.9 Normal Saline @ 10 mL 120 120 80 /hr KVO levETIRAcetam IV 500 mg 100 100 In Sodium Chloride 0.9% 100 ml @ 400 mls/hr IVPB Q12HR [facility] Rx#:[id number] Tube Feeding 93 Hemodialysis 500 Other 30 Output: Urine 0 Stool 200 Hemodialysis 2500 ABP, PAP, CO, CI - Last Documented Arterial Blood Pressure 164/45 - Exam GENERAL: The patient is laying in bed and does not appear in acute distress. LUNG: Patient is now extubated. Chest appears clear. HEENT: Patient's neck appears to be stiff. When tried to flex her head passively, she extends it more. NEUROLOGICAL: Patient is awake, but very encephalopathic. She keeps her eyes open, with straight gaze. Does not track, does not turn her head or eyes to the commands. Cranial nerves: The pupils are round, equal and reactive to light. Has positive corneal reflex bilaterally. Rest is limited. Face appears symmetric. Motor: Patient is moving her arms somewhat equally to painful stimuli, with some withdrawal. Hands appears weak. In the lower extremities, patient is moving right leg much better than the left. She frequently brings her right leg over the left. Appears generalized weak. Cerebellum: Unable to assess. Sensation: Seems to have intact painful stimuli. Reflexes (right/left): 1+ at the biceps, trace brachial radialis, absent in the lowers. Plantars are mute bilaterally. Although the right toe appears up at baseline, but is nonreactive. Some of the workup during his hospital visit consisted of: Influenza A and Richard virus PCR detected. Also possible underlying UTI. Troponin is a 1.07. Ammonia <9 TSH: 0.593 Urinalysis seems possible suggestive of underlying urinary tract infection CT of the head is reported as age-related atrophic and chronic small vessel ischemic changes without acute intracranial process seen at this time. CT angiography is reported as no significant abnormality. Chest x-ray was reported as peripheral nodule base consolidation right upper lobe. Could be on the basis of infiltrate or neoplastic process. Core sent interstitium correlate for chronic interstitial lung disease otherwise consider interstitial pneumonia or pneumonitis Prominence right hilum. Repeat x-ray recommend short-term basis to assess for developing infiltrate or adenopathy versus mass Routine EEG is abnormal. The background slowing suggestive of moderate to severe encephalopathy. The suppressions likely due to medication effect (sedatives). Otherwise there is no focal slowing, epileptiform discharges or seizure on the EEG. 2-D echo was reported as technically difficult study for agitation. Normal left ventricle diamonds and systolic function. She had repeat CT head on 04/28/22: It is reported as similar mild ventriculomegaly likely ex vacuo dilation from central cerebral atrophy. Mild patchy burden of chronic small vessel ischemic disease. No acute intracranial abnormality seen. Patient is intubated. His ongoing air-fluid level left maxillary sinus that could reflect acute sinusitis. Background mild chronic paranasal sinus disease. Opacification of the mastoid air cells on both sides. Partial opacification of the middle ear cavity as well. Correlate to exclude otomastoiditis Patient sputum is positive for Haemophilus influenza area - Labs CBC & Chem 7: 05/06/22 05:52 05/06/22 05:52 Labs: Abnormal Lab Results - Last 24 Hours (Table) 05/05/22 05/05/22 05/05/22 Range/Units 17:46 19:43 23:21 RBC (3.80-5.40) m/uL Hgb (11.4-16.0) gm/dL Carbon Dioxide (22-30) mmol/L BUN (7-17) mg/dL Creatinine (0.52-1.04) mg/dL Glucose (74-99) mg/dL POC Glucose (mg/dL) 162 H 155 H 155 H (70-110) mg/dL 05/06/22 05/06/22 05/06/22 Range/Units 05:52 05:52 06:23 RBC 3.78 L (3.80-5.40) m/uL Hgb 11.2 L (11.4-16.0) gm/dL Carbon Dioxide 17 L (22-30) mmol/L BUN 66 H (7-17) mg/dL Creatinine 7.73 H* (0.52-1.04) mg/dL Glucose 200 H (74-99) mg/dL POC Glucose (mg/dL) 204 H (70-110) mg/dL 05/06/22 Range/Units 11:34 RBC (3.80-5.40) m/uL Hgb (11.4-16.0) gm/dL Carbon Dioxide (22-30) mmol/L BUN (7-17) mg/dL Creatinine (0.52-1.04) mg/dL Glucose (74-99) mg/dL POC Glucose (mg/dL) 160 H (70-110) mg/dL Assessment and Plan Assessment: Persistent Encephalopathy, not significantly improving. Although it appears multifactorial: due to hypoxic respiratory failure from Influenza A and Coronavi heidy, some metabolic encephalopathy. Exam shows slight focal findings, but has been stable. Reported transient episode of right facial droop by EMS. No evidence of acute stroke noted on MRI. Status post extubation. Patient's mentation not improving significantly. She is slightly more awake. Influezna A infection Acute Covid-19 infection Consolidation of the right upper lobe concerning for infiltrate versus neoplastic process on chest x-ray Elevated troponin End-stage renal disease on dialysis Congestive heart failure COPD Chronic anemia. Plan: * Patient is not showing any clinical improvement today. She continues to be severely encephalopathic, not tracking. Not making eye contact. * MRI of the brain without contrast revealed multiple bilateral periventricular white matter ischemic Changes. Findings can be compatible with chronic white matter ischemic changes. Multiple sclerosis and vasculitis is within the differential. No suspicious acute changes took on for left-sided weakness. I personally reviewed MRI, agree with the findings. Findings suggestive of small vessel disease. Acute left maxillary sinusitis. * Appreciate ENT input for persistent left maxillary sinusitis and possible mastoiditis. Patient started on ceftriaxone and Afrin nasal spray. * Lumbar puncture to rule out intracranial infection. Patient on Plavix, which now has been put on hold. Lumbar puncture to be performed on Sunday. Discussed with ID, agreed for LP. * Repeat EEG 05/01/2022 Revealed background disorganization and slowing of moderate degree. No epileptiform activity was seen. When compared to the EEG from 04/27/2022, the background appears to have slightly improved. * Because of intermittent posturing, Dr. Méndez started patient on prophylactic Keppra 500mg every 12 hours, with additional Keppra 500mg post dialysis. We will check Keppra level. * Patient on dual antiplatelet medications including aspirin 81 mg and Plavix 75 mg. Continue aspirin 81 mg (new during this admission) and her Plavix 75mg daily was resumed for secondary stroke prophylaxis. Also on Lipitor 40 mg daily for secondary stroke prophylaxis. Plavix on hold for upcoming LP. May resume Plavix after LP. * Patient completed antibiotics * Consulted PT and OT, when able to participate * Regarding the questionable of suspicious neoplasm on chest x-ray will defer the management to the primary and pulmonary team. * We'll defer the rest of the medical management to the primary and ICU team * For DVT prophylaxis: Patient on Lovenox * Dr. Kolton Méndez Will resume neurology service on Sunday.
[2022-05-07 05:41] LABS: Glucose,Whole Blood 191 mg/dL (70-110)
[2022-05-07 06:13] LABS: Basophils # (A) 0.1 k/uL (0-0.2); Basophils % (A) 1 %; Eosinophils # (A) 0.3 k/uL (0-0.7); Eosinophils % (A) 3 %; HCT 38.2 % (34.0-46.0); HGB 12.3 gm/dL (11.4-16.0); Hypochromasia Moderate; Lymphocytes # (A) 1.1 k/uL (1.0-4.8); Lymphocytes % (A) 11 %; MCH 29.9 pg (25.0-35.0); MCHC 32.1 g/dL (31.0-37.0); MCV 93.1 fL (80.0-100.0); Mean Platelet Volume 7.8; Monocytes # (A) 0.4 k/uL (0-1.0); Monocytes % (A) 5 %; Neutrophils # (A) 7.3 k/uL (1.3-7.7); Neutrophils % (A) 77 %; Platelet Count 341 k/uL (150-450); RDW 14.8 % (11.5-15.5); WBC 9.4 k/uL (3.8-10.6)
[2022-05-07 06:26] LABS: Calcium 9.3 mg/dL (8.4-10.2)
[2022-05-07] MEDS: INSULIN DETEMIR (LEVEMIR) 100 UNIT/ML SYR SQ SCH (06:38)
[2022-05-07] MEDS: INSULIN ASPART (NovoLOG) 100 UNIT/ML VIAL SQ SCH ×3 (06:39→20:24)
--- NOTE | 2022-05-07 07:34 | XR ---
EXAMINATION TYPE: XR chest 1V DATE OF EXAM: 05/07/2022 5:08 AM COMPARISON: Chest radiograph from two days prior. TECHNIQUE: XR chest 1V Portable AP radiograph of the chest. CLINICAL INDICATION:Female, 71 years old with history of COVID, NG tube; FINDINGS: Lungs/Pleura: Prominent interstitial lung markings are seen scattered throughout the lungs. No eviden ce of focal consolidation, pneumothorax or pleural effusion. Pulmonary vascularity: Unremarkable. Heart/mediastinum: Cardiomediastinal silhouette is enlarged and stable. Musculoskeletal: No acute osseous pathology. IMPRESSION: 1. Stable NG tube positioning. 2. similar appearance of the lungs with coarsened interstitium with thyromegaly and possible pulmona ry vascular congestion.
[2022-05-07] MEDS: ALBUTEROL HFA INHALER INHALATION SCH (07:48)
[2022-05-07] MEDS: AMIODARONE 450 MG in DEXTROSE 5% IN WATER 250 ML IV SCH ×4 (08:54→13:55)
[2022-05-07] MEDS: SEVELAMER 800 MG TAB PO SCH ×3 (08:56→17:48)
[2022-05-07] MEDS: PANTOPRAZOLE 40 MG/10 ML VIAL IVP SCH (09:03)
[2022-05-07] MEDS: ENOXAPARIN 30 MG/0.3 ML SYRINGE SQ SCH (09:03)
[2022-05-07] MEDS: OXYMETAZOLINE 0.05% NASL SPRAY 1 SPRAY BOTTLE NASAL SCH ×2 (09:15→21:17)
[2022-05-07] MEDS: levETIRAcetam IV 500 MG in SODIUM CHLORIDE 0.9% 100 ML IVPB SCH ×2 (09:15→21:16)
--- NOTE | 2022-05-07 10:35 | P.PN ---
Subjective Patient is seen in follow-up for end-stage renal disease. She is maintained on hemodialysis on Sunday schedule. Extubated 05/03/2022. Tolerating dialysis well. No change in mentation. Patient's NG tube came out sometime last night. Awaiting family's decision regarding PEG tube placement Objective - Vital Signs Vital signs: Vital Signs Temp 98 F 05/07/22 08:00 Pulse 84 05/07/22 09:00 Resp 2 L 05/07/22 08:00 BP 92/52 05/07/22 09:00 Pulse Ox 96 05/07/22 09:00 FiO2 40 05/03/22 08:49 Intake & Output 05/06/22 05/07/22 05/07/22 18:59 06:59 18:59 Intake Total 1121 682 230 Output Total 2500 Balance -1379 682 230 Weight 86.5 kg Intake: IV 220 220 130 0.9 Normal Saline @ 10 mL 120 120 30 /hr KVO levETIRAcetam IV 500 mg 100 100 100 In Sodium Chloride 0.9% 100 ml @ 400 mls/hr IVPB Q12HR [facility] Rx#:[id number] Intake, IV Titration 100 Amount levETIRAcetam IV 500 mg 100 In Sodium Chloride 0.9% 100 ml @ 400 mls/hr IVPB TuThSa@1800 [facility] Rx#: [id number] Tube Feeding 341 372 Hemodialysis 500 Other 60 90 Output: Urine 0 Hemodialysis 2500 ABP, PAP, CO, CI - Last Documented Arterial Blood Pressure 164/45 - Exam Patient is sleeping but arousable. She does not communicate Examination of the heart S1 and S2 Examination lungs bilateral breath sounds are heard Abdomen is soft nontender Examination lower extremity shows no significant edema - Labs CBC & Chem 7: 05/07/22 05:43 05/07/22 05:43 Labs: Abnormal Lab Results - Last 24 Hours (Table) 05/06/22 05/06/22 05/06/22 Range/Units 11:34 17:27 19:51 BUN (7-17) mg/dL Creatinine (0.52-1.04) mg/dL Glucose (74-99) mg/dL POC Glucose (mg/dL) 160 H 169 H 167 H (70-110) mg/dL 05/06/22 05/07/22 05/07/22 Range/Units 23:20 05:37 05:43 BUN 52 H (7-17) mg/dL Creatinine 5.88 H (0.52-1.04) mg/dL Glucose 187 H (74-99) mg/dL POC Glucose (mg/dL) 175 H 191 H (70-110) mg/dL Assessment and Plan Assessment: 1. End-stage renal disease making on hemodialysis on Sunday schedule. 2. Acute hypoxic respiratory failure secondary to pneumonia. Patient tested positive for covid-19 and influenza A. 3. Diabetes mellitus. 4. History of coronary artery disease. 5. Concern for anoxic brain injury. 6. Hypertension with chronic kidney disease. 7. Anemia of chronic kidney disease. Hemoglobin stable. 8. Chronic kidney disease mineral bone disease maintained on Renvela Plan: Hemodialysis on 05/09/2022 Continue with phosphate binders with tube feedings if family agrees for PEG tube
--- NOTE | 2022-05-07 10:43 | P.PN ---
Subjective Progress Note Date: 05/07/22 Principal diagnosis: Mental status changes. Reevaluated today on 04/30/22, patient remains in the ICU, intubated and mechanically ventilated. She is on assist control rate of 16 tidal volume 400 FiO2 40% and PEEP of 8. Patient is off sedation completely, however she is awake, opening her eyes, but she is not spending to any stimuli. Patient has no purposeful movement, she is not responsive to stimuli, obviously she has what seems to be a severe encephalopathy, suspect anoxic encephalopathy. Patient has IV fluid at KVO, she is receiving vital HP at 24 mL an hour.ABG today showed a pO2 of 83 pCO2 45 pH of 7.45 hence no changes were made in her vent settings. CBC is unremarkable WBC count 12.6 hemoglobin is 9.9.basic metabolic profile is normal bicarb is 30 BUN is 39 creatinine 5.74, patient was dialyzed yesterday, but no dialysis is planned so far for today.chest x-ray no evidence of active disease, continues to have left lower lobe atelectasis. Reevaluated today on 05/01/22, patient remains in the ICU, intubated and mechanically ventilated. She is on assist control of 16.400 FiO2 40% and PEEP of 5 ABG showed a pO2 of 110 pCO2 44 pH of 7.44. Neurologically, the patient remains about the same, she opens her eyes, but does not have any purposeful movement whatsoever. Does not follow any instructions. Patient is clearly encephalopathic. Remains on vitamin HP at 24 mL/h, her IV fluid to KVO, scheduled to have CT of the head and EEG again today. Patient is clearly not ready for weaning mostly because of her neurological status, in the meantime I'm recommending placing the patient on pressure support control mode of mechanical ventilation at 12, and CPAP, and if she tolerates we'll keep her on that mode until hopefully her mental status improves were and we could consider weaning and extubation. Otherwise the patient may have to be considered for tracheostomy and PEG tube placement. WBC count is 9.8 hemoglobin is 9.5. Basic metabolic profile is normal BUN is 70 creatinine 7.59, patient may undergo dialysis today. Chest x-ray is basically unremarkable continues to have some basilar atelectasis especially at the left base Progress note dated 05/02/2022. 71-year-old female who was admitted on April 27 with mental status changes, aspiration pneumonia, and respiratory failure. She was intubated on April 27. The patient also tested positive for influenza, and coronavirus. She remains on the ventilator, and is seen in room 256. She's on volume assist control, rate 16, tidal volume 400, FiO2 40%, and PEEP of 8. Blood gases show pO2 of 113, pCO2 45, and pH is 7.39. The patient's currently on Cleveprex at 4 mg an hour, saline at 10 mL an hour, and propofol, has been weaned off. The patient's getting vital high protein at 46 mL an hour, which is goal. The patient will have a pressure support CPAP trial today. Computed tomography scan of the brain was negative. Sputum showed evidence of Haemophilus influenzae. She is on Zosyn. White count 8.7, hemoglobin 9.5, hematocrit 30.5, and platelet count 396,000. Sodium 144, potassium 4.2, chlorides 101, CO2 27, anion gap 16, BUN 93, and creatinine 8.92. Chest x-ray shows infiltrate or atelectasis at the lung base on the left, and in the retrocardiac region. Progress note dated 05/03/2022. 71-year-old female was admitted on April 27, with mental status changes, respiratory failure, and aspiration pneumonia. She was intubated on April 27, and did test positive for both influenza, and coronavirus. She remains on the ventilator, in room 256. She's on volume assist control, rate 16, tidal volume 400, FiO2 40%, and PEEP of 8. Blood gases show pO2 of 80, pCO2 43, and a pH is 7.43. The patient's getting saline at KVO, Cleveprex at 6 mg an hour, and vital high protein, at 46 mL an hour, which is goal. The patient will have a spontaneous breathing trial, at pressure support of 8 and CPAP of 5. White count 11.1, hemoglobin 10.3, hematocrit 32.1, and platelet count normal. Sodium 140, potassium 3.8, chlorides 99, CO2 27, BUN 63, and creatinine 6.18. Sputum was positive for Haemophilus influenzae on April 27. Chest x-ray is largely unchanged. Progress note dated 05/04/2022. 71-year-old female admitted April 27, with mental status changes, respiratory failure, and aspiration pneumonia. She was intubated on April 27, and did test positive for both influenza, and coronavirus. She is seen today in room 256. She was successfully extubated yesterday, May 03. She's currently on 3 L of oxygen. She's getting saline at KVO. She is going to have hemodialysis today. Neurology saw the patient for altered mental status. She scheduled to have an MRI, and a lumbar puncture. White count 9.3, hemoglobin 10.8, hematocrit 34.4, and platelet count is normal. Sodium 142, potassium 4.2, chlorides 103, CO2 21, anion gap 18, BUN 85, and creatinine 7.83. Sputum was positive for Haemophilus influenzae, on April 27. Progress note dated 05/05/2022. 71-year-old female who is again seen in room 256. She is on 3 L of oxygen. Getting saline at 10 mL an hour. The MRI that was done, showed nothing acute. They're mostly chronic changes, including some ischemic changes. The patient's mental status is unchanged. She opens her eyes to painful stimuli. She looks at you, but does not speak. Zosyn will be discontinued today. CBC is normal. Sodium 138, potassium 4.5, chlorides 100, CO2 19, anion gap 19, BUN 48, and creatinine 5.59. Calcium is 9.4. Sputum was positive for Haemophilus influenzae on April 27, and the patient has received more than enough Zosyn. Progress note dated 05/06/2022. 71-year-old female again seen in room 256. She remains on 3 L of oxygen. The patient's getting saline at 10 mL an hour. The patient's also receiving vital high protein at 31 mL an hour, which is goal. An NG tube was placed yesterday for tube feeds. She is going to get hemodialysis today with the plan of rem oving 2 L. Her mental status is unchanged. White count 9.4, hemoglobin 11.2, and platelet count 356,000. Sodium 139, potassium 4.2, chlorides 100, CO2 17, anion gap 22, BUN 66, and creatinine 7.73. Glucose 200. Progress note dated 05/07/2022. 71-year-old female again seen in room 256. Unfortunately, been no major changes in her mental status. She remains on oxygen at 2 L, and saline IV at 10 mL an hour. She was started on Rocephin by ear nose and throat for mastoiditis and acute sinusitis. I've asked the nurse to talk to the family about a possible feeding tube. He had an NG tube in, and was receiving enteral nutrition, but apparently pulled it out. White count 9.4, he will been 12.3, hematocrit 38.2, and platelet count normal. Sodium 141, potassium 4, chlorides 99, CO2 24, BUN 52, and creatinine 5.88. The patient's chest x-ray is essentially unchanged. Objective - Vital Signs Vital signs: Vital Signs Temp 98 F 05/07/22 08:00 Pulse 84 05/07/22 09:00 Resp 2 L 05/07/22 08:00 BP 92/52 05/07/22 09:00 Pulse Ox 96 05/07/22 09:00 FiO2 40 05/03/22 08:49 Intake & Output 05/06/22 05/07/22 05/07/22 18:59 06:59 18:59 Intake Total 1121 682 230 Output Total 2500 Balance -1379 682 230 Weight 86.5 kg Intake: IV 220 220 130 0.9 Normal Saline @ 10 mL 120 120 30 /hr KVO levETIRAcetam IV 500 mg 100 100 100 In Sodium Chloride 0.9% 100 ml @ 400 mls/hr IVPB Q12HR [facility] Rx#:[id number] Intake, IV Titration 100 Amount levETIRAcetam IV 500 mg 100 In Sodium Chloride 0.9% 100 ml @ 400 mls/hr IVPB TuThSa@1800 [facility] Rx#: [id number] Tube Feeding 341 372 Hemodialysis 500 Other 60 90 Output: Urine 0 Hemodialysis 2500 ABP, PAP, CO, CI - Last Documented Arterial Blood Pressure 164/45 - Exam No acute distress, poorly responsive. Opens eyes to painful stimuli. Remains on 2 L. HEENT examination is grossly unremarkable. Neck supple. Full range of motion. No adenopathy thyromegaly or neck vein distention. Cardiovascular examination reveals regular rhythm rate. S1-S2 normal. No S3 or S4. No discernible murmur noted. Heart sounds are distant. Heart rate 84 bpm. Lungs reveal coarse bilateral rhonchi. No wheezes or crackles. Breath sounds equal. Saturations are 96 %. Abdomen is soft, without bowel sounds. No masses or tenderness. Extremities are intact. No cyanosis clubbing or edema. Skin is without rash or lesion. Neurologic examination is unchanged. - Labs CBC & Chem 7: 05/07/22 05:43 05/07/22 05:43 Labs: Abnormal Lab Results - Last 24 Hours (Table) 05/06/22 05/06/22 05/06/22 Range/Units 11:34 17:27 19:51 BUN (7-17) mg/dL Creatinine (0.52-1.04) mg/dL Glucose (74-99) mg/dL POC Glucose (mg/dL) 160 H 169 H 167 H (70-110) mg/dL 05/06/22 05/07/22 05/07/22 Range/Units 23:20 05:37 05:43 BUN 52 H (7-17) mg/dL Creatinine 5.88 H (0.52-1.04) mg/dL Glucose 187 H (74-99) mg/dL POC Glucose (mg/dL) 175 H 191 H (70-110) mg/dL Assessment and Plan Assessment: Acute hypoxemic respiratory failure, of unclear etiology, S/P intubation on 04/27/2022, S/P extubation on 05/03/2022. Possible CVA/seizure disorder. Possible anoxic brain injury, versus metabolic encephalopathy. Acute aspiration pneumonia. Positive test for coronavirus infection, without evidence of coronavirus associated pneumonia. Influenza A infection. End-stage renal disease, currently on hemodialysis. History of CAD. History of CHF. History of asthma. CAD with previous stent placement. Type 2 diabetes. Degenerative joint disease. Plan: Plan dated 05/02/2022. The patient is currently on Zosyn for H. influenzae infection. Labs, x-rays, and medications are reviewed. The patient remains on Cleveprex for blood pressure control. Propofol has been weaned off. The patient will get a spontaneous breathing trial with pressure support of 5 and CPAP of 5. The patient is getting tube feedings with vital high protein at goal. We will continue to follow and make recommendations along the way. Prognosis is guarded. Computed tomography scan of the brain was negative. Plan dated 05/03/2022. The patient is ready for a spontaneous breathing trial with pressure support of a CPAP of 5. The patient continues on Zosyn for I believe a more day. The patient is likely to get extubated. Labs, x-rays, and medications are reviewed. We will continue to follow make recommendations along the way. Overall prognosis remains guarded. No additional recommendations are made at this time. I did speak to the patient's son yesterday. Plan dated 05/04/2022. The patient was successfully extubated on May 03. The patient is currently on 3 oxygen. The patient will have hemodialysis today. The big issue with this patient continues to be her mental status. This could well be metabolic encephalopathy. Neurology recommends an MRI, and a lumbar puncture. We will continue to follow make recommendations along the way. We'll also talk to the family about treating this patient, down the road, depending on what we find. Plan dated 05/05/2022. The patient's a child to the patient's son, about the possibility of a feeding tube, i.e. PEG tube. In the short-term, the patient may benefit from an NG tube, and enteral nutrition. Also, we will confirm CODE STATUS with son. Additional recommendations and suggestions are forthcoming. Labs, x-rays, and medications are reviewed. Zosyn is discontinued. Prognosis is guarded. Plan dated 05/06/2022. The patient's mental status is unchanged. The patient is on 3 L. She has an NG tube in place, for enteral nutrition. She is going to have hemodialysis today. The goal is removal of 2 L of fluid. All antibiotics have been discontinued. We will continue to follow the patient make recommendations along the way. Prognosis is very guarded. Plan dated 05/07/2022. Prognosis would call the patient's son, and ask about a permanent feeding tube. The patient had a NG tube in, and was receiving enteral nutrition, but unfortunate pulled it out. The patient was seen by otolaryngology, and was thought to have a sinusitis and mastoiditis, and started on Rocephin. We will continue to follow make recommendations along the way. Labs, x-rays, and medications are reviewed. Prognosis is guarded. Mental status is poor, and unchanged. Time with Patient: Less than 30
--- NOTE | 2022-05-07 11:27 | P.PN ---
Subjective Progress Note Date: 05/07/22 Principal diagnosis: Acute hypoxic respiratory failure The patient is a 71-year-old female patient was requested to see in the intensive care unit for further evaluation of cardiac arrhythmia. The patient does have significant change in mental status and she is very poor historian and the history was taken from the chart as well as from was taking care of the patient. The patient is almost nonverbal. She was admitted to the hospital a few days ago with a change in mental status of unknown etiology. Subsequently she was intubated and subsequently she was extubated. The distal workup to be continued regarding the etiology of the change in mental status. Beside that s he does have extensive past medical history consistent of end-stage renal disease on dialysis as well as coronary artery disease and hypertension and dyslipidemia. She was tested positive for both COVID-19 infection as well as influenza. The reason we consulted to see the patient because of cardiac arrhythmia. On the monitor it was noted that the patient was going into what it seems to be in atrial fibrillation versus atrial tachycardia. Hemodynamically she remained stable and not on any vasopressors. She was receiving at home metoprolol at 100 mg by mouth twice a day but that was held when she was admitted to the hospital. No indication that the patient was experiencing any chest pain or chest discomfort or any feeling of heart racing or fluttering. I'm going to start the patient on metoprolol tartrate 12.5 mg by mouth twice a day. She underwent an echo which revealed normal left ventricular systolic function. May [id number] The patient remains intubated on mechanical ventilation. She is hemodynamically stable. Last night she went into A. fib with RVR and subsequently converted to normal sinus mechanism. If she develops any more episodes of A. fib with consider starting the patient on AV go rain agents as well as oral anticoagulation. The echo revealed normal left ventricle systolic function was no significant valvular abnormalities Objective - Vital Signs Vital signs: Vital Signs Temp 98 F 05/07/22 08:00 Pulse 84 05/07/22 09:00 Resp 2 L 05/07/22 08:00 BP 92/52 05/07/22 09:00 Pulse Ox 96 05/07/22 09:00 FiO2 40 05/03/22 08:49 Intake & Output 05/06/22 05/07/22 05/07/22 18:59 06:59 18:59 Intake Total 1121 682 230 Output Total 2500 Balance -1372 682 230 Weight 86.5 kg Intake: IV 220 220 130 0.9 Normal Saline @ 10 mL 120 120 30 /hr KVO levETIRAcetam IV 500 mg 100 100 100 In Sodium Chloride 0.9% 100 ml @ 400 mls/hr IVPB Q12HR [facility] Rx#:[id number] Intake, IV Titration 100 Amount levETIRAcetam IV 500 mg 100 In Sodium Chloride 0.9% 100 ml @ 400 mls/hr IVPB TuThSa@1800 [facility] Rx#: [id number] Tube Feeding 341 372 Hemodialysis 500 Other 60 90 Output: Urine 0 Hemodialysis 2500 ABP, PAP, CO, CI - Last Documented Arterial Blood Pressure 164/45 - Constitutional General appearance: Present: no acute distress - Labs CBC & Chem 7: 05/07/22 05:43 05/07/22 05:43 Labs: Abnormal Lab Results - Last 24 Hours (Table) 05/06/22 05/06/22 05/06/22 Range/Units 11:34 17:27 19:51 BUN (7-17) mg/dL Creatinine (0.52-1.04) mg/dL Glucose (74-99) mg/dL POC Glucose (mg/dL) 160 H 169 H 167 H (70-110) mg/dL 05/06/22 05/07/22 05/07/22 Range/Units 23:20 05:37 05:43 BUN 52 H (7-17) mg/dL Creatinine 5.88 H (0.52-1.04) mg/dL Glucose 187 H (74-99) mg/dL POC Glucose (mg/dL) 175 H 191 H (70-110) mg/dL Assessment and Plan Assessment: Assessment Acute hypoxic respiratory failure which has improved Change in mental status Cardiac arrhythmia as described above CAD End stage renal disease Paroxysmal atrial fibrillation Plan Continue the current medical regimen Monitor for any more episodes of atrial fibrillation Consider starting the patient on AV go rain agents for any more episodes of this A. fib Consider starting the patient on oral anticoagulation for any more episodes of atrial fibrillation as well as
[2022-05-07 12:01] LABS: Glucose,Whole Blood 128 mg/dL (70-110)
[2022-05-07] MEDS: METOPROLOL TARTRATE 12.5 MG TAB PO SCH ×2 (13:54→21:07)
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
[2022-05-07 18:45] LABS: Glucose,Whole Blood 120 mg/dL (70-110)
--- NOTE | 2022-05-07 18:45 | PN ---
PROGRESS NOTE DATE OF SERVICE: 05/07/2022 SUBJECTIVE: Vital signs are stable. However, the patient still remains obtunded and unresponsive except to very painful stimuli. Overall, her altered mental state has not changed. She apparently is scheduled for a spinal tap on Sunday05/08/2022. OBJECTIVE: HEENT: The patient is normocephalic. Tympanic membrane, middle ear spaces are unchanged since yesterday's visits. Deep palpation in the postauricular area does not reveal any evidence of suspicious tenderness, that is to say, the patient does not react except to painful stimuli. The remainder of the head and neck exam, chest, cardiovascular exam is unchanged from last visit. ASSESSMENT: Bilateral middle ear effusion, bilateral opacification/effusion of the mastoid air cells. Left maxillary sinus air-fluid level (sinusitis?). PLAN: At this point, I would still continue the patient on the current antibiotic that I placed her on yesterday, namely Rocephin 2 g IV daily and I would also continue her with the Afrin nasal spray 2 puffs each nostril t.i.d. in an effort to help the fluid draining from the middle ear spaces. I will continue to follow this patient with you on a daily basis to see if there are any changes. MMODL / IJN: [id number] /
[2022-05-07] MEDS ORDERED: DEXTROSE 5% IN WATER 100 ML with AMIODARONE 150 MG IV ONE (19:50)
[2022-05-07] MEDS ORDERED: AMIODARONE 360 MG in DEXTROSE 5% IN WATER 200 ML IV ONE ×2 (19:50)
[2022-05-07] MEDS ORDERED: HEPARIN SODIUM 1,000 UN/ML (10ML VL) IV PRN (19:58)
[2022-05-07] MEDS ORDERED: HEPARIN SOD,PORK IN 0.45% NACL 25,000 UNIT in 0.45% NACL 1 250ML.BAG IV SCH (20:00)
[2022-05-07 21:13] LABS: Glucose,Whole Blood 116 mg/dL (70-110)
[2022-05-07 23:31] LABS: Glucose,Whole Blood 122 mg/dL (70-110)
[2022-05-08] MEDS ORDERED: AMIODARONE 450 MG in DEXTROSE 5% IN WATER 250 ML IV SCH ×4 (02:00→14:00)
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
[2022-05-08 06:08] LABS: Glucose,Whole Blood 173 mg/dL (70-110)
[2022-05-08] MEDS ORDERED: HYDROmorphone 0.5 MG/0.5 ML SYRINGE IVP STA (06:31)
[2022-05-08] MEDS: INSULIN DETEMIR (LEVEMIR) 100 UNIT/ML SYR SQ SCH ×3 (06:46→21:29)
[2022-05-08] MEDS: INSULIN ASPART (NovoLOG) 100 UNIT/ML VIAL SQ SCH ×4 (07:39→18:11)
[2022-05-08] MEDS ORDERED: AMIODARONE 360 MG in DEXTROSE 5% IN WATER 200 ML IV ONE ×2 (07:50)
[2022-05-08] MEDS: SEVELAMER 800 MG TAB PO SCH ×3 (09:22→18:11)
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
--- NOTE | 2022-05-08 10:23 | P.PN ---
Subjective Patient is seen in follow-up for end-stage renal disease. She is maintained on hemodialysis on Sunday schedule. Extubated 05/03/2022. No change in mentation. Patient's NG tube came out , Awaiting family's decision regarding PEG tube placement. Plans for lumbar puncture today for workup of altered mentation. Objective - Vital Signs Vital signs: Vital Signs Temp 98.2 F 05/07/22 12:00 Pulse 70 05/08/22 02:00 Resp 18 05/08/22 02:00 BP 135/58 05/08/22 02:00 Pulse Ox 97 05/08/22 02:00 FiO2 40 05/03/22 08:49 Intake & Output 05/07/22 05/08/22 05/08/22 18:59 06:59 18:59 Intake Total 340 220 Output Total 0 0 Balance 340 220 Weight 82.3 kg Intake: IV 240 220 0.9 Normal Saline @ 10 mL 140 120 /hr KVO levETIRAcetam IV 500 mg 100 100 In Sodium Chloride 0.9% 100 ml @ 400 mls/hr IVPB Q12HR [facility] Rx#:[id number] Intake, IV Titration 100 Amount levETIRAcetam IV 500 mg 100 In Sodium Chloride 0.9% 100 ml @ 400 mls/hr IVPB TuThSa@1800 [facility] Rx#: [id number] Output: Urine 0 0 ABP, PAP, CO, CI - Last Documented Arterial Blood Pressure 164/45 - Exam Patient is sleeping but arousable. She does not communicate Examination of the heart S1 and S2 Examination lungs bilateral breath sounds are heard Abdomen is soft nontender Examination lower extremity shows no significant edema - Labs CBC & Chem 7: 05/07/22 05:43 05/07/22 05:43 Labs: Abnormal Lab Results - Last 24 Hours (Table) 05/07/22 05/07/22 05/07/22 Range/Units 11:59 18:44 21:11 POC Glucose (mg/dL) 128 H 120 H 116 H (70-110) mg/dL 05/07/22 05/08/22 Range/Units 23:29 06:06 POC Glucose (mg/dL) 122 H 173 H (70-110) mg/dL Assessment and Plan Assessment: 1. End-stage renal disease making on hemodialysis on Sunday schedule. 2. Acute hypoxic respiratory failure secondary to pneumonia. Patient tested positive for covid-19 and influenza A. 3. Diabetes mellitus. 4. History of coronary artery disease. 5. Concern for anoxic brain injury. 6. Hypertension with chronic kidney disease. 7. Anemia of chronic kidney disease. Hemoglobin stable. 8. Chronic kidney disease mineral bone disease maintained on Renvela Plan: Hemodialysis in a.m. Continue with phosphate binders with tube feedings if family agrees for PEG tube
--- NOTE | 2022-05-08 10:38 | P.PN ---
Subjective Progress Note Date: 05/08/22 Principal diagnosis: Acute hypoxic respiratory failure The patient is a 71-year-old female patient was requested to see in the intensive care unit for further evaluation of cardiac arrhythmia. The patient does have significant change in mental status and she is very poor historian and the history was taken from the chart as well as from was taking care of the patient. The patient is almost nonverbal. She was admitted to the hospital a few days ago with a change in mental status of unknown etiology. Subsequently she was intubated and subsequently she was extubated. The distal workup to be continued regarding the etiology of the change in mental status. Beside that s he does have extensive past medical history consistent of end-stage renal disease on dialysis as well as coronary artery disease and hypertension and dyslipidemia. She was tested positive for both COVID-19 infection as well as influenza. The reason we consulted to see the patient because of cardiac arrhythmia. On the monitor it was noted that the patient was going into what it seems to be in atrial fibrillation versus atrial tachycardia. Hemodynamically she remained stable and not on any vasopressors. She was receiving at home metoprolol at 100 mg by mouth twice a day but that was held when she was admitted to the hospital. No indication that the patient was experiencing any chest pain or chest discomfort or any feeling of heart racing or fluttering. I'm going to start the patient on metoprolol tartrate 12.5 mg by mouth twice a day. She underwent an echo which revealed normal left ventricular systolic function. May [id number] The patient remains intubated on mechanical ventilation. She is hemodynamically stable. Last night she went into A. fib with RVR and subsequently converted to normal sinus mechanism. If she develops any more episodes of A. fib with consider starting the patient on AV go rain agents as well as oral anticoagulation. The echo revealed normal left ventricle systolic function was no significant valvular abnormalities May 082022 The patient remained intubated on mechanical ventilation. She remains hemodynamics are stable. She has been in and out of atrial fibrillation with RVR. I am going to start the patient on amiodarone IV. Consider starting the patient on heparin IV but she is going for lumbar puncture so we will hold on that at this point and restart her back on anticoagulation once she is stable from that standpoint of view. The echo revealed normal biventricular systolic function was no significant valvular abnormalities Objective - Vital Signs Vital signs: Vital Signs Temp 98.2 F 05/07/22 12:00 Pulse 70 05/08/22 02:00 Resp 18 05/08/22 02:00 BP 135/58 05/08/22 02:00 Pulse Ox 97 05/08/22 02:00 FiO2 40 05/03/22 08:49 Intake & Output 05/07/22 05/08/22 05/08/22 18:59 06:59 18:59 Intake Total 340 220 Output Total 0 0 Balance 340 220 Weight 82.3 kg Intake: IV 240 220 0.9 Normal Saline @ 10 mL 140 120 /hr KVO levETIRAcetam IV 500 mg 100 100 In Sodium Chloride 0.9% 100 ml @ 400 mls/hr IVPB Q12HR [facility] Rx#:[id number] Intake, IV Titration 100 Amount levETIRAcetam IV 500 mg 100 In Sodium Chloride 0.9% 100 ml @ 400 mls/hr IVPB TuThSa@1800 [facility] Rx#: [id number] Output: Urine 0 0 ABP, PAP, CO, CI - Last Documented Arterial Blood Pressure 164/45 - Constitutional General appearance: Present: no acute distress - Labs CBC & Chem 7: 05/07/22 05:43 05/07/22 05:43 Labs: Abnormal Lab Results - Last 24 Hours (Table) 05/07/22 05/07/22 05/07/22 Range/Units 11:59 18:44 21:11 POC Glucose (mg/dL) 128 H 120 H 116 H (70-110) mg/dL 05/07/22 05/08/22 Range/Units 23:29 06:06 POC Glucose (mg/dL) 122 H 173 H (70-110) mg/dL Assessment and Plan Assessment: Assessment Acute hypoxic respiratory failure which has improved Change in mental status CAD End stage renal disease Paroxysmal atrial fibrillation Plan Continue the current medical regimen Start the patient on amiodarone IV Consider starting the patient on anticoagulation after lumbar puncture Follow-up with the patient
--- NOTE | 2022-05-08 12:34 | P.PN ---
Subjective Progress Note Date: 05/08/22 Principal diagnosis: Mental status changes. Reevaluated today on 04/30/22, patient remains in the ICU, intubated and mechanically ventilated. She is on assist control rate of 16 tidal volume 400 FiO2 40% and PEEP of 8. Patient is off sedation completely, however she is awake, opening her eyes, but she is not spending to any stimuli. Patient has no purposeful movement, she is not responsive to stimuli, obviously she has what seems to be a severe encephalopathy, suspect anoxic encephalopathy. Patient has IV fluid at KVO, she is receiving vital HP at 24 mL an hour.ABG today showed a pO2 of 83 pCO2 45 pH of 7.45 hence no changes were made in her vent settings. CBC is unremarkable WBC count 12.6 hemoglobin is 9.9.basic metabolic profile is normal bicarb is 30 BUN is 39 creatinine 5.74, patient was dialyzed yesterday, but no dialysis is planned so far for today.chest x-ray no evidence of active disease, continues to have left lower lobe atelectasis. Reevaluated today on 05/01/22, patient remains in the ICU, intubated and mechanically ventilated. She is on assist control of 16.400 FiO2 40% and PEEP of 5 ABG showed a pO2 of 110 pCO2 44 pH of 7.44. Neurologically, the patient remains about the same, she opens her eyes, but does not have any purposeful movement whatsoever. Does not follow any instructions. Patient is clearly encephalopathic. Remains on vitamin HP at 24 mL/h, her IV fluid to KVO, scheduled to have CT of the head and EEG again today. Patient is clearly not ready for weaning mostly because of her neurological status, in the meantime I'm recommending placing the patient on pressure support control mode of mechanical ventilation at 12, and CPAP, and if she tolerates we'll keep her on that mode until hopefully her mental status improves were and we could consider weaning and extubation. Otherwise the patient may have to be considered for tracheostomy and PEG tube placement. WBC count is 9.8 hemoglobin is 9.5. Basic metabolic profile is normal BUN is 70 creatinine 7.59, patient may undergo dialysis today. Chest x-ray is basically unremarkable continues to have some basilar atelectasis especially at the left base Progress note dated 05/02/2022. 71-year-old female who was admitted on April 27 with mental status changes, aspiration pneumonia, and respiratory failure. She was intubated on April 27. The patient also tested positive for influenza, and coronavirus. She remains on the ventilator, and is seen in room 256. She's on volume assist control, rate 16, tidal volume 400, FiO2 40%, and PEEP of 8. Blood gases show pO2 of 113, pCO2 45, and pH is 7.39. The patient's currently on Cleveprex at 4 mg an hour, saline at 10 mL an hour, and propofol, has been weaned off. The patient's getting vital high protein at 46 mL an hour, which is goal. The patient will have a pressure support CPAP trial today. Computed tomography scan of the brain was negative. Sputum showed evidence of Haemophilus influenzae. She is on Zosyn. White count 8.7, hemoglobin 9.5, hematocrit 30.5, and platelet count 396,000. Sodium 144, potassium 4.2, chlorides 101, CO2 27, anion gap 16, BUN 93, and creatinine 8.92. Chest x-ray shows infiltrate or atelectasis at the lung base on the left, and in the retrocardiac region. Progress note dated 05/03/2022. 71-year-old female was admitted on April 27, with mental status changes, respiratory failure, and aspiration pneumonia. She was intubated on April 27, and did test positive for both influenza, and coronavirus. She remains on the ventilator, in room 256. She's on volume assist control, rate 16, tidal volume 400, FiO2 40%, and PEEP of 8. Blood gases show pO2 of 80, pCO2 43, and a pH is 7.43. The patient's getting saline at KVO, Cleveprex at 6 mg an hour, and vital high protein, at 46 mL an hour, which is goal. The patient will have a spontaneous breathing trial, at pressure support of 8 and CPAP of 5. White count 11.1, hemoglobin 10.3, hematocrit 32.1, and platelet count normal. Sodium 140, potassium 3.8, chlorides 99, CO2 27, BUN 63, and creatinine 6.18. Sputum was positive for Haemophilus influenzae on April 27. Chest x-ray is largely unchanged. Progress note dated 05/04/2022. 71-year-old female admitted April 27, with mental status changes, respiratory failure, and aspiration pneumonia. She was intubated on April 27, and did test positive for both influenza, and coronavirus. She is seen today in room 256. She was successfully extubated yesterday, May 03. She's currently on 3 L of oxygen. She's getting saline at KVO. She is going to have hemodialysis today. Neurology saw the patient for altered mental status. She scheduled to have an MRI, and a lumbar puncture. White count 9.3, hemoglobin 10.8, hematocrit 34.4, and platelet count is normal. Sodium 142, potassium 4.2, chlorides 103, CO2 21, anion gap 18, BUN 85, and creatinine 7.83. Sputum was positive for Haemophilus influenzae, on April 27. Progress note dated 05/05/2022. 71-year-old female who is again seen in room 256. She is on 3 L of oxygen. Getting saline at 10 mL an hour. The MRI that was done, showed nothing acute. They're mostly chronic changes, including some ischemic changes. The patient's mental status is unchanged. She opens her eyes to painful stimuli. She looks at you, but does not speak. Zosyn will be discontinued today. CBC is normal. Sodium 138, potassium 4.5, chlorides 100, CO2 19, anion gap 19, BUN 48, and creatinine 5.59. Calcium is 9.4. Sputum was positive for Haemophilus influenzae on April 27, and the patient has received more than enough Zosyn. Progress note dated 05/06/2022. 71-year-old female again seen in room 256. She remains on 3 L of oxygen. The patient's getting saline at 10 mL an hour. The patient's also receiving vital high protein at 31 mL an hour, which is goal. An NG tube was placed yesterday for tube feeds. She is going to get hemodialysis today with the plan of rem oving 2 L. Her mental status is unchanged. White count 9.4, hemoglobin 11.2, and platelet count 356,000. Sodium 139, potassium 4.2, chlorides 100, CO2 17, anion gap 22, BUN 66, and creatinine 7.73. Glucose 200. Progress note dated 05/07/2022. 71-year-old female again seen in room 256. Unfortunately, been no major changes in her mental status. She remains on oxygen at 2 L, and saline IV at 10 mL an hour. She was started on Rocephin by ear nose and throat for mastoiditis and acute sinusitis. I've asked the nurse to talk to the family about a possible feeding tube. He had an NG tube in, and was receiving enteral nutrition, but apparently pulled it out. White count 9.4, he will been 12.3, hematocrit 38.2, and platelet count normal. Sodium 141, potassium 4, chlorides 99, CO2 24, BUN 52, and creatinine 5.88. The patient's chest x-ray is essentially unchanged. Progress note dated 05/08/2022. 71-year-old female again seen in room 256. Unfortunately, no major changes or improvement in her mental status. She is currently on amiodarone at 1 mg/m, because of atrial fibrillation with rapid ventricular response. She continues on 4 L nasal cannula. She's getting saline at 10 mL an hour. We've asked anesthesia to consider doing a lumbar puncture, to complete the workup, upper mental status changes. In addition, we'll talk to the family about a feeding tube. No new laboratory data today. Objective - Vital Signs Vital signs: Vital Signs Temp 98.2 F 05/07/22 12:00 Pulse 70 05/08/22 02:00 Resp 18 05/08/22 02:00 BP 135/58 05/08/22 02:00 Pulse Ox 97 05/08/22 02:00 FiO2 40 05/03/22 08:49 Intake & Output 05/07/22 05/08/22 05/08/22 18:59 06:59 18:59 Intake Total 340 220 Output Total 0 0 Balance 340 220 Weight 82.3 kg 82.3 kg Intake: IV 240 220 0.9 Normal Saline @ 10 mL 140 120 /hr KVO levETIRAcetam IV 500 mg 100 100 In Sodium Chloride 0.9% 100 ml @ 400 mls/hr IVPB Q12HR [facility] Rx#:[id number] Intake, IV Titration 100 Amount levETIRAcetam IV 500 mg 100 In Sodium Chloride 0.9% 100 ml @ 400 mls/hr IVPB TuThSa@1800 [facility] Rx#: [id number] Output: Urine 0 0 ABP, PAP, CO, CI - Last Documented Arterial Blood Pressure 164/45 - Exam No acute distress, poorly responsive. Opens eyes to painful stimuli. Remains on 4 L. HEENT examination is grossly unremarkable. Neck supple. Full range of motion. No adenopathy thyromegaly or neck vein distention. Cardiovascular examination reveals regular rhythm rate. S1-S2 normal. No S3 or S4. No discernible murmur noted. Heart sounds are distant. Heart rate 70 bpm. Lungs reveal coarse bilateral rhonchi. No wheezes or crackles. Breath sounds equal. Saturations are 97 %. Abdomen is soft, without bowel sounds. No masses or tenderness. Extremities are intact. No cyanosis clubbing or edema. Skin is without rash or lesion. Neurologic examination is unchanged. - Labs CBC & Chem 7: 05/07/22 05:43 05/07/22 05:43 Labs: Abnormal Lab Results - Last 24 Hours (Table) 05/07/22 05/07/22 05/07/22 Range/Units 18:44 21:11 23:29 POC Glucose (mg/dL) 120 H 116 H 122 H (70-110) mg/dL 05/08/22 Range/Units 06:06 POC Glucose (mg/dL) 173 H (70-110) mg/dL Assessment and Plan Assessment: Acute hypoxemic respiratory failure, of unclear etiology, S/P intubation on 04/27/2022, S/P extubation on 05/03/2022. Possible CVA/seizure disorder. Possible anoxic brain injury, versus metabolic encephalopathy. Acute aspiration pneumonia. Positive test for coronavirus infection, without evidence of coronavirus associated pneumonia. Influenza A infection. End-stage renal disease, currently on hemodialysis. History of CAD. History of CHF. History of asthma. CAD with previous stent placement. Type 2 diabetes. Degenerative joint disease. Plan: Plan dated 05/02/2022. The patient is currently on Zosyn for H. influenzae infection. Labs, x-rays, and medications are reviewed. The patient remains on Cleveprex for blood pressure control. Propofol has been weaned off. The patient will get a spontaneous breathing trial with pressure support of 5 and CPAP of 5. The patient is getting tube feedings with vital high protein at goal. We will continue to follow and make recommendations along the way. Prognosis is guarded. Computed tomography scan of the brain was negative. Plan dated 05/03/2022. The patient is ready for a spontaneous breathing trial with pressure support of a CPAP of 5. The patient continues on Zosyn for I believe a more day. The patient is likely to get extubated. Labs, x-rays, and medications are reviewed. We will continue to follow make recommendations along the way. Overall prognosis remains guarded. No additional recommendations are made at this time. I did speak to the patient's son yesterday. Plan dated 05/04/2022. The patient was successfully extubated on May 03. The patient is currently on 3 oxygen. The patient will have hemodialysis today. The big issue with this patient continues to be her mental status. This could well be metabolic encephalopathy. Neurology recommends an MRI, and a lumbar puncture. We will continue to follow make recommendations along the way. We'll also talk to the family about treating this patient, down the road, depending on what we find. Plan dated 05/05/2022. The patient's a child to the patient's son, about the possibility of a feeding tube, i.e. PEG tube. In the short-term, the patient may benefit from an NG tube, and enteral nutrition. Also, we will confirm CODE STATUS with son. Additional recommendations and suggestions are forthcoming. Labs, x-rays, and medications are reviewed. Zosyn is discontinued. Prognosis is guarded. Plan dated 05/06/2022. The patient's mental status is unchanged. The patient is on 3 L. She has an NG tube in place, for enteral nutrition. She is going to have hemodialysis today. The goal is removal of 2 L of fluid. All antibiotics have been discontinued. We will continue to follow the patient make recommendations along the way. Prognosis is very guarded. Plan dated 05/07/2022. Prognosis would call the patient's son, and ask about a permanent feeding tube. The patient had a NG tube in, and was receiving enteral nutrition, but unfortunate pulled it out. The patient was seen by otolaryngology, and was thought to have a sinusitis and mastoiditis, and started on Rocephin. We will continue to follow make recommendations along the way. Labs, x-rays, and medications are reviewed. Prognosis is guarded. Mental status is poor, and unchanged. Plan dated 05/08/2022. Unfortunately, the patient's neurologic status has not improved. We have asked anesthesia to consider doing a lumbar puncture. The patient continues to have basically blank stare. She does not respond to verbal or painful stimuli. Labs, x-rays, and medications are reviewed. The patient may need a feeding tube. We'll talk to the family about that. We'll also talk to the family about CODE STATUS. Additional recommendations and suggestions are forthcoming. Time with Patient: Less than 30
[2022-05-08] MEDS: METOPROLOL TARTRATE 12.5 MG TAB PO SCH ×2 (13:09→21:30)
[2022-05-08] MEDS: PANTOPRAZOLE 40 MG/10 ML VIAL IVP SCH ×2 (13:10→13:25)
[2022-05-08] MEDS: levETIRAcetam IV 500 MG in SODIUM CHLORIDE 0.9% 100 ML IVPB SCH ×2 (13:15→21:49)
[2022-05-08] MEDS: OXYMETAZOLINE 0.05% NASL SPRAY 1 SPRAY BOTTLE NASAL SCH ×2 (13:22→21:37)
[2022-05-08 13:37] LABS: Glucose,Whole Blood 161 mg/dL (70-110)
[2022-05-08] MEDS: AMIODARONE 450 MG in DEXTROSE 5% IN WATER 250 ML IV SCH ×2 (13:50)
--- NOTE | 2022-05-08 14:03 | P.PN ---
Subjective Progress Note Date: 05/07/22 Principal diagnosis: Influenza A and possible aspiration pneumonia Patient is a 71-year-old female with a past medical history significant for type 2 diabetes mellitus COPD consist heart failure end-stage renal disease on hemodialysis, patient was brought into the ER 2 days ago after the patient was found to be unresponsive at home apparently the patient did not show for her dialysis , patient was found to be unresponsive at home brought to the hospital and getting intubated patient did have positive influenza A as well as ballesteros PCR, also with evidence of right upper lobe infiltrate concerning for aspiration pneumonia with a sputum grew Haemophilus for the patient completed a course of Zosyn. Subsequent MRI concerning for possible left-sided maxillary sinusitis patient has been evaluated by ENT started on Rocephin as of 05/07/2022 On today's evaluation that is 05/07/2022, the patient remains to be afebrile, patient is breathing comfortably on 3 L nasal cannula oxygen, patient is hemodynamically stable not requiring any pressor support, patient NG-tube fell out this morning, the patient is awake however no purposeful movement or answer any question no vomiting or diarrhea was reported by the nursing staff Objective - Vital Signs Vital signs: Vital Signs Temp 98 F 05/07/22 08:00 Pulse 84 05/07/22 09:00 Resp 2 L 05/07/22 08:00 BP 92/52 05/07/22 09:00 Pulse Ox 96 05/07/22 09:00 FiO2 40 05/03/22 08:49 Intake & Output 05/06/22 05/07/22 05/07/22 18:59 06:59 18:59 Intake Total 1121 682 230 Output Total 2500 Balance -1379 682 230 Weight 86.5 kg Intake: IV 220 220 130 0.9 Normal Saline @ 10 mL 120 120 30 /hr KVO levETIRAcetam IV 500 mg 100 100 100 In Sodium Chloride 0.9% 100 ml @ 400 mls/hr IVPB Q12HR [facility] Rx#:[id number] Intake, IV Titration 100 Amount levETIRAcetam IV 500 mg 100 In Sodium Chloride 0.9% 100 ml @ 400 mls/hr IVPB TuThSa@1800 [facility] Rx#: [id number] Tube Feeding 341 372 Hemodialysis 500 Other 60 90 Output: Urine 0 Hemodialysis 2500 ABP, PAP, CO, CI - Last Documented Arterial Blood Pressure 164/45 - Exam GENERAL DESCRIPTION: An elderly female lying in bed in no distress to RESPIRATORY SYSTEM: Unlabored breathing , coarse breath sounds HEART: S1 S2 regular rate and rhythm , ABDOMEN: Soft , no tenderness EXTREMITIES: No edema feet - Labs CBC & Chem 7: 05/07/22 05:43 05/07/22 05:43 Labs: Abnormal Lab Results - Last 24 Hours (Table) 05/06/22 05/06/22 05/06/22 Range/Units 17:27 19:51 23:20 BUN (7-17) mg/dL Creatinine (0.52-1.04) mg/dL Glucose (74-99) mg/dL POC Glucose (mg/dL) 169 H 167 H 175 H (70-110) mg/dL 05/07/22 05/07/22 05/07/22 Range/Units 05:37 05:43 11:59 BUN 52 H (7-17) mg/dL Creatinine 5.88 H (0.52-1.04) mg/dL Glucose 187 H (74-99) mg/dL POC Glucose (mg/dL) 191 H 128 H (70-110) mg/dL Assessment and Plan (1) Sepsis Current Visit: Yes Status: Acute Code(s): A41.9 - SEPSIS, UNSPECIFIED O RGANISM SNOMED Code(s): 02761897 (2) Aspiration pneumonia Current Visit: Yes Status: Acute Code(s): J69.0 - PNEUMONITIS DUE TO INHALATION OF FOOD AND VOMIT SNOMED Code(s): 878078358 Plan: 1 patient presented to hospital with sepsis in this patient who did have a fever elevated white count with evidence of right upper lobe consolidation concerning for aspiration pneumonia in this patient also tested positive for i nfluenza A as well as ballesteros PCR and concern for possible postinfluenzal bacterial pneumonia 2-blood culture has been negative and sputum culture grew Haemophilus for the patient has completed a course of Zosyn 3-patient has completed her 5 day course of Tamiflu 4-patient did have a abnormal MRI suspicious for left maxillary sinusitis clinically not behaving as bacterial sinusitis , patient however has been evaluated by ENT and started on Rocephin patient will be monitored closely Time with Patient: Less than 30
--- NOTE | 2022-05-08 14:05 | P.PN ---
Subjective Progress Note Date: 05/08/22 Principal diagnosis: Influenza A and possible aspiration pneumonia Patient is a 71-year-old female with a past medical history significant for type 2 diabetes mellitus COPD consist heart failure end-stage renal disease on hemodialysis, patient was brought into the ER 2 days ago after the patient was found to be unresponsive at home apparently the patient did not show for her dialysis , patient was found to be unresponsive at home brought to the hospital and getting intubated patient did have positive influenza A as well as ballesteros PCR, also with evidence of right upper lobe infiltrate concerning for aspiration pneumonia with a sputum grew Haemophilus for the patient completed a course of Zosyn. Subsequent MRI concerning for possible left-sided maxillary sinusitis patient has been evaluated by ENT started on Rocephin as of 05/07/2022 On today's evaluation that is 05/08/2022, the patient continues to be afebrile, patient is breathing comfortably on 4 L nasal cannula oxygen, patient is hemodynamically stable not requiring any pressor support, the patient is awake however no purposeful movement or answer any question no vomiting or diarrhea was reported by the nursing staff, currently waiting for family decision about PEG tube placement Objective - Vital Signs Vital signs: Vital Signs Temp 98.2 F 05/07/22 12:00 Pulse 70 05/08/22 02:00 Resp 18 05/08/22 02:00 BP 135/58 05/08/22 02:00 Pulse Ox 97 05/08/22 02:00 FiO2 40 05/03/22 08:49 Intake & Output 05/07/22 05/08/22 05/08/22 18:59 06:59 18:59 Intake Total 340 220 Output Total 0 0 Balance 340 220 Weight 82.3 kg 82.3 kg Intake: IV 240 220 0.9 Normal Saline @ 10 mL 140 120 /hr KVO levETIRAcetam IV 500 mg 100 100 In Sodium Chloride 0.9% 100 ml @ 400 mls/hr IVPB Q12HR [facility] Rx#:[id number] Intake, IV Titration 100 Amount levETIRAcetam IV 500 mg 100 In Sodium Chloride 0.9% 100 ml @ 400 mls/hr IVPB TuThSa@1800 [facility] Rx#: [id number] Output: Urine 0 0 ABP, PAP, CO, CI - Last Documented Arterial Blood Pressure 164/45 - Exam GENERAL DESCRIPTION: An elderly female lying in bed in no distress to RESPIRATORY SYSTEM: Unlabored breathing , coarse breath sounds HEART: S1 S2 regular rate and rhythm , ABDOMEN: Soft , no tenderness EXTREMITIES: No edema feet - Labs CBC & Chem 7: 05/07/22 05:43 05/07/22 05:43 Labs: Abnormal Lab Results - Last 24 Hours (Table) 05/07/22 05/07/22 05/07/22 Range/Units 18:44 21:11 23:29 POC Glucose (mg/dL) 120 H 116 H 122 H (70-110) mg/dL 05/08/22 05/08/22 Range/Units 06:06 13:32 POC Glucose (mg/dL) 173 H 161 H (70-110) mg/dL Assessment and Plan (1) Sepsis Current Visit: Yes Status: Acute Code(s): A41.9 - SEPSIS, UNSPECIFIED ORGANISM SNOMED Code(s): 65205705 (2) Aspiration pneumonia Current Visit: Yes Status: Acute Code(s): J69.0 - PNEUMONITIS DUE TO INHALATION OF FOOD AND VOMIT SNOMED Code(s): 310263843 Plan: 1 patient presented to hospital with sepsis in this patient who did have a fever elevated white count with evidence of right upper lobe consolidation concerning for aspiration pneumonia in this patient also tested positive for influenza A as well as ballesteros PCR and concern for possible postinfluenzal bacterial pneumonia 2-blood culture has been negative and sputum culture grew Haemophilus for the patient has completed a course of Zosyn 3-patient has completed her 5 day course of Tamiflu 4-patient did have a abnormal MRI suspicious for left maxillary sinusitis , patient has been evaluated by ENT and started on Rocephin patient will be monitored closely. 5patient with a mental status changes with no clear etiology is currently waiting for LP to be completed tomorrow Time with Patient: Less than 30
--- NOTE | 2022-05-08 15:30 | P.PN ---
Subjective Progress Note Date: 05/08/22 71 years old female with multiple medical problems including end-stage renal disease presents with hypoxia requiring intubation and she got extubated on 05/03 with some evidence of infection including cough and, influenza and positive sputum culture for Haemophilus influenzae was suspicion for aspiration pneumonia, currently she is being covered with Zosyn and her oxygen requirement down to 3 L/m However patient remains acutely encephalopathic with suspected anoxic brain energy, rule out other causes, neurologist on the case, patient MRI of the brain showing chronic white matter ischemic changes with differential diagnosis of multiple sclerosis and vasculitis but there is no evidence of acute ischemic changes or CVA. Also there is some concern for mastoiditis per radiologist. Patient continued on hemodialysis per nephrology team recommendation. Creatinine 7.8, reviewed stable Patient also kept on Keppra 500 mg and 500 milligrams after dialysis And sugar controlled on insulin 35 units Levemir twice a day Objective - Vital Signs Vital signs: Vital Signs Temp 98.2 F 05/07/22 12:00 Pulse 82 05/07/22 13:00 Resp 14 05/07/22 13:00 BP 124/56 05/07/22 13:00 Pulse Ox 95 05/07/22 13:00 FiO2 40 05/03/22 08:49 Intake & Output 05/07/22 05/07/22 05/08/22 06:59 18:59 06:59 Intake Total 682 340 Output Total 0 Balance 682 340 Weight 86.5 kg Intake: IV 220 240 0.9 Normal Saline @ 10 mL 120 140 /hr KVO levETIRAcetam IV 500 mg 100 100 In Sodium Chloride 0.9% 100 ml @ 400 mls/hr IVPB Q12HR [facility] Rx#:[id number] Intake, IV Titration 100 Amount levETIRAcetam IV 500 mg 100 In Sodium Chloride 0.9% 100 ml @ 400 mls/hr IVPB TuThSa@1800 [facility] Rx#: [id number] Tube Feeding 372 Other 90 Output: Urine 0 ABP, PAP, CO, CI - Last Documented Arterial Blood Pressure 164/45 - Exam -GENERAL: The patient is encephalopathic, open eye with good eye contact and does not follow commands HEENT: Pupils are round and equally reacting to light. EOMI. No scleral icterus. No conjunctival pallor. Normocephalic, atraumatic. No pharyngeal erythema. No thyromegaly. CARDIOVASCULAR: S1 and S2 present. No murmurs, rubs, or gallops. -PULMONARY: Chest is clear to auscultation, no wheezing. Mild bilateral crepitation ABDOMEN: Soft, nontender, nondistended, normoactive bowel sounds. No palpable organomegaly. MUSCULOSKELETAL: No joint swelling or deformity. EXTREMITIES: No cyanosis, clubbing, or pedal edema. NEUROLOGICAL: Gross neurological examination did not reveal any focal deficits. SKIN: No rashes. no petechiae. - Labs CBC & Chem 7: 05/07/22 05:43 05/07/22 05:43 Labs: Abnormal Lab Results - Last 24 Hours (Table) 05/07/22 05/07/22 05/07/22 Range/Units 05:37 05:43 11:59 BUN 52 H (7-17) mg/dL Creatinine 5.88 H (0.52-1.04) mg/dL Glucose 187 H (74-99) mg/dL POC Glucose (mg/dL) 191 H 128 H (70-110) mg/dL 05/07/22 05/07/22 05/07/22 Range/Units 18:44 21:11 23:29 BUN (7-17) mg/dL Creatinine (0.52-1.04) mg/dL Glucose (74-99) mg/dL POC Glucose (mg/dL) 120 H 116 H 122 H (70-110) mg/dL Assessment and Plan Assessment: Acute encephalopathy, mostly metabolic encephalopathy, rule out intracranial causes, patient also on seizure medication4 Poor oral intake secondary to above New-onset A. fib and RVR End-stage renal disease on hemodialysis Sepsis with aspiration pneumonia, secondary to Haemophilus influenzae, finished therapy and antibiotic was stopped Bilateral viral pneumonia including influenza and Covid infection. Diabetes mellitus on insulin Possible sinusitis Plan: I tried to contact family for possible tube feeding placement, we will follow up Continued on Keppra Continue with oxygen via nasal cannula Follow-up recommendation by neurology service will follow the case closely EKG and subsequent puncture plan tomorrow by neurology service Continue with ICU management with pulmonary/critical care team followed closely ID team and pro shop attendant of the case Patient is on hemodialysis Sweat Box Attendant on the case, small dose metoprolol added. Labs and medication were reviewed.. Continue same treatment. Continue with symptomatic treatment. Resume home medication. Monitor lytes and vitals. DVT and GI prophylaxis. Further recommendations as per clinical course of the patient DVT prophylaxis: Subcutaneous Lovenox GI Prophylaxis: Ppi
[2022-05-08] MEDS: HEPARIN SOD,PORK IN 0.45% NACL 25,000 UNIT in 0.45% NACL 1 250ML.BAG IV SCH ×2 (16:06→18:06)
[2022-05-08 17:22] LABS: HCT 36.1 % (34.0-46.0); HGB 11.7 gm/dL (11.4-16.0); Hypochromasia Slight; MCH 29.6 pg (25.0-35.0); MCHC 32.3 g/dL (31.0-37.0); MCV 91.8 fL (80.0-100.0); Mean Platelet Volume 7.9; Platelet Count 302 k/uL (150-450); RBC 3.94 m/uL (3.80-5.40); RDW 15.2 % (11.5-15.5); WBC 9.6 k/uL (3.8-10.6)
--- NOTE | 2022-05-08 17:39 | EEG ---
ELECTROENCEPHALOGRAM REPORT CLINICAL HISTORY: This is a 71-year-old woman with continued altered mental status. The video EEG is obtained to evaluate for seizure and epileptiform activity. RELEVANT MEDICATION: Keppra. EEG TYPE: A routine 21-channel EEG is performed with video using the 10/20 electrode placement system. DESCRIPTION: Wakefulness is only obtained. The background consists of 4.5 to 5.5 Hz theta activity intermixed with delta activity. There is no physiological stage II sleep architecture. There is no focal slowing. There is significant diffuse myogenic artifact throughout the study. Interictal and ictal, none. ACTIVATION PROCEDURE: Photic stimulation and hyperventilation are not performed. CLINICAL INTERPRETATION: The study is limited because of significant myogenic artifact. This is an abnormal routine EEG. The background slowing is suggestive of moderate to severe encephalopathy. There is no focal slowing, epileptiform discharge, or seizure on the EEG. Clinical correlation is recommended. MMMARY / JONO: [id number] / MTDD
[2022-05-08 18:09] LABS: Glucose,Whole Blood 94 mg/dL (70-110)
[2022-05-08 20:19] LABS: Glucose,Whole Blood 83 mg/dL (70-110)
[2022-05-08 23:34] LABS: Glucose,Whole Blood 86 mg/dL (70-110)
[2022-05-09] MEDS: HEPARIN SODIUM 1,000 UN/ML (10ML VL) IV PRN (00:02)
[2022-05-09] MEDS: INSULIN ASPART (NovoLOG) 100 UNIT/ML VIAL SQ SCH ×4 (00:18→19:09)
[2022-05-09 06:13] LABS: Glucose,Whole Blood 109 mg/dL (70-110)
[2022-05-09 07:03] LABS: Basophils # (A) 0.1 k/uL (0-0.2); Basophils % (A) 1 %; Eosinophils # (A) 0.4 k/uL (0-0.7); Eosinophils % (A) 4 %; HGB 11.5 gm/dL (11.4-16.0); Hypochromasia Marked; Lymphocytes # (A) 1.1 k/uL (1.0-4.8); Lymphocytes % (A) 11 %; MCH 29.6 pg (25.0-35.0); MCHC 31.1 g/dL (31.0-37.0); MCV 95.3 fL (80.0-100.0); Monocytes # (A) 0.4 k/uL (0-1.0); Monocytes % (A) 4 %; Neutrophils # (A) 8.4 k/uL (1.3-7.7); Neutrophils % (A) 78 %; Platelet Count 325 k/uL (150-450); RBC 3.89 m/uL (3.80-5.40); RDW 14.9 % (11.5-15.5); WBC 10.8 k/uL (3.8-10.6)
[2022-05-09] MEDS: INSULIN DETEMIR (LEVEMIR) 100 UNIT/ML SYR SQ SCH ×2 (07:14→21:52)
[2022-05-09 07:15] LABS: Potassium 4.5 mmol/L (3.5-5.1)
[2022-05-09] MEDS: SEVELAMER 800 MG TAB PO SCH ×3 (07:15→19:09)
[2022-05-09] MEDS: METOPROLOL TARTRATE 12.5 MG TAB PO SCH ×2 (08:36→21:57)
[2022-05-09] MEDS: PANTOPRAZOLE 40 MG/10 ML VIAL IVP SCH (08:52)
[2022-05-09] MEDS: HEPARIN SOD,PORK IN 0.45% NACL 25,000 UNIT in 0.45% NACL 1 250ML.BAG IV SCH ×2 (08:54→21:50)
--- NOTE | 2022-05-09 09:31 | P.PN ---
Subjective Patient is seen in follow-up for end-stage renal disease. She is maintained on hemodialysis on Sunday schedule. Extubated 05/03/2022. No change in mentation. Patient's NG tube came out , Awaiting possible PEG tube placement Plans for lumbar puncture today for workup of altered mentation. Maintained on amiodarone and heparin drips for A. fib with RVR Objective - Vital Signs Vital signs: Vital Signs Temp 98.0 F 05/09/22 02:00 Pulse 81 05/09/22 07:00 Resp 5 L 05/09/22 07:00 BP 163/68 05/09/22 06:00 Pulse Ox 97 05/09/22 07:00 FiO2 40 05/03/22 08:49 Intake & Output 05/08/22 05/09/22 05/09/22 18:59 06:59 18:59 Intake Total 120 279.667 102.952 Output Total 0 Balance 120 279.667 102.952 Weight 82.3 kg 89.6 kg Intake: IV 120 220 0.9 Normal Saline @ 10 mL 120 120 /hr KVO levETIRAcetam IV 500 mg 100 In Sodium Chloride 0.9% 100 ml @ 400 mls/hr IVPB Q12HR [facility] Rx#:[id number] Intake, IV Titration 59.667 102.952 Amount Heparin Sod,Pork in 0.45% 59.667 102.952 NaCl 25,000 unit In 0.45 % NaCl 1 250ml.bag @ 11. 561 UNITS/KG/HR 10 mls/hr IV .Q24H [facility] Rx#: [id number] Output: Urine 0 Other: Voiding Method Incontinent ABP, PAP, CO, CI - Last Documented Arterial Blood Pressure 164/45 - Exam Patient is sleeping but arousable. She does not communicate. Does not follow commands. Not opening eyes today Examination of the heart S1 and S2 Examination lungs bilateral breath sounds are heard Abdomen is soft nontender Examination lower extremity shows no significant edema - Labs CBC & Chem 7: 05/09/22 06:34 05/09/22 06:34 Labs: Abnormal Lab Results - Last 24 Hours (Table) 05/08/22 05/08/22 05/09/22 Range/Units 13:32 23:03 06:34 WBC 10.8 H (3.8-10.6) k/uL Neutrophils # 8.4 H (1.3-7.7) k/uL APTT 38.5 H (22.0-30.0) sec Carbon Dioxide (22-30) mmol/L BUN (7-17) mg/dL Creatinine (0.52-1.04) mg/dL Glucose (74-99) mg/dL POC Glucose (mg/dL) 161 H (70-110) mg/dL 05/09/22 05/09/22 Range/Units 06:34 06:34 WBC (3.8-10.6) k/uL Neutrophils # (1.3-7.7) k/uL APTT 70.4 H (22.0-30.0) sec Carbon Dioxide 17 L (22-30) mmol/L BUN 77 H (7-17) mg/dL Creatinine 9.22 H* (0.52-1.04) mg/dL Glucose 119 H (74-99) mg/dL POC Glucose (mg/dL) (70-110) mg/dL Assessment and Plan Assessment: 1. End-stage renal disease making on hemodialysis on Sunday schedule. 2. Acute hypoxic respiratory failure secondary to pneumonia. Patient tested positive for covid-19 and influenza A. 3. Diabetes mellitus. 4. History of coronary artery disease. 5. Encephalopathy with concern for anoxic brain injury. 6. Hypertension with chronic kidney disease. 7. Anemia of chronic kidney disease. Hemoglobin stable. 8. Chronic kidney disease mineral bone disease maintained on Renvela Plan: Hemodialysis today. Continue with phosphate binders with tube feedings when restarted.
--- NOTE | 2022-05-09 09:43 | P.PN ---
Subjective Progress Note Date: 05/09/22 The patient is a 71-year-old female who is currently admitted to the hospital with acute hypoxic respiratory failure. She has both COVID-19 and influenza positive. Over the course of her admission, she has been extubated, however never regained her neurological status. Her admission was complicated by A. fib with RVR and currently is on an amiodarone drip. She is also on heparin drip as she is unable tolerate oral medications. Consideration for PEG tube placement. VITALS: Blood pressure 163/68, pulse 81, respiratory rate 14, SpO2 99% TELEMETRY: Sinus mechanism LABS: WBC 10.8, hemoglobin 11.5, hematocrit 37.0, platelet 325, sodium 144, potassium 4.5, BUN 77, creatinine 9.22 IMPRESSION: Acute hypoxic respiratory failure, patient extubated Mental status changes, no improvement Coronary artery disease End-stage renal disease Paroxysmal atrial fibrillation Influenza and COVID-19 positive PLAN: Continue current cardiac medication regimen Continue amiodarone drip and heparin drip until PEG tube placement No further recommendations from the cardiac standpoint I am dictating on behalf of Dr Jonathan Villanueva's history/physical and assessment/plan. Objective - Vital Signs Vital signs: Vital Signs Temp 98.0 F 05/09/22 02:00 Pulse 81 05/09/22 07:00 Resp 5 L 05/09/22 07:00 BP 163/68 05/09/22 06:00 Pulse Ox 97 05/09/22 07:00 FiO2 40 05/03/22 08:49 Intake & Output 05/08/22 05/09/22 05/09/22 18:59 06:59 18:59 Intake Total 120 279.667 102.952 Output Total 0 Balance 120 279.667 102.952 Weight 82.3 kg 89.6 kg Intake: IV 120 220 0.9 Normal Saline @ 10 mL 120 120 /hr KVO levETIRAcetam IV 500 mg 100 In Sodium Chloride 0.9% 100 ml @ 400 mls/hr IVPB Q12HR [facility] Rx#:[id number] Intake, IV Titration 59.667 102.952 Amount Heparin Sod,Pork in 0.45% 59.667 102.952 NaCl 25,000 unit In 0.45 % NaCl 1 250ml.bag @ 11. 561 UNITS/KG/HR 10 mls/hr IV .Q24H [facility] Rx#: [id number] Output: Urine 0 Other: Voiding Method Incontinent ABP, PAP, CO, CI - Last Documented Arterial Blood Pressure 164/45 - Labs CBC & Chem 7: 05/09/22 06:34 05/09/22 06:34 Labs: Abnormal Lab Results - Last 24 Hours (Table) 05/08/22 05/08/22 05/09/22 Range/Units 13:32 23:03 06:34 WBC 10.8 H (3.8-10.6) k/uL Neutrophils # 8.4 H (1.3-7.7) k/uL APTT 38.5 H (22.0-30.0) sec Carbon Dioxide (22-30) mmol/L BUN (7-17) mg/dL Creatinine (0.52-1.04) mg/dL Glucose (74-99) mg/dL POC Glucose (mg/dL) 161 H (70-110) mg/dL 05/09/22 05/09/22 Range/Units 06:34 06:34 WBC (3.8-10.6) k/uL Neutrophils # (1.3-7.7) k/uL APTT 70.4 H (22.0-30.0) sec Carbon Dioxide 17 L (22-30) mmol/L BUN 77 H (7-17) mg/dL Creatinine 9.22 H* (0.52-1.04) mg/dL Glucose 119 H (74-99) mg/dL POC Glucose (mg/dL) (70-110) mg/dL
--- NOTE | 2022-05-09 10:24 | P.PN ---
Subjective Progress Note Date: 05/09/22 The patient is seen at bedside and per nurse no improvement. Continues to be off sedation. Per nurse, patient had run of A-fib and so was started on heparin drip. Currently in process of getting dialysis Objective - Vital Signs Vital signs: Vital Signs Temp 98.0 F 05/09/22 02:00 Pulse 81 05/09/22 07:00 Resp 5 L 05/09/22 07:00 BP 163/68 05/09/22 06:00 Pulse Ox 97 05/09/22 07:00 FiO2 40 05/03/22 08:49 Intake & Output 05/08/22 05/09/22 05/09/22 18:59 06:59 18:59 Intake Total 120 279.667 102.952 Output Total 0 Balance 120 279.667 102.952 Weight 82.3 kg 89.6 kg Intake: IV 120 220 0.9 Normal Saline @ 10 mL 120 120 /hr KVO levETIRAcetam IV 500 mg 100 In Sodium Chloride 0.9% 100 ml @ 400 mls/hr IVPB Q12HR [facility] Rx#:[id number] Intake, IV Titration 59.667 102.952 Amount Heparin Sod,Pork in 0.45% 59.667 102.952 NaCl 25,000 unit In 0.45 % NaCl 1 250ml.bag @ 11. 561 UNITS/KG/HR 10 mls/hr IV .Q24H [facility] Rx#: [id number] Output: Urine 0 Other: Voiding Method Incontinent ABP, PAP, CO, CI - Last Documented Arterial Blood Pressure 164/45 - Exam GENERAL: The patient is laying in bed and does not appear in acute distress. HENT: Has nuchal rigidity. NEUROLOGICAL: Limited because of her condition/cooperation. Higher mental function: She is severely drowsy and would open eyes with voice but would not verbalize or following commands. Cranial nerves:The pupils are round, equal and reactive to light. Primary gaze is midline but does not track. At instance would look to left. No facial weakness. Is mute. Rest is limited because of condition. Motor: The strength is hard to assess individual muscles. She moves all extremities above gravity except the right upper but would withdrawal to painful stimuli but seems weaker than left.. She would cross her legs right over left mostly. Appears has high arched foot. Ivett tone. Cerebellum: Unable to assess. Sensation: Unable to assess light touch. Reflexes (right/left): 1+ throughout. Plantars are mute bilaterally. Some of the workup during his hospital visit consisted of: Influenza A and Richard virus PCR detected. Troponin is a 1.07. Ammonia <9 TSH: 0.593 Urinalysis seems possible suggestive of underlying urinary tract infection CT of the head is reported as age-related atrophic and chronic small vessel ischemic changes without acute intracranial process seen at this time. CT angiography is reported as no significant abnormality. Chest x-ray was reported as peripheral nodule base consolidation right upper lobe. Could be on the basis of infiltrate or neoplastic process. Core sent interstitium correlate for chronic interstitial lung disease otherwise consider interstitial pneumonia or pneumonitis Prominence right hilum. Repeat x-ray recommend short-term basis to assess for developing infiltrate or adenopathy versus mass Routine EEG is abnormal. The background slowing suggestive of moderate to severe encephalopathy. The suppressions likely due to medication effect (sedatives). Otherwise there is no focal slowing, epileptiform discharges or seizure on the EEG. 2-D echo was reported as technically difficult study for agitation. Normal left ventricle diamonds and systolic function. She had repeat CT head on 04/28/22: It is reported as similar mild ventriculomegaly likely ex vacuo dilation from central cerebral atrophy. Mild patchy burden of chronic small vessel ischemic disease. No acute intracranial abnormality seen. Patient is intubated. His ongoing air-fluid level left maxillary sinus that could reflect acute sinusitis. Background mild chronic paranasal sinus disease. Opacification of the mastoid air cells on both sides. Partial opacification of the middle ear cavity as well. Correlate to exclude otomastoiditis Patient sputum is positive for Haemophilus influenza area - Labs CBC & Chem 7: 05/09/22 06:34 05/09/22 06:34 Labs: Abnormal Lab Results - Last 24 Hours (Table) 05/08/22 05/08/22 05/09/22 Range/Units 13:32 23:03 06:34 WBC 10.8 H (3.8-10.6) k/uL Neutrophils # 8.4 H (1.3-7.7) k/uL APTT 38.5 H (22.0-30.0) sec Carbon Dioxide (22-30) mmol/L BUN (7-17) mg/dL Creatinine (0.52-1.04) mg/dL Glucose (74-99) mg/dL POC Glucose (mg/dL) 161 H (70-110) mg/dL 05/09/22 05/09/22 Range/Units 06:34 06:34 WBC (3.8-10.6) k/uL Neutrophils # (1.3-7.7) k/uL APTT 70.4 H (22.0-30.0) sec Carbon Dioxide 17 L (22-30) mmol/L BUN 77 H (7-17) mg/dL Creatinine 9.22 H* (0.52-1.04) mg/dL Glucose 119 H (74-99) mg/dL POC Glucose (mg/dL) (70-110) mg/dL Assessment and Plan Assessment: * Persistent Encephalopathy, not significantly improving. Although it appears multifactorial: due to hypoxic respiratory failure from Influenza A and Coronavirus, some metabolic encephalopathy. Exam shows slight focal findings, but has been stable. MRI of the brain showed no acute stroke. * Reported transient episode of right facial droop by EMS. No evidence of acute stroke noted on MRI. * A-fib and on heparin drip * Status post extubation. Patient's mentation not improving significantly. She is awake, but mute, not speaking or following commands. * Influezna A infection * Acute Covid-19 infection * Consolidation of the right upper lobe concerning for infiltrate versus neoplastic process on chest x-ray * Sinusitis, possible mastoiditis. * Elevated troponin * End-stage renal disease on dialysis * Congestive heart failure * COPD * Chronic anemia. Plan: * Repeat EEG 05/08/2022: The study is limited because of significant myogenic artifact. The background slowing is suggestive of moderate to severe encephalopathy. No focal slowing, epileptiform discharges or seizure noted. * MRI of the brain without contrast revealed multiple bilateral periventricular white matter ischemic Changes. Findings can be compatible with chronic white matter ischemic changes. Multiple sclerosis and vasculitis is within the differential. No suspicious acute changes took on for left-sided weakness. I personally reviewed MRI, agree with the findings. Findings suggestive of small vessel disease. Acute left maxillary sinusitis. * Patient is not showing any clinical improvement today. She continues to be severely encephalopathic, not tracking. Not making eye contact. Therefore, Dr. Ahmadi ordered umbar puncture to rule out central infection and NMDA antibody. * Ordered repeat CT head. * Patient on Plavix, which now has been put on hold for LP. * Currently on heparin drip for run of A-fib. Heparin drip needs to be placed on hold for Lumbar Puncture. * I.D. is on board. * Appreciate ENT input for persistent left maxillary sinusitis and possible mastoiditis. Patient started on ceftriaxone and Afrin nasal spray. * Because of intermittent posturing, she is on prophylactic Keppra 500mg every 12 hours, with additional Keppra 500mg post dialysis. Keppra level pending. * Patient on dual antiplatelet medications including aspirin 81 mg and Plavix 75 mg. Continue aspirin 81 mg (new during this admission) and her Plavix 75mg daily was resumed for secondary stroke prophylaxis. Also on Lipitor 40 mg daily for secondary stroke prophylaxis. Plavix on hold for upcoming LP. May resume Plavix after LP. * Patient completed antibiotics per ID. * PT and OT are consulted, when able to participate * We'll defer the rest of the medical management to the primary and ICU team * For DVT prophylaxis: Patient on Lovenox * Prognosis is poor. The plan is discussed with the patient's nurse. I spoke with patient's son (Kal) and he wants to pursue with Lumbar Puncture and if does not reveal cause of her condition then are likely consider comfort care. Time with Patient: Less than 30
[2022-05-09 12:24] LABS: Glucose,Whole Blood 128 mg/dL (70-110)
--- NOTE | 2022-05-09 13:39 | P.PN ---
Subjective Progress Note Date: 05/09/22 Principal diagnosis: Mental status changes. Reevaluated today on 04/30/22, patient remains in the ICU, intubated and mechanically ventilated. She is on assist control rate of 16 tidal volume 400 FiO2 40% and PEEP of 8. Patient is off sedation completely, however she is awake, opening her eyes, but she is not spending to any stimuli. Patient has no purposeful movement, she is not responsive to stimuli, obviously she has what seems to be a severe encephalopathy, suspect anoxic encephalopathy. Patient has IV fluid at KVO, she is receiving vital HP at 24 mL an hour.ABG today showed a pO2 of 83 pCO2 45 pH of 7.45 hence no changes were made in her vent settings. CBC is unremarkable WBC count 12.6 hemoglobin is 9.9.basic metabolic profile is normal bicarb is 30 BUN is 39 creatinine 5.74, patient was dialyzed yesterday, but no dialysis is planned so far for today.chest x-ray no evidence of active disease, continues to have left lower lobe atelectasis. Reevaluated today on 05/01/22, patient remains in the ICU, intubated and mechanically ventilated. She is on assist control of 16.400 FiO2 40% and PEEP of 5 ABG showed a pO2 of 110 pCO2 44 pH of 7.44. Neurologically, the patient remains about the same, she opens her eyes, but does not have any purposeful movement whatsoever. Does not follow any instructions. Patient is clearly encephalopathic. Remains on vitamin HP at 24 mL/h, her IV fluid to KVO, scheduled to have CT of the head and EEG again today. Patient is clearly not ready for weaning mostly because of her neurological status, in the meantime I'm recommending placing the patient on pressure support control mode of mechanical ventilation at 12, and CPAP, and if she tolerates we'll keep her on that mode until hopefully her mental status improves were and we could consider weaning and extubation. Otherwise the patient may have to be considered for tracheostomy and PEG tube placement. WBC count is 9.8 hemoglobin is 9.5. Basic metabolic profile is normal BUN is 70 creatinine 7.59, patient may undergo dialysis today. Chest x-ray is basically unremarkable continues to have some basilar atelectasis especially at the left base Progress note dated 05/02/2022. 71-year-old female who was admitted on April 27 with mental status changes, aspiration pneumonia, and respiratory failure. She was intubated on April 27. The patient also tested positive for influenza, and coronavirus. She remains on the ventilator, and is seen in room 256. She's on volume assist control, rate 16, tidal volume 400, FiO2 40%, and PEEP of 8. Blood gases show pO2 of 113, pCO2 45, and pH is 7.39. The patient's currently on Cleveprex at 4 mg an hour, saline at 10 mL an hour, and propofol, has been weaned off. The patient's getting vital high protein at 46 mL an hour, which is goal. The patient will have a pressure support CPAP trial today. Computed tomography scan of the brain was negative. Sputum showed evidence of Haemophilus influenzae. She is on Zosyn. White count 8.7, hemoglobin 9.5, hematocrit 30.5, and platelet count 396,000. Sodium 144, potassium 4.2, chlorides 101, CO2 27, anion gap 16, BUN 93, and creatinine 8.92. Chest x-ray shows infiltrate or atelectasis at the lung base on the left, and in the retrocardiac region. Progress note dated 05/03/2022. 71-year-old female was admitted on April 27, with mental status changes, respiratory failure, and aspiration pneumonia. She was intubated on April 27, and did test positive for both influenza, and coronavirus. She remains on the ventilator, in room 256. She's on volume assist control, rate 16, tidal volume 400, FiO2 40%, and PEEP of 8. Blood gases show pO2 of 80, pCO2 43, and a pH is 7.43. The patient's getting saline at KVO, Cleveprex at 6 mg an hour, and vital high protein, at 46 mL an hour, which is goal. The patient will have a spontaneous breathing trial, at pressure support of 8 and CPAP of 5. White count 11.1, hemoglobin 10.3, hematocrit 32.1, and platelet count normal. Sodium 140, potassium 3.8, chlorides 99, CO2 27, BUN 63, and creatinine 6.18. Sputum was positive for Haemophilus influenzae on April 27. Chest x-ray is largely unchanged. Progress note dated 05/04/2022. 71-year-old female admitted April 27, with mental status changes, respiratory failure, and aspiration pneumonia. She was intubated on April 27, and did test positive for both influenza, and coronavirus. She is seen today in room 256. She was successfully extubated yesterday, May 03. She's currently on 3 L of oxygen. She's getting saline at KVO. She is going to have hemodialysis today. Neurology saw the patient for altered mental status. She scheduled to have an MRI, and a lumbar puncture. White count 9.3, hemoglobin 10.8, hematocrit 34.4, and platelet count is normal. Sodium 142, potassium 4.2, chlorides 103, CO2 21, anion gap 18, BUN 85, and creatinine 7.83. Sputum was positive for Haemophilus influenzae, on April 27. Progress note dated 05/05/2022. 71-year-old female who is again seen in room 256. She is on 3 L of oxygen. Getting saline at 10 mL an hour. The MRI that was done, showed nothing acute. They're mostly chronic changes, including some ischemic changes. The patient's mental status is unchanged. She opens her eyes to painful stimuli. She looks at you, but does not speak. Zosyn will be discontinued today. CBC is normal. Sodium 138, potassium 4.5, chlorides 100, CO2 19, anion gap 19, BUN 48, and creatinine 5.59. Calcium is 9.4. Sputum was positive for Haemophilus influenzae on April 27, and the patient has received more than enough Zosyn. Progress note dated 05/06/2022. 71-year-old female again seen in room 256. She remains on 3 L of oxygen. The patient's getting saline at 10 mL an hour. The patient's also receiving vital high protein at 31 mL an hour, which is goal. An NG tube was placed yesterday for tube feeds. She is going to get hemodialysis today with the plan of rem oving 2 L. Her mental status is unchanged. White count 9.4, hemoglobin 11.2, and platelet count 356,000. Sodium 139, potassium 4.2, chlorides 100, CO2 17, anion gap 22, BUN 66, and creatinine 7.73. Glucose 200. Progress note dated 05/07/2022. 71-year-old female again seen in room 256. Unfortunately, been no major changes in her mental status. She remains on oxygen at 2 L, and saline IV at 10 mL an hour. She was started on Rocephin by ear nose and throat for mastoiditis and acute sinusitis. I've asked the nurse to talk to the family about a possible feeding tube. He had an NG tube in, and was receiving enteral nutrition, but apparently pulled it out. White count 9.4, he will been 12.3, hematocrit 38.2, and platelet count normal. Sodium 141, potassium 4, chlorides 99, CO2 24, BUN 52, and creatinine 5.88. The patient's chest x-ray is essentially unchanged. Progress note dated 05/08/2022. 71-year-old female again seen in room 256. Unfortunately, no major changes or improvement in her mental status. She is currently on amiodarone at 1 mg/m, because of atrial fibrillation with rapid ventricular response. She continues on 4 L nasal cannula. She's getting saline at 10 mL an hour. We've asked anesthesia to consider doing a lumbar puncture, to complete the workup, upper mental status changes. In addition, we'll talk to the family about a feeding tube. No new laboratory data today. Progress note dated 05/09/2022. The patient is again seen in room 256. Mental status is unchanged. The patient's getting hemodialysis today. She's on 2 L of oxygen. She's back on amiodarone drip, and 0.5 mg/m, and heparin, via weightbase protocol. White count 10.8, hemoglobin 11.5, hematocrit 37, and platelet count 325,000. Sodium 144, potassium 4.5, chlorides 106, CO2 17, anion gap 21, BUN 77, and creatinine 9.22. Objective - Vital Signs Vital signs: Vital Signs Temp 97.8 F 05/09/22 08:00 Pulse 82 05/09/22 11:00 Resp 10 L 05/09/22 11:00 BP 143/63 05/09/22 11:00 Pulse Ox 97 05/09/22 11:00 FiO2 40 05/03/22 08:49 Intake & Output 05/08/22 05/09/22 05/09/22 18:59 06:59 18:59 Intake Total 120 279.667 134.119 Output Total 0 Balance 120 279.667 134.119 Weight 82.3 kg 89.6 kg Intake: IV 120 220 0.9 Normal Saline @ 10 mL 120 120 /hr KVO levETIRAcetam IV 500 mg 100 In Sodium Chloride 0.9% 100 ml @ 400 mls/hr IVPB Q12HR [facility] Rx#:[id number] Intake, IV Titration 59.667 134.119 Amount Heparin Sod,Pork in 0.45% 59.667 134.119 NaCl 25,000 unit In 0.45 % NaCl 1 250ml.bag @ 11. 561 UNITS/KG/HR 10 mls/hr IV .Q24H [facility] Rx#: [id number] Output: Urine 0 Other: Voiding Method Incontinent ABP, PAP, CO, CI - Last Documented Arterial Blood Pressure 164/45 - Exam No acute distress, poorly responsive. Opens eyes to painful stimuli. Remains on 2 L. HEENT examination is grossly unremarkable. Neck supple. Full range of motion. No adenopathy thyromegaly or neck vein distention. Cardiovascular examination reveals regular rhythm rate. S1-S2 normal. No S3 or S4. No discernible murmur noted. Heart sounds are distant. Heart rate 82 bpm. Lungs reveal coarse bilateral rhonchi. No wheezes or crackles. Breath sounds equal. Saturations are 97 %. Abdomen is soft, without bowel sounds. No masses or tenderness. Extremities are intact. No cyanosis clubbing or edema. Skin is without rash or lesion. Neurologic examination is unchanged. - Labs CBC & Chem 7: 05/09/22 06:34 05/09/22 06:34 Labs: Abnormal Lab Results - Last 24 Hours (Table) 05/08/22 05/08/22 05/09/22 Range/Units 13:32 23:03 06:34 WBC 10.8 H (3.8-10.6) k/uL Neutrophils # 8.4 H (1.3-7.7) k/uL APTT 38.5 H (22.0-30.0) sec Carbon Dioxide (22-30) mmol/L BUN (7-17) mg/dL Creatinine (0.52-1.04) mg/dL Glucose (74-99) mg/dL POC Glucose (mg/dL) 161 H (70-110) mg/dL 05/09/22 05/09/22 05/09/22 Range/Units 06:34 06:34 12:12 WBC (3.8-10.6) k/uL Neutrophils # (1.3-7.7) k/uL APTT 70.4 H (22.0-30.0) sec Carbon Dioxide 17 L (22-30) mmol/L BUN 77 H (7-17) mg/dL Creatinine 9.22 H* (0.52-1.04) mg/dL Glucose 119 H (74-99) mg/dL POC Glucose (mg/dL) 128 H (70-110) mg/dL Assessment and Plan Assessment: Acute hypoxemic respiratory failure, of unclear etiology, S/P intubation on 04/27/2022, S/P extubation on 05/03/2022. Possible CVA/seizure disorder. Possible anoxic brain injury, versus metabolic encephalopathy. Acute aspiration pneumonia. Positive test for coronavirus infection, without evidence of coronavirus associated pneumonia. Influenza A infection. End-stage renal disease, currently on hemodialysis. History of CAD. History of CHF. History of asthma. CAD with previous stent placement. Type 2 diabetes. Degenerative joint disease. Plan: Plan dated 05/02/2022. The patient is currently on Zosyn for H. influenzae infection. Labs, x-rays, and medications are reviewed. The patient remains on Cleveprex for blood pressure control. Propofol has been weaned off. The patient will get a spontaneous breathing trial with pressure support of 5 and CPAP of 5. The patient is getting tube feedings with vital high protein at goal. We will continue to follow and make recommendations along the way. Prognosis is guarded. Computed tomography scan of the brain was negative. Plan dated 05/03/2022. The patient is ready for a spontaneous breathing trial with pressure support of a CPAP of 5. The patient continues on Zosyn for I believe a more day. The patient is likely to get extubated. Labs, x-rays, and medications are reviewed. We will continue to follow make recommendations along the way. Overall prognosis remains guarded. No additional recommendations are made at this time. I did speak to the patient's son yesterday. Plan dated 05/04/2022. The patient was successfully extubated on May 03. The patient is currently on 3 oxygen. The patient will have hemodialysis today. The big issue with this patient continues to be her mental status. This could well be metabolic encephalopathy. Neurology recommends an MRI, and a lumbar puncture. We will continue to follow make recommendations along the way. We'll also talk to the family about treating this patient, down the road, depending on what we find. Plan dated 05/05/2022. The patient's a child to the patient's son, about the possibility of a feeding tube, i.e. PEG tube. In the short-term, the patient may benefit from an NG tube, and enteral nutrition. Also, we will confirm CODE STATUS with son. Additional recommendations and suggestions are forthcoming. Labs, x-rays, and medications are reviewed. Zosyn is discontinued. Prognosis is guarded. Plan dated 05/06/2022. The patient's mental status is unchanged. The patient is on 3 L. She has an NG tube in place, for enteral nutrition. She is going to have hemodialysis today. The goal is removal of 2 L of fluid. All antibiotics have been discontinued. We will continue to follow the patient make recommendations along the way. Prognosis is very guarded. Plan dated 05/07/2022. Prognosis would call the patient's son, and ask about a permanent feeding tube. The patient had a NG tube in, and was receiving enteral nutrition, but unfortunate pulled it out. The patient was seen by otolaryngology, and was thought to have a sinusitis and mastoiditis, and started on Rocephin. We will continue to follow make recommendations along the way. Labs, x-rays, and medications are reviewed. Prognosis is guarded. Mental status is poor, and unchanged. Plan dated 05/08/2022. Unfortunately, the patient's neurologic status has not improved. We have asked anesthesia to consider doing a lumbar puncture. The patient continues to have basically blank stare. She does not respond to verbal or painful stimuli. Labs, x-rays, and medications are reviewed. The patient may need a feeding tube. We'll talk to the family about that. We'll also talk to the family about CODE STATUS. Additional recommendations and suggestions are forthcoming. Plan dated 05/09/2021. The patient is doing about the same. Neurologically, she is unchanged. Anesthesia is to do a lumbar puncture on this patient sometime today. Labs, x- rays, and medications are reviewed. The patient may benefit from a PEG tube. We will await the results of the lumbar puncture. We have had discussions with the son, Kal. Overall prognosis remains poor. Time with Patient: Less than 30
[2022-05-09] MEDS: levETIRAcetam IV 500 MG in SODIUM CHLORIDE 0.9% 100 ML IVPB SCH ×3 (14:19→21:54)
--- NOTE | 2022-05-09 16:31 | CT ---
EXAMINATION TYPE: CT brain wo con CT DLP: 2310.4 mGycm, Automated exposure control for dose reduction was used. DATE OF EXAM: 05/09/2022 4:22 PM COMPARISON: 05/01/2022. CLINICAL INDICATION:Female, 71 years old with history of persistent altered mental status, Persistent AMS. Pt would not remain still, had to rescan. TECHNIQUE: Brain: Axial CT images of the brain were obtained with coronal and sagittal reformats created and rev iewed. Contrast used: None. Oral contrast used: None. FINDINGS: Brain: Limited by motion. Extra-axial spaces: No abnormal extra-axial fluid collections. Ventricular system: Within normal limits Cerebral parenchyma: No acute intraparenchymal hemorrhage or mass effect. The stewart-white junction is well differentiated. Cerebellum: Unremarkable. Mass effect: No evidence of midline shift. Intracranial vasculature: Atherosclerotic calcifications of the intracranial vessels. Soft tissues: Normal. Calvarium/osseous structures: No depressed skull fracture. Paranasal sinuses and mastoid air cells: Mild scattered paranasal sinus disease. Visualized orbits: Bilateral aphakia IMPRESSION: No acute intracranial process.
[2022-05-09 17:38] LABS: INR 0.9 (<1.2); Partial Thromboplastin Time 26.8 sec (22.0-30.0); Prothrombin Time 9.9 sec (9.0-12.0)
--- NOTE | 2022-05-09 18:39 | P.PN ---
Subjective Progress Note Date: 05/09/22 71 years old female with multiple medical problems including end-stage renal disease presents with hypoxia requiring intubation and she got extubated on 05/03 with some evidence of infection including cough and, influenza and positive sputum culture for Haemophilus influenzae was suspicion for aspiration pneumonia, currently she is being covered with Zosyn and her oxygen requirement down to 3 L/m However patient remains acutely encephalopathic with suspected anoxic brain energy, rule out other causes, neurologist on the case, patient MRI of the brain showing chronic white matter ischemic changes with differential diagnosis of multiple sclerosis and vasculitis but there is no evidence of acute ischemic changes or CVA. Also there is some concern for mastoiditis per radiologist. Patient continued on hemodialysis per nephrology team recommendation. Creatinine 7.8, reviewed stable Patient also kept on Keppra 500 mg and 500 milligrams after dialysis And sugar controlled on insulin 35 units Levemir twice a day 24 hour Interval change on 05/09/2022 Patient seen and evaluated in room at bedside; Mental status is unchanged. The patient's getting hemodialysis today. She's on 2 L of oxygen. She's back on amiodarone drip, and 0.5 mg/m, and heparin, via weightbase protocol. White count 10.8, hemoglobin 11.5, hematocrit 37, and platelet count 325,000. Sodium 144, potassium 4.5, chlorides 106, CO2 17, anion gap 21, BUN 77, and creatinine 9.22. Anesthesia is to do a lumbar puncture on this patient sometime today. Labs, x-rays, and medications are reviewed. The patient may benefit from a PEG tube. We will await the results of the lumbar puncture. This was discussed with patient's son, Kal. Objective - Vital Signs Vital signs: Vital Signs Temp 97.8 F 05/09/22 08:00 Pulse 82 05/09/22 11:00 Resp 10 L 05/09/22 11:00 BP 143/63 05/09/22 11:00 Pulse Ox 97 05/09/22 11:00 FiO2 40 05/03/22 08:49 Intake & Output 05/08/22 05/09/22 05/09/22 18:59 06:59 18:59 Intake Total 120 279.667 102.952 Output Total 0 Balance 120 279.667 102.952 Weight 82.3 kg 89.6 kg Intake: IV 120 220 0.9 Normal Saline @ 10 mL 120 120 /hr KVO levETIRAcetam IV 500 mg 100 In Sodium Chloride 0.9% 100 ml @ 400 mls/hr IVPB Q12HR [facility] Rx#:[id number] Intake, IV Titration 59.667 102.952 Amount Heparin Sod,Pork in 0.45% 59.667 102.952 NaCl 25,000 unit In 0.45 % NaCl 1 250ml.bag @ 11. 561 UNITS/KG/HR 10 mls/hr IV .Q24H [facility] Rx#: [id number] Output: Urine 0 Other: Voiding Method Incontinent ABP, PAP, CO, CI - Last Documented Arterial Blood Pressure 164/45 - Exam -GENERAL: The patient is encephalopathic, open eye with good eye contact and does not follow commands HEENT: Pupils are round and equally reacting to light. EOMI. No scleral icterus. No conjunctival pallor. Normocephalic, atraumatic. No pharyngeal erythema. No t hyromegaly. CARDIOVASCULAR: S1 and S2 present. No murmurs, rubs, or gallops. -PULMONARY: Chest is clear to auscultation, no wheezing. Mild bilateral crepitation ABDOMEN: Soft, nontender, nondistended, normoactive bowel sounds. No palpable organomegaly. MUSCULOSKELETAL: No joint swelling or deformity. EXTREMITIES: No cyanosis, clubbing, or pedal edema. NEUROLOGICAL: Gross neurological examination did not reveal any focal deficits. SKIN: No rashes. no petechiae. - Labs CBC & Chem 7: 05/09/22 06:34 05/09/22 06:34 Labs: Abnormal Lab Results - Last 24 Hours (Table) 05/08/22 05/08/22 05/09/22 Range/Units 13:32 23:03 06:34 WBC 10.8 H (3.8-10.6) k/uL Neutrophils # 8.4 H (1.3-7.7) k/uL APTT 38.5 H (22.0-30.0) sec Carbon Dioxide (22-30) mmol/L BUN (7-17) mg/dL Creatinine (0.52-1.04) mg/dL Glucose (74-99) mg/dL POC Glucose (mg/dL) 161 H (70-110) mg/dL 05/09/22 05/09/22 Range/Units 06:34 06:34 WBC (3.8-10.6) k/uL Neutrophils # (1.3-7.7) k/uL APTT 70.4 H (22.0-30.0) sec Carbon Dioxide 17 L (22-30) mmol/L BUN 77 H (7-17) mg/dL Creatinine 9.22 H* (0.52-1.04) mg/dL Glucose 119 H (74-99) mg/dL POC Glucose (mg/dL) (70-110) mg/dL Assessment and Plan Assessment: Acute encephalopathy, mostly metabolic encephalopathy, rule out intracranial causes, patient also on seizure medication4 Poor oral intake secondary to above New-onset A. fib and RVR End-stage renal disease on hemodialysis Sepsis with aspiration pneumonia, secondary to Haemophilus influenzae, finished therapy and antibiotic was stopped Bilateral viral pneumonia including influenza and Covid infection. 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 Labs and medication were reviewed.. Continue same treatment. Continue with symptomatic treatment. Resume home medication. Monitor lytes and vitals. DVT and GI prophylaxis. Further recommendations as per clinical course of the patient DVT prophylaxis: Subcutaneous Lovenox GI Prophylaxis: Ppi
--- NOTE | 2022-05-09 18:40 | P.PN ---
Subjective Progress Note Date: 05/09/22 Principal diagnosis: Influenza A and possible aspiration pneumonia Patient is a 71-year-old female with a past medical history significant for type 2 diabetes mellitus COPD consist heart failure end-stage renal disease on hemodialysis, patient was brought into the ER 2 days ago after the patient was found to be unresponsive at home apparently the patient did not show for her dialysis , patient was found to be unresponsive at home brought to the hospital and getting intubated patient did have positive influenza A as well as ballesteros PCR, also with evidence of right upper lobe infiltrate concerning for aspiration pneumonia with a sputum grew Haemophilus for the patient completed a course of Zosyn. Subsequent MRI concerning for possible left-sided maxillary sinusitis patient has been evaluated by ENT started on Rocephin as of 05/07/2022 On today's evaluation that is 05/09/2022, the patient remains to be afebrile, patient is breathing comfortably on 4 L nasal cannula oxygen, patient is hemodynamically stable not requiring any pressor support, the patient is awake however no purposeful movement has been observed, patient did went to A. fib and has been started on heparin and also have diarrhea requiring a fecal management system currently waiting for lumbar puncture Objective - Vital Signs Vital signs: Vital Signs Temp 97.8 F 05/09/22 08:00 Pulse 82 05/09/22 11:00 Resp 10 L 05/09/22 11:00 BP 143/63 05/09/22 11:00 Pulse Ox 97 05/09/22 11:00 FiO2 40 05/03/22 08:49 Intake & Output 05/08/22 05/09/22 05/09/22 18:59 06:59 18:59 Intake Total 120 279.667 102.952 Output Total 0 Balance 120 279.667 102.952 Weight 82.3 kg 89.6 kg Intake: IV 120 220 0.9 Normal Saline @ 10 mL 120 120 /hr KVO levETIRAcetam IV 500 mg 100 In Sodium Chloride 0.9% 100 ml @ 400 mls/hr IVPB Q12HR [facility] Rx#:[id number] Intake, IV Titration 59.667 102.952 Amount Heparin Sod,Pork in 0.45% 59.667 102.952 NaCl 25,000 unit In 0.45 % NaCl 1 250ml.bag @ 11. 561 UNITS/KG/HR 10 mls/hr IV .Q24H [facility] Rx#: [id number] Output: Urine 0 Other: Voiding Method Incontinent ABP, PAP, CO, CI - Last Documented Arterial Blood Pressure 164/45 - Exam GENERAL DESCRIPTION: An elderly female lying in bed in no distress to RESPIRATORY SYSTEM: Unlabored breathing , coarse breath sounds HEART: S1 S2 regular rate and rhythm , ABDOMEN: Soft , no tenderness EXTREMITIES: No edema feet - Labs CBC & Chem 7: 05/09/22 06:34 05/09/22 06:34 Labs: Abnormal Lab Results - Last 24 Hours (Table) 05/08/22 05/08/22 05/09/22 Range/Units 13:32 23:03 06:34 WBC 10.8 H (3.8-10.6) k/uL Neutrophils # 8.4 H (1.3-7.7) k/uL APTT 38.5 H (22.0-30.0) sec Carbon Dioxide (22-30) mmol/L BUN (7-17) mg/dL Creatinine (0.52-1.04) mg/dL Glucose (74-99) mg/dL POC Glucose (mg/dL) 161 H (70-110) mg/dL 05/09/22 05/09/22 Range/Units 06:34 06:34 WBC (3.8-10.6) k/uL Neutrophils # (1.3-7.7) k/uL APTT 70.4 H (22.0-30.0) sec Carbon Dioxide 17 L (22-30) mmol/L BUN 77 H (7-17) mg/dL Creatinine 9.22 H* (0.52-1.04) mg/dL Glucose 119 H (74-99) mg/dL POC Glucose (mg/dL) (70-110) mg/dL Assessment and Plan (1) Sepsis Current Visit: Yes Status: Acute Code(s): A41.9 - SEPSIS, UNSPECIFIED ORGANISM SNOMED Code(s): 99218956 (2) Aspiration pneumonia Current Visit: Yes Status: Acute Code(s): J69.0 - PNEUMONITIS DUE TO INHALATION OF FOOD AND VOMIT SNOMED Code(s): 904194626 Plan: 1 patient presented to hospital with sepsis in this patient who did have a fever elevated white count with evidence of right upper lobe consolidation concerning for aspiration pneumonia in this patient also tested positive for influenza A as well as ballesteros PCR and concern for possible postinfluenzal bacterial pneumonia 2-blood culture has been negative and sputum culture grew Haemophilus for the patient has completed a course of Zosyn 3-patient has completed her 5 day course of Tamiflu 4-patient did have a abnormal MRI suspicious for left maxillary sinusitis , patient has been evaluated by ENT and started on Rocephin patient will be monitored closely. 5patient with a mental status changes with no clear etiology, awaiting LP at this point monitor her clinical course closely Time with Patient: Less than 30
[2022-05-09 18:52] LABS: Glucose,Whole Blood 151 mg/dL (70-110)
[2022-05-09] MEDS ORDERED: LORazepam 2 MG/ML INJ IV STA (18:58)
[2022-05-09] MEDS: AMIODARONE 450 MG in DEXTROSE 5% IN WATER 250 ML IV SCH ×4 (19:34→19:40)
--- NOTE | 2022-05-09 20:14 | P.CON ---
Consult Note - . Consult date: 05/09/22 Assessment/Plan:: Lumbar puncture procedure note Patient with altered mental status, consulted anesthesia for lumbar puncture. Patient was on heparin drip which was stopped 6 hours ago and repeat coagulation profile showed acceptable values. Informed consent was obtained from the family. Diagnosis: Altered mental status Anesthesia local infiltration with lidocaine 1% 2 mL. Condition: stable Complication: none. Description of the procedure procedure risk and benefits discussed with the patient's family, consent signed. Patient and the procedure area placed in lateral position back prepped with chlorhexidine 3 times been local infiltration of the skin and subcutaneous tissue with lidocaine 1% 2 mL for skin and subcutaneous interstitial frustrations at L4 5 levels then 22-gauge Quincke-type needle advanced slowly at L4- 5 interlaminar space there was positive cerebrospinal fluid which was clear, no heme, no paresthesia ,total of 10 ML of clear cerebrospinal fluid collected in 4 different tubes 2-2-1/2 mL in each, then the needle removed and a Band-Aid applied and patient tolerated the procedure well without any complications. The specimen handed over to the registered nurse to be sent to the lab.
[2022-05-09 22:14] LABS: Appearance,CSF Clear; CSF Tube Number 4
[2022-05-09 22:35] LABS: Nucleated Cells, CSF 2 u/L (0-5); Red Blood Cell,CSF 0 u/L (0-10)
[2022-05-09 22:38] LABS: Glucose,CSF 98 mg/dL (40-70); Total Protein,CSF 92 mg/dL (12-60)
[2022-05-10 00:22] LABS: Glucose,Whole Blood 155 mg/dL (70-110)
[2022-05-10 01:05] LABS: Glucose,Whole Blood 146 mg/dL (70-110)
[2022-05-10] MEDS: INSULIN ASPART (NovoLOG) 100 UNIT/ML VIAL SQ SCH ×4 (01:07→17:49)
[2022-05-10] MEDS: HEPARIN SODIUM 1,000 UN/ML (10ML VL) IV PRN (06:13)
[2022-05-10 06:28] LABS: Glucose,Whole Blood 84 mg/dL (70-110)
[2022-05-10] MEDS: INSULIN DETEMIR (LEVEMIR) 100 UNIT/ML SYR SQ SCH ×2 (06:59→21:03)
[2022-05-10] MEDS ORDERED: MORPHINE SULFATE 4 MG/ML SYRINGE IVP STA (08:21)
[2022-05-10 09:02] LABS: ABG Base Excess 1.1 mmol/L; ABG HCO3 25 mmol/L (21-25); ABG Oxygen Saturation 93.2 % (94-97); ABG PCO2 38 mmHg (35-45); ABG PH 7.44 (7.35-7.45); ABG PO2 72 mmHg (83-108); ABG TCO2 27 mmol/L (19-24)
[2022-05-10 09:04] LABS: Allen Test Performed? Yes
[2022-05-10] MEDS: PANTOPRAZOLE 40 MG/10 ML VIAL IVP SCH (09:12)
--- NOTE | 2022-05-10 09:19 | P.PN ---
Subjective Progress Note Date: 05/10/22 The patient is a 71-year-old female who is currently admitted to the hospital with acute hypoxic respiratory failure. She has both COVID-19 and influenza positive. Over the course of her admission, she has been extubated, however never regained her neurological status. Her admission was complicated by A. fib with RVR and currently is on an amiodarone drip. She is also on heparin drip as she is unable tolerate oral medications. Consideration for PEG tube placement. The patient was non-responsive to physical stimuli. Nonpurposeful movements noted. GENERAL: Well-appearing, well-nourished and in no acute distress. NECK: Supple without JVD or thyromegaly. LUNGS: Breath sounds diminished to auscultation bilaterally. Respiration equal and unlabored. Bilateral rhonchi. HEART: Regular rate and rhythm without murmurs, rubs or gallops. S1 and S2 heard. EXTREMITIES: Normal range of motion, no edema. No clubbing or cyanosis. Peripheral pulses intact and strong. VITALS: Blood pressure 158/103, pulse 82, respiratory rate 13, SpO2 95% on 4 L nasal cannula, afebrile TELEMETRY: Sinus mechanism IMPRESSION: Acute hypoxic respiratory failure, patient extubated Mental status changes, no improvement Coronary artery disease End-stage renal disease Paroxysmal atrial fibrillation Influenza and COVID-19 positive PLAN: Continue current cardiac medication regimen Continue amiodarone drip and heparin drip until PEG tube placement No further recommendations from the cardiac standpoint I am dictating on behalf of Dr Jonathan Villanueva's history/physical and assessment/plan. Objective - Vital Signs Vital signs: Vital Signs Temp 96.7 F L 05/10/22 04:00 Pulse 82 05/10/22 06:00 Resp 13 05/10/22 06:00 BP 158/103 05/10/22 06:00 Pulse Ox 95 05/09/22 20:00 FiO2 40 05/03/22 08:49 Intake & Output 05/09/22 05/10/22 05/10/22 18:59 06:59 18:59 Intake Total 654.119 183.333 Output Total 2300 100 Balance -1645.881 83.333 Weight 83 kg Intake: IV 220 100 0.9 Normal Saline @ 10 mL 120 /hr KVO levETIRAcetam IV 500 mg 100 100 In Sodium Chloride 0.9% 100 ml @ 400 mls/hr IVPB Q12HR [facility] Rx#:[id number] Intake, IV Titration 134.119 83.333 Amount Heparin Sod,Pork in 0.45% 134.119 83.333 NaCl 25,000 unit In 0.45 % NaCl 1 250ml.bag @ 11. 561 UNITS/KG/HR 10 mls/hr IV .Q24H [facility] Rx#: [id number] Hemodialysis 300 Output: Urine 0 Stool 100 Hemodialysis 2300 Other: Voiding Method Incontinent Incontinent # Voids 0 ABP, PAP, CO, CI - Last Documented Arterial Blood Pressure 164/45 - Labs CBC & Chem 7: 05/09/22 06:34 05/09/22 06:34 Labs: Abnormal Lab Results - Last 24 Hours (Table) 05/09/22 05/09/22 05/09/22 Range/Units 12:12 18:50 20:00 APTT (22.0-30.0) sec ABG pO2 (83-108) mmHg ABG Total CO2 (19-24) mmol/L ABG O2 Saturation (94-97) % POC Glucose (mg/dL) 128 H 151 H (70-110) mg/dL CSF Glucose 98 H (40-70) mg/dL CSF Total Protein 92 H (12-60) mg/dL 05/09/22 05/10/22 05/10/22 Range/Units 23:56 01:03 04:18 APTT 39.7 H (22.0-30.0) sec ABG pO2 (83-108) mmHg ABG Total CO2 (19-24) mmol/L ABG O2 Saturation (94-97) % POC Glucose (mg/dL) 155 H 146 H (70-110) mg/dL CSF Glucose (40-70) mg/dL CSF Total Protein (12-60) mg/dL 05/10/22 Range/Units 09:00 APTT (22.0-30.0) sec ABG pO2 72 L (83-108) mmHg ABG Total CO2 27 H (19-24) mmol/L ABG O2 Saturation 93.2 L (94-97) % POC Glucose (mg/dL) (70-110) mg/dL CSF Glucose (40-70) mg/dL CSF Total Protein (12-60) mg/dL Microbiology - Last 24 Hours (Table) 05/09/22 20:00 CSF Gram Stain - Preliminary Cerebral Spinal Fluid CSF Culture - Preliminary 05/09/22 20:00 Anaerobic Culture - Preliminary Cerebral Spinal Fluid
[2022-05-10] MEDS: AMIODARONE 450 MG in DEXTROSE 5% IN WATER 250 ML IV SCH ×2 (09:24)
[2022-05-10] MEDS: METOPROLOL TARTRATE 12.5 MG TAB PO SCH (09:45)
[2022-05-10] MEDS: SEVELAMER 800 MG TAB PO SCH ×3 (09:45→17:47)
[2022-05-10] MEDS: levETIRAcetam IV 500 MG in SODIUM CHLORIDE 0.9% 100 ML IVPB SCH ×2 (09:47→21:03)
--- NOTE | 2022-05-10 11:31 | P.PN ---
Subjective Patient is seen in follow-up for end-stage renal disease. She is maintained on hemodialysis on Sunday schedule. Extubated 05/03/2022. No change in mentation. Patient's NG tube came out , Awaiting possible PEG tube placement Status post LP yesterday which does not show any significant cells but protein was elevated at 92 Maintained on amiodarone and heparin drips for A. fib with RVR heart rate is controlled however patient is not able to take by mouth thus far she remains on IV drip Objective - Vital Signs Vital signs: Vital Signs Temp 96.7 F L 05/10/22 04:00 Pulse 78 05/10/22 10:00 Resp 14 05/10/22 10:00 BP 159/63 05/10/22 10:00 Pulse Ox 98 05/10/22 10:00 FiO2 40 05/03/22 08:49 Intake & Output 05/09/22 05/10/22 05/10/22 18:59 06:59 18:59 Intake Total 654.119 183.333 260.838 Output Total 2300 100 Balance -1645.881 83.333 260.838 Weight 83 kg 83 kg Intake: IV 220 100 0.9 Normal Saline @ 10 mL 120 /hr KVO levETIRAcetam IV 500 mg 100 100 In Sodium Chloride 0.9% 100 ml @ 400 mls/hr IVPB Q12HR [facility] Rx#:[id number] Intake, IV Titration 134.119 83.333 260.838 Amount Amiodarone 450 mg In 260.838 Dextrose 5% in Water 250 ml @ 0.5 MG/MIN 16.667 mls/hr IV .Q15H [facility] Rx#: [id number] Heparin Sod,Pork in 0.45% 134.119 83.333 NaCl 25,000 unit In 0.45 % NaCl 1 250ml.bag @ 11. 561 UNITS/KG/HR 10 mls/hr IV .Q24H [facility] Rx#: [id number] Hemodialysis 300 Output: Urine 0 Stool 100 Hemodialysis 2300 Other: Voiding Method Incontinent Incontinent Incontinent # Voids 0 ABP, PAP, CO, CI - Last Documented Arterial Blood Pressure 164/45 - Exam Patient is sleeping but arousable. She does not communicate. Does not follow commands. Not opening eyes today Examination of the heart S1 and S2 Examination lungs bilateral breath sounds are heard Abdomen is soft nontender Examination lower extremity shows no significant edema - Labs CBC & Chem 7: 05/09/22 06:34 05/09/22 06:34 Labs: Abnormal Lab Results - Last 24 Hours (Table) 05/09/22 05/09/22 05/09/22 Range/Units 12:12 18:50 20:00 APTT (22.0-30.0) sec ABG pO2 (83-108) mmHg ABG Total CO2 (19-24) mmol/L ABG O2 Saturation (94-97) % POC Glucose (mg/dL) 128 H 151 H (70-110) mg/dL CSF Glucose 98 H (40-70) mg/dL CSF Total Protein 92 H (12-60) mg/dL 05/09/22 05/10/22 05/10/22 Range/Units 23:56 01:03 04:18 APTT 39.7 H (22.0-30.0) sec ABG pO2 (83-108) mmHg ABG Total CO2 (19-24) mmol/L ABG O2 Saturation (94-97) % POC Glucose (mg/dL) 155 H 146 H (70-110) mg/dL CSF Glucose (40-70) mg/dL CSF Total Protein (12-60) mg/dL 05/10/22 Range/Units 09:00 APTT (22.0-30.0) sec ABG pO2 72 L (83-108) mmHg ABG Total CO2 27 H (19-24) mmol/L ABG O2 Saturation 93.2 L (94-97) % POC Glucose (mg/dL) (70-110) mg/dL CSF Glucose (40-70) mg/dL CSF Total Protein (12-60) mg/dL Microbiology - Last 24 Hours (Table) 05/09/22 20:00 CSF Gram Stain - Preliminary Cerebral Spinal Fluid CSF Culture - Preliminary 05/09/22 20:00 Anaerobic Culture - Preliminary Cerebral Spinal Fluid Assessment and Plan Assessment: 1. End-stage renal disease making on hemodialysis on Sunday schedule. 2. Acute hypoxic respiratory failure secondary to pneumonia. Patient tested positive for covid-19 and influenza A. Sputum culture growing Haemophilus influenza 3. Diabetes mellitus. 4. History of coronary artery disease. 5. Encephalopathy with concern for anoxic brain injury. 6. Hypertension with chronic kidney disease. 7. Anemia of chronic kidney disease. Hemoglobin stable. 8. Chronic kidney disease mineral bone disease maintained on Renvela Plan: Hemodialysis in a.m. Continue with phosphate binders with tube feedings when restarted.
[2022-05-10 12:56] LABS: Glucose,Whole Blood 78 mg/dL (70-110)
[2022-05-10] MEDS: AMIODARONE 200 MG TAB PO SCH (13:56)
[2022-05-10] MEDS: METOPROLOL TARTRATE 50 MG TAB PO SCH ×2 (13:57→21:03)
[2022-05-10 14:04] LABS: Glucose,Whole Blood 89 mg/dL (70-110)
--- NOTE | 2022-05-10 14:38 | P.PN ---
Subjective Progress Note Date: 05/10/22 Per patient's nurse, no improvement in her condition. She continues nonverbal and not following commands. She had Lumbar Puncture yesterday as well CT head. Objective - Vital Signs Vital signs: Vital Signs Temp 96.7 F L 05/10/22 04:00 Pulse 81 05/10/22 14:00 Resp 12 05/10/22 14:00 BP 124/88 05/10/22 14:00 Pulse Ox 97 05/10/22 14:00 FiO2 40 05/03/22 08:49 Intake & Output 05/09/22 05/10/22 05/10/22 18:59 06:59 18:59 Intake Total 654.119 183.333 260.838 Output Total 2300 100 Balance -1645.881 83.333 260.838 Weight 83 kg 83 kg Intake: IV 220 100 0.9 Normal Saline @ 10 mL 120 /hr KVO levETIRAcetam IV 500 mg 100 100 In Sodium Chloride 0.9% 100 ml @ 400 mls/hr IVPB Q12HR [facility] Rx#:[id number] Intake, IV Titration 134.119 83.333 260.838 Amount Amiodarone 450 mg In 260.838 Dextrose 5% in Water 250 ml @ 0.5 MG/MIN 16.667 mls/hr IV .Q15H [facility] Rx#: [id number] Heparin Sod,Pork in 0.45% 134.119 83.333 NaCl 25,000 unit In 0.45 % NaCl 1 250ml.bag @ 11. 561 UNITS/KG/HR 10 mls/hr IV .Q24H [facility] Rx#: [id number] Hemodialysis 300 Output: Urine 0 Stool 100 Hemodialysis 2300 Other: Voiding Method Incontinent Incontinent Incontinent # Voids 0 ABP, PAP, CO, CI - Last Documented Arterial Blood Pressure 164/45 - Exam GENERAL: The patient is laying in bed and does not appear in acute distress. HENT: Has nuchal rigidity. NEUROLOGICAL: Limited because of her condition/cooperation. Higher mental function: She is severely drowsy and would open eyes with voice but only states ouch to painful stimuli but otherwise verbalizing or following commands. Cranial nerves:The pupils are round, equal and reactive to light. Primary gaze is midline but does not track. At instance would look to left. No facial weakness. Is mute. Rest is limited because of condition. Motor: The strength is hard to assess individual muscles. She moves all extremities above gravity except the right upper but would withdrawal to painful stimuli but seems weaker than left.. She would cross her legs right over left mostly. Appears has high arched foot. Ivett tone. Cerebellum: Unable to assess. Sensation: Unable to assess light touch. Reflexes (right/left): 1+ throughout. Plantars are mute bilaterally. Some of the workup during his hospital visit consisted of: Influenza A and Richard virus PCR detected. Troponin is a 1.07. Ammonia <9 TSH: 0.593 Urinalysis seems possible suggestive of underlying urinary tract infection CT of the head is reported as age-related atrophic and chronic small vessel ischemic changes without acute intracranial process seen at this time. CT angiography is reported as no significant abnormality. Chest x-ray was reported as peripheral nodule base consolidation right upper lobe. Could be on the basis of infiltrate or neoplastic process. Core sent interstitium correlate for chronic interstitial lung disease otherwise consider interstitial pneumonia or pneumonitis Prominence right hilum. Repeat x-ray recommend short-term basis to assess for developing infiltrate or adenopathy versus mass Routine EEG is abnormal. The background slowing suggestive of moderate to severe encephalopathy. The suppressions likely due to medication effect ( sedatives). Otherwise there is no focal slowing, epileptiform discharges or seizure on the EEG. 2-D echo was reported as technically difficult study for agitation. Normal left ventricle diamonds and systolic function. She had repeat CT head on 04/28/22: It is reported as similar mild ventriculomeg karrie likely ex vacuo dilation from central cerebral atrophy. Mild patchy burden of chronic small vessel ischemic disease. No acute intracranial abnormality seen. Patient is intubated. His ongoing air-fluid level left maxillary sinus that could reflect acute sinusitis. Background mild chronic paranasal sinus disease. Opacification of the mastoid air cells on both sides. Partial opacification of the middle ear cavity as well. Correlate to exclude otomastoiditis Patient sputum is positive for Haemophilus influenza area Repeat CT of the head on 05/09/22 is reported as no acute intracranial process. I personally reviewed the CT and I agree there is no acute or subacute ischemia or bleed or mass effect. CSF study is it's clear, Matt, 0 red blood cell, 2 nucleated cells which is considered within normal limits, CSF glucose is 98 and the normal supposed to be between 40 and 70, CSF glucose is 92. And the normal supposed to be between 12- 60 CSF Gram stain is no organisms seen. - Labs CBC & Chem 7: 05/09/22 06:34 05/09/22 06:34 Labs: Abnormal Lab Results - Last 24 Hours (Table) 05/09/22 05/09/22 05/09/22 Range/Units 18:50 20:00 23:56 APTT (22.0-30.0) sec ABG pO2 (83-108) mmHg ABG Total CO2 (19-24) mmol/L ABG O2 Saturation (94-97) % POC Glucose (mg/dL) 151 H 155 H (70-110) mg/dL CSF Glucose 98 H (40-70) mg/dL CSF Total Protein 92 H (12-60) mg/dL 05/10/22 05/10/22 05/10/22 Range/Units 01:03 04:18 09:00 APTT 39.7 H (22.0-30.0) sec ABG pO2 72 L (83-108) mmHg ABG Total CO2 27 H (19-24) mmol/L ABG O2 Saturation 93.2 L (94-97) % POC Glucose (mg/dL) 146 H (70-110) mg/dL CSF Glucose (40-70) mg/dL CSF Total Protein (12-60) mg/dL Microbiology - Last 24 Hours (Table) 05/09/22 20:00 CSF Gram Stain - Preliminary Cerebral Spinal Fluid CSF Culture - Preliminary 05/09/22 20:00 Anaerobic Culture - Preliminary Cerebral Spinal Fluid Assessment and Plan Assessment: * Persistent Encephalopathy, not significantly improving. Although it appears multifactorial: due to hypoxic respiratory failure from Influenza A and Coronavirus, some metabolic encephalopathy. Exam shows slight focal findings, but has been stable. MRI of the brain showed no acute stroke. CSF is negative for encephalitis or meningitis. * Reported transient episode of right facial droop by EMS. No evidence of acute stroke noted on MRI. * A-fib and on heparin drip * Status post extubation. Patient's mentation not improving significantly. She is awake, but mute, not speaking or following commands. * Influezna A infection * Acute Covid-19 infection * Consolidation of the right upper lobe concerning for infiltrate versus neoplastic process on chest x-ray * Sinusitis, possible mastoiditis. * Elevated troponin * End-stage renal disease on dialysis * Congestive heart failure * COPD * Chronic anemia. Plan: * Repeat EEG 05/08/2022: The study is limited because of significant myogenic artifact. The background slowing is suggestive of moderate to severe encephalopathy. No focal slowing, epileptiform discharges or seizure noted. * Repeat CT of the head on 05/09/2022 is unremarkable. * MRI of the brain without contrast revealed multiple bilateral periventricular white matter ischemic Changes. Findings can be compatible with chronic white matter ischemic changes. Multiple sclerosis and vasculitis is within the differential. No suspicious acute changes took on for left-sided weakness. I personally reviewed MRI, agree with the findings. Findings suggestive of small vessel disease. Acute left maxillary sinusitis. * CSF study is unremarkable except for slightly elevated at 14 and glucose which is nonspecific and could be due to her underlying COVID-19 infection/influenza. Patient had 2 nucleated cells which is within normal limits and is not suggestive of encephalitis or meningitis. * Currently on heparin drip for run of A-fib. * I.D. is on board. * Appreciate ENT input for persistent left maxillary sinusitis and possible mastoiditis. Patient started on ceftriaxone and Afrin nasal spray. * Because of intermittent posturing, she is on prophylactic Keppra 500mg every 12 hours, with additional Keppra 500mg post dialysis. Keppra level pending. * Patient on dual antiplatelet medications including aspirin 81 mg and Plavix 75 mg. Continue aspirin 81 mg (new during this admission) and her Plavix 75mg daily was resumed for secondary stroke prophylaxis. Also on Lipitor 40 mg daily for secondary stroke prophylaxis. Plavix on hold for upcoming LP. May resume Plavix after LP. * Patient completed antibiotics per ID. * PT and OT are consulted, when able to participate * We'll defer the rest of the medical management to the primary and ICU team * For DVT prophylaxis: Patient on Lovenox * Prognosis is poor. The plan is discussed with the patient's son (Kal) via phone and stated he will speak with rest of family members today and likely they are pursuing comfort care measures. I have updated this info to her nurse. Time with Patient: Less than 30
--- NOTE | 2022-05-10 15:14 | P.PN ---
Subjective Progress Note Date: 05/10/22 Principal diagnosis: Acute encephalopathy New onset atrial fibrillation with RVR End-stage renal disease/hemodialysis Sepsis with aspiration pneumonia/bilateral viral pneumonia including influenza and COVID-19 infection 71 years old female with multiple medical problems including end-stage renal disease presents with hypoxia requiring intubation and she got extubated on 05/03 with some evidence of infection including cough and, influenza and positive sputum culture for Haemophilus influenzae was suspicion for aspiration pneumonia, currently she is being covered with Zosyn and her oxygen requirement down to 3 L/m However patient remains acutely encephalopathic with suspected anoxic brain energy, rule out other causes, neurologist on the case, patient MRI of the brain showing chronic white matter ischemic changes with differential diagnosis of multiple sclerosis and vasculitis but there is no evidence of acute ischemic changes or CVA. Also there is some concern for mastoiditis per radiologist. Patient continued on hemodialysis per nephrology team recommendation. Creatinine 7.8, reviewed stable Patient also kept on Keppra 500 mg and 500 milligrams after dialysis And sugar controlled on insulin 35 units Levemir twice a day 24 hour Interval change on 05/10/2022 Patient seen and evaluated in room at bedside; no improvement in mental status; remains on 2 L of oxygen. Patient is status post lumbar puncture and CT yesterday CT of the head is reported as age-related atrophic and chronic small vessel ischemic changes without acute intracranial process seen at this time. CT angiography is reported as no significant abnormality. Chest x-ray was reported as peripheral nodule base consolidation right upper lobe. Could be on the basis of infiltrate or neoplastic process. Core sent interstitium correlate for chronic interstitial lung disease otherwise consider interstitial pneumonia or pneumonitis Prominence right hilum. Repeat x-ray recommend short-term basis to assess for developing infiltrate or adenopathy versus mass Routine EEG is abnormal. The background slowing suggestive of moderate to severe encephalopathy. The suppressions likely due to medication effect (sedatives). Otherwise there is no focal slowing, epileptiform discharges or seizure on the EEG. 2-D echo was reported as technically difficult study for agitation. Normal left ventricle diamonds and systolic function. MRI of the brain without contrast revealed multiple bilateral periventricular white matter ischemic Changes. Findings can be compatible with chronic white matter ischemic changes. Multiple sclerosis and vasculitis is within the differential. No suspicious acute changes took on for left-sided weakness. I personally reviewed MRI, agree with the findings. Findings suggestive of small vessel disease. Acute left maxillary sinusitis. CSF study is it's clear, 0 red blood cell, 2 nucleated cells which is considered within normal limits, CSF glucose is 98 and the normal supposed to be between 40 and 70, CSF glucose is 92. And the normal supposed to be between 12-60 CSF Gram stain is no organisms seen. Patient remains on antibiotics for left maxillary sinusitis and possible mastoiditis Patient remains on dual antiplatelet therapy with aspirin and Plavix; remains on Lipitor 40 mg daily for secondary stroke prevention Neurology on board and patient is placed on prophylactic Keppra 500 mg every 12 hours Objective - Vital Signs Vital signs: Vital Signs Temp 96.7 F L 05/10/22 04:00 Pulse 82 05/10/22 06:00 Resp 13 05/10/22 06:00 BP 158/103 05/10/22 06:00 Pulse Ox 95 05/09/22 20:00 FiO2 40 05/03/22 08:49 Intake & Output 05/09/22 05/10/22 05/10/22 18:59 06:59 18:59 Intake Total 654.119 183.333 228.893 Output Total 2300 100 Balance -1645.881 83.333 228.893 Weight 83 kg Intake: IV 220 100 0.9 Normal Saline @ 10 mL 120 /hr KVO levETIRAcetam IV 500 mg 100 100 In Sodium Chloride 0.9% 100 ml @ 400 mls/hr IVPB Q12HR [facility] Rx#:[id number] Intake, IV Titration 134.119 83.333 228.893 Amount Amiodarone 450 mg In 228.893 Dextrose 5% in Water 250 ml @ 0.5 MG/MIN 16.667 mls/hr IV .Q15H [facility] Rx#: [id number] Heparin Sod,Pork in 0.45% 134.119 83.333 NaCl 25,000 unit In 0.45 % NaCl 1 250ml.bag @ 11. 561 UNITS/KG/HR 10 mls/hr IV .Q24H [facility] Rx#: [id number] Hemodialysis 300 Output: Urine 0 Stool 100 Hemodialysis 2300 Other: Voiding Method Incontinent Incontinent # Voids 0 ABP, PAP, CO, CI - Last Documented Arterial Blood Pressure 164/45 - Exam -GENERAL: The patient is encephalopathic, open eye with good eye contact and does not follow commands HEENT: Pupils are round and equally reacting to light. EOMI. No scleral icterus. No conjunctival pallor. Normocephalic, atraumatic. No pharyngeal erythema. No thyromegaly. CARDIOVASCULAR: S1 and S2 present. No murmurs, rubs, or gallops. -PULMONARY: Chest is clear to auscultation, no wheezing. Mild bilateral crepitation ABDOMEN: Soft, nontender, nondistended, normoactive bowel sounds. No palpable organomegaly. MUSCULOSKELETAL: No joint swelling or deformity. EXTREMITIES: No cyanosis, clubbing, or pedal edema. NEUROLOGICAL: Gross neurological examination did not reveal any focal deficits. SKIN: No rashes. no petechiae. - Labs CBC & Chem 7: 05/09/22 06:34 05/09/22 06:34 Labs: Abnormal Lab Results - Last 24 Hours (Table) 05/09/22 05/09/22 05/09/22 Range/Units 12:12 18:50 20:00 APTT (22.0-30.0) sec ABG pO2 (83-108) mmHg ABG Total CO2 (19-24) mmol/L ABG O2 Saturation (94-97) % POC Glucose (mg/dL) 128 H 151 H (70-110) mg/dL CSF Glucose 98 H (40-70) mg/dL CSF Total Protein 92 H (12-60) mg/dL 05/09/22 05/10/22 05/10/22 Range/Units 23:56 01:03 04:18 APTT 39.7 H (22.0-30.0) sec ABG pO2 (83-108) mmHg ABG Total CO2 (19-24) mmol/L ABG O2 Saturation (94-97) % POC Glucose (mg/dL) 155 H 146 H (70-110) mg/dL CSF Glucose (40-70) mg/dL CSF Total Protein (12-60) mg/dL 05/10/22 Range/Units 09:00 APTT (22.0-30.0) sec ABG pO2 72 L (83-108) mmHg ABG Total CO2 27 H (19-24) mmol/L ABG O2 Saturation 93.2 L (94-97) % POC Glucose (mg/dL) (70-110) mg/dL CSF Glucose (40-70) mg/dL CSF Total Protein (12-60) mg/dL Microbiology - Last 24 Hours (Table) 05/09/22 20:00 CSF Gram Stain - Preliminary Cerebral Spinal Fluid CSF Culture - Preliminary 05/09/22 20:00 Anaerobic Culture - Preliminary Cerebral Spinal Fluid Assessment and Plan Assessment: Acute encephalopathy, mostly metabolic encephalopathy, rule out intracranial causes, patient also on seizure medication4 Poor oral intake secondary to above New-onset A. fib and RVR End-stage renal disease on hemodialysis Sepsis with aspiration pneumonia, secondary to Haemophilus influenzae, finished therapy and antibiotic was stopped Bilateral viral pneumonia including influenza and Covid infection. Diabetes mellitus on insulin Possible sinusitis Plan: I tried to contact family for possible tube feeding placement, we will follow up Continued on Keppra Continue with oxygen via nasal cannula Follow-up recommendation by neurology service will follow the case closely EKG and subsequent puncture plan tomorrow by neurology service Continue with ICU management with pulmonary/critical care team followed closely ID team and manager card of the case Patient is on hemodialysis Entry Level Marketing Representative on the case, small dose metoprolol added. Labs and medication were reviewed.. Continue same treatment. Continue with symptomatic treatment. Resume home medication. Monitor lytes and vitals. DVT and GI prophylaxis. Further recommendations as per clinical course of the patient DVT prophylaxis: Subcutaneous Lovenox GI Prophylaxis: Ppi
--- NOTE | 2022-05-10 15:49 | P.PN ---
Subjective Progress Note Date: 05/10/22 Reevaluated today on 04/30/22, patient remains in the ICU, intubated and mechanically ventilated. She is on assist control rate of 16 tidal volume 400 FiO2 40% and PEEP of 8. Patient is off sedation completely, however she is awake, opening her eyes, but she is not spending to any stimuli. Patient has no purposeful movement, she is not responsive to stimuli, obviously she has what seems to be a severe encephalopathy, suspect anoxic encephalopathy. Patient has IV fluid at KVO, she is receiving vital HP at 24 mL an hour.ABG today showed a pO2 of 83 pCO2 45 pH of 7.45 hence no changes were made in her vent settings. CBC is unremarkable WBC count 12.6 hemoglobin is 9.9.basic metabolic profile is normal bicarb is 30 BUN is 39 creatinine 5.74, patient was dialyzed yesterday, but no dialysis is planned so far for today.chest x-ray no evidence of active disease, continues to have left lower lobe atelectasis. Reevaluated today on 05/01/22, patient remains in the ICU, intubated and mechanically ventilated. She is on assist control of 16.400 FiO2 40% and PEEP of 5 ABG showed a pO2 of 110 pCO2 44 pH of 7.44. Neurologically, the patient remains about the same, she opens her eyes, but does not have any purposeful movement whatsoever. Does not follow any instructions. Patient is clearly en cephalopathic. Remains on vitamin HP at 24 mL/h, her IV fluid to KVO, scheduled to have CT of the head and EEG again today. Patient is clearly not ready for weaning mostly because of her neurological status, in the meantime I'm recommending placing the patient on pressure support control mode of mechanical ventilation at 12, and CPAP, and if she tolerates we'll keep her on that mode until hopefully her mental status improves were and we could consider weaning and extubation. Otherwise the patient may have to be considered for tracheostomy and PEG tube placement. WBC count is 9.8 hemoglobin is 9.5. Basic metabolic profile is normal BUN is 70 creatinine 7.59, patient may undergo dialysis today. Chest x-ray is basically unremarkable continues to have some basilar atelectasis especially at the left base Progress note dated 05/02/2022. 71-year-old female who was admitted on April 27 with mental status changes, aspiration pneumonia, and respiratory failure. She was intubated on April 27. The patient also tested positive for influenza, and coronavirus. She remains on the ventilator, and is seen in room 256. She's on volume assist control, rate 16, tidal volume 400, FiO2 40%, and PEEP of 8. Blood gases show pO2 of 113, pCO2 45, and pH is 7.39. The patient's currently on Cleveprex at 4 mg an hour, saline at 10 mL an hour, and propofol, has been weaned off. The patient's getting vital high protein at 46 mL an hour, which is goal. The patient will have a pressure support CPAP trial today. Computed tomography scan of the brain was negative. Sputum showed evidence of Haemophilus influenzae. She is on Zosyn. White count 8.7, hemoglobin 9.5, hematocrit 30.5, and platelet count 396,000. Sodium 144, potassium 4.2, chlorides 101, CO2 27, anion gap 16, BUN 93, and creatinine 8.92. Chest x-ray shows infiltrate or atelectasis at the lung base on the left, and in the retrocardiac region. Progress note dated 05/03/2022. 71-year-old female was admitted on April 27, with mental status changes, respiratory failure, and aspiration pneumonia. She was intubated on April 27, and did test positive for both influenza, and coronavirus. She remains on the ventilator, in room 256. She's on volume assist control, rate 16, tidal volume 400, FiO2 40%, and PEEP of 8. Blood gases show pO2 of 80, pCO2 43, and a pH is 7.43. The patient's getting saline at KVO, Cleveprex at 6 mg an hour, and vital high protein, at 46 mL an hour, which is goal. The patient will have a spontaneous breathing trial, at pressure support of 8 and CPAP of 5. White count 11.1, hemoglobin 10.3, hematocrit 32.1, and platelet count normal. Sodium 140, potassium 3.8, chlorides 99, CO2 27, BUN 63, and creatinine 6.18. Sputum was positive for Haemophilus influenzae on April 27. Chest x-ray is largely unchanged. Progress note dated 05/04/2022. 71-year-old female admitted April 27, with mental status changes, respiratory failure, and aspiration pneumonia. She was intubated on April 27, and did test positive for both influenza, and coronavirus. She is seen today in room 256. She was successfully extubated yesterday, May 03. She's currently on 3 L of oxygen. She's getting saline at KVO. She is going to have hemodialysis today. Neurology saw the patient for altered mental status. She scheduled to have an MRI, and a lumbar puncture. White count 9.3, hemoglobin 10.8, hematocrit 34.4, and platelet count is normal. Sodium 142, potassium 4.2, chlor ides 103, CO2 21, anion gap 18, BUN 85, and creatinine 7.83. Sputum was positive for Haemophilus influenzae, on April 27. Progress note dated 05/05/2022. 71-year-old female who is again seen in room 256. She is on 3 L of oxygen. Getting saline at 10 mL an hour. The MRI that was done, showed nothing acute. They're mostly chronic changes, including some ischemic changes. The patient's mental status is unchanged. She opens her eyes to painful stimuli. She looks at you, but does not speak. Zosyn will be discontinued today. CBC is normal. Sodium 138, potassium 4.5, chlorides 100, CO2 19, anion gap 19, BUN 48, and creatinine 5.59. Calcium is 9.4. Sputum was positive for Haemophilus influenzae on April 27, and the patient has received more than enough Zosyn. Progress note dated 05/06/2022. 71-year-old female again seen in room 256. She remains on 3 L of oxygen. The patient's getting saline at 10 mL an hour. The patient's also receiving vital high protein at 31 mL an hour, which is goal. An NG tube was placed yesterday for tube feeds. She is going to get hemodialysis today with the plan of removing 2 L. Her mental status is unchanged. White count 9.4, hemoglobin 11.2, and platelet count 356,000. Sodium 139, potassium 4.2, chlorides 100, CO2 17, anion gap 22, BUN 66, and creatinine 7.73. Glucose 200. Progress note dated 05/07/2022. 71-year-old female again seen in room 256. Unfortunately, been no major changes in her mental status. She remains on oxygen at 2 L, and saline IV at 10 mL an hour. She was started on Rocephin by ear nose and throat for mastoiditis and acute sinusitis. I've asked the nurse to talk to the family about a possible feeding tube. He had an NG tube in, and was receiving enteral nutrition, but apparently pulled it out. White count 9.4, he will been 12.3, hematocrit 38.2, and platelet count normal. Sodium 141, potassium 4, chlorides 99, CO2 24, BUN 52, and creatinine 5.88. The patient's chest x-ray is essentially unchanged. Progress note dated 05/08/2022. 71-year-old female again seen in room 256. Unfortunately, no major changes or improvement in her mental status. She is currently on amiodarone at 1 mg/m, because of atrial fibrillation with rapid ventricular response. She continues on 4 L nasal cannula. She's getting saline at 10 mL an hour. We've asked anesthesia to consider doing a lumbar puncture, to complete the workup, upper mental status changes. In addition, we'll talk to the family about a feeding tube. No new laboratory data today. Progress note dated 05/09/2022. The patient is again seen in room 256. Mental status is unchanged. The patient's getting hemodialysis today. She's on 2 L of oxygen. She's back on amiodarone drip, and 0.5 mg/m, and heparin, via weightbase protocol. White count 10.8, hemoglobin 11.5, hematocrit 37, and platelet count 325,000. Sodium 144, potassium 4.5, chlorides 106, CO2 17, anion gap 21, BUN 77, and creatinine 9.22. On 05/10/2022, the patient is still encephalopathic. Exact cause remains unclear. The patient was extubated on 05/03/2022 and the patient is calm and comfortable. She is lethargic, unresponsive, with those only to painful stimulation. No seizure activity has been noted. Note that the patient has undergone extensive amount of workup including CAT scan of the brain, MRI, and EEG and more recently, the patient underwent a lumbar puncture and the results were essentially negative. This can be potentially component of metabolic encephalopathy. The patient furthermore had a blood gas today that showed no evidence of any significant respiratory acidosis. Unfortunately, with her ongoing altered mentation, the patient is unable to take oral medication or nutrition. I suggested insertion of NG tube. She did have few episodes of atrial fibrillation and currently her cardiac rhythm is sinus. She remains on IV amiodarone and IV heparin. Hemodynamically stable. She has end-stage renal disease and she remains on hemodialysis. Afebrile for now. The blood work from yesterday showed a component of anion gap metabolic acidosis with a bicarb level of 17 and a BUN was 77 with a creatinine of 9.2. The previous count is at 10.8. Hemoglobin is at 11.5. Objective - Vital Signs Vital signs: Vital Signs Temp 96.7 F L 05/10/22 04:00 Pulse 82 05/10/22 06:00 Resp 13 05/10/22 06:00 BP 158/103 05/10/22 06:00 Pulse Ox 95 05/09/22 20:00 FiO2 40 05/03/22 08:49 Intake & Output 05/09/22 05/10/22 05/10/22 18:59 06:59 18:59 Intake Total 654.119 183.333 Output Total 2300 100 Balance -1645.881 83.333 Weight 83 kg Intake: IV 220 100 0.9 Normal Saline @ 10 mL 120 /hr KVO levETIRAcetam IV 500 mg 100 100 In Sodium Chloride 0.9% 100 ml @ 400 mls/hr IVPB Q12HR [facility] Rx#:[id number] Intake, IV Titration 134.119 83.333 Amount Heparin Sod,Pork in 0.45% 134.119 83.333 NaCl 25,000 unit In 0.45 % NaCl 1 250ml.bag @ 11. 561 UNITS/KG/HR 10 mls/hr IV .Q24H [facility] Rx#: [id number] Hemodialysis 300 Output: Urine 0 Stool 100 Hemodialysis 2300 Other: Voiding Method Incontinent Incontinent # Voids 0 ABP, PAP, CO, CI - Last Documented Arterial Blood Pressure 164/45 - Exam No acute distress, poorly responsive. Opens eyes to painful stimuli. Remains on 2 L. HEENT examination is grossly unremarkable. Neck supple. Full range of motion. No adenopathy thyromegaly or neck vein distention. Cardiovascular examination reveals regular rhythm rate. S1-S2 normal. No S3 or S4. No discernible murmur noted. Heart sounds are distant. Heart rate 82 bpm. Lungs reveal coarse bilateral rhonchi. No wheezes or crackles. Breath sounds equal. Saturations are 97 %. Abdomen is soft, without bowel sounds. No masses or tenderness. Extremities are intact. No cyanosis clubbing or edema. Skin is without rash or lesion. Neurologic examination is unchanged. - Labs CBC & Chem 7: 05/09/22 06:34 05/09/22 06:34 Labs: Abnormal Lab Results - Last 24 Hours (Table) 05/09/22 05/09/22 05/09/22 Range/Units 12:12 18:50 20:00 APTT (22.0-30.0) sec POC Glucose (mg/dL) 128 H 151 H (70-110) mg/dL CSF Glucose 98 H (40-70) mg/dL CSF Total Protein 92 H (12-60) mg/dL 05/09/22 05/10/22 05/10/22 Range/Units 23:56 01:03 04:18 APTT 39.7 H (22.0-30.0) sec POC Glucose (mg/dL) 155 H 146 H (70-110) mg/dL CSF Glucose (40-70) mg/dL CSF Total Protein (12-60) mg/dL Microbiology - Last 24 Hours (Table) 05/09/22 20:00 Anaerobic Culture - Preliminary Cerebral Spinal Fluid 05/09/22 20:00 CSF Culture - Preliminary Cerebral Spinal Fluid Assessment and Plan Plan: Acute hypoxemic respiratory failure, of unclear etiology, S/P intubation on 04/27/2022, S/P extubation on 05/03/2022.She is currently on 4 liters/min, no si gns of any respiratory distress and the blood gas showed no significant abnormalities and acid-base status. Encephalopathy/altered mentation. Consider the possibility of a CVA/seizure disorder. CT of the brain and the MRI of the brain are both negative for acute findings. Routine EEG is abnormal. The background slowing suggestive of moderate to severe encephalopathy. The suppressions likely due to medication effect (sedatives). Otherwise there is no focal slowing, epileptiform discharges or seizure on the EEG. 2-D echo was reported as technically difficult study for agitation. Normal left ventricle diamonds and systolic function . She had repeat CT head on 04/28/22: It is reported as similar mild ventriculomegaly likely ex vacuo dilation from central cerebral atrophy. Mild patchy burden of chronic small vessel ischemic disease. No acute intracranial abnormality seen. Patient is intubated. His ongoing air-fluid level left maxillary sinus that could reflect acute sinusitis. Background mild chronic paranasal sinus disease. Opacification of the mastoid air cells on both sides. Partial opacification of the middle ear cavity as well. Correlate to exclude otomastoiditis. Lumbar puncture was also negative. Acute aspiration pneumonia, treated Positive test for coronavirus infection, without evidence of coronavirus associated pneumonia, 05/02/22 Influenza A infection 05/02/22 Haemophilus influenza in the sputum currently on IV Rocephin End-stage renal disease, currently on hemodialysis History of CAD. History of CHF, normal LV function History of asthma. CAD with previous stent placement. Type 2 diabetes. Single epidose of atrial fibrillation, back to NSR Degenerative joint disease. Plan Inserts NG tube for nutritional support Start enteral feeding for nutritional support May discontinue IV heparin and transition the patient to oral Eliquis once NG tube was inserted We'll switch also amiodarone to oral and the patient is already on metoprolol 50 mg 3 times a day Levemir insulin for blood sugar control Keppra per neurology Hemodialysis per nephrology, the plan is to undergo hemodialysis tomorrow Check electrolytes Continue IV Rocephin as the patient has Haemophilus influenza in the sputum We'll continue to follow
[2022-05-10] MEDS: HEPARIN SOD,PORK IN 0.45% NACL 25,000 UNIT in 0.45% NACL 1 250ML.BAG IV SCH (17:44)
[2022-05-10 17:50] LABS: Glucose,Whole Blood 121 mg/dL (70-110)
[2022-05-10 20:53] LABS: Glucose,Whole Blood 130 mg/dL (70-110)
[2022-05-10 23:42] LABS: Glucose,Whole Blood 152 mg/dL (70-110)
[2022-05-11] MEDS: INSULIN ASPART (NovoLOG) 100 UNIT/ML VIAL SQ SCH ×4 (00:16→19:11)
[2022-05-11] MEDS: HEPARIN SODIUM 1,000 UN/ML (10ML VL) IV PRN (01:31)
[2022-05-11] MEDS: INSULIN DETEMIR (LEVEMIR) 100 UNIT/ML SYR SQ SCH ×2 (06:03→20:15)
[2022-05-11 06:04] LABS: Glucose,Whole Blood 166 mg/dL (70-110)
--- NOTE | 2022-05-11 06:39 | P.PN ---
Subjective Progress Note Date: 05/11/22 Reevaluated today on 04/30/22, patient remains in the ICU, intubated and mechanically ventilated. She is on assist control rate of 16 tidal volume 400 FiO2 40% and PEEP of 8. Patient is off sedation completely, however she is awake, opening her eyes, but she is not spending to any stimuli. Patient has no purposeful movement, she is not responsive to stimuli, obviously she has what seems to be a severe encephalopathy, suspect anoxic encephalopathy. Patient has IV fluid at KVO, she is receiving vital HP at 24 mL an hour.ABG today showed a pO2 of 83 pCO2 45 pH of 7.45 hence no changes were made in her vent settings. CBC is unremarkable WBC count 12.6 hemoglobin is 9.9.basic metabolic profile is normal bicarb is 30 BUN is 39 creatinine 5.74, patient was dialyzed yesterday, but no dialysis is planned so far for today.chest x-ray no evidence of active disease, continues to have left lower lobe atelectasis. Reevaluated today on 05/01/22, patient remains in the ICU, intubated and mechanically ventilated. She is on assist control of 16.400 FiO2 40% and PEEP of 5 ABG showed a pO2 of 110 pCO2 44 pH of 7.44. Neurologically, the patient remains about the same, she opens her eyes, but does not have any purposeful movement whatsoever. Does not follow any instructions. Patient is clearly en cephalopathic. Remains on vitamin HP at 24 mL/h, her IV fluid to KVO, scheduled to have CT of the head and EEG again today. Patient is clearly not ready for weaning mostly because of her neurological status, in the meantime I'm recommending placing the patient on pressure support control mode of mechanical ventilation at 12, and CPAP, and if she tolerates we'll keep her on that mode until hopefully her mental status improves were and we could consider weaning and extubation. Otherwise the patient may have to be considered for tracheostomy and PEG tube placement. WBC count is 9.8 hemoglobin is 9.5. Basic metabolic profile is normal BUN is 70 creatinine 7.59, patient may undergo dialysis today. Chest x-ray is basically unremarkable continues to have some basilar atelectasis especially at the left base Progress note dated 05/02/2022. 71-year-old female who was admitted on April 27 with mental status changes, aspiration pneumonia, and respiratory failure. She was intubated on April 27. The patient also tested positive for influenza, and coronavirus. She remains on the ventilator, and is seen in room 256. She's on volume assist control, rate 16, tidal volume 400, FiO2 40%, and PEEP of 8. Blood gases show pO2 of 113, pCO2 45, and pH is 7.39. The patient's currently on Cleveprex at 4 mg an hour, saline at 10 mL an hour, and propofol, has been weaned off. The patient's getting vital high protein at 46 mL an hour, which is goal. The patient will have a pressure support CPAP trial today. Computed tomography scan of the brain was negative. Sputum showed evidence of Haemophilus influenzae. She is on Zosyn. White count 8.7, hemoglobin 9.5, hematocrit 30.5, and platelet count 396,000. Sodium 144, potassium 4.2, chlorides 101, CO2 27, anion gap 16, BUN 93, and creatinine 8.92. Chest x-ray shows infiltrate or atelectasis at the lung base on the left, and in the retrocardiac region. Progress note dated 05/03/2022. 71-year-old female was admitted on April 27, with mental status changes, respiratory failure, and aspiration pneumonia. She was intubated on April 27, and did test positive for both influenza, and coronavirus. She remains on the ventilator, in room 256. She's on volume assist control, rate 16, tidal volume 400, FiO2 40%, and PEEP of 8. Blood gases show pO2 of 80, pCO2 43, and a pH is 7.43. The patient's getting saline at KVO, Cleveprex at 6 mg an hour, and vital high protein, at 46 mL an hour, which is goal. The patient will have a spontaneous breathing trial, at pressure support of 8 and CPAP of 5. White count 11.1, hemoglobin 10.3, hematocrit 32.1, and platelet count normal. Sodium 140, potassium 3.8, chlorides 99, CO2 27, BUN 63, and creatinine 6.18. Sputum was positive for Haemophilus influenzae on April 27. Chest x-ray is largely unchanged. Progress note dated 05/04/2022. 71-year-old female admitted April 27, with mental status changes, respiratory failure, and aspiration pneumonia. She was intubated on April 27, and did test positive for both influenza, and coronavirus. She is seen today in room 256. She was successfully extubated yesterday, May 03. She's currently on 3 L of oxygen. She's getting saline at KVO. She is going to have hemodialysis today. Neurology saw the patient for altered mental status. She scheduled to have an MRI, and a lumbar puncture. White count 9.3, hemoglobin 10.8, hematocrit 34.4, and platelet count is normal. Sodium 142, potassium 4.2, chlor ides 103, CO2 21, anion gap 18, BUN 85, and creatinine 7.83. Sputum was positive for Haemophilus influenzae, on April 27. Progress note dated 05/05/2022. 71-year-old female who is again seen in room 256. She is on 3 L of oxygen. Getting saline at 10 mL an hour. The MRI that was done, showed nothing acute. They're mostly chronic changes, including some ischemic changes. The patient's mental status is unchanged. She opens her eyes to painful stimuli. She looks at you, but does not speak. Zosyn will be discontinued today. CBC is normal. Sodium 138, potassium 4.5, chlorides 100, CO2 19, anion gap 19, BUN 48, and creatinine 5.59. Calcium is 9.4. Sputum was positive for Haemophilus influenzae on April 27, and the patient has received more than enough Zosyn. Progress note dated 05/06/2022. 71-year-old female again seen in room 256. She remains on 3 L of oxygen. The patient's getting saline at 10 mL an hour. The patient's also receiving vital high protein at 31 mL an hour, which is goal. An NG tube was placed yesterday for tube feeds. She is going to get hemodialysis today with the plan of removing 2 L. Her mental status is unchanged. White count 9.4, hemoglobin 11.2, and platelet count 356,000. Sodium 139, potassium 4.2, chlorides 100, CO2 17, anion gap 22, BUN 66, and creatinine 7.73. Glucose 200. Progress note dated 05/07/2022. 71-year-old female again seen in room 256. Unfortunately, been no major changes in her mental status. She remains on oxygen at 2 L, and saline IV at 10 mL an hour. She was started on Rocephin by ear nose and throat for mastoiditis and acute sinusitis. I've asked the nurse to talk to the family about a possible feeding tube. He had an NG tube in, and was receiving enteral nutrition, but apparently pulled it out. White count 9.4, he will been 12.3, hematocrit 38.2, and platelet count normal. Sodium 141, potassium 4, chlorides 99, CO2 24, BUN 52, and creatinine 5.88. The patient's chest x-ray is essentially unchanged. Progress note dated 05/08/2022. 71-year-old female again seen in room 256. Unfortunately, no major changes or improvement in her mental status. She is currently on amiodarone at 1 mg/m, because of atrial fibrillation with rapid ventricular response. She continues on 4 L nasal cannula. She's getting saline at 10 mL an hour. We've asked anesthesia to consider doing a lumbar puncture, to complete the workup, upper mental status changes. In addition, we'll talk to the family about a feeding tube. No new laboratory data today. Progress note dated 05/09/2022. The patient is again seen in room 256. Mental status is unchanged. The patient's getting hemodialysis today. She's on 2 L of oxygen. She's back on amiodarone drip, and 0.5 mg/m, and heparin, via weightbase protocol. White count 10.8, hemoglobin 11.5, hematocrit 37, and platelet count 325,000. Sodium 144, potassium 4.5, chlorides 106, CO2 17, anion gap 21, BUN 77, and creatinine 9.22. On 05/10/2022, the patient is still encephalopathic. Exact cause remains unclear. The patient was extubated on 05/03/2022 and the patient is calm and comfortable. She is lethargic, unresponsive, with those only to painful stimulation. No seizure activity has been noted. Note that the patient has undergone extensive amount of workup including CAT scan of the brain, MRI, and EEG and more recently, the patient underwent a lumbar puncture and the results were essentially negative. This can be potentially component of metabolic encephalopathy. The patient furthermore had a blood gas today that showed no evidence of any significant respiratory acidosis. Unfortunately, with her ongoing altered mentation, the patient is unable to take oral medication or nutrition. I suggested insertion of NG tube. She did have few episodes of atrial fibrillation and currently her cardiac rhythm is sinus. She remains on IV amiodarone and IV heparin. Hemodynamically stable. She has end-stage renal disease and she remains on hemodialysis. Afebrile for now. The blood work from yesterday showed a component of anion gap metabolic acidosis with a bicarb level of 17 and a BUN was 77 with a creatinine of 9.2. The previous count is at 10.8. Hemoglobin is at 11.5. 05/11/2022, the patient remains encephalopathic and there has been no progress in terms of her mentation. I would say she is essentially the same as yesterd ay. The patient is moving all 4 extremities. She has a sitter at the bedside. She was also painful stimulation. She does not follow commands. She is not able to communicate at this point in time. No seizure activity has been noted. She is hemodynamically stable. I do suspect metabolic encephalopathy and the patient is going to undergo dialysis today. Note that no hemodialysis was done yesterday. Meanwhile, the patient had a successful NG tube placement. The patient is receiving enteral feeding currently in the form of Glucerna 1.2 at the rate of 51 mL an hour and the goal is at 70. Cardiac rhythm is sinus. The patient remains on IV heparin and I have not transitioned her to Eliquis awaiting final decision from the family regarding the possibility of a PEG tube. Amiodarone is currently through the NG at a dose of 200 mg by mouth twice a day. She is on IV Keppra per neurology's recommendations. The blood work from today is still pending. Meanwhile, she is essentially on the same medication. We are limiting the use of any sedative medication. She is on Levemir insulin 35 units twice a day plus a sliding scale coverage. She remains on IV Rocephin 2 g every 24 hours. Microbiology showed Haemophilus influenza in the sputum. Otherwise CSF was negative. Objective - Vital Signs Vital signs: Vital Signs Temp 99.3 F 05/11/22 04:00 Pulse 78 05/11/22 05:00 Resp 9 L 05/11/22 05:00 BP 138/64 05/11/22 05:00 Pulse Ox 96 05/11/22 05:00 FiO2 40 05/03/22 08:49 Intake & Output 05/10/22 05/10/22 05/11/22 06:59 18:59 06:59 Intake Total 183.333 706.076 296.833 Output Total 100 0 100 Balance 83.333 706.076 196.833 Weight 83 kg 83 kg 87.8 kg Intake: IV 100 220 0.9 Normal Saline @ 10 mL 120 /hr KVO levETIRAcetam IV 500 mg 100 100 In Sodium Chloride 0.9% 100 ml @ 400 mls/hr IVPB Q12HR [facility] Rx#:[id number] Intake, IV Titration 83.333 427.076 76.833 Amount Amiodarone 450 mg In 292.783 Dextrose 5% in Water 250 ml @ 0.5 MG/MIN 16.667 mls/hr IV .Q15H [facility] Rx#: [id number] Heparin Sod,Pork in 0.45% 83.333 134.293 76.833 NaCl 25,000 unit In 0.45 % NaCl 1 250ml.bag @ 11. 561 UNITS/KG/HR 10 mls/hr IV .Q24H [facility] Rx#: [id number] Tube Feeding 279 Output: Urine 0 0 Stool 100 100 Other: Voiding Method Incontinent Incontinent Incontinent # Voids 0 # Bowel Movements 1 ABP, PAP, CO, CI - Last Documented Arterial Blood Pressure 164/45 - Exam No acute distress, poorly responsive. Opens eyes to painful stimuli. Remains on 2 L. NG tube is currently in place HEENT examination is grossly unremarkable. Neck supple. Full range of motion. No adenopathy thyromegaly or neck vein distention. Cardiovascular examination reveals regular rhythm rate. S1-S2 normal. No S3 or S4. No discernible murmur noted. Heart sounds are distant. Heart rate 82 bpm. Lungs reveal coarse bilateral rhonchi. No wheezes or crackles. Breath sounds equal. Saturations are 97 %. Abdomen is soft, without bowel sounds. No masses or tenderness. Extremities are intact. No cyanosis clubbing or edema. Skin is without rash or lesion. Neurologic examination is unchanged. - Labs CBC & Chem 7: 05/09/22 06:34 05/09/22 06:34 Labs: Abnormal Lab Results - Last 24 Hours (Table) 05/10/22 05/10/22 05/10/22 Range/Units 09:00 16:22 17:48 APTT 70.9 H (22.0-30.0) sec ABG pO2 72 L (83-108) mmHg ABG Total CO2 27 H (19-24) mmol/L ABG O2 Saturation 93.2 L (94-97) % POC Glucose (mg/dL) 121 H (70-110) mg/dL 05/10/22 05/10/22 05/10/22 Range/Units 20:52 23:39 23:40 APTT 40.3 H (22.0-30.0) sec ABG pO2 (83-108) mmHg ABG Total CO2 (19-24) mmol/L ABG O2 Saturation (94-97) % POC Glucose (mg/dL) 130 H 152 H (70-110) mg/dL 05/11/22 Range/Units 06:03 APTT (22.0-30.0) sec ABG pO2 (83-108) mmHg ABG Total CO2 (19-24) mmol/L ABG O2 Saturation (94-97) % POC Glucose (mg/dL) 166 H (70-110) mg/dL Microbiology - Last 24 Hours (Table) 05/09/22 20:00 CSF Gram Stain - Preliminary Cerebral Spinal Fluid CSF Culture - Preliminary 05/09/22 20:00 Anaerobic Culture - Preliminary Cerebral Spinal Fluid Assessment and Plan Plan: Acute hypoxemic respiratory failure, of unclear etiology, S/P intubation on 04/27/2022, S/P extubation on 05/03/2022.She is currently on 2 liters/min, no signs of any respiratory distress and the blood gas showed no significant abnormalities and acid-base status. Subsequently, the patient has been switched to room air oxygen. Encephalopathy/altered mentation. Consider the possibility of a CVA/seizure disorder. CT of the brain and the MRI of the brain are both negative for acute findings. Routine EEG is abnormal. The background slowing suggestive of moderate to severe encephalopathy. The suppressions likely due to medication effect (sedatives). Otherwise there is no focal slowing, epileptiform discharges or seizure on the EEG. 2-D echo was reported as technically difficult study for agitation. Normal left ventricle diamonds and systolic function . She had repeat CT head on 04/28/22: It is reported as similar mild ventriculomegaly likely ex vacuo dilation from c entral cerebral atrophy. Mild patchy burden of chronic small vessel ischemic disease. No acute intracranial abnormality seen. Patient is intubated. His ongoing air-fluid level left maxillary sinus that could reflect acute sinusitis. Background mild chronic paranasal sinus disease. Opacification of the mastoid air cells on both sides. Partial opacification of the middle ear cavity as well. Correlate to exclude otomastoiditis. Lumbar puncture was also negative. No major change in her neurologic functions. Suspect metabolic encephalopathy Acute aspiration pneumonia, treated Positive test for coronavirus infection, without evidence of coronavirus associated pneumonia, 05/02/22 Influenza A infection 05/02/22 Haemophilus influenza in the sputum currently on IV Rocephin End-stage renal disease, currently on hemodialysis History of CAD. History of CHF, normal LV function History of asthma. CAD with previous stent placement. Type 2 diabetes. Single epidose of atrial fibrillation, back to NSR Degenerative joint disease. Plan continue enteral feeding for nutritional support via an NG tube we'll start the patient and coagulation with Eliquis if there is no plans for PEG tube insertion Continue oral amiodarone and metoprolol 50 mg 3 times a day Levemir insulin for blood sugar control Keppra per neurology Hemodialysis per nephrology, the plan is to undergo hemodialysis today Center the bedside Check electrolytes Continue IV Rocephin as the patient has Haemophilus influenza in the sputum We'll continue to follow
--- NOTE | 2022-05-11 07:46 | P.PN ---
Subjective Progress Note Date: 05/10/22 Principal diagnosis: Influenza A and possible aspiration pneumonia Patient is a 71-year-old female with a past medical history significant for type 2 diabetes mellitus COPD consist heart failure end-stage renal disease on hemodialysis, patient was brought into the ER 2 days ago after the patient was found to be unresponsive at home apparently the patient did not show for her dialysis , patient was found to be unresponsive at home brought to the hospital and getting intubated patient did have positive influenza A as well as ballesteros PCR, also with evidence of right upper lobe infiltrate concerning for aspiration pneumonia with a sputum grew Haemophilus for the patient completed a course of Zosyn. Subsequent MRI concerning for possible left-sided maxillary sinusitis patient has been evaluated by ENT started on Rocephin as of 05/07/2022 On today's evaluation that is 05/10/2022, the patient continues to be afebrile, patient is breathing comfortably on 2 L nasal cannula oxygen, patient is hemodynamically stable not requiring any pressor support, the patient is awake however no purposeful movement has been observed, no worsening output in the fecal management system per the nursing staff Objective - Vital Signs Vital signs: Vital Signs Temp 96.7 F L 05/10/22 04:00 Pulse 81 05/10/22 14:00 Resp 12 05/10/22 14:00 BP 124/88 05/10/22 14:00 Pulse Ox 97 05/10/22 14:00 FiO2 40 05/03/22 08:49 Intake & Output 05/09/22 05/10/22 05/10/22 18:59 06:59 18:59 Intake Total 654.119 183.333 260.838 Output Total 2300 100 Balance -1645.881 83.333 260.838 Weight 83 kg 83 kg Intake: IV 220 100 0.9 Normal Saline @ 10 mL 120 /hr KVO levETIRAcetam IV 500 mg 100 100 In Sodium Chloride 0.9% 100 ml @ 400 mls/hr IVPB Q12HR [facility] Rx#:[id number] Intake, IV Titration 134.119 83.333 260.838 Amount Amiodarone 450 mg In 260.838 Dextrose 5% in Water 250 ml @ 0.5 MG/MIN 16.667 mls/hr IV .Q15H [facility] Rx#: [id number] Heparin Sod,Pork in 0.45% 134.119 83.333 NaCl 25,000 unit In 0.45 % NaCl 1 250ml.bag @ 11. 561 UNITS/KG/HR 10 mls/hr IV .Q24H [facility] Rx#: [id number] Hemodialysis 300 Output: Urine 0 Stool 100 Hemodialysis 2300 Other: Voiding Method Incontinent Incontinent Incontinent # Voids 0 ABP, PAP, CO, CI - Last Documented Arterial Blood Pressure 164/45 - Exam GENERAL DESCRIPTION: An elderly female lying in bed in no distress to RESPIRATORY SYSTEM: Unlabored breathing , coarse breath sounds HEART: S1 S2 regular rate and rhythm , ABDOMEN: Soft , no tenderness EXTREMITIES: No edema feet - Labs CBC & Chem 7: 05/09/22 06:34 05/09/22 06:34 Labs: Abnormal Lab Results - Last 24 Hours (Table) 05/09/22 05/09/22 05/09/22 Range/Units 18:50 20:00 23:56 APTT (22.0-30.0) sec ABG pO2 (83-108) mmHg ABG Total CO2 (19-24) mmol/L ABG O2 Saturation (94-97) % POC Glucose (mg/dL) 151 H 155 H (70-110) mg/dL CSF Glucose 98 H (40-70) mg/dL CSF Total Protein 92 H (12-60) mg/dL 05/10/22 05/10/22 05/10/22 Range/Units 01:03 04:18 09:00 APTT 39.7 H (22.0-30.0) sec ABG pO2 72 L (83-108) mmHg ABG Total CO2 27 H (19-24) mmol/L ABG O2 Saturation 93.2 L (94-97) % POC Glucose (mg/dL) 146 H (70-110) mg/dL CSF Glucose (40-70) mg/dL CSF Total Protein (12-60) mg/dL Microbiology - Last 24 Hours (Table) 05/09/22 20:00 CSF Gram Stain - Preliminary Cerebral Spinal Fluid CSF Culture - Preliminary 05/09/22 20:00 Anaerobic Culture - Preliminary Cerebral Spinal Fluid Assessment and Plan (1) Sepsis Current Visit: Yes Status: Acute Code(s): A41.9 - SEPSIS, UNSPECIFIED ORGANISM SNOMED Code(s): 54300632 (2) Aspiration pneumonia Current Visit: Yes Status: Acute Code(s): J69.0 - PNEUMONITIS DUE TO INHALATION OF FOOD AND VOMIT SNOMED Code(s): 620315851 Plan: 1 patient presented to hospital with sepsis in this patient who did have a fever elevated white count with evidence of right upper lobe consolidation concerning for aspiration pneumonia in this patient also tested positive for influenza A as well as ballesteros PCR and concern for possible postinfluenzal bacterial pneumonia 2-blood culture has been negative and sputum culture grew Haemophilus for the patient has completed a course of Zosyn 3-patient has completed her 5 day course of Tamiflu 4-patient did have a abnormal MRI suspicious for left maxillary sinusitis , patient has been evaluated by ENT and started on Rocephin 5patient with a mental status changes with no clear etiology, patient did have LP completed today glucose was elevated protein mildly elevated WBC only to clinically not behaving as encephalitis or meningitis this was discussed with the neurologist Time with Patient: Less than 30
[2022-05-11 08:13] LABS: Basophils # (A) 0.1 k/uL (0-0.2); Basophils % (A) 1 %; Eosinophils # (A) 0.5 k/uL (0-0.7); Eosinophils % (A) 5 %; HCT 33.8 % (34.0-46.0); HGB 10.7 gm/dL (11.4-16.0); Hypochromasia Moderate; Lymphocytes # (A) 1.2 k/uL (1.0-4.8); Lymphocytes % (A) 13 %; MCH 29.5 pg (25.0-35.0); MCHC 31.8 g/dL (31.0-37.0); MCV 92.9 fL (80.0-100.0); Monocytes # (A) 0.4 k/uL (0-1.0); Monocytes % (A) 5 %; Neutrophils # (A) 7.1 k/uL (1.3-7.7); Neutrophils % (A) 75 %; Platelet Count 285 k/uL (150-450); RBC 3.64 m/uL (3.80-5.40); RDW 14.7 % (11.5-15.5); WBC 9.4 k/uL (3.8-10.6)
[2022-05-11 08:25] LABS: Calcium 8.6 mg/dL (8.4-10.2); Potassium 4.3 mmol/L (3.5-5.1)
--- NOTE | 2022-05-11 09:10 | P.PN ---
Subjective Progress Note Date: 05/11/22 The patient is a 71-year-old female who is currently admitted to the hospital with acute hypoxic respiratory failure. She has both COVID-19 and influenza positive. Over the course of her admission, she has been extubated, however never regained her full neurological status. Her admission was complicated by A. fib with RVR. She does have ESRD and is on dialysis. The patient awakens to verbal command. Unable to obtain review of systems. GENERAL: Well-appearing, well-nourished and in no acute distress. NECK: Supple without JVD or thyromegaly. LUNGS: Breath sounds diminished to auscultation bilaterally. Respiration equal and unlabored. Bilateral rhonchi. HEART: Regular rate and rhythm without murmurs, rubs or gallops. S1 and S2 heard. EXTREMITIES: Normal range of motion, no edema. No clubbing or cyanosis. Peripheral pulses intact and strong. VITALS: Blood pressure 138/64, pulse 78, respiratory rate 12, SpO2 96%, temp 99.3F axillary LABS: WBC 9.4, hemoglobin 10.7, hematocrit 33.8, platelet 285, sodium 137, potassium 4.3, BUN 53, creatinine 7.24 TELEMETRY: Sinus mechanism IMPRESSION: Acute hypoxic respiratory failure Mental status changes, mild improvement Coronary artery disease End-stage renal disease Paroxysmal atrial fibrillation Influenza and COVID-19 positive PLAN: Continue current cardiac medication regimen Continue PO amiodarone via NG tube Once decision on PEG tube placement is made, transition to low dose Eliquis No further recommendations from the cardiac standpoint I am dictating on behalf of Dr Jonathan Villanueva's history/physical and assessment/plan. Objective - Vital Signs Vital signs: Vital Signs Temp 99.3 F 05/11/22 04:00 Pulse 78 05/11/22 05:00 Resp 9 L 05/11/22 05:00 BP 138/64 05/11/22 05:00 Pulse Ox 94 L 05/11/22 08:32 FiO2 40 05/03/22 08:49 Intake & Output 05/10/22 05/11/22 05/11/22 18:59 06:59 18:59 Intake Total 706.076 296.833 84.26 Output Total 0 100 Balance 706.076 196.833 84.26 Weight 83 kg 87.8 kg Intake: IV 220 0.9 Normal Saline @ 10 mL 120 /hr KVO levETIRAcetam IV 500 mg 100 In Sodium Chloride 0.9% 100 ml @ 400 mls/hr IVPB Q12HR [facility] Rx#:[id number] Intake, IV Titration 427.076 76.833 84.26 Amount Amiodarone 450 mg In 292.783 Dextrose 5% in Water 250 ml @ 0.5 MG/MIN 16.667 mls/hr IV .Q15H [facility] Rx#: [id number] Heparin Sod,Pork in 0.45% 134.293 76.833 84.26 NaCl 25,000 unit In 0.45 % NaCl 1 250ml.bag @ 11. 561 UNITS/KG/HR 10 mls/hr IV .Q24H [facility] Rx#: [id number] Tube Feeding 279 Output: Urine 0 0 Stool 100 Other: Voiding Method Incontinent Incontinent # Bowel Movements 1 ABP, PAP, CO, CI - Last Documented Arterial Blood Pressure 164/45 - Labs CBC & Chem 7: 05/11/22 07:23 05/11/22 07:23 Labs: Abnormal Lab Results - Last 24 Hours (Table) 05/10/22 05/10/22 05/10/22 Range/Units 16:22 17:48 20:52 RBC (3.80-5.40) m/uL Hgb (11.4-16.0) gm/dL Hct (34.0-46.0) % APTT 70.9 H (22.0-30.0) sec BUN (7-17) mg/dL Creatinine (0.52-1.04) mg/dL Glucose (74-99) mg/dL POC Glucose (mg/dL) 121 H 130 H (70-110) mg/dL 05/10/22 05/10/22 05/11/22 Range/Units 23:39 23:40 06:03 RBC (3.80-5.40) m/uL Hgb (11.4-16.0) gm/dL Hct (34.0-46.0) % APTT 40.3 H (22.0-30.0) sec BUN (7-17) mg/dL Creatinine (0.52-1.04) mg/dL Glucose (74-99) mg/dL POC Glucose (mg/dL) 152 H 166 H (70-110) mg/dL 05/11/22 05/11/22 05/11/22 Range/Units 07:23 07:23 07:23 RBC 3.64 L (3.80-5.40) m/uL Hgb 10.7 L (11.4-16.0) gm/dL Hct 33.8 L (34.0-46.0) % APTT 77.9 H (22.0-30.0) sec BUN 53 H (7-17) mg/dL Creatinine 7.24 H* (0.52-1.04) mg/dL Glucose 146 H (74-99) mg/dL POC Glucose (mg/dL) (70-110) mg/dL Microbiology - Last 24 Hours (Table) 05/09/22 20:00 CSF Gram Stain - Preliminary Cerebral Spinal Fluid CSF Culture - Preliminary
[2022-05-11] MEDS: SEVELAMER 800 MG TAB PO SCH ×2 (10:10→12:00)
[2022-05-11] MEDS: PANTOPRAZOLE 40 MG/10 ML VIAL IVP SCH (10:19)
[2022-05-11] MEDS: levETIRAcetam IV 500 MG in SODIUM CHLORIDE 0.9% 100 ML IVPB SCH ×3 (10:19→20:37)
[2022-05-11] MEDS: AMIODARONE 200 MG TAB PO SCH (10:20)
[2022-05-11] MEDS: METOPROLOL TARTRATE 50 MG TAB PO SCH ×4 (10:20→23:01)
--- NOTE | 2022-05-11 11:03 | P.PN ---
Subjective Progress Note Date: 05/11/22 I spoke with the patient nurse and no improvement in patient condition. She is getting dialysis today. Per nurse, son has not called about final decision of family. Objective - Vital Signs Vital signs: Vital Signs Temp 98.0 F 05/11/22 08:00 Pulse 83 05/11/22 10:00 Resp 16 05/11/22 10:00 BP 146/75 05/11/22 10:00 Pulse Ox 96 05/11/22 10:00 FiO2 40 05/03/22 08:49 Intake & Output 05/10/22 05/11/22 05/11/22 18:59 06:59 18:59 Intake Total 706.076 296.833 84.26 Output Total 0 100 Balance 706.076 196.833 84.26 Weight 83 kg 87.8 kg Intake: IV 220 0.9 Normal Saline @ 10 mL 120 /hr KVO levETIRAcetam IV 500 mg 100 In Sodium Chloride 0.9% 100 ml @ 400 mls/hr IVPB Q12HR [facility] Rx#:[id number] Intake, IV Titration 427.076 76.833 84.26 Amount Amiodarone 450 mg In 292.783 Dextrose 5% in Water 250 ml @ 0.5 MG/MIN 16.667 mls/hr IV .Q15H [facility] Rx#: [id number] Heparin Sod,Pork in 0.45% 134.293 76.833 84.26 NaCl 25,000 unit In 0.45 % NaCl 1 250ml.bag @ 11. 561 UNITS/KG/HR 10 mls/hr IV .Q24H [facility] Rx#: [id number] Tube Feeding 279 Output: Urine 0 0 Stool 100 Other: Voiding Method Incontinent Incontinent # Bowel Movements 1 ABP, PAP, CO, CI - Last Documented Arterial Blood Pressure 164/45 - Exam GENERAL: The patient is laying in bed and does not appear in acute distress. HENT: Has nuchal rigidity. NEUROLOGICAL: Limited because of her condition/cooperation. Higher mental function: She is severely drowsy and would open eyes with voice but only states ouch to painful stimuli but otherwise verbalizing or following commands. Cranial nerves:The pupils are round, equal and reactive to light. Primary gaze is midline but does not track. At instance would look to left. No facial weak ness. Is mute. Rest is limited because of condition. Motor: The strength is hard to assess individual muscles. She moves all extremities above gravity except the right upper but would withdrawal to painful stimuli but seems weaker than left.. She would cross her legs right over left mostly. Appears has high arched foot. Ivett tone. Cerebellum: Unable to assess. Sensation: Unable to assess light touch. Reflexes (right/left): 1+ throughout. Plantars are mute bilaterally. Some of the workup during his hospital visit consisted of: Influenza A and Richard virus PCR detected. Troponin is a 1.07. Ammonia <9 TSH: 0.593 Urinalysis seems possible suggestive of underlying urinary tract infection CT of the head is reported as age-related atrophic and chronic small vessel ischemic changes without acute intracranial process seen at this time. CT angiography is reported as no significant abnormality. Chest x-ray was reported as peripheral nodule base consolidation right upper lobe. Could be on the basis of infiltrate or neoplastic process. Core sent interstitium correlate for chronic interstitial lung disease otherwise consider interstitial pneumonia or pneumonitis Prominence right hilum. Repeat x-ray recommend short-term basis to assess for developing infiltrate or adenopathy versus mass Routine EEG is abnormal. The background slowing suggestive of moderate to s evere encephalopathy. The suppressions likely due to medication effect (sedatives). Otherwise there is no focal slowing, epileptiform discharges or seizure on the EEG. 2-D echo was reported as technically difficult study for agitation. Normal left ventricle diamonds and systolic function. She had repeat CT head on 04/28/22: It is reported as similar mild ventriculomegaly likely ex vacuo dilation from central cerebral atrophy. Mild patchy burden of chronic small vessel ischemic disease. No acute intracranial abnormality seen. Patient is intubated. His ongoing air-fluid level left maxillary sinus that could reflect acute sinusitis. Background mild chronic paranasal sinus disease. Opacification of the mastoid air cells on both sides. Partial opacification of the middle ear cavity as well. Correlate to exclude otomastoiditis Patient sputum is positive for Haemophilus influenza area Repeat CT of the head on 05/09/22 is reported as no acute intracranial process. I personally reviewed the CT and I agree there is no acute or subacute ischemia or bleed or mass effect. CSF study is it's clear, Matt, 0 red blood cell, 2 nucleated cells which is considered within normal limits, CSF glucose is 98 and the normal supposed to be between 40 and 70, CSF glucose is 92. And the normal supposed to be between 12- 60 CSF Gram stain is no organisms seen. - Labs CBC & Chem 7: 05/11/22 07:05/11/22 07:23 Labs: Abnormal Lab Results - Last 24 Hours (Table) 05/10/22 05/10/22 05/10/22 Range/Units 16:22 17:48 20:52 RBC (3.80-5.40) m/uL Hgb (11.4-16.0) gm/dL Hct (34.0-46.0) % APTT 70.9 H (22.0-30.0) sec BUN (7-17) mg/dL Creatinine (0.52-1.04) mg/dL Glucose (74-99) mg/dL POC Glucose (mg/dL) 121 H 130 H (70-110) mg/dL 05/10/22 05/10/22 05/11/22 Range/Units 23:39 23:40 06:03 RBC (3.80-5.40) m/uL Hgb (11.4-16.0) gm/dL Hct (34.0-46.0) % APTT 40.3 H (22.0-30.0) sec BUN (7-17) mg/dL Creatinine (0.52-1.04) mg/dL Glucose (74-99) mg/dL POC Glucose (mg/dL) 152 H 166 H (70-110) mg/dL 05/11/22 05/11/22 05/11/22 Range/Units 07:23 07: 07:23 RBC 3.64 L (3.80-5.40) m/uL Hgb 10.7 L (11.4-16.0) gm/dL Hct 33.8 L (34.0-46.0) % APTT 77.9 H (22.0-30.0) sec BUN 53 H (7-17) mg/dL Creatinine 7.24 H* (0.52-1.04) mg/dL Glucose 146 H (74-99) mg/dL POC Glucose (mg/dL) (70-110) mg/dL Microbiology - Last 24 Hours (Table) 01/03/23 20:00 CSF Gram Stain - Preliminary Cerebral Spinal Fluid CSF Culture - Preliminary Assessment and Plan Assessment: * Persistent Encephalopathy, not significantly improving. Although it appears multifactorial: due to hypoxic respiratory failure from Influenza A and Coronavirus, some metabolic encephalopathy. Exam shows slight focal findings, but has been stable. MRI of the brain showed no acute stroke. CSF is negative for encephalitis or meningitis. * Reported transient episode of right facial droop by EMS. No evidence of acute stroke noted on MRI. * A-fib and on heparin drip * Status post extubation. Patient's mentation not improving significantly. She is awake, but mute, not speaking or following commands. * Influezna A infection * Acute Covid-19 infection * Consolidation of the right upper lobe concerning for infiltrate versus neoplastic process on chest x-ray * Sinusitis, possible mastoiditis. * Elevated troponin * End-stage renal disease on dialysis * Congestive heart failure * COPD * Chronic anemia. Plan: * Repeat EEG 05/08/2022: The study is limited because of significant myogenic artifact. The background slowing is suggestive of moderate to severe encephalopathy. No focal slowing, epileptiform discharges or seizure noted. * Repeat CT of the head on 05/09/2022 is unremarkable. * MRI of the brain without contrast revealed multiple bilateral periventricular white matter ischemic Changes. Findings can be compatible with chronic white matter ischemic changes. Multiple sclerosis and vasculitis is within the differential. No suspicious acute changes took on for left-sided weakness. I personally reviewed MRI, agree with the findings. Findings suggestive of small vessel disease. Acute left maxillary sinusitis. * CSF study is unremarkable except for slightly elevated at 14 and glucose which is nonspecific and could be due to her underlying COVID-19 infection/influenza. Patient had 2 nucleated cells which is within normal limits and is not suggestive of encephalitis or meningitis. * Currently on heparin drip for run of A-fib. * I.D. is on board. * Appreciate ENT input for persistent left maxillary sinusitis and possible mastoiditis. Patient started on ceftriaxone and Afrin nasal spray. * Because of intermittent posturing, she is on prophylactic Keppra 500mg every 12 hours, with additional Keppra 500mg post dialysis. Keppra level pending. * Patient on dual antiplatelet medications including aspirin 81 mg and Plavix 75 mg. Continue aspirin 81 mg (new during this admission) and her Plavix 75mg daily was resumed for secondary stroke prophylaxis. Also on Lipitor 40 mg daily for secondary stroke prophylaxis. Plavix on hold for upcoming LP. May resume Plavix after LP. * Patient completed antibiotics per ID. * PT and OT are consulted, when able to participate * We'll defer the rest of the medical management to the primary and ICU team * For DVT prophylaxis: Patient on Lovenox * Prognosis is poor. The plan is discussed with the patient's son (Kal) via phone and pending to speak to all family members and are considering pursuing comfort care measures. Time with Patient: Less than 30
[2022-05-11 11:52] LABS: Glucose,Whole Blood 97 mg/dL (70-110)
--- NOTE | 2022-05-11 13:32 | P.PN ---
Subjective Patient is seen in follow-up for end-stage renal disease. She is maintained on hemodialysis on Sunday schedule. Extubated 05/03/2022. No change in mentation. Status post LP which does not show any significant cells but protein was elevated at 92 Maintained on IV heparin. Amiodarone changed to by mouth. NG tube was rein serted. Patient is seen on hemodialysis. Tolerating her treatment well. Objective - Vital Signs Vital signs: Vital Signs Temp 99 F 05/11/22 12:34 Pulse 82 05/11/22 12:34 Resp 14 05/11/22 12:34 BP 119/62 05/11/22 12:34 Pulse Ox 97 05/11/22 12:00 FiO2 40 05/03/22 08:49 Intake & Output 05/10/22 05/11/22 05/11/22 18:59 06:59 18:59 Intake Total 706.076 296.833 584.26 Output Total 0 100 2500 Balance 706.076 196.833 -1915.74 Weight 83 kg 87.8 kg Intake: IV 220 0.9 Normal Saline @ 10 mL 120 /hr KVO levETIRAcetam IV 500 mg 100 In Sodium Chloride 0.9% 100 ml @ 400 mls/hr IVPB Q12HR [facility] Rx#:[id number] Intake, IV Titration 427.076 76.833 84.26 Amount Amiodarone 450 mg In 292.783 Dextrose 5% in Water 250 ml @ 0.5 MG/MIN 16.667 mls/hr IV .Q15H [facility] Rx#: [id number] Heparin Sod,Pork in 0.45% 134.293 76.833 84.26 NaCl 25,000 unit In 0.45 % NaCl 1 250ml.bag @ 11. 561 UNITS/KG/HR 10 mls/hr IV .Q24H [facility] Rx#: [id number] Tube Feeding 279 Hemodialysis 500 Output: Urine 0 0 Stool 100 Hemodialysis 2500 Other: Voiding Method Incontinent Incontinent # Bowel Movements 1 ABP, PAP, CO, CI - Last Documented Arterial Blood Pressure 164/45 - Exam Patient is awake but does not make eye contact She does not communicate. Does not follow commands. Examination of the heart S1 and S2 Examination lungs bilateral breath sounds are heard Abdomen is soft nontender Examination lower extremity shows no significant edema - Labs CBC & Chem 7: 05/11/22 07:23 05/11/22 07:23 Labs: Abnormal Lab Results - Last 24 Hours (Table) 05/10/22 05/10/22 05/10/22 Range/Units 16:22 17:48 20:52 RBC (3.80-5.40) m/uL Hgb (11.4-16.0) gm/dL Hct (34.0-46.0) % APTT 70.9 H (22.0-30.0) sec BUN (7-17) mg/dL Creatinine (0.52-1.04) mg/dL Glucose (74-99) mg/dL POC Glucose (mg/dL) 121 H 130 H (70-110) mg/dL 05/10/22 05/10/22 05/11/22 Range/Units 23:39 23:40 06:03 RBC (3.80-5.40) m/uL Hgb (11.4-16.0) gm/dL Hct (34.0-46.0) % APTT 40.3 H (22.0-30.0) sec BUN (7-17) mg/dL Creatinine (0.52-1.04) mg/dL Glucose (74-99) mg/dL POC Glucose (mg/dL) 152 H 166 H (70-110) mg/dL 05/11/22 05/11/22 05/11/22 Range/Units 07:23 07:23 07:23 RBC 3.64 L (3.80-5.40) m/uL Hgb 10.7 L (11.4-16.0) gm/dL Hct 33.8 L (34.0-46.0) % APTT 77.9 H (22.0-30.0) sec BUN 53 H (7-17) mg/dL Creatinine 7.24 H* (0.52-1.04) mg/dL Glucose 146 H (74-99) mg/dL POC Glucose (mg/dL) (70-110) mg/dL Microbiology - Last 24 Hours (Table) 05/09/22 20:00 CSF Gram Stain - Preliminary Cerebral Spinal Fluid CSF Culture - Preliminary Assessment and Plan Assessment: 1. End-stage renal disease making on hemodialysis on Sunday schedule. 2. Acute hypoxic respiratory failure secondary to pneumonia. Patient tested positive for covid-19 and influenza A. Sputum culture growing Haemophilus in fluenza. Status post extubation 3. Diabetes mellitus. 4. History of coronary artery disease. 5. Encephalopathy with concern for anoxic brain injury. 6. Hypertension with chronic kidney disease. 7. Anemia of chronic kidney disease. Hemoglobin stable. 8. Chronic kidney disease mineral bone disease maintained on Renvela Plan: Hemodialysis in a.m. Continue with phosphate binders with tube feedings when restarted. Change to PhosLo as Renvela cannot be crushed.
[2022-05-11] MEDS: CALCIUM ACETATE 667 MG TAB PO SCH ×2 (14:42→19:11)
--- NOTE | 2022-05-11 15:07 | P.PN ---
Subjective Progress Note Date: 05/11/22 Principal diagnosis: Influenza A and possible aspiration pneumonia Patient is a 71-year-old female with a past medical history significant for type 2 diabetes mellitus COPD consist heart failure end-stage renal disease on hemodialysis, patient was brought into the ER 2 days ago after the patient was found to be unresponsive at home apparently the patient did not show for her dialysis , patient was found to be unresponsive at home brought to the hospital and getting intubated patient did have positive influenza A as well as ballesteros PCR, also with evidence of right upper lobe infiltrate concerning for aspiration pneumonia with a sputum grew Haemophilus for the patient completed a course of Zosyn. Subsequent MRI concerning for possible left-sided maxillary sinusitis patient has been evaluated by ENT started on Rocephin as of 05/07/2022 On today's evaluation that is 05/11/2022, the patient remains to be afebrile, patient is breathing comfortably on 2 L nasal cannula oxygen, patient is hemodynamically stable not requiring any pressor support, the patient is undergoing dialysis and tolerating it is awake but no purposeful movement no vomiting or any worsening diarrhea reported by the nursing staff Objective - Vital Signs Vital signs: Vital Signs Temp 98.0 F 05/11/22 08:00 Pulse 83 05/11/22 10:00 Resp 16 05/11/22 10:00 BP 146/75 05/11/22 10:00 Pulse Ox 96 05/11/22 10:00 FiO2 40 05/03/22 08:49 Intake & Output 05/10/22 05/11/22 05/11/22 18:59 06:59 18:59 Intake Total 706.076 296.833 84.26 Output Total 0 100 Balance 706.076 196.833 84.26 Weight 83 kg 87.8 kg Intake: IV 220 0.9 Normal Saline @ 10 mL 120 /hr KVO levETIRAcetam IV 500 mg 100 In Sodium Chloride 0.9% 100 ml @ 400 mls/hr IVPB Q12HR [facility] Rx#:[id number] Intake, IV Titration 427.076 76.833 84.26 Amount Amiodarone 450 mg In 292.783 Dextrose 5% in Water 250 ml @ 0.5 MG/MIN 16.667 mls/hr IV .Q15H [facility] Rx#: [id number] Heparin Sod,Pork in 0.45% 134.293 76.833 84.26 NaCl 25,000 unit In 0.45 % NaCl 1 250ml.bag @ 11. 561 UNITS/KG/HR 10 mls/hr IV .Q24H [facility] Rx#: [id number] Tube Feeding 279 Output: Urine 0 0 Stool 100 Other: Voiding Method Incontinent Incontinent # Bowel Movements 1 ABP, PAP, CO, CI - Last Documented Arterial Blood Pressure 164/45 - Exam GENERAL DESCRIPTION: An elderly female lying in bed in no distress to RESPIRATORY SYSTEM: Unlabored breathing , coarse breath sounds HEART: S1 S2 regular rate and rhythm , ABDOMEN: Soft , no tenderness EXTREMITIES: No edema feet - Labs CBC & Chem 7: 05/11/22 07:23 05/11/22 07:23 Labs: Abnormal Lab Results - Last 24 Hours (Table) 05/10/22 05/10/22 05/10/22 Range/Units 16:22 17:48 20:52 RBC (3.80-5.40) m/uL Hgb (11.4-16.0) gm/dL Hct (34.0-46.0) % APTT 70.9 H (22.0-30.0) sec BUN (7-17) mg/dL Creatinine (0.52-1.04) mg/dL Glucose (74-99) mg/dL POC Glucose (mg/dL) 121 H 130 H (70-110) mg/dL 05/10/22 05/10/22 05/11/22 Range/Units 23:39 23:40 06:03 RBC (3.80-5.40) m/uL Hgb (11.4-16.0) gm/dL Hct (34.0-46.0) % APTT 40.3 H (22.0-30.0) sec BUN (7-17) mg/dL Creatinine (0.52-1.04) mg/dL Glucose (74-99) mg/dL POC Glucose (mg/dL) 152 H 166 H (70-110) mg/dL 05/11/22 05/11/22 05/11/22 Range/Units 07:23 07: 07:23 RBC 3.64 L (3.80-5.40) m/uL Hgb 10.7 L (11.4-16.0) gm/dL Hct 33.8 L (34.0-46.0) % APTT 77.9 H (22.0-30.0) sec BUN 53 H (7-17) mg/dL Creatinine 7.24 H* (0.52-1.04) mg/dL Glucose 146 H (74-99) mg/dL POC Glucose (mg/dL) (70-110) mg/dL Microbiology - Last 24 Hours (Table) 05/09/22 20:00 CSF Gram Stain - Preliminary Cerebral Spinal Fluid CSF Culture - Preliminary Assessment and Plan (1) Sepsis Current Visit: Yes Status: Acute Code(s): A41.9 - SEPSIS, UNSPECIFIED ORGANISM SNOMED Code(s): 84168529 (2) Aspiration pneumonia Current Visit: Yes Status: Acute Code(s): J69.0 - PNEUMONITIS DUE TO INHALATION OF FOOD AND VOMIT SNOMED Code(s): 843170007 Plan: 1 patient presented to hospital with sepsis in this patient who did have a fever elevated white count with evidence of right upper lobe consolidation concerning for aspiration pneumonia in this patient also tested positive for influenza A as well as ballesteros PCR and concern for possible postinfluenzal bacterial pneumonia 2-blood culture has been negative and sputum culture grew Haemophilus for the patient has completed a course of Zosyn 3-patient has completed her 5 day course of Tamiflu 4-patient did have a abnormal MRI suspicious for left maxillary sinusitis , patient has been evaluated by ENT and started on Rocephin 5patient with a mental status changes with no clear etiology, patient did have LP completed on 05/10/2022, glucose was elevated protein mildly elevated only 2 WBC, clinically not behaving as encephalitis or meningitis, patient be monitored closely waiting for final decision as for his further care per his son Time with Patient: Less than 30
[2022-05-11 18:10] LABS: Glucose,Whole Blood 118 mg/dL (70-110)
[2022-05-11 20:13] LABS: Glucose,Whole Blood 136 mg/dL (70-110)
[2022-05-11] MEDS: HEPARIN SOD,PORK IN 0.45% NACL 25,000 UNIT in 0.45% NACL 1 250ML.BAG IV SCH (20:18)
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
[2022-05-12 00:15] LABS: Glucose,Whole Blood 151 mg/dL (70-110)
[2022-05-12] MEDS: INSULIN ASPART (NovoLOG) 100 UNIT/ML VIAL SQ SCH ×3 (00:17→11:37)
[2022-05-12 04:08] LABS: HIV 2 AB Non-Reactive (Non-Reactive); HIV AB P24 Non-Reactive (Non-Reactive); HIV P24 AG Non-Reactive (Non-Reactive)
[2022-05-12 05:51] LABS: Glucose,Whole Blood 65 mg/dL (70-110)
[2022-05-12] MEDS ORDERED: DEXTROSE 50% SYRINGE 50 ML IVP ONE (05:54)
[2022-05-12 06:16] LABS: Glucose,Whole Blood 111 mg/dL (70-110)
[2022-05-12] MEDS: AMIODARONE 200 MG TAB PO SCH (07:33)
[2022-05-12] MEDS: METOPROLOL TARTRATE 50 MG TAB PO SCH ×2 (07:33→11:39)
[2022-05-12] MEDS: INSULIN DETEMIR (LEVEMIR) 100 UNIT/ML SYR SQ SCH (07:33)
[2022-05-12] MEDS: CALCIUM ACETATE 667 MG TAB PO SCH ×3 (07:33→11:39)
[2022-05-12] MEDS: levETIRAcetam IV 500 MG in SODIUM CHLORIDE 0.9% 100 ML IVPB SCH (08:57)
[2022-05-12] MEDS: PANTOPRAZOLE 40 MG/10 ML VIAL IVP SCH (08:57)
[2022-05-12 11:30] LABS: Glucose,Whole Blood 91 mg/dL (70-110)
--- NOTE | 2022-05-12 13:30 | P.PN ---
Subjective Progress Note Date: 05/12/22 Principal diagnosis: Influenza A and possible aspiration pneumonia Patient is a 71-year-old female with a past medical history significant for type 2 diabetes mellitus COPD consist heart failure end-stage renal disease on hemodialysis, patient was brought into the ER 2 days ago after the patient was found to be unresponsive at home apparently the patient did not show for her dialysis , patient was found to be unresponsive at home brought to the hospital and getting intubated patient did have positive influenza A as well as ballesteros PCR, also with evidence of right upper lobe infiltrate concerning for aspiration pneumonia with a sputum grew Haemophilus for the patient completed a course of Zosyn. Subsequent MRI concerning for possible left-sided maxillary sinusitis patient has been evaluated by ENT started on Rocephin as of 05/07/2022 On today's evaluation that is 05/12/2022, the patient continues to be afebrile, patient is breathing comfortably on 2 L nasal cannula oxygen, patient is hemodynamically stable not requiring any pressor support and the patient has been moved out of the ICU, the patient is sleepy today and no purposeful movement no vomiting or any worsening diarrhea reported by the nursing staff Objective - Vital Signs Vital signs: Vital Signs Temp 98.9 F 05/12/22 07:40 Pulse 80 05/12/22 07:40 Resp 18 05/12/22 07:40 BP 163/65 05/12/22 07:40 Pulse Ox 93 L 05/12/22 07:50 FiO2 40 05/03/22 08:49 Intake & Output 05/11/22 05/12/22 05/12/22 18:59 06:59 18:59 Intake Total 883.167 100.667 Output Total 2600 250 Balance -1716.833 -149.333 Intake: IV 210 0.9 Normal Saline @ 10 mL 60 /hr KVO cefTRIAXone 2 gm In 50 Sodium Chloride 0.9% 50 ml @ 100 mls/hr IVPB Q24HR [facility] Rx#:[id number] levETIRAcetam IV 500 mg 100 In Sodium Chloride 0.9% 100 ml @ 400 mls/hr IVPB Q12HR [facility] Rx#:[id number] Intake, IV Titration 173.167 100.667 Amount Heparin Sod,Pork in 0.45% 173.167 100.667 NaCl 25,000 unit In 0.45 % NaCl 1 250ml.bag @ 11. 561 UNITS/KG/HR 10 mls/hr IV .Q24H [facility] Rx#: [id number] Hemodialysis 500 Output: Stool 100 250 Hemodialysis 2500 Other: Voiding Method Incontinent Incontinent # Voids 0 ABP, PAP, CO, CI - Last Documented Arterial Blood Pressure 164/45 - Exam GENERAL DESCRIPTION: An elderly female lying in bed in no distress to RESPIRATORY SYSTEM: Unlabored breathing , coarse breath sounds HEART: S1 S2 regular rate and rhythm , ABDOMEN: Soft , no tenderness EXTREMITIES: No edema feet - Labs CBC & Chem 7: 05/11/22 07:23 05/11/22 07:23 Labs: Abnormal Lab Results - Last 24 Hours (Table) 05/11/22 05/11/22 05/11/22 Range/Units 14:51 18:08 20:12 APTT 49.7 H (22.0-30.0) sec POC Glucose (mg/dL) 118 H 136 H (70-110) mg/dL 05/12/22 05/12/22 05/12/22 Range/Units 00:11 05:25 05:48 APTT 36.2 H (22.0-30.0) sec POC Glucose (mg/dL) 151 H 65 L (70-110) mg/dL 05/12/22 Range/Units 06:12 APTT (22.0-30.0) sec POC Glucose (mg/dL) 111 H (70-110) mg/dL Microbiology - Last 24 Hours (Table) 05/09/22 20:00 Anaerobic Culture - Preliminary Cerebral Spinal Fluid 05/09/22 20:00 CSF Gram Stain - Preliminary Cerebral Spinal Fluid CSF Culture - Preliminary Assessment and Plan (1) Sepsis Current Visit: Yes Status: Acute Code(s): A41.9 - SEPSIS, UNSPECIFIED ORGANISM SNOMED Code(s): 85910217 (2) Aspiration pneumonia Current Visit: Yes Status: Acute Code(s): J69.0 - PNEUMONITIS DUE TO INHALATION OF FOOD AND VOMIT SNOMED Code(s): 192880456 Plan: 1 patient presented to hospital with sepsis in this patient who did have a fever elevated white count with evidence of right upper lobe consolidation concerning for aspiration pneumonia in this patient also tested positive for influenza A as well as ballesteros PCR and concern for possible postinfluenzal bacterial pneumonia 2-blood culture has been negative and sputum culture grew Haemophilus for the patient has completed a course of Zosyn 3-patient has completed her 5 day course of Tamiflu 4-patient did have a abnormal MRI suspicious for left maxillary sinusitis , patient has been evaluated by ENT and started on Rocephin 5patient with a mental status changes with no clear etiology, patient did have LP completed on 05/10/2022, glucose was elevated protein mildly elevated only 2 WBC, clinically not behaving as encephalitis or meningitis, patient will benefit from hospice oriented care currently waiting for the final decision, no need for any systemic antibiotic or antiviral therapy at this point Time with Patient: Less than 30
[2022-05-12 13:32] VITALS: BP 133/56; PULSE 76; RESP 16; TEMP 98.2
[2022-05-12 14:10] VITALS: BMI 31.2
--- NOTE | 2022-05-12 14:50 | P.PN ---
Subjective Patient is seen in follow-up for end-stage renal disease. She is maintained on hemodialysis on Sunday schedule. Extubated 05/03/2022. No change in mentation. Status post LP which does not show any significant cells but protein was elevated at 92. Mental status has not improved at all. Family is considering hospice care. Objective - Vital Signs Vital signs: Vital Signs Temp 98.2 F 05/12/22 13:25 Pulse 76 05/12/22 13:25 Resp 16 05/12/22 13:25 BP 133/56 05/12/22 13:25 Pulse Ox 92 L 05/12/22 13:25 FiO2 40 05/03/22 08:49 Intake & Output 05/11/22 05/12/22 05/12/22 18:59 06:59 18:59 Intake Total 883.167 100.667 Output Total 2600 250 Balance -1716.833 -149.333 Weight 87.8 kg Intake: IV 210 0.9 Normal Saline @ 10 mL 60 /hr KVO cefTRIAXone 2 gm In 50 Sodium Chloride 0.9% 50 ml @ 100 mls/hr IVPB Q24HR [facility] Rx#:[id number] levETIRAcetam IV 500 mg 100 In Sodium Chloride 0.9% 100 ml @ 400 mls/hr IVPB Q12HR [facility] Rx#:[id number] Intake, IV Titration 173.167 100.667 Amount Heparin Sod,Pork in 0.45% 173.167 100.667 NaCl 25,000 unit In 0.45 % NaCl 1 250ml.bag @ 11. 561 UNITS/KG/HR 10 mls/hr IV .Q24H [facility] Rx#: [id number] Hemodialysis 500 Output: Stool 100 250 Hemodialysis 2500 Other: Voiding Method Incontinent Incontinent # Voids 0 ABP, PAP, CO, CI - Last Documented Arterial Blood Pressure 164/45 - Exam Patient is awake but does not make eye contact She does not communicate. Does not follow commands. Examination of the heart S1 and S2 Examination lungs bilateral breath sounds are heard Abdomen is soft nontender Examination lower extremity shows no significant edema - Labs CBC & Chem 7: 05/11/22 07:23 05/11/22 07:23 Labs: Abnormal Lab Results - Last 24 Hours (Table) 05/11/22 05/11/22 05/11/22 Range/Units 14:51 18:08 20:12 APTT 49.7 H (22.0-30.0) sec POC Glucose (mg/dL) 118 H 136 H (70-110) mg/dL 05/12/22 05/12/22 05/12/22 Range/Units 00:11 05:25 05:48 APTT 36.2 H (22.0-30.0) sec POC Glucose (mg/dL) 151 H 65 L (70-110) mg/dL 05/12/22 Range/Units 06:12 APTT (22.0-30.0) sec POC Glucose (mg/dL) 111 H (70-110) mg/dL Microbiology - Last 24 Hours (Table) 05/09/22 20:00 Anaerobic Culture - Preliminary Cerebral Spinal Fluid 05/09/22 20:00 CSF Gram Stain - Preliminary Cerebral Spinal Fluid CSF Culture - Preliminary Assessment and Plan Assessment: 1. End-stage renal disease making on hemodialysis on Sunday schedule. 2. Acute hypoxic respiratory failure secondary to pneumonia. Patient tested positive for covid-19 and influenza A. Sputum culture growing Haemophilus influenza. Status post extubation 3. Diabetes mellitus. 4. History of coronary artery disease. 5. Encephalopathy with concern for anoxic brain injury. 6. Hypertension with chronic kidney disease. 7. Anemia of chronic kidney disease. Hemoglobin stable. 8. Chronic kidney disease mineral bone disease maintained on Renvela Plan: Hold HD if changed to hospice care.
--- NOTE | 2022-05-12 15:34 | P.PN ---
Subjective Progress Note Date: 05/12/22 Reevaluated today on 04/30/22, patient remains in the ICU, intubated and mechanically ventilated. She is on assist control rate of 16 tidal volume 400 FiO2 40% and PEEP of 8. Patient is off sedation completely, however she is awake, opening her eyes, but she is not spending to any stimuli. Patient has no purposeful movement, she is not responsive to stimuli, obviously she has what seems to be a severe encephalopathy, suspect anoxic encephalopathy. Patient has IV fluid at KVO, she is receiving vital HP at 24 mL an hour.ABG today showed a pO2 of 83 pCO2 45 pH of 7.45 hence no changes were made in her vent settings. CBC is unremarkable WBC count 12.6 hemoglobin is 9.9.basic metabolic profile is normal bicarb is 30 BUN is 39 creatinine 5.74, patient was dialyzed yesterday, but no dialysis is planned so far for today.chest x-ray no evidence of active disease, continues to have left lower lobe atelectasis. Reevaluated today on 05/01/22, patient remains in the ICU, intubated and mechanically ventilated. She is on assist control of 16.400 FiO2 40% and PEEP of 5 ABG showed a pO2 of 110 pCO2 44 pH of 7.44. Neurologically, the patient remains about the same, she opens her eyes, but does not have any purposeful movement whatsoever. Does not follow any instructions. Patient is clearly en cephalopathic. Remains on vitamin HP at 24 mL/h, her IV fluid to KVO, scheduled to have CT of the head and EEG again today. Patient is clearly not ready for weaning mostly because of her neurological status, in the meantime I'm recommending placing the patient on pressure support control mode of mechanical ventilation at 12, and CPAP, and if she tolerates we'll keep her on that mode until hopefully her mental status improves were and we could consider weaning and extubation. Otherwise the patient may have to be considered for tracheostomy and PEG tube placement. WBC count is 9.8 hemoglobin is 9.5. Basic metabolic profile is normal BUN is 70 creatinine 7.59, patient may undergo dialysis today. Chest x-ray is basically unremarkable continues to have some basilar atelectasis especially at the left base Progress note dated 05/02/2022. 71-year-old female who was admitted on April 27 with mental status changes, aspiration pneumonia, and respiratory failure. She was intubated on April 27. The patient also tested positive for influenza, and coronavirus. She remains on the ventilator, and is seen in room 256. She's on volume assist control, rate 16, tidal volume 400, FiO2 40%, and PEEP of 8. Blood gases show pO2 of 113, pCO2 45, and pH is 7.39. The patient's currently on Cleveprex at 4 mg an hour, saline at 10 mL an hour, and propofol, has been weaned off. The patient's getting vital high protein at 46 mL an hour, which is goal. The patient will have a pressure support CPAP trial today. Computed tomography scan of the brain was negative. Sputum showed evidence of Haemophilus influenzae. She is on Zosyn. White count 8.7, hemoglobin 9.5, hematocrit 30.5, and platelet count 396,000. Sodium 144, potassium 4.2, chlorides 101, CO2 27, anion gap 16, BUN 93, and creatinine 8.92. Chest x-ray shows infiltrate or atelectasis at the lung base on the left, and in the retrocardiac region. Progress note dated 05/03/2022. 71-year-old female was admitted on April 27, with mental status changes, respiratory failure, and aspiration pneumonia. She was intubated on April 27, and did test positive for both influenza, and coronavirus. She remains on the ventilator, in room 256. She's on volume assist control, rate 16, tidal volume 400, FiO2 40%, and PEEP of 8. Blood gases show pO2 of 80, pCO2 43, and a pH is 7.43. The patient's getting saline at KVO, Cleveprex at 6 mg an hour, and vital high protein, at 46 mL an hour, which is goal. The patient will have a spontaneous breathing trial, at pressure support of 8 and CPAP of 5. White count 11.1, hemoglobin 10.3, hematocrit 32.1, and platelet count normal. Sodium 140, potassium 3.8, chlorides 99, CO2 27, BUN 63, and creatinine 6.18. Sputum was positive for Haemophilus influenzae on April 27. Chest x-ray is largely unchanged. Progress note dated 05/04/2022. 71-year-old female admitted April 27, with mental status changes, respiratory failure, and aspiration pneumonia. She was intubated on April 27, and did test positive for both influenza, and coronavirus. She is seen today in room 256. She was successfully extubated yesterday, May 03. She's currently on 3 L of oxygen. She's getting saline at KVO. She is going to have hemodialysis today. Neurology saw the patient for altered mental status. She scheduled to have an MRI, and a lumbar puncture. White count 9.3, hemoglobin 10.8, hematocrit 34.4, and platelet count is normal. Sodium 142, potassium 4.2, chlor ides 103, CO2 21, anion gap 18, BUN 85, and creatinine 7.83. Sputum was positive for Haemophilus influenzae, on April 27. Progress note dated 05/05/2022. 71-year-old female who is again seen in room 256. She is on 3 L of oxygen. Getting saline at 10 mL an hour. The MRI that was done, showed nothing acute. They're mostly chronic changes, including some ischemic changes. The patient's mental status is unchanged. She opens her eyes to painful stimuli. She looks at you, but does not speak. Zosyn will be discontinued today. CBC is normal. Sodium 138, potassium 4.5, chlorides 100, CO2 19, anion gap 19, BUN 48, and creatinine 5.59. Calcium is 9.4. Sputum was positive for Haemophilus influenzae on April 27, and the patient has received more than enough Zosyn. Progress note dated 05/06/2022. 71-year-old female again seen in room 256. She remains on 3 L of oxygen. The patient's getting saline at 10 mL an hour. The patient's also receiving vital high protein at 31 mL an hour, which is goal. An NG tube was placed yesterday for tube feeds. She is going to get hemodialysis today with the plan of removing 2 L. Her mental status is unchanged. White count 9.4, hemoglobin 11.2, and platelet count 356,000. Sodium 139, potassium 4.2, chlorides 100, CO2 17, anion gap 22, BUN 66, and creatinine 7.73. Glucose 200. Progress note dated 05/07/2022. 71-year-old female again seen in room 256. Unfortunately, been no major changes in her mental status. She remains on oxygen at 2 L, and saline IV at 10 mL an hour. She was started on Rocephin by ear nose and throat for mastoiditis and acute sinusitis. I've asked the nurse to talk to the family about a possible feeding tube. He had an NG tube in, and was receiving enteral nutrition, but apparently pulled it out. White count 9.4, he will been 12.3, hematocrit 38.2, and platelet count normal. Sodium 141, potassium 4, chlorides 99, CO2 24, BUN 52, and creatinine 5.88. The patient's chest x-ray is essentially unchanged. Progress note dated 05/08/2022. 71-year-old female again seen in room 256. Unfortunately, no major changes or improvement in her mental status. She is currently on amiodarone at 1 mg/m, because of atrial fibrillation with rapid ventricular response. She continues on 4 L nasal cannula. She's getting saline at 10 mL an hour. We've asked anesthesia to consider doing a lumbar puncture, to complete the workup, upper mental status changes. In addition, we'll talk to the family about a feeding tube. No new laboratory data today. Progress note dated 05/09/2022. The patient is again seen in room 256. Mental status is unchanged. The patient's getting hemodialysis today. She's on 2 L of oxygen. She's back on amiodarone drip, and 0.5 mg/m, and heparin, via weightbase protocol. White count 10.8, hemoglobin 11.5, hematocrit 37, and platelet count 325,000. Sodium 144, potassium 4.5, chlorides 106, CO2 17, anion gap 21, BUN 77, and creatinine 9.22. On 05/10/2022, the patient is still encephalopathic. Exact cause remains unclear. The patient was extubated on 05/03/2022 and the patient is calm and comfortable. She is lethargic, unresponsive, with those only to painful stimulation. No seizure activity has been noted. Note that the patient has undergone extensive amount of workup including CAT scan of the brain, MRI, and EEG and more recently, the patient underwent a lumbar puncture and the results were essentially negative. This can be potentially component of metabolic encephalopathy. The patient furthermore had a blood gas today that showed no evidence of any significant respiratory acidosis. Unfortunately, with her ongoing altered mentation, the patient is unable to take oral medication or nutrition. I suggested insertion of NG tube. She did have few episodes of atrial fibrillation and currently her cardiac rhythm is sinus. She remains on IV amiodarone and IV heparin. Hemodynamically stable. She has end-stage renal disease and she remains on hemodialysis. Afebrile for now. The blood work from yesterday showed a component of anion gap metabolic acidosis with a bicarb level of 17 and a BUN was 77 with a creatinine of 9.2. The previous count is at 10.8. Hemoglobin is at 11.5. 05/11/2022, the patient remains encephalopathic and there has been no progress in terms of her mentation. I would say she is essentially the same as yesterd ay. The patient is moving all 4 extremities. She has a sitter at the bedside. She was also painful stimulation. She does not follow commands. She is not able to communicate at this point in time. No seizure activity has been noted. She is hemodynamically stable. I do suspect metabolic encephalopathy and the patient is going to undergo dialysis today. Note that no hemodialysis was done yesterday. Meanwhile, the patient had a successful NG tube placement. The patient is receiving enteral feeding currently in the form of Glucerna 1.2 at the rate of 51 mL an hour and the goal is at 70. Cardiac rhythm is sinus. The patient remains on IV heparin and I have not transitioned her to Eliquis awaiting final decision from the family regarding the possibility of a PEG tube. Amiodarone is currently through the NG at a dose of 200 mg by mouth twice a day. She is on IV Keppra per neurology's recommendations. The blood work from today is still pending. Meanwhile, she is essentially on the same medication. We are limiting the use of any sedative medication. She is on Levemir insulin 35 units twice a day plus a sliding scale coverage. She remains on IV Rocephin 2 g every 24 hours. Microbiology showed Haemophilus influenza in the sputum. Otherwise CSF was negative. 05/12/2022, the patient is being seen on the medical floor. She is still unresponsive. No improvement in her mentation. The patient removed her NG tube. As such she is not receiving enteral feeding for nutritional support. The patient remains on the same treatment. Further discussion has been done between the medical team and family members and the patient will be going to hospice care. Objective - Vital Signs Vital signs: Vital Signs Temp 98.2 F 05/12/22 13:25 Pulse 76 05/12/22 13:25 Resp 16 05/12/22 13:25 BP 133/56 05/12/22 13:25 Pulse Ox 92 L 05/12/22 13:25 FiO2 40 05/03/22 08:49 Intake & Output 05/11/22 05/12/22 05/12/22 18:59 06:59 18:59 Intake Total 883.167 100.667 Output Total 2600 250 Balance -1716.833 -149.333 Weight 87.8 kg Intake: IV 210 0.9 Normal Saline @ 10 mL 60 /hr KVO cefTRIAXone 2 gm In 50 Sodium Chloride 0.9% 50 ml @ 100 mls/hr IVPB Q24HR [facility] Rx#:[id number] levETIRAcetam IV 500 mg 100 In Sodium Chloride 0.9% 100 ml @ 400 mls/hr IVPB Q12HR [facility] Rx#:[id number] Intake, IV Titration 173.167 100.667 Amount Heparin Sod,Pork in 0.45% 173.167 100.667 NaCl 25,000 unit In 0.45 % NaCl 1 250ml.bag @ 11. 561 UNITS/KG/HR 10 mls/hr IV .Q24H [facility] Rx#: [id number] Hemodialysis 500 Output: Stool 100 250 Hemodialysis 2500 Other: Voiding Method Incontinent Incontinent # Voids 0 ABP, PAP, CO, CI - Last Documented Arterial Blood Pressure 164/45 - Exam No acute distress, poorly responsive. Opens eyes to painful stimuli. Remains on 2 L. NG tube removed and HEENT examination is grossly unremarkable. Neck supple. Full range of motion. No adenopathy thyromegaly or neck vein distention. Cardiovascular examination reveals regular rhythm rate. S1-S2 normal. No S3 or S4. No discernible murmur noted. Heart sounds are distant. Heart rate 82 bpm. Lungs reveal coarse bilateral rhonchi. No wheezes or crackles. Breath sounds equal. Saturations are 97 %. Abdomen is soft, without bowel sounds. No masses or tenderness. Extremities are intact. No cyanosis clubbing or edema. Skin is without rash or lesion. Neurologic examination is unchanged. - Labs CBC & Chem 7: 05/11/22 07:23 05/11/22 07:23 Labs: Abnormal Lab Results - Last 24 Hours (Table) 05/11/22 05/11/22 05/11/22 Range/Units 14:51 18:08 20:12 APTT 49.7 H (22.0-30.0) sec POC Glucose (mg/dL) 118 H 136 H (70-110) mg/dL 05/12/22 05/12/22 05/12/22 Range/Units 00:11 05:25 05:48 APTT 36.2 H (22.0-30.0) sec POC Glucose (mg/dL) 151 H 65 L (70-110) mg/dL 05/12/22 Range/Units 06:12 APTT (22.0-30.0) sec POC Glucose (mg/dL) 111 H (70-110) mg/dL Microbiology - Last 24 Hours (Table) 05/09/22 20:00 Anaerobic Culture - Preliminary Cerebral Spinal Fluid 05/09/22 20:00 CSF Gram Stain - Preliminary Cerebral Spinal Fluid CSF Culture - Preliminary Assessment and Plan Plan: Acute hypoxemic respiratory failure, of unclear etiology, S/P intubation on 04/27/2022, S/P extubation on 05/03/2022.She is currently on 2 liters/min, no signs of any respiratory distress and the blood gas showed no significant abnormalities and acid-base status. Subsequently, the patient has been switched to room air oxygen. Encephalopathy/altered mentation. Consider the possibility of a CVA/seizure disorder. CT of the brain and the MRI of the brain are both negative for acute findings. Routine EEG is abnormal. The background slowing suggestive of moderate to severe encephalopathy. The suppressions likely due to medication effect (sedatives). Otherwise there is no focal slowing, epileptiform discharges or seizure on the EEG. 2-D echo was reported as technically difficult study for agitation. Normal left ventricle diamonds and systolic function . She had repeat CT head on 04/28/22: It is reported as similar mild ventriculomegaly likely ex vacuo dilation from central cerebral atrophy. Mild patchy burden of chronic small vessel ischemic disease. No acute intracranial abnormality seen. Patient is intubated. His ongoing air-fluid level left maxillary sinus that could reflect acute sinusitis. Background mild chronic paranasal sinus disease. Opacification of the mastoid air cells on both sides. Partial opacification of the middle ear cavity as well. Correlate to exclude otomastoiditis. Lumbar puncture was also negative. No major change in her neurologic functions. Suspect metabolic encephalopathy Acute aspiration pneumonia, treated Positive test for coronavirus infection, without evidence of coronavirus associated pneumonia, 05/02/22 Influenza A infection 05/02/22 Haemophilus influenza in the sputum currently on IV Rocephin End-stage renal disease, currently on hemodialysis History of CAD. History of CHF, normal LV function History of asthma. CAD with previous stent placement. Type 2 diabetes. Single epidose of atrial fibrillation, back to NSR Degenerative joint disease. Plan Clinically unchanged Family opted hospice care Proceed with hospice treatment Pulmonary critical care will sign off neurologic condition is still unchanged.
--- NOTE | 2022-05-15 15:14 | CDI ---
Documentation Clarification Form Date: 05/15/2022 2:44:11 PM From: Shalonda Magaña Phone: Admit Date: 04/27/2022 2:32:00 PM Patient Name: Suze Luna Visit Number: [id number] Discharge Date: 05/12/2022 3:12:00 PM ATTENTION: The Clinical Documentation Specialists (CDI) and [facility] Coding Staff appreciate your assistance in clarifying documentation. Please respond to the clarification below the line at the bottom and electronically sign. The CDI & [facility] Coding staff will review the response and follow-up if needed. Please note: Queries are made part of the Legal Health Record. If you have any questions, please contact the author of this message via ITS. Dr. Timoteo Wang Your patient has the documented diagnosis of history of CHF per ED Note and throughout the Progress Notes. Additional information regarding the type of CHF is requested. History/Risk Factors: 71yo F, AHRD, Acuteaspiration PNA, COVID, Influenza A, UTI, HTN, Haemophilusinfluenza, ESRD, DMII, CAD w stent, CHF, OA, COPD, toxic Met encephalopathy, 1 missed HD Clinical Indicators: VS/Pulse OX: 89% prior to ET Echocardiogram Results: Technically difficultstudyfor interpretation. Normal LV dimension and systolic function. Chest X Ray: Stable ET and NG. Persistentperipheral RLL increasedopacity. Developing left basilaropacitynoted. Stable mildcardiomegaly. Osseous structures are intact. Treatment: on Clopidogrel [Plavix] 75 mg Home dose In your professional opinion, can you please clarify the type of CHF if known? [ ] Chronic Systolic Heart Failure (reduced EF) [ x ] Chronic Diastolic Heart Failure (preserved EF) [ ] Chronic Systolic & Diastolic Heart Failure [ ] Other, please specify [ ] Unable to determine (Template Last Revised: June 2020) MTDD
--- NOTE | 2022-05-22 18:52 | CDI ---
Documentation Clarification Form Date: 05/22/2022 6:34:26 PM From: Shalonda Magaña Phone: Admit Date: 04/27/2022 2:32:00 PM Patient Name: Suze Luna Visit Number: [id number] Discharge Date: 05/12/2022 3:12:00 PM ATTENTION: The Clinical Documentation Specialists (CDI) and [facility] Coding Staff appreciate your assistance in clarifying documentation. Please respond to the clarification below the line at the bottom and electronically sign. The CDI & [facility] Coding staff will review the response and follow-up if needed. Please note: Queries are made part of the Legal Health Record. If you have any questions, please contact the author of this message via ITS. Dr. Leticia Ng Conflicting documentation has been found in the medical record. As attending physician, please provide clarification. Sepsisruled out per 05/02/22 Query Patient presented to hospital withsepsis per Internal Medicine Progress Note 05/12/22 History/Risk Factors: 71yo F, Influenza A, AH/HRF, ESRD,HTN, DMII,CHF,COPD, asp PNA, COVID Clinical Indicators: 71-year-old female found unresponsive,coughingwith green colored phlegm noted. General appearance: obtunded. Evidence of decorticate posturing 04/27 WBC: 17.3 BUN 44 CR 6.03 Sodium 136 Lactic acid 1.4, Troponin I 0.107 04/27 Blood cultures: No growth after 956 hours 04/27 Sputum:Haemophilus influenzae 04/27Vitals signs: 184/115 78 12 96.8 (AX) 89%RA Treatment: ICUMonitoring; Mechanical ventmonitoring(per pulmonary); Tamiflu 04/29-05/02; Keppra 500 MG IVPB @1800 04/29-05/02; Zosyn3.375 GM IVPB Q [id number]/24-7 Please clarify which diagnosis is most appropriate: [ ]SepsisPOA [ ]Sepsis, developed during admission but notPOA [ ]SepsisRuled out [ ] Other (please specify) [ ] Unable to determine (Template Last Revised: July 2020) i was not the attending physican for this patient MTDD
--- NOTE | 2022-05-25 12:49 | CDI ---
Documentation Clarification Form Date: 05/25/2022 12:45:10 PM From: Shalonda Magaña Admit Date: 04/27/2022 2:32:00 PM Patient Name: Suze Luna Visit Number: [id number] Discharge Date: 05/12/2022 3:12:00 PM ATTENTION: The Clinical Documentation Specialists (CDI) and [facility] Coding Staff appreciate your assistance in clarifying documentation. Please respond to the clarification below the line at the bottom and electronically sign. The CDI & [facility] Coding staff will review the response and follow-up if needed. Please note: Queries are made part of the Legal Health Record. If you have any questions, please contact the author of this message via ITS. Dr. Timoteo Wang Conflicting documentation has been found in the medical record.As attending physician, please provide clarification. Sepsisruled /27/22Query [facility] withsepsisper Internal Medicine Progress Note 05/12/22 History/Risk Factors: 71yo F,InfluenzaA, AH/HRF,ESRD,HTN,DMII,CHF,COPD, aspPNA,COVID Clinical Indicators: 71-year-old female found unresponsive,coughingwith green colored phlegm noted. General appearance: obtunded. Evidence of decorticate posturing 04/27 WBC: 17.3 BUN 44 CR 6.03 Sodium 136 Lactic acid 1.4, Troponin I 0.107 04/27 Blood cultures: No growth after 956 hours 04/27 Sputum:Haemophilus influenzae 04/27Vitals signs: 184/115 78 12 96.8 (AX) 89%RA Treatment: ICUMonitoring;Mechanical ventmonitoring(per pulmonary); Tamiflu 04/29-05/02; Keppra 500 MG IVPB @1800 04/29-05/02; Zosyn3.375 GM IVPB Q [id number] Please clarify which diagnosis is most appropriate: [ ]SepsisPOA [ ]Sepsis, developed during admission but notPOA [ ]SepsisRuled out [ ] Other (please specify) [ ] Unable to determine SepsisRuled out MTDD
== END 2022-05-12 15:12 | disposition hospice, inpatient (51) | DRG 207 ==
LOC: EC 12:37 → 2SICU 14:32 → 5NMEDONC 05-11 21:25
PROVIDERS: ADMIT Hospitalist; ATTEND Hospitalist
PROC: 5A1955Z Respiratory Ventilation, Greater than 96 Consecutive Hours (ICD-10-PCS; principal; 2022-04-27)
PROC: 0BH18EZ Insertion of Endotracheal Airway into Trachea, Via Natural or Artificial Opening Endoscopic (ICD-10-PCS; 2022-04-27)
PROC: 0D9670Z Drainage of Stomach with Drainage Device, Via Natural or Artificial Opening (ICD-10-PCS; 2022-04-27)
PROC: 03HY32Z Insertion of Monitoring Device into Upper Artery, Percutaneous Approach (ICD-10-PCS; 2022-04-28)
PROC: 4A133B1 Monitoring of Arterial Pressure, Peripheral, Percutaneous Approach (ICD-10-PCS; 2022-04-28)
PROC: 4A133J1 Monitoring of Arterial Pulse, Peripheral, Percutaneous Approach (ICD-10-PCS; 2022-04-28)
PROC: 06HY33Z Insertion of Infusion Device into Lower Vein, Percutaneous Approach (ICD-10-PCS; 2022-04-28)
PROC: 5A1D70Z Performance of Urinary Filtration, Intermittent, Less than 6 Hours Per Day (ICD-10-PCS; 2022-04-29)
PROC: 3E0G76Z Introduction of Nutritional Substance into Upper GI, Via Natural or Artificial Opening (ICD-10-PCS; 2022-04-30)
PROC: 009U3ZX Drainage of Spinal Canal, Percutaneous Approach, Diagnostic (ICD-10-PCS; 2022-05-09)
DX: U07.1 COVID-19 (principal); J69.0 Pneumonitis due to inhalation of food and vomit; J10.08 Influenza due to other identified influenza virus with other specified pneumonia; G92.8 Other toxic encephalopathy; N18.6 End stage renal disease; J15.9 Unspecified bacterial pneumonia; J96.02 Acute respiratory failure with hypercapnia; J96.01 Acute respiratory failure with hypoxia; J44.0 Chronic obstructive pulmonary disease with (acute) lower respiratory infection; I13.2 Hypertensive heart and chronic kidney disease with heart failure and with stage 5 chronic kidney disease, or end stage renal disease; G93.1 Anoxic brain damage, not elsewhere classified; E87.20 Acidosis, unspecified; G25.9 Extrapyramidal and movement disorder, unspecified; Z99.11 Dependence on respirator [ventilator] status; I50.32 Chronic diastolic (congestive) heart failure; N39.0 Urinary tract infection, site not specified; J98.11 Atelectasis; Z51.5 Encounter for palliative care; Z66 Do not resuscitate; D63.1 Anemia in chronic kidney disease; H70.91 Unspecified mastoiditis, right ear; G93.89 Other specified disorders of brain; E11.42 Type 2 diabetes mellitus with diabetic polyneuropathy; E11.22 Type 2 diabetes mellitus with diabetic chronic kidney disease; E11.65 Type 2 diabetes mellitus with hyperglycemia; I08.0 Rheumatic disorders of both mitral and aortic valves; Z99.2 Dependence on renal dialysis; I25.10 Atherosclerotic heart disease of native coronary artery without angina pectoris; R29.810 Facial weakness; H35.30 Unspecified macular degeneration; T88.4XXA Failed or difficult intubation, initial encounter; H51.8 Other specified disorders of binocular movement; M89.8X9 Other specified disorders of bone, unspecified site; K42.9 Umbilical hernia without obstruction or gangrene; M19.90 Unspecified osteoarthritis, unspecified site; E78.5 Hyperlipidemia, unspecified; B96.3 Hemophilus influenzae [H. influenzae] as the cause of diseases classified elsewhere; I48.0 Paroxysmal atrial fibrillation; R29.3 Abnormal posture; Z95.5 Presence of coronary angioplasty implant and graft; Z87.891 Personal history of nicotine dependence; Z79.899 Other long term (current) drug therapy; Z79.4 Long term (current) use of insulin; Z79.02 Long term (current) use of antithrombotics/antiplatelets; Z79.891 Long term (current) use of opiate analgesic
CPT/HCPCS: 31500; 36410; 36415; 36600; 70450; 70496; 70498; 70551; 71045; 76937; 80048; 80053; 80061; 80177; 81001; 82140; 82150; 82272; 82465; 82805; 82945; 83605; 83615; 84100; 84157; 84443; 84484; 85025; 85027; 85260; 85379; 85610; 85730; 86255; 86706; 87040; 87070; 87075; 87086; 87205; 87252; 87340; 87390; 87496; 87498; 87502; 87521; 87529; 87634; 87635; 87798; 89050; 90935; 93005; 93306; 94002; 94003; 94640; 94760; 95816; 95822; 96374; 99291

== ENCOUNTER 2022-05-12 11:47 | Inpatient (IN) | payer MEDICAID ==
[2022-05-12] MEDS ORDERED: MORPHINE SULFATE 2 MG/ML SYRINGE IV PRN (11:51)
[2022-05-12] MEDS ORDERED: ONDANSETRON 4 MG/2 ML VIAL IVP PRN (11:51)
[2022-05-12] MEDS ORDERED: ATROPINE OPHTH SOLN 1% 5ML BTL SUBLINGUAL PRN (11:51)
[2022-05-12] MEDS ORDERED: ACETAMINOPHEN SUPPOSITORY 650 MG SUPP RECTAL PRN (11:51)
[2022-05-12] MEDS ORDERED: GLYCOPYRROLATE 0.2 MG/ML 2 ML VIAL IVP PRN (11:51)
[2022-05-12] MEDS ORDERED: MORPHINE SULFATE 4 MG/ML SYRINGE IV PRN (11:51)
[2022-05-12] MEDS: MORPHINE SULFATE (100 MG/2 ML) 100 MG in SODIUM CHLORIDE 0.9% 100 ML IV SCH (16:27)
[2022-05-12] MEDS: SCOPOLAMINE 1 MG/72 HR PATCH TRANSDERM SCH (16:28)
[2022-05-12] MEDS: LORazepam 2 MG/ML INJ IV PRN (20:53)
--- NOTE | 2022-05-12 22:54 | PN ---
PROGRESS NOTE Attention: I am going to sign off this patient at this time. The patient has been transferred to [address] [place] [address] and is currently awaiting placement in hospice. I want to take this opportunity to thank you for allowing me to assist in the care of this patient. TIFFANY / JONO: [id number] /
[2022-05-13] MEDS: LORazepam 2 MG/ML INJ IV PRN (14:54)
--- NOTE | 2022-05-13 16:03 | P.HPIM ---
History of Present Illness H&P Date: 05/13/22 Chief Complaint: Altered mental status 71-year-old female patient with history of diabetes mellitus type 2, COPD, congestive heart failure and end-stage renal disease/HD, was brought to ED with a complaint of unresponsiveness which started 2 days prior to patient presenting to the hospital; patient was intubated and workup was positive for influenza A and Crohn's PCR along with evidence of aspiration pneumonia Patient was treated with IV antibiotics and did complete a course without much improvement in mental status; patient remained unresponsive; she was estrogen and continues to have numerous complications; once discussed with the family they decided to proceed with hospice care Review of Systems ROS unobtainable: due to mental status Past Medical History Past Medical History: Asthma, Coronary Artery Disease (CAD), Chest Pain / Angina, Heart Failure, COPD, Diabetes Mellitus, Eye Disorder, Osteoarthritis (OA), Renal Disease Additional Past Medical History / Comment(s): CURRENTLY ON HEMODIALYSIS ,,, [facility]. L4, L5 and C6 disc degeneration. Stage 4 kidney disease, hemodialysis. Rt great toe wound infection recurrent. Macular Degeneration, admitted on 04/27/22 with unresponsiveness/flu/covid, changed to inpatient hospice 05/12/22. History of Any Multi-Drug Resistant Organisms: None Reported Past Surgical History: Adenoidectomy, Appendectomy, Section, Heart Catheterization, Heart Catheterization With Stent, Hysterectomy, Tonsillectomy Additional Past Surgical History / Comment(s): Vein ligation right leg, catarcts removed bilaterally, intubated 04/27/22- extubated 05/03/22, HD fistula left forearm Past Anesthesia/Blood Transfusion Reactions: No Reported Reaction Date of Last Stent Placement:: FEBRUARY 2016, [facility] Past Psychological History: Depression Additional Psychological History / Comment(s): Has many animals and include multiple dogs cats into horses. Smoking Status: Former smoker Past Alcohol Use History: None Reported Additional Past Alcohol Use History / Comment(s): QUIT SMOKING ABOUT 25 YRS AGO, SMOKED 3/4 PPD. Past Drug Use History: None Reported - Past Family History Mother Family Medical History: Diabetes Mellitus, Hypertension Father Family Medical History: Diabetes Mellitus, Hypertension Medications and Allergies Home Medications Medication Instructions Recorded Confirmed Type Albuterol Sulfate [Proair Hfa] 1 - 2 puff INHALATION RT-Q6H PRN 09/13/15 04/27/22 History Pravastatin Sodium [Pravachol] 40 mg PO HS 09/13/15 04/27/22 History Clopidogrel [Plavix] 75 mg PO DAILY 07/22/20 04/27/22 History HYDROcodone/APAP 7.5-325MG [[place] 1 tab PO QID PRN 07/22/20 04/27/22 History 7.5-325] Metoprolol Tartrate [Lopressor] 100 mg PO BID 07/22/20 04/27/22 History Calcium Acetate [Phoslo] 1,334 mg PO TID-W/MEALS 09/27/20 04/27/22 History Ergocalciferol [Vitamin D2 (1250 1,250 mcg PO Q7D 09/27/20 04/27/22 History Mcg = 15685 Iu)] Gabapentin [Neurontin] 300 mg PO BID 09/27/20 04/27/22 History hydrALAZINE HCL [Apresoline] 25 mg PO BID PRN 09/27/20 04/27/22 History DULoxetine HCL [Cymbalta] 60 mg PO DAILY 04/27/22 04/27/22 History Doxycycline Hyclate 100 mg PO DIRECTED 04/27/22 04/27/22 History Furosemide [Lasix] 80 mg PO DAILY 04/27/22 04/27/22 History Insulin Glargine,Hum.rec.anlog 40 - 50 units SQ DAILY 04/27/22 04/27/22 History [Lantus Solostar Pen] Insulin Lispro [humaLOG Kwikpen] 0 - 30 unit SQ AC-TID 04/27/22 04/27/22 History Isosorbide Dinitrate 10 mg PO BID 04/27/22 04/27/22 History Lidocaine-Prilocaine Cream [Emla 1 applic TOPICAL DAILY PRN 04/27/22 04/27/22 History Cream 2.5%/2.5%] Montelukast [Singulair] 10 mg PO DAILY 04/27/22 04/27/22 History Nephro-Chelsey 1 tab PO DAILY 04/27/22 04/27/22 History Sevelamer [Renvela] 1,600 mg PO TID-W/MEALS 04/27/22 04/27/22 History Triamcinolone 0.025% Cream 1 applic TOPICAL BID PRN 04/27/22 04/27/22 History [Kenalog 0.025% Cream] predniSONE 10 mg PO DIRECTED 04/27/22 04/27/22 History Allergies Allergy/AdvReac Type Severity Reaction Status Date / Time No Known Allergies Allergy Verified 09/29/20 11:49 Physical Exam Vitals: Vital Signs Temp Pulse Resp BP Pulse Ox 05/12/22 20:45 79 15 05/12/22 20:00 97.0 F L 79 18 157/65 96 Intake and Output 05/12/22 05/13/22 05/13/22 22:59 06:59 14:59 Intake Total 4.59 10 Output Total 0 Balance 4.59 10 Intake: IV 10 0.9 NS 10 Intake, IV Titration 4.59 Amount Morphine Sulfate (100 mg/ 4.59 2 ml) 100 mg In Sodium Chloride 0.9% 100 ml @ 1 MG/HR 1.02 mls/hr IV . Q24H [facility] Rx#:[id number] Output: Post Void Residual 0 Other: # Voids 1 Weight 87.8 kg Poorly responsive. Looks comfortable HEENT examination is grossly unremarkable. Neck supple. Full range of motion. No adenopathy thyromegaly or neck vein distention. Cardiovascular examination reveals regular rhythm rate. S1-S2 normal. No S3 or S4. No discernible murmur noted. Heart sounds are distant. Heart rate 82 bpm. Lungs reveal coarse bilateral rhonchi. No wheezes or crackles. Breath sounds equal. Saturations are 97 %. Abdomen is soft, without bowel sounds. No masses or tenderness. Extremities are intact. No cyanosis clubbing or edema. Thrombosis Risk Factor Assmnt - Choose All That Apply Each Factor Represents 1 point: Medical pt on bed rest Each Risk Factor Represents 2 Points: Age 61-74 years Thrombosis Risk Factor Assessment Total Risk Factor Score: 3 Thrombosis Risk Factor Assessment Level: Moderate Risk Assessment and Plan Assessment: --Acute hypoxemic respiratory failure, of unclear etiology, S/P intubation on 04/27/2022, S/P extubation on 05/03/2022.She is currently on 2 liters/min, no signs of any respiratory distress and the blood gas showed no significant abnormalities and acid-base status. Subsequently, the patient has been switched to room air oxygen. --Encephalopathy/altered mentation. Consider the possibility of a CVA/seizure disorder. CT of the brain and the MRI of the brain are both negative for acute findings. Routine EEG is abnormal. The background slowing suggestive of moderate to severe encephalopathy. --Acute aspiration pneumonia, treated --Positive test for coronavirus infection, without evidence of coronavirus associated pneumonia, 05/02/22 --Influenza A infection 05/02/22 --Haemophilus influenza in the sputum currently on IV Rocephin --End-stage renal disease, currently on hemodialysis --History of CAD/CHF, normal LV function --History of asthma. --Type 2 diabetes. Patient has been admitted to hospice for pain and symptom management
[2022-05-13] MEDS: MORPHINE SULFATE (100 MG/2 ML) 100 MG in SODIUM CHLORIDE 0.9% 100 ML IV SCH (17:16)
[2022-05-13 21:03] VITALS: BP 158/70; PULSE 69; RESP 18; TEMP 98.9
[2022-05-14] MEDS: MORPHINE SULFATE (100 MG/2 ML) 100 MG in SODIUM CHLORIDE 0.9% 100 ML IV SCH (06:09)
[2022-05-14] MEDS: LORazepam 2 MG/ML INJ IV PRN (06:15)
--- NOTE | 2022-05-14 16:52 | P.PN ---
Subjective Progress Note Date: 05/14/22 71-year-old female patient with history of diabetes mellitus type 2, COPD, congestive heart failure and end-stage renal disease/HD, was brought to ED with a complaint of unresponsiveness which started 2 days prior to patient presenting to the hospital; patient was intubated and workup was positive for influenza A and Crohn's PCR along with evidence of aspiration pneumonia Patient was treated with IV antibiotics and did complete a course without much improvement in mental status; patient remained unresponsive; she was estrogen and continues to have numerous complications; once discussed with the family they decided to proceed with hospice care Objective - Vital Signs Vital signs: Vital Signs Temp 98.9 F 05/13/22 20:00 Pulse 69 05/13/22 20:00 Resp 18 05/13/22 20:00 BP 158/70 05/13/22 20:00 Pulse Ox 96 05/13/22 20:00 FiO2 Intake & Output 05/13/22 05/14/22 05/14/22 18:59 06:59 18:59 Intake Total 120 76.7 Balance 120 76.7 Intake: IV 120 0.9 NS 120 Intake, IV Titration 76.7 Amount Morphine Sulfate (100 mg/ 76.7 2 ml) 100 mg In Sodium Chloride 0.9% 100 ml @ 1 MG/HR 1.02 mls/hr IV . Q24H [facility] Rx#:[id number] Other: # Voids 0 - Exam Poorly responsive. Looks comfortable HEENT examination is grossly unremarkable. Neck supple. Full range of motion. No adenopathy thyromegaly or neck vein distention. Cardiovascular examination reveals regular rhythm rate. S1-S2 normal. No S3 or S4. No discernible murmur noted. Heart sounds are distant. Heart rate 82 bpm. Lungs reveal coarse bilateral rhonchi. No wheezes or crackles. Breath sounds equal. Saturations are 97 %. Abdomen is soft, without bowel sounds. No masses or tenderness. Extremities are intact. No cyanosis clubbing or edema. Assessment and Plan Assessment: --Acute hypoxemic respiratory failure, of unclear etiology, S/P intubation on 04/27/2022, S/P extubation on 05/03/2022.She is currently on 2 liters/min, no signs of any respiratory distress and the blood gas showed no significant abnormalities and acid-base status. Subsequently, the patient has been switched to room air oxygen. --Encephalopathy/altered mentation. Consider the possibility of a CVA/seizure disorder. CT of the brain and the MRI of the brain are both negative for acute findings. Routine EEG is abnormal. The background slowing suggestive of moderate to severe encephalopathy. --Acute aspiration pneumonia, treated --Positive test for coronavirus infection, without evidence of coronavirus associated pneumonia, 05/02/22 --Influenza A infection 05/02/22 --Haemophilus influenza in the sputum currently on IV Rocephin --End-stage renal disease, currently on hemodialysis --History of CAD/CHF, normal LV function --History of asthma. --Type 2 diabetes. Patient has been admitted to hospice for pain and symptom management
[2022-05-15] MEDS: MORPHINE SULFATE (100 MG/2 ML) 100 MG in SODIUM CHLORIDE 0.9% 100 ML IV SCH (06:26)
[2022-05-15] MEDS: SCOPOLAMINE 1 MG/72 HR PATCH TRANSDERM SCH (11:50)
--- NOTE | 2022-05-15 12:14 | P.PN ---
Subjective 71-year-old female patient with history of diabetes mellitus type 2, COPD, congestive heart failure and end-stage renal disease/HD, was brought to ED with a complaint of unresponsiveness which started 2 days prior to patient presenting to the hospital; patient was intubated and workup was positive for influenza A and Crohn's PCR along with evidence of aspiration pneumonia Patient was treated with IV antibiotics and did complete a course without much improvement in mental status; patient remained unresponsive; she was estrogen and continues to have numerous complications; once discussed with the family they decided to proceed with hospice care 05/15/2022 patient comfortable in bed, Unresponsive Sitter/volunteer at bedside discussed with staff, patient currently under hospice care, and he'll keep in the hospital for an Objective - Vital Signs Vital signs: Vital Signs Temp 98.9 F 05/13/22 20:00 Pulse 69 05/15/22 08:00 Resp 18 05/15/22 08:00 BP 158/70 05/13/22 20:00 Pulse Ox 96 05/13/22 20:00 FiO2 Intake & Output 05/14/22 05/15/22 05/15/22 18:59 06:59 18:59 Intake Total 120 97.133 Balance 120 97.133 Intake: IV 120 0.9 NS 120 Intake, IV Titration 97.133 Amount Morphine Sulfate (100 mg/ 97.133 2 ml) 100 mg In Sodium Chloride 0.9% 100 ml @ 1 MG/HR 1.02 mls/hr IV . Q24H [facility] Rx#:[id number] Other: # Voids 0 - Exam -GENERAL: The patient is sleepy and comfortable does not answer question or follow commands, HEENT: Pupils are round and equally reacting to light. EOMI. No scleral icterus. No conjunctival pallor. Normocephalic, atraumatic. No pharyngeal erythema. No thyromegaly. CARDIOVASCULAR: S1 and S2 present. No murmurs, rubs, or gallops. PULMONARY: Chest is clear to auscultation, no wheezing or crackles. ABDOMEN: Soft, nontender, nondistended, normoactive bowel sounds. No palpable organomegaly. MUSCULOSKELETAL: No joint swelling or deformity. EXTREMITIES: No cyanosis, clubbing, or pedal edema. NEUROLOGICAL: Gross neurological examination did not reveal any focal deficits. SKIN: No rashes. no petechiae. Assessment and Plan Assessment: --Acute hypoxemic respiratory failure, of unclear etiology, S/P intubation on 04/27/2022, S/P extubation on 05/03/2022.She is currently on 2 liters/min, no signs of any respiratory distress and the blood gas showed no significant abnormalities and acid-base status. Subsequently, the patient has been switched to room air oxygen. Per family request patient under hospice care not --Encephalopathy/altered mentation. Consider the possibility of a CVA/seizure disorder. CT of the brain and the MRI of the brain are both negative for acute findings. Routine EEG is abnormal. The background slowing suggestive of moderate to severe encephalopathy. --Acute aspiration pneumonia, treated --Positive test for coronavirus infection, without evidence of coronavirus associated pneumonia, 05/02/22 --Influenza A infection 05/02/22 --Haemophilus influenza in the sputum currently on IV Rocephin --End-stage renal disease, currently on hemodialysis --History of CAD/CHF, normal LV function --History of asthma. --Type 2 diabetes. CODE STATUS. I discussed with the son Mr. Bowden and he confirmed to me she is Patient has been admitted to hospice for pain and symptom management
== END 2022-05-15 16:42 | disposition expired | DRG 951 ==
LOC: 5NMEDONC 15:28
PROVIDERS: ADMIT Internal Medicine; ATTEND Internal Medicine
DX: Z51.5 Encounter for palliative care (principal); N18.6 End stage renal disease; J69.0 Pneumonitis due to inhalation of food and vomit; J10.08 Influenza due to other identified influenza virus with other specified pneumonia; J96.01 Acute respiratory failure with hypoxia; G93.40 Encephalopathy, unspecified; F32.A Depression, unspecified; I25.10 Atherosclerotic heart disease of native coronary artery without angina pectoris; I50.9 Heart failure, unspecified; J44.9 Chronic obstructive pulmonary disease, unspecified; E11.22 Type 2 diabetes mellitus with diabetic chronic kidney disease; Z79.02 Long term (current) use of antithrombotics/antiplatelets; Z79.4 Long term (current) use of insulin; Z79.899 Other long term (current) drug therapy; Z87.891 Personal history of nicotine dependence; Z90.710 Acquired absence of both cervix and uterus; Z99.2 Dependence on renal dialysis; Z20.822 Contact with and (suspected) exposure to COVID-19